=== PATIENT | male | born 1950 | race Caucasian/White ===

== ENCOUNTER → 2016-07-02 | Outpatient (CLI) | payer MEDICARE, OTHER ==
[2016-07-02 13:52] LABS: Calcium 9.4 mg/dL (8.4-10.2); Potassium 4.8 mmol/L (3.5-5.1); Total Bilirubin 1.3 mg/dL (0.2-1.3); Total Protein 7.5 g/dL (6.3-8.2)
== END | disposition home or self-care (01) ==
LOC: LABWHC1 13:01
PROVIDERS: ATTEND Nurse Practitioner Family
DX: N18.3 Chronic kidney disease, stage 3 (moderate) (principal)
CPT/HCPCS: 36415; 80053

== ENCOUNTER → 2016-12-03 | Outpatient (CLI) | payer MEDICARE, OTHER ==
--- NOTE | 2016-12-03 11:34 | US ---
EXAMINATION TYPE: US kidneys/renal and bladder DATE OF EXAM: 12/03/2016 COMPARISON: US CLINICAL HISTORY: N18.3 CKD Stage 3. EXAM MEASUREMENTS: Right Kidney: 11.2 x 5.6 x 5.2 cm Left Kidney: 11.2 x 5.5 x 6.0 cm Obese patient using c pap, making exam technically difficult Right Kidney: No hydronephrosis or masses seen Left Kidney: exophytic cyst off of upper pole measuring 2.1 x 2.2 x 2.0 cm Bladder: wnl There is no evidence for hydronephrosis at this point in time. No nephrolithiasis is seen. Simple ap pearing cyst arising from the upper pole of the left kidney. The urinary bladder is anechoic. Bilate ral ureteral jets are seen. IMPRESSION: Left renal cyst.
[2016-12-03 12:02] LABS: CH 29.2; CHCM 31.2; HDW 2.61; HGB 19.8 gm/dL (13.0-17.5); Hypochromasia Slight; MCH 29.3 pg (25.0-35.0); MCHC 31.1 g/dL (31.0-37.0); MCV 94.1 fL (80.0-100.0); Mean Platelet Volume 7.2; RBC 6.77 m/uL (4.30-5.90); RDW 14.2 % (11.5-15.5); WBC 7.8 k/uL (3.8-10.6)
[2016-12-03 12:35] LABS: Appearance,Urine Clear (Clear); Bilirubin,Urine Negative (Negative); Glucose,Urine (UA) Negative (Negative); Ketones,Urine Negative (Negative); Leukocyte Esterase,Urine Negative (Negative); Nitrite,Urine Negative (Negative); PH, Urine 6.5 (5.0-8.0); Protein,Urine Negative (Negative); Specific Gravity,Urine 1.005 (1.001-1.035); UA Billing (MACRO vs. MICRO) CHEM; Urobilinogen,Urine <2.0 mg/dL (<2.0)
[2016-12-03 13:11] LABS: HCT 63.7 % (39.0-53.0)
[2016-12-03 13:12] LABS: Calcium 9.7 mg/dL (8.4-10.2); Magnesium 2.1 mg/dL (1.6-2.3); Phosphorous 3.5 mg/dL (2.5-4.5); Potassium 4.9 mmol/L (3.5-5.1); Total Bilirubin 1.2 mg/dL (0.2-1.3); Total Protein 7.7 g/dL (6.3-8.2); Uric Acid 4.2 mg/dL (3.5-8.5)
[2016-12-03 13:21] LABS: % Iron Saturation 19.1 % (20-50)
[2016-12-03 18:40] LABS: Urine Creatinine 17.7 mg/dL
== END | disposition home or self-care (01) ==
LOC: RADUSWWP 10:44
PROVIDERS: ATTEND Internal Medicine Nephrology
DX: N28.1 Cyst of kidney, acquired (principal); N18.3 Chronic kidney disease, stage 3 (moderate); E79.0 Hyperuricemia without signs of inflammatory arthritis and tophaceous disease; N25.81 Secondary hyperparathyroidism of renal origin; D64.9 Anemia, unspecified; N39.0 Urinary tract infection, site not specified; R80.9 Proteinuria, unspecified
CPT/HCPCS: 36415; 76770; 80053; 81003; 82043; 82306; 82570; 82728; 83540; 83550; 83735; 83970; 84100; 84550; 85027

== ENCOUNTER → 2016-12-18 | Outpatient (CLI) | payer MEDICARE, OTHER ==
[2016-12-18 14:01] LABS: Basophils % (A) 1 %; CH 29.1; CHCM 30.7; Eosinophils # (A) 0.2 k/uL (0-0.7); Eosinophils % (A) 3 %; HDW 2.59; HGB 18.7 gm/dL (13.0-17.5); Hypochromasia Moderate; Luc # (Auto) 0.13; Luc % (Auto) 2; Lymphocytes # (A) 1.7 k/uL (1.0-4.8); Lymphocytes % (A) 25 %; MCHC 30.4 g/dL (31.0-37.0); MCV 95.4 fL (80.0-100.0); Monocytes # (A) 0.4 k/uL (0-1.0); Monocytes % (A) 6 %; Neutrophils # (A) 4.3 k/uL (1.3-7.7); Neutrophils % (A) 64 %; RBC 6.44 m/uL (4.30-5.90); RDW 13.9 % (11.5-15.5); WBC 6.7 k/uL (3.8-10.6); WBC (Perox) 6.89
[2016-12-18 14:05] LABS: HCT 61.5 % (39.0-53.0)
== END | disposition home or self-care (01) ==
LOC: LABWHC1 13:24
PROVIDERS: ATTEND Internal Medicine Nephrology
DX: N18.3 Chronic kidney disease, stage 3 (moderate) (principal); D63.1 Anemia in chronic kidney disease
CPT/HCPCS: 36415; 85025

== ENCOUNTER → 2018-01-06 | Outpatient (CLI) | payer MEDICARE, OTHER ==
[2018-01-06 12:47] LABS: Basophils % (A) 0 %; Eosinophils # (A) 0.2 k/uL (0-0.7); Eosinophils % (A) 3 %; HGB 18.4 gm/dL (13.0-17.5); Hypochromasia Slight; Lymphocytes # (A) 2.4 k/uL (1.0-4.8); Lymphocytes % (A) 34 %; MCH 29.5 pg (25.0-35.0); MCHC 30.9 g/dL (31.0-37.0); MCV 95.7 fL (80.0-100.0); Mean Platelet Volume 6.8; Monocytes # (A) 0.4 k/uL (0-1.0); Monocytes % (A) 5 %; Neutrophils # (A) 3.8 k/uL (1.3-7.7); Neutrophils % (A) 56 %; Platelet Count 180 k/uL (150-450); RBC 6.25 m/uL (4.30-5.90); RDW 13.1 % (11.5-15.5); WBC 6.9 k/uL (3.8-10.6)
[2018-01-06 12:48] LABS: Appearance,Urine Clear (Clear); Bilirubin,Urine Negative (Negative); Blood,Urine Negative (Negative); Color,Urine Yellow; Glucose,Urine (UA) Negative (Negative); Ketones,Urine Negative (Negative); Leukocyte Esterase,Urine Negative (Negative); Nitrite,Urine Negative (Negative); PH, Urine 5.5 (5.0-8.0); Protein,Urine Negative (Negative)
[2018-01-06 12:49] LABS: HCT 59.8 % (39.0-53.0)
[2018-01-06 13:12] LABS: Calcium 9.1 mg/dL (8.4-10.2); Magnesium 2.1 mg/dL (1.6-2.3); Phosphorus 4.2 mg/dL (2.5-4.5); Potassium 5.2 mmol/L (3.5-5.1); Uric Acid 4.1 mg/dL (3.5-8.5)
[2018-01-06 18:34] LABS: Parathyroid Hormone Intact 265.3 pg/mL (14.0-72.0)
[2018-01-06 18:47] LABS: Iron Saturation 18.56 (15.00-50.00)
[2018-01-06 18:56] LABS: Vitamin D 25 Hydroxy 34.1 ng/mL (30.0-100.0)
== END | disposition home or self-care (01) ==
LOC: LABWHC1 12:08
PROVIDERS: ATTEND Internal Medicine Nephrology
DX: N18.3 Chronic kidney disease, stage 3 (moderate) (principal); D63.1 Anemia in chronic kidney disease; E55.9 Vitamin D deficiency, unspecified; M10.9 Gout, unspecified; N39.0 Urinary tract infection, site not specified
CPT/HCPCS: 36415; 80048; 81003; 82306; 82728; 83540; 83550; 83735; 83970; 84100; 84550; 85025

== ENCOUNTER → 2018-04-25 | Outpatient (CLI) | payer MEDICARE ==
--- NOTE | 2018-04-25 14:27 | XR ---
"EXAMINATION TYPE: XR toes LT DATE OF EXAM: 04/25/2018 COMPARISON: NONE HISTORY: Nonhealing wound TECHNIQUE: 2 views are submitted FINDINGS: There is a destructive process involving the proximal phalanx and distal phalanx fifth digi t. Erosive changes involving the head of the fourth and third metatarsals also noted. Diffuse soft ti ssue edema noted. IMPRESSION: Destructive change involving the fifth digit compatible with osteomyelitis. Involvement o f the fourth digit not excluded correlate with bone scan as clinically warranted. A Yellow level critical message alert has been initiated for Raghav Mitchell MD via the [employer] 36 0 | Critical Results System on 04/25/2018 2:25 PM. This message alert has been sent to Raghav Mitchell MD via the preferences provided by the clinician for the receipt of Radiology Critical Findings. [facility] ID [id number]."
== END | disposition home or self-care (01) ==
LOC: RADXRMAIN 13:03
PROVIDERS: ATTEND Surgery Vascular Surgery
DX: M86.8X8 Other osteomyelitis, other site (principal)

== ENCOUNTER 2021-09-11 10:35 | Inpatient (IN) | payer MEDICARE ==
--- NOTE | 2021-09-11 14:02 | ED ---
General Adult HPI - General Chief complaint: Neuro Symptoms/Deficit Stated complaint: Slurred speech Time Seen by Provider: 09/11/21 13:38 Source: patient, family, RN notes reviewed Mode of arrival: wheelchair Limitations: no limitations - History of Present Illness Initial comments: Patient is a pleasant 71-year-old male presenting to the emergency department with concerns for slurred speech. Symptoms have been intermittent over the past 3 days. Yesterday was worse today. Patient does have some nausea. Patient denies any headache. No confusion. No arm or leg weakness. No history of similar symptoms previously. No new visual changes. - Related Data Home Medications Medication Instructions Recorded Confirmed glipiZIDE [Glucotrol] 5 mg PO BID 05/23/15 08/17/21 Ascorbic Acid [Vitamin C] 1,000 mg PO DAILY 08/17/21 08/17/21 Cholecalciferol [Vitamin D3 (25 25 mcg PO DAILY 08/17/21 08/17/21 Mcg = 1000 Iu)] Furosemide [Lasix] 40 mg PO BID 08/17/21 08/17/21 Insulin Lispro [humaLOG Kwikpen] See Protocol SQ AC-TID PRN 08/17/21 08/17/21 Previous Rx's Medication Instructions Recorded Acetaminophen Tab [Tylenol] 650 mg PO Q6HR PRN tab 08/23/21 Famotidine [Pepcid] 20 mg PO DAILY #30 tab 08/23/21 Insulin Glargine [Lantus Vial] 18 unit SQ HS@2300 #15 units 08/23/21 Losartan [Cozaar] 50 mg PO DAILY #30 tab 08/23/21 Nystatin 100,000 Unit/gm Powd 1 applic TOPICAL BID #1 each 08/23/21 [Mycostatin Powder] Allergies Allergy/AdvReac Type Severity Reaction Status Date / Time allopurinol Allergy Rash/Hives Verified 08/17/21 17:21 Review of Systems ROS Statement: Those systems with pertinent positive or pertinent negative responses have been documented in the HPI. ROS Other: All systems not noted in ROS Statement are negative. Constitutional: Denies: fever Eyes: Denies: eye pain ENT: Denies: ear pain Respiratory: Denies: cough, dyspnea Cardiovascular: Denies: chest pain Endocrine: Denies: fatigue Gastrointestinal: Denies: abdominal pain Genitourinary: Denies: dysuria Musculoskeletal: Denies: back pain Skin: Denies: rash Neurological: Reports: as per HPI. Denies: headache, weakness, numbness, paresthesias, confusion Past Medical History Past Medical History: Heart Failure, Diabetes Mellitus Additional Past Medical History / Comment(s): 10/04/14 Pt presented to [facility] ER with infection L lower leg for approximately one week. He saw his kerfer machine operator who swabbed the area and placed him on Keflex 3 days ago without improvement. Hehasfever and chills. He is being admitted with cellulitis. Other HX: IDDM type II, CKD, PVD, diabetic neuropathy, diabetic retinopathy, pulmonary HTN, pulmonary fibrosis, KIERA with BiPap use,severearthiritis-psoriatic and rheumatoid, osteomyelitis L lower extremity 2005 or 2006, gout, gastritis, sinus problems, cholestatic jaundice 2008 (pt had cholecystectomy 2009), abscess perirectalandscrotal 2003, L shoulder bursitis treated with steroid injections. History of Any Multi-Drug Resistant Organisms: MRSA Date of last positivie culture/infection: 08/18/21 MDRO Source:: Right Foot Past Surgical History: Cholecystectomy Additional Past Surgical History / Comment(s): cataract, Lt 2nd toe amputation Past Anesthesia/Blood Transfusion Reactions: No Reported Reaction Additional Past Anesthesia/Blood Transfusion Reaction / Comment(s): Pt has never recieved blood. Past Psychological History: No Psychological Hx Reported Smoking Status: Never smoker Past Alcohol Use History: Occasional Past Drug Use History: None Reported - Past Family History Father Family Medical History: Cancer, Renal Disease Additional Family Medical History / Comment(s): Father had one kidney removed. Mother Family Medical History: Diabetes Mellitus, Vascular Disorder General Exam Limitations: no limitations General appearance: alert, in no apparent distress Head exam: Present: normocephalic Eye exam: Present: normal appearance, PERRL, EOMI ENT exam: Present: normal oropharynx Neck exam: Present: normal inspection Respiratory exam: Present: normal lung sounds bilaterally Cardiovascular Exam: Present: regular rate, normal rhythm GI/Abdominal exam: Present: soft. Absent: tenderness Extremities exam: Present: normal inspection Neurological exam: Present: alert, oriented X3, CN II-XII intact, other (Patient did have one episode of a few slurred words that lasted around 5 or 6 seconds.). Absent: motor sensory deficit Psychiatric exam: Present: normal affect, normal mood Skin exam: Present: normal color Course Vital Signs 09/11/21 09/11/21 09/11/21 10:35 15:32 15:38 Temperature 98.7 F Pulse Rate 66 77 Respiratory 16 18 Rate Blood Pressure 165/66 194/91 177/75 O2 Sat by Pulse 97 96 Oximetry - Reevaluation(s) Reevaluation #1: 09/11/21 13:57 Patient is nervous regarding lying down for computed tomography scan. Patient states he was CPAP at home. Patient is agreeable to attempt computed tomography scan on his right side using BiPAP. EKG Findings - EKG Comments: EKG Findings:: Sinus bradycardia 58. First-degree AV block WA of 328. QRS 104. QT 417. QTC 414. Left axis. Poor R-wave progression. No acute ST change. Medical Decision Making - Medical Decision Making Patient reevaluated. Patient and family updated. Case discussed with Dr. Liz, who will admit his patient. - Lab Data Result diagrams: 09/11/21 14:17 09/11/21 14:17 Lab Results 09/11/21 09/11/21 09/11/21 Range/Units 14:17 14:17 14:17 WBC 7.9 (3.8-10.6) k/uL RBC 5.12 (4.30-5.90) m/uL Hgb 16.0 (13.0-17.5) gm/dL Hct 48.1 (39.0-53.0) % MCV 93.9 (80.0-100.0) fL MCH 31.2 (25.0-35.0) pg MCHC 33.2 (31.0-37.0) g/dL RDW 14.5 (11.5-15.5) % Plt Count 179 (150-450) k/uL MPV 7.6 Neutrophils % 77 % Lymphocytes % 16 % Monocytes % 4 % Eosinophils % 1 % Basophils % 0 % Neutrophils # 6.1 (1.3-7.7) k/uL Lymphocytes # 1.3 (1.0-4.8) k/uL Monocytes # 0.3 (0-1.0) k/uL Eosinophils # 0.1 (0-0.7) k/uL Basophils # 0.0 (0-0.2) k/uL PT 11.8 (9.0-12.0) sec INR 1.1 (<1.2) APTT 31.5 H (22.0-30.0) sec Sodium 137 (137-145) mmol/L Potassium 5.7 H (3.5-5.1) mmol/L Chloride 99 (98-107) mmol/L Carbon Dioxide 26 (22-30) mmol/L Anion Gap 12 mmol/L BUN 68 H (9-20) mg/dL Creatinine 3.77 H (0.66-1.25) mg/dL Est GFR (CKD-EPI)AfAm 18 (>60 ml/min/1.73 sqM) Est GFR (CKD-EPI)NonAf 15 (>60 ml/min/1.73 sqM) Glucose 178 H (74-99) mg/dL Calcium 9.2 (8.4-10.2) mg/dL Total Bilirubin 1.3 (0.2-1.3) mg/dL AST 50 (17-59) U/L ALT 30 (4-49) U/L Alkaline Phosphatase 109 (38-126) U/L Troponin I (0.000-0.034) ng/mL Total Protein 8.3 H (6.3-8.2) g/dL Albumin 4.1 (3.5-5.0) g/dL 09/11/21 Range/Units 14:17 WBC (3.8-10.6) k/uL RBC (4.30-5.90) m/uL Hgb (13.0-17.5) gm/dL Hct (39.0-53.0) % MCV (80.0-100.0) fL MCH (25.0-35.0) pg MCHC (31.0-37.0) g/dL RDW (11.5-15.5) % Plt Count (150-450) k/uL MPV Neutrophils % % Lymphocytes % % Monocytes % % Eosinophils % % Basophils % % Neutrophils # (1.3-7.7) k/uL Lymphocytes # (1.0-4.8) k/uL Monocytes # (0-1.0) k/uL Eosinophils # (0-0.7) k/uL Basophils # (0-0.2) k/uL PT (9.0-12.0) sec INR (<1.2) APTT (22.0-30.0) sec Sodium (137-145) mmol/L Potassium (3.5-5.1) mmol/L Chloride (98-107) mmol/L Carbon Dioxide (22-30) mmol/L Anion Gap mmol/L BUN (9-20) mg/dL Creatinine (0.66-1.25) mg/dL Est GFR (CKD-EPI)AfAm (>60 ml/min/1.73 sqM) Est GFR (CKD-EPI)NonAf (>60 ml/min/1.73 sqM) Glucose (74-99) mg/dL Calcium (8.4-10.2) mg/dL Total Bilirubin (0.2-1.3) mg/dL AST (17-59) U/L ALT (4-49) U/L Alkaline Phosphatase (38-126) U/L Troponin I 0.018 (0.000-0.034) ng/mL Total Protein (6.3-8.2) g/dL Albumin (3.5-5.0) g/dL - Radiology Data Radiology results: report reviewed (Computed tomography scan of the brain shows atrophy and chronic small vessel changes without acute process.), image reviewed (Chest x-ray shows no acute process.) Disposition Clinical Impression: Transient cerebral ischemia, Acute on chronic renal failure Disposition: ADMITTED IP TO THIS HOSP Is patient prescribed a controlled substance at d/c from ED?: No Referrals: Lazaro Liz MD [Primary Care Provider] - 1-2 days Time of Disposition: 16:48
[2021-09-11 14:41] LABS: Basophils % (A) 0 %; Eosinophils # (A) 0.1 k/uL (0-0.7); Eosinophils % (A) 1 %; HCT 48.1 % (39.0-53.0); Lymphocytes # (A) 1.3 k/uL (1.0-4.8); Lymphocytes % (A) 16 %; MCH 31.2 pg (25.0-35.0); MCHC 33.2 g/dL (31.0-37.0); MCV 93.9 fL (80.0-100.0); Mean Platelet Volume 7.6; Monocytes # (A) 0.3 k/uL (0-1.0); Monocytes % (A) 4 %; Neutrophils # (A) 6.1 k/uL (1.3-7.7); Neutrophils % (A) 77 %; Platelet Count 179 k/uL (150-450); RBC 5.12 m/uL (4.30-5.90); RDW 14.5 % (11.5-15.5); WBC 7.9 k/uL (3.8-10.6)
[2021-09-11] MEDS ORDERED: ONDANSETRON 4 MG/2 ML VIAL IVP STA (14:43)
[2021-09-11 14:58] LABS: INR 1.1 (<1.2); Partial Thromboplastin Time 31.5 sec (22.0-30.0); Prothrombin Time 11.8 sec (9.0-12.0)
[2021-09-11 15:15] LABS: Albumin 4.1 g/dL (3.5-5.0); Calcium 9.2 mg/dL (8.4-10.2); Potassium 5.7 mmol/L (3.5-5.1); Total Bilirubin 1.3 mg/dL (0.2-1.3); Total Protein 8.3 g/dL (6.3-8.2)
--- NOTE | 2021-09-11 16:10 | CT ---
EXAMINATION TYPE: CT brain wo con DATE OF EXAM: 09/11/2021 COMPARISON: None HISTORY: Slurred speech, vomiting. CT DLP: 1094.[address] of the brain was performed. The ventricles, basal cisterns and sulci overlying the cerebral convexities demonstrate mild enlargem ent. There is no evidence for intracranial hemorrhage or sulcal effacement. There is decreased attenuation about the periventricular white matter and deep white matter of both c erebral hemispheres, compatible with chronic small vessel ischemia. Differential diagnosis does inclu de demyelination. No mass effects are seen.No midline shift. Osseous calvarium is intact. If symptoms persist consider MRI. IMPRESSION: 1. Age related atrophic and chronic small vessel ischemic change without acute intracranial process s een at this time.
--- NOTE | 2021-09-11 16:11 | XR ---
EXAMINATION TYPE: XR chest 2V DATE OF EXAM: 09/11/2021 COMPARISON: 07/01/2012 HISTORY: Shortness of breath TECHNIQUE: Frontal and lateral views of the chest are obtained. FINDINGS: Scattered senescent parenchymal changes noted. Hyperinflation compatible with COPD. No evidence for infiltrate. No evidence for atelectasis. Heart size is stable. Mediastinal structures are stable and grossly unremarkable. No evidence for hilar prominence. Degenerative changes dorsal spine. IMPRESSION: 1. No evidence for acute pulmonary disease.
[2021-09-11] MEDS ORDERED: ASPIRIN 325 MG TAB PO STA (16:48)
[2021-09-11] MEDS: SODIUM CHLORIDE 0.9% 1,000 ML IV SCH (17:58)
[2021-09-12] MEDS: SODIUM CHLORIDE 0.9% 1,000 ML IV SCH ×3 (05:23→23:33)
[2021-09-12 05:51] LABS: Glucose,Whole Blood 125 mg/dL (75-99)
[2021-09-12] MEDS ORDERED: LOSARTAN 50 MG TAB PO SCH (09:00)
[2021-09-12] MEDS ORDERED: ASPIRIN 325 MG TAB PO SCH (09:00)
[2021-09-12 09:04] LABS: African American GFR (CKD) 15 (>60 ml/min/1.73 sqM); Anion Gap 14 mmol/L; Blood Urea Nitrogen 77 mg/dL (9-20); Calcium 8.7 mg/dL (8.4-10.2); Carbon Dioxide 22 mmol/L (22-30); Chloride 101 mmol/L (98-107); Glucose 113 mg/dL (74-99); Non-African American GFR(CKD) 13 (>60 ml/min/1.73 sqM); Potassium 5.1 mmol/L (3.5-5.1); Sodium 137 mmol/L (137-145)
--- NOTE | 2021-09-12 09:21 | P.HPIM ---
History of Present Illness H&P Date: 09/12/21 Chief Complaint: Slurred speech This is a history and physical on a 71-year-old white male who has an underlying history of heart failure with diabetes. Underlying history of neuropathy retinopathy pulmonary hypertension with pulmonary fibrosis. Significant history of vasculitis in the past. The patient stated yesterday slurred speech to the point where his family was having difficulty understanding him. No swallowing difficulties. No shortness of breath that was overt. The patient has CPAP device. He is seen this morning with improvement. Speech is seemingly clear. Review of Systems Constitutional: Denies chills, Denies fever Ears, nose, mouth and throat: Denies headache, Denies sore throat Cardiovascular: Denies chest pain, Denies shortness of breath Respiratory: Reports home oxygen, Denies cough Gastrointestinal: Denies abdominal pain, Denies diarrhea, Denies nausea, Denies vomiting Musculoskeletal: Denies myalgias Integumentary: Denies pruritus, Denies rash Past Medical History Past Medical History: Heart Failure, Diabetes Mellitus Additional Past Medical History / Comment(s): 10/04/14 Pt presented to [facility] ER with infection L lower leg for approximately one week. He saw his city administrator who swabbed the area and placed him on Keflex 3 days ago without improvement. Hehasfever and chills. He is being admitted with cellulitis. Other HX: IDDM type II, CKD, PVD, diabetic neuropathy, diabetic retinopathy, pulmonary HTN, pulmonary fibrosis, KIERA with BiPap use,severearthiritis-psoriatic and rheumatoid, osteomyelitis L lower extremity 2005 or 2006, gout, gastritis, sinus problems, cholestatic jaundice 2008 (pt had cholecystectomy 2009), abscess perirectalandscrotal 2003, L shoulder bursitis treated with steroid injections. History of Any Multi-Drug Resistant Organisms: MRSA Date of last positivie culture/infection: 08/18/21 MDRO Source:: Right Foot Past Surgical History: Cholecystectomy Additional Past Surgical History / Comment(s): cataract, Lt 2nd toe amputation Past Anesthesia/Blood Transfusion Reactions: No Reported Reaction Additional Past Anesthesia/Blood Transfusion Reaction / Comment(s): Pt has never recieved blood. Past Psychological History: No Psychological Hx Reported Smoking Status: Never smoker Past Alcohol Use History: Occasional Past Drug Use History: None Reported - Past Family History Father Family Medical History: Cancer, Renal Disease Additional Family Medical History / Comment(s): Father had one kidney removed. Mother Family Medical History: Diabetes Mellitus, Vascular Disorder Medications and Allergies Home Medications Medication Instructions Recorded Confirmed Type glipiZIDE [Glucotrol] 5 mg PO BID 05/23/15 09/11/21 History Ascorbic Acid [Vitamin C] 1,000 mg PO DAILY 08/17/21 09/11/21 History Cholecalciferol [Vitamin D3 (25 25 mcg PO DAILY 08/17/21 09/11/21 History Mcg = 1000 Iu)] Furosemide [Lasix] 40 mg PO BID 08/17/21 09/11/21 History Insulin Lispro [humaLOG Kwikpen] See Protocol SQ AC-TID PRN 08/17/21 09/11/21 History Acetaminophen Tab [Tylenol] 650 mg PO Q6HR PRN tab 08/23/21 09/11/21 Rx Famotidine [Pepcid] 20 mg PO DAILY #30 tab 08/23/21 09/11/21 Rx Losartan [Cozaar] 50 mg PO DAILY #30 tab 08/23/21 09/11/21 Rx Nystatin 100,000 Unit/gm Powd 1 applic TOPICAL BID #1 each 08/23/21 09/11/21 Rx [Mycostatin Powder] Insulin Glargine [Lantus Vial] 15 unit SQ HS@2300 09/11/21 09/11/21 History Allergies Allergy/AdvReac Type Severity Reaction Status Date / Time allopurinol Allergy Rash/Hives Verified 09/11/21 17:01 Physical Exam Vitals: Vital Signs Temp Pulse Resp BP Pulse Ox 09/12/21 03:54 97.0 F L 71 20 126/69 95 09/12/21 02:00 68 18 09/12/21 00:00 74 18 116/57 99 09/11/21 21:39 80 20 137/60 92 L 09/11/21 17:59 72 18 136/51 98 09/11/21 15:38 177/75 09/11/21 15:32 77 18 194/91 96 09/11/21 10:35 98.7 F 66 16 165/66 97 - Constitutional General appearance: no acute distress - EENT Eyes: EOMI - Respiratory Respiratory: bilateral: diminished - Cardiovascular Rhythm: regular Heart sounds: normal: S1, S2 Abnormal Heart Sounds: no S3 Gallop - Gastrointestinal General gastrointestinal: soft, no tenderness - Psychiatric Psychiatric: A&O x's 3 Results CBC & Chem 7: 09/11/21 14:17 09/12/21 07:13 Labs: Abnormal Lab Results - Last 24 Hours (Table) 09/11/21 09/11/21 09/12/21 Range/Units 14:17 14:17 05:50 APTT 31.5 H (22.0-30.0) sec Potassium 5.7 H (3.5-5.1) mmol/L BUN 68 H (9-20) mg/dL Creatinine 3.77 H (0.66-1.25) mg/dL Glucose 178 H (74-99) mg/dL POC Glucose (mg/dL) 125 H (75-99) mg/dL Total Protein 8.3 H (6.3-8.2) g/dL 09/12/21 Range/Units 07:13 APTT (22.0-30.0) sec Potassium (3.5-5.1) mmol/L BUN 77 H (9-20) mg/dL Creatinine 4.24 H (0.66-1.25) mg/dL Glucose 113 H (74-99) mg/dL POC Glucose (mg/dL) (75-99) mg/dL Total Protein (6.3-8.2) g/dL Assessment and Plan (1) Acute on chronic renal failure Current Visit: Yes Status: Acute Code(s): N17.9 - ACUTE KIDNEY FAILURE, UNSPECIFIED; N18.9 - CHRONIC KIDNEY DISEASE, UNSPECIFIED SNOMED Code(s): 131800312 (2) Transient cerebral ischemia Current Visit: Yes Status: Acute Code(s): G45.9 - TRANSIENT CEREBRAL ISCHEMIC ATTACK, UNSPECIFIED SNOMED Code(s): 685535900 (3) Chronic CHF Current Visit: No Status: Acute Code(s): I50.9 - HEART FAILURE, UNSPECIFIED SNOMED Code(s): 08371138 (4) Diabetes Current Visit: No Status: Acute Code(s): E11.9 - TYPE 2 DIABETES MELLITUS WITHOUT COMPLICATIONS SNOMED Code(s): 69244240 (5) High risk for readmission Current Visit: No Status: Acute Code(s): Z91.89 - OTH PERSONAL RISK FACTORS, NOT ELSEWHERE CLASSIFIED SNOMED Code(s): 392940404 Plan: Computed tomography scan shows small vessel disease. Order duplex carotid ultrasound with echocardiogram. PTOT. Creatinine is elevated secondary to baseline. IV hydration. Check CMP in a.m. Appreciate neurology input. Prognosis is guarded secondary to his multiple comorbidities.
[2021-09-12 09:48] LABS: Glucose,Whole Blood 121 mg/dL (75-99)
--- NOTE | 2021-09-12 10:20 | P.CNNES ---
History of Present Illness Consult date: 09/12/21 Requesting physician: Christian Valles Reason for Consult: tia History of Present Illness: This a 71-year-old gentleman medical history of diabetes mellitus, heart failure, diabetic neuropathy, obstructive sleep apnea, pulmonary fibrosis, pulmonary hypertension, chronic kidney insufficiency, peripheral vascular disease who presented emergency department on 09/11/2021 for difficulty getting his words out. He is accompanied by his . It was it start yesterday and patient had difficulty getting his words out. He knew what he wanted to say but some difficulty getting words out. Otherwise denies any other neurological issues with this. He feels he is doing better and agrees. Denies any slurring of speech. Denies history of stroke or TIA in past. He has chronic lower extremity weakness for about 20 years and stated he follows-up with Dr. Liz and Dr. Manley regarding those. Her follows-up with Dr. Manley for his PVD. He denies of low back pain. stated he has infection in right foot. Some of the workup in our facility consisted of: Initial vital signs his blood pressure of 165/66, heart rate of 66, respiratory of 16, temperature of 98.7 Fahrenheit oral and pulse ox of 97% room air. CBC with differential unremarkable. Chemistry panel is the potassium is 5.7, creatinine is 3.77 and the BUN is 68, serum glucose is 178. Otherwise rest of the Chemistry panel was unremarkable. Seems to the patient has worsening of his kidney function. CT of the head is reported as age-related atrophy and chronic small vessel ischemic change without acute intracranial process seen at this time. I per sonally reviewed the CT head and I agree with the report. Review of Systems Review of system: The 12 point system was reviewed and apparent positive and negative per HPI. Past Medical History Past Medical History: Heart Failure, Diabetes Mellitus Additional Past Medical History / Comment(s): 10/04/14 Pt presented to [facility] ER with infection L lower leg for approximately one week. He saw his electromechanical assembly technician who swabbed the area and placed him on Keflex 3 days ago without improvement. H ehasfever and chills. He is being admitted with cellulitis. Other HX: IDDM type II, CKD, PVD, diabetic neuropathy, diabetic retinopathy, pulmonary HTN, pulmonary fibrosis, KIERA with BiPap use,severearthiritis-psoriatic and rheumatoid, osteomyelitis L lower extremity 2005 or 2006, gout, gastritis, sinus problems, cholestatic jaundice 2008 (pt had cholecystectomy 2009), abscess perirectalandscrotal 2003, L shoulder bursitis treated with steroid injections. History of Any Multi-Drug Resistant Organisms: MRSA Date of last positivie culture/infection: 08/18/21 MDRO Source:: Right Foot Past Surgical History: Cholecystectomy Additional Past Surgical History / Comment(s): cataract, Lt 2nd toe amputation Past Anesthesia/Blood Transfusion Reactions: No Reported Reaction Additional Past Anesthesia/Blood Transfusion Reaction / Comment(s): Pt has never recieved blood. Past Psychological History: No Psychological Hx Reported Smoking Status: Never smoker Past Alcohol Use History: Occasional Past Drug Use History: None Reported - Past Family History Father Family Medical History: Cancer, Renal Disease Additional Family Medical History / Comment(s): Father had one kidney removed. Mother Family Medical History: Diabetes Mellitus, Vascular Disorder Medications and Allergies Home Medications Medication Instructions Recorded Confirmed Type glipiZIDE [Glucotrol] 5 mg PO BID 05/23/15 09/11/21 History Ascorbic Acid [Vitamin C] 1,000 mg PO DAILY 08/17/21 09/11/21 History Cholecalciferol [Vitamin D3 (25 25 mcg PO DAILY 08/17/21 09/11/21 History Mcg = 1000 Iu)] Furosemide [Lasix] 40 mg PO BID 08/17/21 09/11/21 History Insulin Lispro [humaLOG Kwikpen] See Protocol SQ AC-TID PRN 08/17/21 09/11/21 History Acetaminophen Tab [Tylenol] 650 mg PO Q6HR PRN tab 08/23/21 09/11/21 Rx Famotidine [Pepcid] 20 mg PO DAILY #30 tab 08/23/21 09/11/21 Rx Losartan [Cozaar] 50 mg PO DAILY #30 tab 08/23/21 09/11/21 Rx Nystatin 100,000 Unit/gm Powd 1 applic TOPICAL BID #1 each 08/23/21 09/11/21 Rx [Mycostatin Powder] Insulin Glargine [Lantus Vial] 15 unit SQ HS@2300 09/11/21 09/11/21 History Allergies Allergy/AdvReac Type Severity Reaction Status Date / Time allopurinol Allergy Rash/Hives Verified 09/11/21 17:01 Physical Examination - Vital Signs Vital Signs: Vital Signs Temp Pulse Resp BP Pulse Ox 09/12/21 03:54 97.0 F L 71 20 126/69 95 09/12/21 02:00 68 18 09/12/21 00:00 74 18 116/57 99 09/11/21 21:39 80 20 137/60 92 L 09/11/21 17:59 72 18 136/51 98 09/11/21 15:38 177/75 09/11/21 15:32 77 18 194/91 96 09/11/21 10:35 98.7 F 66 16 165/66 97 GENERAL: The patient is lying in bed and is not in acute distress. CHEST: The heart rate is regular rate rhythm. No murmurs to auscultation. LUNG: Clear to auscultation bilaterally no wheezing noted throughout. Not labored breathing. On CPAP machine ABDOMEN/GI: Bowel sounds present in all 4 quadrants. No tenderness to palpation throughout. NEUROLOGICAL: Higher mental function: The patient is awake, alert, oriented to self, place and time. Patient is following commands. No aphasia and no neglect. Cranial nerves: The pupils are round, equal and reactive to light and accommodation. Visual perales are full to confrontation throughout. Extraocular movement is intact no nystagmus is noted. Facial sensation is normal to touch throughout. The facial strength is normal throughout. Hearing is normal bilaterally to hand rub. Tongue is midline and moved [id number] without any difficulty. He sounded mild dysarthria (but per baseline since does not have denture). Shoulder shrug is normal bilaterally. Motor: Gait is deferred because of chronic weakness of leg. The strength is able to lift all extremities above gravity (upper strength > lower. Old). Normal tone. Cerebellum: Normal finger to nose bilaterally. Sensation: Sensation is normal to touch throughout. Reflexes (right/left): 1+ throughout. Plantars are downgoing bilaterally. Results - Laboratory Findings CBC and BMP: 09/11/21 14:17 09/12/21 07:13 Abnormal Lab Findings: Abnormal Labs 09/11/21 09/11/21 09/12/21 14:17 14:17 05:50 APTT 31.5 H Potassium 5.7 H BUN 68 H Creatinine 3.77 H Glucose 178 H POC Glucose (mg/dL) 125 H Total Protein 8.3 H Assessment and Plan Assessment: Acute transient expressive aphasia: Probable transient ischemic attack especially with the patient's multiple risk factors. Acute on chronic kidney insufficiency Uncontrolled hypertension Diabetes mellitus Chronic bilateral lower extremity weakness for 20 years Diabetic neuropathy SLEEP apnea Pumonary fibrosis Pulmonary hypertension Plan: In the ED the patient the was given aspirin 325 once then was started on aspirin 325 daily. I decreased the aspirin from 325-81 mg daily an in addition added Plavix 75mg daily. Recommend the patient to be on dual antiplatelets for 21 days and after 21 days stop Plavix but continue aspirin indefinitely. Start the patient on Lipitor 20 mg daily at bedtime for secondary stroke prophylaxis Carotid duplex, 2-D echo, lipid panel is ordered and is pending I ordered TSH, as well as hemoglobin A1c. Continue neuro checks Placed on cardiac monitoring PT, OT and PRESS TOOL MAKER are consulted Ordered CK, vitamin B12 and folate level. Regarding leg weakness bilaterally he had for 20 years and defer work-up as outpatient. We'll defer the rest of the medical management to the primary team For DVT prophylaxis start the patient on subcu heparin 5000 units every 12 hours. Recommend patient to follow-up as outpatient for 1-2 weeks. The patient is discussed with the patient and his who is at bedside. Thank you for consultation. Chente Martinez M.D. Neuro-hospitalist Time with Patient: Greater than 30
[2021-09-12] MEDS: CHOLECALCIFEROL 25 MCG (1000 IU) TABLET PO SCH ×2 (10:21→10:22)
[2021-09-12] MEDS: ASCORBIC ACID 500 MG TAB PO SCH (10:21)
[2021-09-12] MEDS: CLOPIDOGREL 75 MG TAB PO SCH (10:21)
[2021-09-12] MEDS: FUROSEMIDE 40 MG TAB PO SCH ×2 (10:22→16:25)
[2021-09-12] MEDS: ASPIRIN 81 MG PO SCH (10:22)
[2021-09-12] MEDS: FAMOTIDINE 20 MG TAB PO SCH (10:22)
[2021-09-12 10:49] LABS: Chol/HDL Ratio 6.15 Ratio; LDL Cholesterol,Calculated 131.1 mg/dL (0.0-131.0)
--- NOTE | 2021-09-12 11:48 | US ---
EXAMINATION TYPE: US carotid duplex BILAT DATE OF EXAM: 09/12/2021 COMPARISON: NONE CLINICAL HISTORY: TIA. aphasia EXAM MEASUREMENTS: RIGHT: Peak Systolic Velocity (PSV) cm/sec ----- Right CCA: 57.3 ----- Right ICA: 125.8 ----- Right ECA: 189.3 ICA/CCA ratio: 2.2 RIGHT: End Diastole cm/sec ----- Right CCA: 11.6 ----- Right ICA: 24.1 ----- Right ECA: 0 LEFT: Peak Systolic Velocity (PSV) cm/sec ----- Left CCA: 100.3 ----- Left ICA: 112.1 ----- Left ECA: 153 ICA/CCA ratio: 1.1 LEFT: End Diastole cm/sec ----- Left CCA: 11.6 ----- Left ICA: 17.5 ----- Left ECA: 0 VERTEBRALS (direction of flow): Right Vertebral: Antegrade Left Vertebral: Antegrade Rhythm: Normal Bilateral plaque visualized. No significant stenosis seen Grayscale, color Doppler, spectral Doppler imaging performed of the carotid arteries. Waveform analys is does not show significant stenosis of the internal carotid artery on the left. IMPRESSION: Findings borderline for hemodynamic significant stenosis of the proximal internal carotid artery on the right likely corresponding to what is likely approximately 50% diameter reduction by D oppler criteria, an indirect measurement of carotid stenosis. MRA or CTA could be performed for meena r evaluation. Criteria for Assigning % of Stenosis / Diameter reduction (Estimation based on the indirect measurements of the internal carotid artery velocities (ICA PSV). 1. Normal (no stenosis)=ICA PSV < 125 cm/s: ratio < 2.0: ICA EDV<40 cm/s. 2. Less than 50% stenosis=ICA PSV < 125 cm/s: ratio < 2.0: ICA EDV<40 cm/s. 3. 50 to 69% stenosis=ICA PSV of 125 to 230 cm/s: ration 2.0 ? 4.0: ICA EDV 40-100 cm/s. 4. Greater than 70% stenosis to near occlusion= ICA PSV > 230 cm/s: ratio > 4.0: ICA EDV > 100 cm/s. 5. Near occlusion= ICA PSV velocities may be low or undetectable: variable ratio and ICA EDV. 6. Total occlusion=unable to detect flow.
[2021-09-12] MEDS: HEPARIN SODIUM,PORCINE/PF 5,000 UNIT/0.5 ML SYRINGE SQ SCH ×2 (13:25→20:26)
[2021-09-12 20:14] LABS: Glucose,Whole Blood 247 mg/dL (75-99)
[2021-09-12] MEDS: CEFEPIME 1 GM in SODIUM CHLORIDE 0.9% 50 ML IVPB SCH (20:26)
[2021-09-12] MEDS ORDERED: ATORVASTATIN 20 MG TAB PO SCH (21:00)
[2021-09-12] MEDS: LABETALOL 5 MG/ML VIAL MDV IVP SCH ×6 (22:16→23:43)
[2021-09-12] MEDS ORDERED: SODIUM CHLORIDE 0.45% 1,000 ML IV SCH (22:30)
[2021-09-12] MEDS ORDERED: LABETALOL 5 MG/ML VIAL MDV IVP PRN (22:51)
[2021-09-12] MEDS: INSULIN DETEMIR (LEVEMIR) 100 UNIT/ML SYR SQ SCH (23:33)
[2021-09-12] MEDS: amLODIPine 5 MG TAB PO SCH (23:33)
[2021-09-12 23:34] LABS: Glucose,Whole Blood 200 mg/dL (75-99)
--- NOTE | 2021-09-13 00:34 | P.CONS ---
History of Present Illness - Reason for Consult Consult date: 09/12/21 Right fifth toe osteomyelitis Requesting physician: Lazaro Liz - Chief Complaint slurred speech x one day - History of Present Illness Patient is a 71-year male was recently admitted at this facility and this patient did have a wound to the right fifth toe patient did have abnormal x-rays followed by bone scan which was suspicious for osteomyelitis local cultu re positive for MRSA and providencia, patient did have borderline kidney function is to get a PICC line and was advised daptomycin and cefepime to finish his 6-week course of therapy, with the patient is currently receiving at home since 08/24/2021, patient did have a follow-up visit in the office on 09/04/2021 and did have marked improvement to the right fifth toe and the patient was doing better patient now presenting to [facility] ER yesterday afternoon with concern for slurred speech and this patient symptom has been intermittent over the last 3 days before presenting to hospital however was worse the day of presentation to the hospital patient was complaining of some nausea but no focal weakness denies having any headache no chest pain or shortness of breath or cough no nausea no vomiting no abdominal pain no diarrhea or pain to the right fifth toe, patient has been evaluated by neurology services and stroke work-up is in progress infectious disease was consulted for management of his antibiotics, patient noticed to have significant worsening of his kidney function on this admission patient has been afebrile and his white count has been normal Review of Systems Positive point has been mentioned in the HPI rest of the systems are negative Past Medical History Past Medical History: Heart Failure, Diabetes Mellitus Additional Past Medical History / Comment(s): 10/04/14 Pt presented to [facility] ER with infection L lower leg for approximately one week. He saw his cordwainer who swabbed the area and placed him on Keflex 3 days ago without improvement. Hehasfever and chills. He is being admitted with cellulitis. Other HX: IDDM type II, CKD, PVD, diabetic neuropathy, diabetic retinopathy, pulmonary HTN, pulmonary fibrosis, KIERA with BiPap use,severearthiritis-psoriatic and rheumatoid, osteomyelitis L lower extremity 2005 or 2006, gout, gastritis, sinus problems, cholestatic jaundice 2008 (pt had cholecystectomy 2009), abscess perirectalandscrotal 2003, L shoulder bursitis treated with steroid injections. History of Any Multi-Drug Resistant Organisms: MRSA Year Discovered:: 08/18/21 MDRO Source:: Right Foot Past Surgical History: Cholecystectomy Additional Past Surgical History / Comment(s): cataract, Lt 2nd toe amputation Past Anesthesia/Blood Transfusion Reactions: No Reported Reaction Additional Past Anesthesia/Blood Transfusion Reaction / Comm: Pt has never recieved blood. Past Psychological History: No Psychological Hx Reported Smoking Status: Never smoker Past Alcohol Use History: Occasional Past Drug Use History: None Reported - Past Family History Father Family Medical History: Cancer, Renal Disease Additional Family Medical History / Comment(s): Father had one kidney removed. Mother Family Medical History: Diabetes Mellitus, Vascular Disorder Medications and Allergies Home Medications Medication Instructions Recorded Confirmed Type glipiZIDE [Glucotrol] 5 mg PO BID 05/23/15 09/11/21 History Ascorbic Acid [Vitamin C] 1,000 mg PO DAILY 08/17/21 09/11/21 History Cholecalciferol [Vitamin D3 (25 25 mcg PO DAILY 08/17/21 09/11/21 History Mcg = 1000 Iu)] Furosemide [Lasix] 40 mg PO BID 08/17/21 09/11/21 History Insulin Lispro [humaLOG Kwikpen] See Protocol SQ AC-TID PRN 08/17/21 09/11/21 History Acetaminophen Tab [Tylenol] 650 mg PO Q6HR PRN tab 08/23/21 09/11/21 Rx Famotidine [Pepcid] 20 mg PO DAILY #30 tab 08/23/21 09/11/21 Rx Losartan [Cozaar] 50 mg PO DAILY #30 tab 08/23/21 09/11/21 Rx Nystatin 100,000 Unit/gm Powd 1 applic TOPICAL BID #1 each 08/23/21 09/11/21 Rx [Mycostatin Powder] Insulin Glargine [Lantus Vial] 15 unit SQ HS@2300 09/11/21 09/11/21 History Allergies Allergy/AdvReac Type Severity Reaction Status Date / Time allopurinol Allergy Rash/Hives Verified 09/11/21 17:01 Physical Exam Vitals: Vital Signs Temp Pulse Resp BP Pulse Ox 09/12/21 03:54 97.0 F L 71 20 126/69 95 09/12/21 02:00 68 18 09/12/21 00:00 74 18 116/57 99 09/11/21 21:39 80 20 137/60 92 L 09/11/21 17:59 72 18 136/51 98 09/11/21 15:38 177/75 09/11/21 15:32 77 18 194/91 96 GENERAL DESCRIPTION: An elderly male lying in bed, no distress. No tachypnea or accessory muscle of respiration use. HEENT: Shows Pallor , no scleral icterus. Oral mucous membrane is dry. No pharyngeal erythema or thrush NECK: Trachea central, no thyromegaly. LUNGS: Unlabored breathing. Clear to auscultation anteriorly. No wheeze or crackle. HEART: S1, S2, regular rate and rhythm. No loud murmur ABDOMEN: Soft, no tenderness , guarding or rigidity, no organomegaly EXTREMITIES: Right fifth toe lateral border wound has decreased in size overall swelling redness has decreased no drainage SKIN: No rash, no masses palpable. NEUROLOGICAL: The patient is awake, alert, oriented x3, mood and affect normal. Results CBC & Chem 7: 09/11/21 14:17 09/12/21 07:13 Labs: Abnormal Lab Results - Last 24 Hours (Table) 09/11/21 09/11/21 09/12/21 Range/Units 14:17 14:17 05:50 APTT 31.5 H (22.0-30.0) sec Potassium 5.7 H (3.5-5.1) mmol/L BUN 68 H (9-20) mg/dL Creatinine 3.77 H (0.66-1.25) mg/dL Glucose 178 H (74-99) mg/dL POC Glucose (mg/dL) 125 H (75-99) mg/dL Total Protein 8.3 H (6.3-8.2) g/dL LDL Cholesterol, Calc (0.0-131.0) mg/dL HDL Cholesterol (40.00-60.00) mg/dL 09/12/21 09/12/21 09/12/21 Range/Units 07:13 07:13 09:45 APTT (22.0-30.0) sec Potassium (3.5-5.1) mmol/L BUN 77 H (9-20) mg/dL Creatinine 4.24 H (0.66-1.25) mg/dL Glucose 113 H (74-99) mg/dL POC Glucose (mg/dL) 121 H (75-99) mg/dL Total Protein (6.3-8.2) g/dL LDL Cholesterol, Calc 131.1 H (0.0-131.0) mg/dL HDL Cholesterol 29.90 L (40.00-60.00) mg/dL Assessment and Plan (1) Osteomyelitis Current Visit: No Status: Acute Code(s): M86.9 - OSTEOMYELITIS, UNSPECIFIED SNOMED Code(s): 88202261 Plan: 1patient with right fifth toe diabetic foot infection with underlying osteomyelitis on the basis of plain x-rays and bone scan local culture positive for MRSA and Providencia in this patient treated with cefepime and daptomycin now presented to hospital with slurred speech and is being investigated for possible CVA clinically doubt symptoms related to his antibiotics, patient did have significant worsening of his kidney function and may be contributing to some of his symptoms. 2patient will be continued on daptomycin with a dose adjusted to the kidney function along with cefepime. 3local wound care with Aquacel silver dressing change every 48 hour. at the bedside multiple questions were answered in layman term We will follow on clinical condition and cultures to further adjust medication if needed Thank you for this consultation will follow this patient along with you
[2021-09-13] MEDS: LABETALOL 5 MG/ML VIAL MDV IVP SCH ×2 (04:33→04:34)
[2021-09-13 06:14] LABS: Glucose,Whole Blood 126 mg/dL (75-99)
--- NOTE | 2021-09-13 07:43 | CA ---
Transthoracic Echo Report Name: Madi Sears Age: 71 Gender: M : 1950 Exam Date: 09/12/2021 11:11 Exam Location: [facility] Ht (in): 72 Wt (lb): 262 Ordering Physician: Lazaro Liz MD Attending/Referring Phys: Admin Dir Jennyfer Oviedo RDCS Procedure CPT: Indications: tia Cardiac Hx: Technical Quality: Technically difficult study Contrast 1: Lumason Total Dose (mL): 3 Contrast 2: Total Dose (mL): MEASUREMENTS (Male / Female) Normal Values 2D ECHO LV Diastolic Diameter PLAX 3.6 cm 4.2 - 5.9 / 3.9 - 5.3 cm LV Systolic Diameter PLAX 3.0 cm IVS Diastolic Thickness 1.1 cm 0.6 - 1.0 / 0.6 - 0.9 cm LVPW Diastolic Thickness 1.1 cm 0.6 - 1.0 / 0.6 - 0.9 cm LV Relative Wall Thickness 0.6 RV Internal Dim ED PLAX 3.4 cm LVOT Diameter 2.3 cm LA Systolic Diameter LX 3.0 cm 3.0 - 4.0 / 2.7 - 3.8 cm M-MODE Aortic Root Diameter MM 3.4 cm MV E Point Septal Separation 0.7 cm AV Cusp Separation MM 1.7 cm DOPPLER AV Peak Velocity 157.7 cm/s AV Peak Gradient 10.0 mmHg MV Area PHT 3.3 cm Mitral E Point Velocity 74.0 cm/s Mitral A Point Velocity 103.2 cm/s Mitral E to A Ratio 0.7 MV Deceleration Time 229.4 ms TR Peak Velocity 301.1 cm/s TR Peak Gradient 36.3 mmHg Right Ventricular Systolic Press 41.3 mmHg FINDINGS Left Ventricle Left ventricular ejection fraction is estimated at 55-60 %. Normal Left ventricular size, wall thickness, systolic function with no obvious regional wall motion abnormalities Right Ventricle Mild right ventricular dilatation. Mild pulmonary hypertension. Right Atrium Normal right atrial size. Left Atrium Normal left atrial size. Mitral Valve Structurally normal mitral valve. Aortic Valve Thickened aortic valve without stenosis. Tricuspid Valve Mild tricuspid regurgitation. Pulmonic Valve Structurally normal pulmonic valve. Pericardium No pericardial effusion. Aorta Normal size aortic root and proximal ascending aorta. CONCLUSIONS Normal LV size and systolic function. Aortic valve is moderate calcification and sclerosis but no significant gradient is noted. No pericardial effusion Previewed by: Dr. Radha Cotter MD (Electronically Signed) Final Date: 13 September 2021 07:41
[2021-09-13 07:49] LABS: Albumin 3.6 g/dL (3.5-5.0); Calcium 8.6 mg/dL (8.4-10.2); Magnesium 2.2 mg/dL (1.6-2.3); Potassium 4.9 mmol/L (3.5-5.1); Total Bilirubin 0.9 mg/dL (0.2-1.3); Total Protein 7.3 g/dL (6.3-8.2)
--- NOTE | 2021-09-13 08:50 | P.PN ---
Subjective Principal diagnosis: TIA The patient is a 71-year-old white male essentially meant for TIA with acute kidney injury and element of hypertensive urgency yesterday. Medication was started on his blood pressure seems to be nominal. We will continue to follow for acute kidney injury. Carotid Doppler showed possible 50% stenosis. Roni rderline hemodynamic issue. Cardiac echocardiogram is nominal. The patient is stating he feels much better with no slurred speech Objective - Vital Signs Vital signs: Vital Signs Temp 97.9 F 09/13/21 04:30 Pulse 60 09/13/21 04:30 Resp 18 09/13/21 04:30 BP 141/71 09/13/21 04:30 Pulse Ox 97 09/13/21 04:30 Intake & Output 09/12/21 09/13/21 09/13/21 18:59 06:59 18:59 Intake Total 220 Output Total 225 Balance -225 220 Weight 116.8 kg Intake: Oral 220 Output: Urine 225 Other: Voiding Method Urinal - Constitutional General appearance: Present: no acute distress - Neck Neck: Absent: lymphadenopathy - Respiratory Respiratory: bilateral: CTA - Cardiovascular Rhythm: regular Heart sounds: normal: S1, S2 Abnormal Heart Sounds: Absent: S3 Gallop - Gastrointestinal General gastrointestinal: Present: soft. Absent: tenderness - Labs CBC & Chem 7: 09/11/21 14:17 09/13/21 06:32 Labs: Abnormal Lab Results - Last 24 Hours (Table) 09/12/21 09/12/21 09/12/21 Range/Units 07:13 07:13 07:13 BUN 77 H (9-20) mg/dL Creatinine 4.24 H (0.66-1.25) mg/dL Glucose 113 H (74-99) mg/dL POC Glucose (mg/dL) (75-99) mg/dL Hemoglobin A1c 6.8 H (0.0-6.0) % LDL Cholesterol, Calc 131.1 H (0.0-131.0) mg/dL HDL Cholesterol 29.90 L (40.00-60.00) mg/dL 09/12/21 09/12/21 09/12/21 Range/Units 09:45 20:13 23:32 BUN (9-20) mg/dL Creatinine (0.66-1.25) mg/dL Glucose (74-99) mg/dL POC Glucose (mg/dL) 121 H 247 H 200 H (75-99) mg/dL Hemoglobin A1c (0.0-6.0) % LDL Cholesterol, Calc (0.0-131.0) mg/dL HDL Cholesterol (40.00-60.00) mg/dL 09/13/21 09/13/21 Range/Units 06:13 06:32 BUN 81 H (9-20) mg/dL Creatinine 5.25 H (0.66-1.25) mg/dL Glucose 123 H (74-99) mg/dL POC Glucose (mg/dL) 126 H (75-99) mg/dL Hemoglobin A1c (0.0-6.0) % LDL Cholesterol, Calc (0.0-131.0) mg/dL HDL Cholesterol (40.00-60.00) mg/dL Assessment and Plan (1) Acute on chronic renal failure Current Visit: Yes Status: Acute Code(s): N17.9 - ACUTE KIDNEY FAILURE, UNSPECIFIED; N18.9 - CHRONIC KIDNEY DISEASE, UNSPECIFIED SNOMED Code(s): 861527028 (2) Transient cerebral ischemia Current Visit: Yes Status: Acute Code(s): G45.9 - TRANSIENT CEREBRAL ISCHEMIC ATTACK, UNSPECIFIED SNOMED Code(s): 221683507 (3) Chronic CHF Current Visit: No Status: Acute Code(s): I50.9 - HEART FAILURE, UNSPECIFIED SNOMED Code(s): 40111109 (4) Diabetes Current Visit: No Status: Acute Code(s): E11.9 - TYPE 2 DIABETES MELLITUS WITHOUT COMPLICATIONS SNOMED Code(s): 91962081 (5) High risk for readmission Current Visit: No Status: Acute Code(s): Z91.89 - [facility] PERSONAL RISK FACTORS, NOT ELSEWHERE CLASSIFIED SNOMED Code(s): 017215869 Plan: Computed tomography scan shows small vessel disease.\ PTOT. Creatinine is elevated secondary to baseline. IV hydration. Check CMP in a.m. Appreciate neurology input. Prognosis is guarded secondary to his multiple comorbidities. Watch blood pressure closely. Appreciate multiple consultants input. Echocardiogram and carotid Doppler and CT noted.
[2021-09-13] MEDS: HEPARIN SODIUM,PORCINE/PF 5,000 UNIT/0.5 ML SYRINGE SQ SCH ×2 (08:55→20:32)
[2021-09-13] MEDS: CEFEPIME 1 GM in SODIUM CHLORIDE 0.9% 50 ML IVPB SCH ×2 (08:56→20:32)
[2021-09-13] MEDS: CYANOCOBALAMIN 500 MCG TAB PO SCH (08:56)
[2021-09-13] MEDS: ASCORBIC ACID 500 MG TAB PO SCH (08:56)
[2021-09-13] MEDS: ASPIRIN 81 MG PO SCH (08:57)
[2021-09-13] MEDS: amLODIPine 5 MG TAB PO SCH (08:57)
[2021-09-13] MEDS: CLOPIDOGREL 75 MG TAB PO SCH (08:57)
[2021-09-13] MEDS: FAMOTIDINE 20 MG TAB PO SCH (08:57)
--- NOTE | 2021-09-13 10:21 | P.NPCON ---
History of Present Illness - Reason for Consult acute renal failure, chronic renal failure - History of Present Illness Reason for consultation: Acute kidney injury on chronic kidney disease History of present illness: Patient is a 71-year-old male seen in consultation for acute kidney injury on chronic kidney disease. Patient presented to the hospital with slurred speech concerning for stroke. Brain CT showed no acute changes. Patient has history of chronic kidney disease IIIB/4 with baseline creatinine in the range of 1.7-2. Etiology is diabetic kidney disease. Patient was last seen in the office in 2019. He was admitted to the hospital earlier this month with fifth toe osteomyelitis with cultures positive for MRSA and prevention. He has been receiving IV antibiotics. He has been receiving cefepime and daptomycin. Patient's creatinine on admission was 3.77 and is up to 5.25 today. He has been receiving oral Lasix as well as IV fluids with normal saline running at 100 mL an hour. He denies any hematuria or dysuria but states that he is making less urine than usual. Overnight his urine output was about 200 mL. Patient has long-standing history of diabetes. He also takes losartan at home. Patient admits to history of CHF and echocardiogram done this admission showed preserved ejection fraction. He denies chest pain or shortness of breath. No vomiting or diarrhea. Oral intake is good. Denies family history of renal disease. Patient states he's starting to feel bloated from the IV fluids. Hemodynamically stable. Vital signs are stable. General: Awake and alert. No acute distress. HEENT: Head exam is unremarkable. LUNGS: Breath sounds decreased. HEART: Rate and Rhythm are regular. ABDOMEN: Soft, obese. EXTREMITITES: 1+ edema. Chronic changes noted. No drainage. Past Medical History Past Medical History: Heart Failure, Diabetes Mellitus Additional Past Medical History / Comment(s): 10/04/14 Pt presented to [facility] ER with infection L lower leg for approximately one week. He saw his bank operations officer who swabbed the area and placed him on Keflex 3 days ago without improvement. Hehasfever and chills. He is being admitted with cellulitis. Other HX: IDDM type II, CKD, PVD, diabetic neuropathy, diabetic retinopathy, pulmonary HTN, pulmonary fibrosis, KIERA with BiPap use,severearthiritis-psoriatic and rheumatoid, osteomyelitis L lower extremity 2005 or 2006, gout, gastritis, sinus problems, cholestatic jaundice 2008 (pt had cholecystectomy 2009), abscess perirectalandscrotal 2003, L shoulder bursitis treated with steroid injections. History of Any Multi-Drug Resistant Organisms: MRSA Date of last positivie culture/infection: 08/18/21 MDRO Source:: Right Foot Past Surgical History: Cholecystectomy Additional Past Surgical History / Comment(s): cataract, Lt 2nd toe amputation Past Anesthesia/Blood Transfusion Reactions: No Reported Reaction Additional Past Anesthesia/Blood Transfusion Reaction / Comment(s): Pt has never recieved blood. Past Psychological History: No Psychological Hx Reported Smoking Status: Never smoker Past Alcohol Use History: Occasional Past Drug Use History: None Reported - Past Family History Father Family Medical History: Cancer, Renal Disease Additional Family Medical History / Comment(s): Father had one kidney removed. Mother Family Medical History: Diabetes Mellitus, Vascular Disorder Medications and Allergies Home Medications Medication Instructions Recorded Confirmed Type glipiZIDE [Glucotrol] 5 mg PO BID 05/23/15 09/11/21 History Ascorbic Acid [Vitamin C] 1,000 mg PO DAILY 08/17/21 09/11/21 History Cholecalciferol [Vitamin D3 (25 25 mcg PO DAILY 08/17/21 09/11/21 History Mcg = 1000 Iu)] Furosemide [Lasix] 40 mg PO BID 08/17/21 09/11/21 History Insulin Lispro [humaLOG Kwikpen] See Protocol SQ AC-TID PRN 08/17/21 09/11/21 History Acetaminophen Tab [Tylenol] 650 mg PO Q6HR PRN tab 08/23/21 09/11/21 Rx Famotidine [Pepcid] 20 mg PO DAILY #30 tab 08/23/21 09/11/21 Rx Losartan [Cozaar] 50 mg PO DAILY #30 tab 08/23/21 09/11/21 Rx Nystatin 100,000 Unit/gm Powd 1 applic TOPICAL BID #1 each 08/23/21 09/11/21 Rx [Mycostatin Powder] Insulin Glargine [Lantus Vial] 15 unit SQ HS@2300 09/11/21 09/11/21 History Allergies Allergy/AdvReac Type Severity Reaction Status Date / Time allopurinol Allergy Rash/Hives Verified 09/11/21 17:01 Physical Exam Vitals: Vital Signs Temp Pulse Pulse Resp BP BP Pulse Ox 09/13/21 08:00 65 16 158/73 97 09/13/21 04:30 97.9 F 60 18 141/71 97 09/12/21 23:30 98.4 F 64 18 140/69 98 09/12/21 22:45 62 136/75 09/12/21 21:43 203/68 09/12/21 19:58 97.5 F L 61 20 182/73 96 09/12/21 16:44 65 18 146/80 97 Intake and Output 09/12/21 09/13/21 09/13/21 22:59 06:59 14:59 Intake Total 220 Output Total 225 Balance -225 220 Intake: Oral 220 Output: Urine 225 Other: Voiding Method Urinal Urinal Weight 116.8 kg Results - Lab Results Most recent lab results Calcium 8.6 mg/dL (8.4-10.2) 09/13/21 06:32 Magnesium 2.2 mg/dL (1.6-2.3) 09/13/21 06:32 09/11/21 14:17 09/13/21 06:32 Assessment and Plan Plan: Assessment: 1. Acute kidney injury secondary to ATN secondary to infection and cardiorenal syndrome. Creatinine was 3.77 on admission and is 5.25 today. Rule out retention and obstructive uropathy. 2. Chronic kidney disease stage IIIB/4 with baseline creatinine in the range of 1.72 secondary to diabetic kidney disease. 3. 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 Infectious disease following. 4. Diabetes mellitus. 5. Hypertension with chronic kidney disease. Stable. 6. Volume overload. 7. Acute on chronic diastolic CHF. Plan: Hep-Lock IV fluids. Add IV Lasix 60 mg twice daily. Agree with holding losartan for now. Check urinalysis. Check renal ultrasound. Check urine eosinophils. Avoid nephrotoxins. Continue to monitor renal function and urine output. Bladder scan to rule out urinary retention. Strict I's and O's.eos Continue to assess daily for need for renal replacement therapy. Discussed with patient. Thank you for the consultation. I will continue to follow the patient with you during his hospital stay.
--- NOTE | 2021-09-13 11:29 | US ---
EXAMINATION TYPE: US kidneys/renal and bladder DATE OF EXAM: 09/13/2021 COMPARISON: NONE CLINICAL HISTORY: miriam. EXAM MEASUREMENTS: Right Kidney: 11.5 x 5.9 x 6.1 cm Left Kidney: 11.1 x 6.2 x 6.1 cm Technically difficult study due to morbid obesity and patient position. Right Kidney: lobular contour Left Kidney: exophytic cyst measuring 2.8 x 3.4 x 2.6cm Bladder: not visualized, not distended There is no evidence for hydronephrosis at this point in time. No nephrolithiasis is seen. No isael s are identified. Cortical medullary differentiation is maintained. IMPRESSION: No evident hydronephrosis.
[2021-09-13 11:35] LABS: Glucose,Whole Blood 137 mg/dL (75-99)
[2021-09-13 11:57] LABS: Amorphous Sediment,Urine Rare /hpf; Appearance,Urine Clear (Clear); Bilirubin,Urine Negative (Negative); Blood,Urine Moderate (Negative); Color,Urine Light Yellow; Glucose,Urine (UA) Negative (Negative); Ketones,Urine Negative (Negative); Leukocyte Esterase,Urine Negative (Negative); Mucus,Urine Rare /hpf; Nitrite,Urine Negative (Negative); PH, Urine 5.5 (5.0-8.0); Protein,Urine 1+ (Negative); RBC,Urine 3 /hpf (0-5); Specific Gravity,Urine 1.008 (1.001-1.035); Urobilinogen,Urine <2.0 mg/dL (<2.0); WBC,Urine 1 /hpf (0-5)
--- NOTE | 2021-09-13 12:02 | P.PN ---
Subjective Progress Note Date: 09/13/21 The patient is seen at bedside and feels he is at baseline from neurological perspective. Objective - Vital Signs Vital signs: Vital Signs Temp 97.9 F 09/13/21 04:30 Pulse 65 09/13/21 08:00 Resp 16 09/13/21 08:00 BP 158/73 09/13/21 08:00 Pulse Ox 97 09/13/21 08:00 Intake & Output 09/12/21 09/13/21 09/13/21 18:59 06:59 18:59 Intake Total 220 Output Total 225 Balance -225 220 Weight 116.8 kg 116.8 kg Intake: Oral 220 Output: Urine 225 Other: Voiding Method Urinal Urinal - Exam GENERAL: The patient is lying in bed and is not in acute distress. NEUROLOGICAL: Higher mental function: The patient is awake, alert, oriented to self, place and time. Patient is following commands. No aphasia and no neglect. Cranial nerves: The pupils are round, equal and reactive to light and accommodation. Visual perales are full to confrontation throughout. Extraocular movement is intact no nystagmus is noted. Facial sensation is normal to touch throughout. The facial strength is normal throughout. Hearing is normal bilaterally to hand rub. Tongue is midline and moved [id number] without any difficulty. He sounded mild dysarthria (but per baseline since does not have denture). Shoulder shrug is normal bilaterally. Motor: Gait is deferred because of chronic weakness of leg. The strength is able to lift all extremities above gravity (upper strength > lower. Old). Uppers seems 5/5 while lowers are 4+ to 5-. Normal tone. Cerebellum: Normal finger to nose bilaterally. Sensation: Sensation is normal to touch throughout. Reflexes (right/left): 1+ throughout. Plantars are downgoing bilaterally. WORK-UP: LDL: TG 115, Cholestrol 184, LDL 131 and HDL 29 Vitamin B12: 337 Serum folate 7.10 TSH: 1.78 HbA1c: 6.[address] of the head is reported as age-related atrophy and chronic small vessel ischemic change without acute intracranial process seen at this time. I personally reviewed the CT head and I agree with the report. Carotid Duplex: Finding borderline for hemodynamic significant stenosis of proximal ICA on right corresponding to what is likely approximately 50% diameter reduction by Doppler cirteria. 2D echo is reported as normal LV size and systolic function. Aortic valve is moderate calcification and sclerosis but no significant gradient is noted. - Labs CBC & Chem 7: 09/11/21 14:17 09/13/21 06:32 Labs: Abnormal Lab Results - Last 24 Hours (Table) 09/12/21 09/12/21 09/12/21 Range/Units 07:13 20:13 23:32 BUN (9-20) mg/dL Creatinine (0.66-1.25) mg/dL Glucose (74-99) mg/dL POC Glucose (mg/dL) 247 H 200 H (75-99) mg/dL Hemoglobin A1c 6.8 H (0.0-6.0) % 09/13/21 09/13/21 09/13/21 Range/Units 06:13 06:32 11:25 BUN 81 H (9-20) mg/dL Creatinine 5.25 H (0.66-1.25) mg/dL Glucose 123 H (74-99) mg/dL POC Glucose (mg/dL) 126 H 137 H (75-99) mg/dL Hemoglobin A1c (0.0-6.0) % Assessment and Plan Assessment: Acute transient expressive aphasia: Probable transient ischemic attack especially with the patient's multiple risk factors. Acute on chronic kidney insufficiency Uncontrolled hypertension Diabetes mellitus Chronic bilateral lower extremity weakness for 20 years Diabetic neuropathy SLEEP apnea Pumonary fibrosis Pulmonary hypertension Plan: Continue ASA 81 mg daily an in addition added Plavix 75mg daily. Recommend the patient to be on dual antiplatelets for 21 days and after 21 days stop Plavix but continue aspirin indefinitely. Continue Lipitor 20 mg daily at bedtime for secondary stroke prophylaxis Recommend CTA or MRA of neck w/ and w/o once creatnine improves for better evaluation of carotid stenosis. This can be done as outpatient and recommend patient to follow-up with vascular surgery as outpatient. Continue neuro checks Placed on cardiac monitoring PT, OT and LONGWALL MACHINE OPERATOR HELPER are consulted Regarding leg weakness bilaterally he had for 20 years and defer work-up as outpatient. We'll defer the rest of the medical management to the primary team For DVT prophylaxis start the patient on subcu heparin 5000 units every 12 hours. Recommend patient to follow-up as outpatient for 1-2 weeks. The patient is discussed with the patient. Chente Martinez M.D. Neuro-hospitalist Time with Patient: Less than 30
[2021-09-13] MEDS: SODIUM CHLORIDE 0.9% 1,000 ML IV SCH (12:24)
[2021-09-13] MEDS: FUROSEMIDE 10 MG/ML 10 ML VIAL IV SCH ×2 (12:31→20:32)
[2021-09-13 16:21] LABS: Glucose,Whole Blood 212 mg/dL (75-99)
[2021-09-13 20:09] LABS: Glucose,Whole Blood 290 mg/dL (75-99)
[2021-09-13] MEDS: INSULIN DETEMIR (LEVEMIR) 100 UNIT/ML SYR SQ SCH (23:23)
[2021-09-13 23:24] LABS: Glucose,Whole Blood 201 mg/dL (75-99)
[2021-09-14 05:54] LABS: Albumin 3.8 g/dL (3.5-5.0); Calcium 8.8 mg/dL (8.4-10.2); Potassium 5.1 mmol/L (3.5-5.1); Total Bilirubin 0.9 mg/dL (0.2-1.3); Total Protein 7.4 g/dL (6.3-8.2)
[2021-09-14 05:57] LABS: Glucose,Whole Blood 154 mg/dL (75-99)
[2021-09-14] MEDS ORDERED: MAGNESIUM HYDROXIDE 2,400 MG/10 ML CUP PO PRN (08:26)
--- NOTE | 2021-09-14 08:43 | P.PN ---
Subjective Principal diagnosis: TIA The patient is a 71-year-old white male essentially meant for TIA with acute kidney injury and element of hypertensive urgency yesterday. Medication was started on his blood pressure seems to be nominal. We will continue to follow for acute kidney injury. Carotid Doppler showed possible 50% stenosis. Roni rderline hemodynamic issue. Cardiac echocardiogram is nominal. The patient is stating he feels much better with no slurred speech. Unfortunately, renal function has been worsening. I explained this to the patient at length Objective - Vital Signs Vital signs: Vital Signs Temp 97.8 F 09/14/21 04:40 Pulse 75 09/14/21 04:40 Resp 20 09/14/21 04:40 BP 123/67 09/14/21 04:40 Pulse Ox 96 09/14/21 04:40 Intake & Output 09/13/21 09/14/21 09/14/21 18:59 06:59 18:59 Intake Total 1690 220 Output Total 950 1300 Balance 740 -1300 220 Weight 116.8 kg 115.6 kg Intake: Oral 1690 220 Output: Urine 950 1300 Other: Voiding Method Urinal Indwelling Catheter - Constitutional General appearance: Present: obese - EENT Eyes: Absent: abnormal pupil - Neck Neck: Absent: lymphadenopathy - Respiratory Respiratory: bilateral: diminished - Cardiovascular Rhythm: regular Heart sounds: normal: S1, S2 Abnormal Heart Sounds: Absent: S3 Gallop - Gastrointestinal General gastrointestinal: Present: soft. Absent: tenderness - Labs CBC & Chem 7: 09/11/21 14:17 09/14/21 04:51 Labs: Abnormal Lab Results - Last 24 Hours (Table) 09/13/21 09/13/21 09/13/21 Range/Units 10:00 11:25 16:20 BUN (9-20) mg/dL Creatinine (0.66-1.25) mg/dL Glucose (74-99) mg/dL POC Glucose (mg/dL) 137 H 212 H (75-99) mg/dL Urine Protein 1+ H (Negative) Urine Blood Moderate H (Negative) Amorphous Sediment Rare H (None) /hpf Urine Mucus Rare H (None) /hpf 09/13/21 09/13/21 09/14/21 Range/Units 20:07 23:22 04:51 BUN 87 H (9-20) mg/dL Creatinine 5.82 H (0.66-1.25) mg/dL Glucose 157 H (74-99) mg/dL POC Glucose (mg/dL) 290 H 201 H (75-99) mg/dL Urine Protein (Negative) Urine Blood (Negative) Amorphous Sediment (None) /hpf Urine Mucus (None) /hpf 09/14/21 Range/Units 05:55 BUN (9-20) mg/dL Creatinine (0.66-1.25) mg/dL Glucose (74-99) mg/dL POC Glucose (mg/dL) 154 H (75-99) mg/dL Urine Protein (Negative) Urine Blood (Negative) Amorphous Sediment (None) /hpf Urine Mucus (None) /hpf Assessment and Plan (1) Acute on chronic renal failure Current Visit: Yes Status: Acute Code(s): N17.9 - ACUTE KIDNEY FAILURE, UNSPECIFIED; N18.9 - CHRONIC KIDNEY DISEASE, UNSPECIFIED SNOMED Code(s): 946044425 (2) Transient cerebral ischemia Current Visit: Yes Status: Acute Code(s): G45.9 - TRANSIENT CEREBRAL ISCHEMIC ATTACK, UNSPECIFIED SNOMED Code(s): 565040018 (3) Chronic CHF Current Visit: No Status: Acute Code(s): I50.9 - HEART FAILURE, UNSPECIFIED SNOMED Code(s): 35274566 (4) Diabetes Current Visit: No Status: Acute Code(s): E11.9 - TYPE 2 DIABETES MELLITUS WITHOUT COMPLICATIONS SNOMED Code(s): 25473798 (5) High risk for readmission Current Visit: No Status: Acute Code(s): Z91.89 - OTH PERSONAL RISK FACTORS, NOT ELSEWHERE CLASSIFIED SNOMED Code(s): 083236175 Plan: Computed tomography scan shows small vessel disease.\ PTOT. Creatinine is elevated secondary to baseline. IV hydration. Check CMP in a.m. Appreciate neurology input. Prognosis is guarded secondary to his multiple comorbidities. Blood pressure is stabilizing Appreciate multiple consultants input. Echocardiogram and carotid Doppler and CT noted. Appreciate multiple consultants input.
--- NOTE | 2021-09-14 09:44 | P.PN ---
Subjective Patient is seen in follow-up for acute kidney injury on chronic kidney disease. Creatinine 5.82 today. On IV Lasix. Urine output 2.2 L in the last 24 hours. Denies chest pain or shortness of breath. Oral intake is good. Complains of discomfort from Brown catheter. Vital signs are stable. General: No acute distress. HEENT: Head exam is unremarkable. LUNGS: Breath sounds decreased. HEART: Rate and Rhythm are regular. ABDOMEN: Soft, no distention. EXTREMITITES: 1+ edema. Chronic changes noted. Objective - Vital Signs Vital signs: Vital Signs Temp 97.8 F 09/14/21 04:40 Pulse 75 09/14/21 04:40 Resp 20 09/14/21 04:40 BP 123/67 09/14/21 04:40 Pulse Ox 96 09/14/21 04:40 Intake & Output 09/13/21 09/14/21 09/14/21 18:59 06:59 18:59 Intake Total 1690 460 Output Total 950 1300 Balance 740 -1300 460 Weight 116.8 kg 115.6 kg Intake: Oral 1690 460 Output: Urine 950 1300 Other: Voiding Method Urinal Indwelling Catheter - Labs CBC & Chem 7: 09/11/21 14:17 09/14/21 04:51 Labs: Abnormal Lab Results - Last 24 Hours (Table) 09/13/21 09/13/21 09/13/21 Range/Units 10:00 11:25 16:20 BUN (9-20) mg/dL Creatinine (0.66-1.25) mg/dL Glucose (74-99) mg/dL POC Glucose (mg/dL) 137 H 212 H (75-99) mg/dL Urine Protein 1+ H (Negative) Urine Blood Moderate H (Negative) Amorphous Sediment Rare H (None) /hpf Urine Mucus Rare H (None) /hpf 09/13/21 09/13/21 09/14/21 Range/Units 20:07 23:22 04:51 BUN 87 H (9-20) mg/dL Creatinine 5.82 H (0.66-1.25) mg/dL Glucose 157 H (74-99) mg/dL POC Glucose (mg/dL) 290 H 201 H (75-99) mg/dL Urine Protein (Negative) Urine Blood (Negative) Amorphous Sediment (None) /hpf Urine Mucus (None) /hpf 09/14/21 Range/Units 05:55 BUN (9-20) mg/dL Creatinine (0.66-1.25) mg/dL Glucose (74-99) mg/dL POC Glucose (mg/dL) 154 H (75-99) mg/dL Urine Protein (Negative) Urine Blood (Negative) Amorphous Sediment (None) /hpf Urine Mucus (None) /hpf Assessment and Plan Plan: Assessment: 1. Acute kidney injury secondary to ATN secondary to infection and cardiorenal syndrome. Creatinine was 3.77 on admission and is 5.82 today. No hydronephrosis noted on kidney ultrasound. UA with 1+ protein. 2. Chronic kidney disease stage IIIB/4 with baseline creatinine in the range of 1.7-2 secondary to diabetic kidney disease. 3. 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 Infectious disease following. 4. Diabetes mellitus. 5. Hypertension with chronic kidney disease. Stable. 6. Volume overload. 7. Acute on chronic diastolic CHF. Plan: Hep-Lock IV fluids. Maintain IV Lasix - transition to oral diuretics tomorrow. Continue to hold losartan for now. Follow-up urine eosinophils. Avoid nephrotoxins. Continue to monitor renal function and urine output. Discontinue Brown catheter and monitor serial bladder scans to make sure no retention. Strict I's and O's. Discussed potential need to initiate renal replacement therapy due to worsened renal function. Patient refusing to start dialysis at this time. Continue to assess on daily basis.
[2021-09-14] MEDS: CLOPIDOGREL 75 MG TAB PO SCH (09:52)
[2021-09-14] MEDS: ASPIRIN 81 MG PO SCH (09:52)
[2021-09-14] MEDS: FAMOTIDINE 20 MG TAB PO SCH (09:52)
[2021-09-14] MEDS: amLODIPine 5 MG TAB PO SCH (09:52)
[2021-09-14] MEDS: CYANOCOBALAMIN 500 MCG TAB PO SCH (09:52)
[2021-09-14] MEDS: ASCORBIC ACID 500 MG TAB PO SCH (09:52)
[2021-09-14] MEDS: DOCUSATE 100 MG CAP PO SCH (09:52)
[2021-09-14] MEDS: FUROSEMIDE 10 MG/ML 10 ML VIAL IV SCH ×2 (09:53→20:05)
[2021-09-14] MEDS: CHOLECALCIFEROL 25 MCG (1000 IU) TABLET PO SCH (09:53)
[2021-09-14] MEDS: CEFEPIME 1 GM in SODIUM CHLORIDE 0.9% 50 ML IVPB SCH ×2 (09:53→20:05)
[2021-09-14] MEDS: HEPARIN SODIUM,PORCINE/PF 5,000 UNIT/0.5 ML SYRINGE SQ SCH ×2 (09:53→20:06)
[2021-09-14 11:37] LABS: Glucose,Whole Blood 147 mg/dL (75-99)
--- NOTE | 2021-09-14 12:40 | P.PN ---
Subjective Progress Note Date: 09/14/21 The patient is seen at bedside and he states he is doing well. Denies any other new neurological issues. Objective - Vital Signs Vital signs: Vital Signs Temp 97.5 F L 09/14/21 08:20 Pulse 75 09/14/21 08:20 Resp 19 09/14/21 08:20 BP 149/82 09/14/21 08:20 Pulse Ox 95 09/14/21 08:20 Intake & Output 09/13/21 09/14/21 09/14/21 18:59 06:59 18:59 Intake Total 1690 460 Output Total 950 1300 Balance 740 -1300 460 Weight 116.8 kg 115.6 kg Intake: Oral 1690 460 Output: Urine 950 1300 Other: Voiding Method Urinal Indwelling Catheter Indwelling Catheter - Exam GENERAL: The patient is lying in bed and is not in acute distress. NEUROLOGICAL: Higher mental function: The patient is awake, alert, oriented to self, place and time. Patient is following commands. No aphasia and no neglect. Cranial nerves: The pupils are round, equal and reactive to light and accommodation. Visual perales are full to confrontation throughout. Extraocular movement is intact no nystagmus is noted. Facial sensation is normal to touch throughout. The facial strength is normal throughout. Hearing is normal bilaterally to hand rub. Tongue is midline and moved [id number] without any difficulty. He sounded mild dysarthria (but per baseline since does not have denture). Shoulder shrug is normal bilaterally. Motor: Gait is deferred because of chronic weakness of leg. The strength is able to lift all extremities above gravity (upper strength > lower. Old). Uppers seems 5/5 while lowers are 4+ to 5-. Normal tone. Cerebellum: Normal finger to nose bilaterally. Sensation: Sensation is normal to touch throughout. Reflexes (right/left): 1+ throughout. Plantars are downgoing bilaterally. WORK-UP: LDL: TG 115, Cholestrol 184, LDL 131 and HDL 29 Vitamin B12: 337 Serum folate 7.10 TSH: 1.78 HbA1c: 6.[address] of the head is reported as age-related atrophy and chronic small vessel ischemic change without acute intracranial process seen at this time. I personally reviewed the CT head and I agree with the report. Carotid Duplex: Finding borderline for hemodynamic significant stenosis of proximal ICA on right corresponding to what is likely approximately 50% diameter reduction by Doppler cirteria. 2D echo is reported as normal LV size and systolic function. Aortic valve is m oderate calcification and sclerosis but no significant gradient is noted. - Labs CBC & Chem 7: 09/11/21 14:17 09/14/21 04:51 Labs: Abnormal Lab Results - Last 24 Hours (Table) 09/13/21 09/13/21 09/13/21 Range/Units 16:20 20:07 23:22 BUN (9-20) mg/dL Creatinine (0.66-1.25) mg/dL Glucose (74-99) mg/dL POC Glucose (mg/dL) 212 H 290 H 201 H (75-99) mg/dL 09/14/21 09/14/21 09/14/21 Range/Units 04:51 05:55 11:36 BUN 87 H (9-20) mg/dL Creatinine 5.82 H (0.66-1.25) mg/dL Glucose 157 H (74-99) mg/dL POC Glucose (mg/dL) 154 H 147 H (75-99) mg/dL Assessment and Plan Assessment: Acute transient expressive aphasia: Probable transient ischemic attack especially with the patient's multiple risk factors. Acute on chronic kidney insufficiency Uncontrolled hypertension Diabetes mellitus Chronic bilateral lower extremity weakness for 20 years Diabetic neuropathy SLEEP apnea Pumonary fibrosis Pulmonary hypertension Plan: Continue ASA 81 mg daily an in addition added Plavix 75mg daily. Recommend the patient to be on dual antiplatelets for 21 days and after 21 days stop Plavix but continue aspirin indefinitely. Continue Lipitor 20 mg daily at bedtime for secondary stroke prophylaxis Recommend CTA or MRA of neck w/ and w/o once creatnine improves for better evaluation of carotid stenosis. This can be done as outpatient and recommend patient to follow-up with vascular surgery as outpatient. Continue neuro checks On cardiac monitoring PT, OT and LEAD GENERATION MARKETING MANAGER are consulted Regarding leg weakness bilaterally he had for 20 years and defer work-up as outpatient. We'll defer the rest of the medical management to the primary team For DVT prophylaxis start the patient on subcu heparin 5000 units every 12 hours. Recommend patient to follow-up as outpatient for 1-2 weeks. The patient is discussed with the patient. There is no further neurological work-up and patient is clear for discharge. Chente Martinez M.D. Neuro-hospitalist Time with Patient: Less than 30
[2021-09-14 16:30] LABS: Glucose,Whole Blood 150 mg/dL (75-99)
[2021-09-14 19:43] LABS: Glucose,Whole Blood 217 mg/dL (75-99)
[2021-09-14] MEDS: INSULIN ASPART (NovoLOG) 100 UNIT/ML VIAL SQ SCH (20:06)
[2021-09-14] MEDS: INSULIN DETEMIR (LEVEMIR) 100 UNIT/ML SYR SQ SCH (20:06)
--- NOTE | 2021-09-14 21:36 | P.PN ---
Subjective Progress Note Date: 09/13/21 Principal diagnosis: Right fifth toe diabetic foot infection Patient is a 71-year-old male with a recent diagnosis of right fifth toe diabetic foot infection with underlying Osteomyelitis culture positive for MRSA and Providencia , for the patient was getting cefepime and daptomycin outpatient setting subsequently presented to hospital with slurred speech and concern for possible CVA patient also have evidence of significant worsening of the kidney function. On today's evaluation that is 09/13/2021, the patient denies having any fever or chills, the patient slurred speech has resolved denies any focal weakness no chest pain shortness of breath or cough no abdominal pain or diarrhea Objective - Vital Signs Vital signs: Vital Signs Temp 97.9 F 09/13/21 04:30 Pulse 78 09/13/21 12:00 Resp 16 09/13/21 13:47 BP 155/68 09/13/21 12:00 Pulse Ox 98 09/13/21 12:00 Intake & Output 09/12/21 09/13/21 09/13/21 18:59 06:59 18:59 Intake Total 580 Output Total 225 Balance -225 580 Weight 116.8 kg 116.8 kg Intake: Oral 580 Output: Urine 225 Other: Voiding Method Urinal Urinal - Exam GENERAL DESCRIPTION: An elderly male up in the bed in no distress RESPIRATORY SYSTEM: Unlabored breathing , decreased breath sounds at bases HEART: S1 S2 regular rate and rhythm , ABDOMEN: Soft , no tenderness EXTREMITIES: Diffuse swelling of the leg right fifth toe is currently dressed - Labs CBC & Chem 7: 09/11/21 14:17 09/14/21 04:51 Labs: Abnormal Lab Results - Last 24 Hours (Table) 09/12/21 09/12/21 09/13/21 Range/Units 20:13 23:32 06:13 BUN (9-20) mg/dL Creatinine (0.66-1.25) mg/dL Glucose (74-99) mg/dL POC Glucose (mg/dL) 247 H 200 H 126 H (75-99) mg/dL Urine Protein (Negative) Urine Blood (Negative) Amorphous Sediment (None) /hpf Urine Mucus (None) /hpf 09/13/21 09/13/21 09/13/21 Range/Units 06:32 10:00 11:25 BUN 81 H (9-20) mg/dL Creatinine 5.25 H (0.66-1.25) mg/dL Glucose 123 H (74-99) mg/dL POC Glucose (mg/dL) 137 H (75-99) mg/dL Urine Protein 1+ H (Negative) Urine Blood Moderate H (Negative) Amorphous Sediment Rare H (None) /hpf Urine Mucus Rare H (None) /hpf Assessment and Plan (1) Osteomyelitis Current Visit: No Status: Acute Code(s): M86.9 - OSTEOMYELITIS, UNSPECIFIED SNOMED Code(s): 75355094 Plan: 1patient with right fifth toe diabetic foot infection with underlying osteomyelitis on the basis of plain x-rays and bone scan local culture positive for MRSA and Providencia in this patient treated with cefepime and daptomycin now presented to hospital with slurred speech and is being investigated for possible CVA clinically doubt symptoms related to his antibiotics, patient did have significant worsening of his kidney function and may be contributing to some of his symptoms. 2patient is currently being treated daptomycin and cefepime. 3local wound care with Aquacel silver dressing change every 48 hour. Time with Patient: Less than 30
--- NOTE | 2021-09-14 21:37 | P.PN ---
Subjective Progress Note Date: 09/14/21 Principal diagnosis: Right fifth toe diabetic foot infection Patient is a 71-year-old male with a recent diagnosis of right fifth toe diabetic foot infection with underlying Osteomyelitis culture positive for MRSA and Providencia , for the patient was getting cefepime and daptomycin outpatient setting subsequently presented to hospital with slurred speech and concern for possible CVA patient also have evidence of significant worsening of the kidney function. On today's evaluation that is 09/14/2021, the patient remains to be afebrile, the patient denies chest pain shortness of breath or cough no abdominal pain or diarrhea, no neurological symptoms Objective - Vital Signs Vital signs: Vital Signs Temp 97.5 F L 09/14/21 11:40 Pulse 84 09/14/21 11:40 Resp 22 09/14/21 11:40 BP 120/66 09/14/21 11:40 Pulse Ox 93 L 09/14/21 11:40 Intake & Output 09/13/21 09/14/21 09/14/21 18:59 06:59 18:59 Intake Total 1690 510 Output Total 950 1300 Balance 740 -1300 510 Weight 116.8 kg 115.6 kg Intake: Intake, IV Titration 50 Amount Cefepime 1 gm In Sodium 50 Chloride 0.9% 50 ml @ 12. 5 mls/hr IVPB Q12HR [facility] Rx#:[id number] Oral 1690 460 Output: Urine 950 1300 Other: Voiding Method Urinal Indwelling Catheter Urinal - Exam GENERAL DESCRIPTION: An elderly male up in the bed in no distress RESPIRATORY SYSTEM: Unlabored breathing , decreased breath sounds at bases HEART: S1 S2 regular rate and rhythm , ABDOMEN: Soft , no tenderness EXTREMITIES: Diffuse swelling of the leg right fifth toe is currently dressed - Labs CBC & Chem 7: 09/11/21 14:17 09/14/21 04:51 Labs: Abnormal Lab Results - Last 24 Hours (Table) 09/13/21 09/13/21 09/13/21 Range/Units 16:20 20:07 23:22 BUN (9-20) mg/dL Creatinine (0.66-1.25) mg/dL Glucose (74-99) mg/dL POC Glucose (mg/dL) 212 H 290 H 201 H (75-99) mg/dL 09/14/21 09/14/21 09/14/21 Range/Units 04:51 05:55 11:36 BUN 87 H (9-20) mg/dL Creatinine 5.82 H (0.66-1.25) mg/dL Glucose 157 H (74-99) mg/dL POC Glucose (mg/dL) 154 H 147 H (75-99) mg/dL Assessment and Plan (1) Osteomyelitis Current Visit: No Status: Acute Code(s): M86.9 - OSTEOMYELITIS, UNSPECIFIED SNOMED Code(s): 02182524 Plan: 1patient with right fifth toe diabetic foot infection with underlying osteomyelitis on the basis of plain x-rays and bone scan local culture positive for MRSA and Providencia in this patient treated with cefepime and daptomycin now presented to hospital with slurred speech and is being investigated for possible CVA clinically doubt symptoms related to his antibiotics, patient did have significant worsening of his kidney function and may be contributing to some of his symptoms. 2patient is currently being treated daptomycin and cefepime with a dose adjusted to kidney function will be continued and monitored during the course closely. 3local wound care with Aquacel silver dressing change every 48 hour.
[2021-09-15 06:01] LABS: Glucose,Whole Blood 105 mg/dL (75-99)
[2021-09-15] MEDS: INSULIN ASPART (NovoLOG) 100 UNIT/ML VIAL SQ SCH ×4 (06:08→21:15)
[2021-09-15 07:40] LABS: Calcium 8.5 mg/dL (8.4-10.2); Magnesium 2.3 mg/dL (1.6-2.3); Potassium 4.7 mmol/L (3.5-5.1)
--- NOTE | 2021-09-15 08:38 | P.PN ---
Subjective Principal diagnosis: TIA The patient is a 71-year-old white male essentially meant for TIA with acute kidney injury and element of hypertensive urgency yesterday. Medication was started on his blood pressure seems to be nominal. We will continue to follow for acute kidney injury. Carotid Doppler showed possible 50% stenosis. Roni rderline hemodynamic issue. Cardiac echocardiogram is nominal. The patient is stating he feels much better with no slurred speech. Unfortunately, renal function has been worsening. I explained this to the patient at length. The patient does not want dialysis at this time. Objective - Vital Signs Vital signs: Vital Signs Temp 97.1 F L 09/15/21 04:00 Pulse 74 09/15/21 04:00 Resp 18 09/15/21 04:00 BP 139/60 09/15/21 04:00 Pulse Ox 94 L 09/15/21 04:00 Intake & Output 09/14/21 09/15/21 09/15/21 18:59 06:59 18:59 Intake Total 1710 Output Total 870 1100 Balance 840 -1100 Weight 114.4 kg Intake: Intake, IV Titration 50 Amount Cefepime 1 gm In Sodium 50 Chloride 0.9% 50 ml @ 12. 5 mls/hr IVPB Q12HR [facility] Rx#:[id number] Oral 1660 Output: Urine 850 1100 Post Void Residual 20 Other: Voiding Method Urinal Urinal - Constitutional General appearance: Present: no acute distress - EENT Eyes: Absent: abnormal pupil - Neck Neck: Absent: lymphadenopathy - Respiratory Respiratory: bilateral: CTA - Cardiovascular Rhythm: regular Heart sounds: normal: S1, S2 Abnormal Heart Sounds: Absent: S3 Gallop - Gastrointestinal General gastrointestinal: Present: soft. Absent: tenderness - Psychiatric Psychiatric: Present: A&O x's 3 - Labs CBC & Chem 7: 09/11/21 14:17 09/15/21 06:47 Labs: Abnormal Lab Results - Last 24 Hours (Table) 09/14/21 09/14/21 09/14/21 Range/Units 11:36 16:17 19:41 BUN (9-20) mg/dL Creatinine (0.66-1.25) mg/dL POC Glucose (mg/dL) 147 H 150 H 217 H (75-99) mg/dL 09/15/21 09/15/21 Range/Units 06:00 06:47 BUN 89 H (9-20) mg/dL Creatinine 6.21 H (0.66-1.25) mg/dL POC Glucose (mg/dL) 105 H (75-99) mg/dL Assessment and Plan (1) Acute on chronic renal failure Current Visit: Yes Status: Acute Code(s): N17.9 - ACUTE KIDNEY FAILURE, UNSPECIFIED; N18.9 - CHRONIC KIDNEY DISEASE, UNSPECIFIED SNOMED Code(s): 936826650 (2) Transient cerebral ischemia Current Visit: Yes Status: Acute Code(s): G45.9 - TRANSIENT CEREBRAL ISCHEMIC ATTACK, UNSPECIFIED SNOMED Code(s): 151780298 (3) Chronic CHF Current Visit: No Status: Acute Code(s): I50.9 - HEART FAILURE, UNSPECIFIED SNOMED Code(s): 56203823 (4) Diabetes Current Visit: No Status: Acute Code(s): E11.9 - TYPE 2 DIABETES MELLITUS WITHOUT COMPLICATIONS SNOMED Code(s): 13862801 (5) High risk for readmission Current Visit: No Status: Acute Code(s): Z91.89 - OT PERSONAL RISK FACTORS, NOT ELSEWHERE CLASSIFIED SNOMED Code(s): 853523180 Plan: Computed tomography scan shows small vessel disease.\ PTOT. Creatinine is elevated secondary to baseline. IV hydration. Check CMP in a.m. Appreciate neurology input. Prognosis is guarded secondary to his multiple comorbidities. Blood pressure is stabilizing Appreciate multiple consultants input. Echocardiogram and carotid Doppler and CT noted. Appreciate multiple consultants input. If the patient's renal function doesn't improve, anticipate discharge in 24 hours. However continue to follow
[2021-09-15] MEDS: FUROSEMIDE 10 MG/ML 10 ML VIAL IV SCH (09:50)
[2021-09-15] MEDS: DOCUSATE 100 MG CAP PO SCH (09:53)
[2021-09-15] MEDS: FAMOTIDINE 20 MG TAB PO SCH (09:53)
[2021-09-15] MEDS: HEPARIN SODIUM,PORCINE/PF 5,000 UNIT/0.5 ML SYRINGE SQ SCH ×2 (09:53→21:15)
[2021-09-15] MEDS: CEFEPIME 1 GM in SODIUM CHLORIDE 0.9% 50 ML IVPB SCH ×2 (09:53→21:15)
[2021-09-15] MEDS: amLODIPine 5 MG TAB PO SCH (09:53)
[2021-09-15] MEDS: ASPIRIN 81 MG PO SCH (09:53)
[2021-09-15] MEDS: CLOPIDOGREL 75 MG TAB PO SCH (09:53)
[2021-09-15] MEDS: ASCORBIC ACID 500 MG TAB PO SCH (09:53)
[2021-09-15] MEDS: CHOLECALCIFEROL 25 MCG (1000 IU) TABLET PO SCH (09:54)
[2021-09-15] MEDS: CYANOCOBALAMIN 500 MCG TAB PO SCH (09:54)
--- NOTE | 2021-09-15 10:13 | P.PN ---
Subjective Patient is seen in follow-up for acute kidney injury on chronic kidney disease. Creatinine 6.21 today. On IV Lasix. Urine output near 2 L in the last 24 hours. Denies chest pain or shortness of breath. Oral intake is good. Overall feels well. I edema improved. Wants to go home. Vital signs are stable. General: No acute distress. HEENT: Head exam is unremarkable. LUNGS: Breath sounds decreased. HEART: Rate and Rhythm are regular. ABDOMEN: Soft, no distention. EXTREMITITES: 1+ edema. Chronic changes noted. Objective - Vital Signs Vital signs: Vital Signs Temp 97.1 F L 09/15/21 04:00 Pulse 74 09/15/21 04:00 Resp 18 09/15/21 04:00 BP 139/60 09/15/21 04:00 Pulse Ox 94 L 09/15/21 04:00 Intake & Output 09/14/21 09/15/21 09/15/21 18:59 06:59 18:59 Intake Total 1710 Output Total 870 1100 Balance 840 -1100 Weight 114.4 kg Intake: Intake, IV Titration 50 Amount Cefepime 1 gm In Sodium 50 Chloride 0.9% 50 ml @ 12. 5 mls/hr IVPB Q12HR [facility] Rx#:[id number] Oral 1660 Output: Urine 850 1100 Post Void Residual 20 Other: Voiding Method Urinal Urinal - Labs CBC & Chem 7: 09/11/21 14:17 09/15/21 06:47 Labs: Abnormal Lab Results - Last 24 Hours (Table) 09/14/21 09/14/21 09/14/21 Range/Units 11:36 16:17 19:41 BUN (9-20) mg/dL Creatinine (0.66-1.25) mg/dL POC Glucose (mg/dL) 147 H 150 H 217 H (75-99) mg/dL 09/15/21 09/15/21 Range/Units 06:00 06:47 BUN 89 H (9-20) mg/dL Creatinine 6.21 H (0.66-1.25) mg/dL POC Glucose (mg/dL) 105 H (75-99) mg/dL Assessment and Plan Plan: Assessment: 1. Acute kidney injury secondary to ATN secondary to infection and cardiorenal syndrome. Creatinine was 3.77 on admission and is 6.21 today. No hydronephrosis noted on kidney ultrasound. UA with 1+ protein. Urine eosinophils negative. 2. Chronic kidney disease stage IIIB/4 with baseline creatinine in the range of 1.7-2 secondary to diabetic kidney disease. 3. 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 Infectious disease following. 4. Diabetes mellitus. 5. Hypertension with chronic kidney disease. Stable. 6. Volume overload. Improved with diuresis. 7. Acute on chronic diastolic CHF. Plan: Stop IV Lasix. Add oral torsemide 40 mg once daily. Continue to hold losartan for now. Avoid nephrotoxins. Continue to monitor renal function and urine output. Again discussed renal replacement therapy due to severely depressed GFR. Patient refusing to start dialysis at this time. Patient states he feels well. Strongly advised to follow up outpatient within 1 week of discharge. Repeat BMP and magnesium level 2-3 days postdischarge. Signs and symptoms of uremia were discussed with the patient. He's to come back to the hospital if develops any.
[2021-09-15] MEDS: TORSEMIDE 20 MG TAB PO SCH (11:04)
[2021-09-15 11:32] LABS: Glucose,Whole Blood 190 mg/dL (75-99)
--- NOTE | 2021-09-15 15:28 | P.PN ---
Subjective Progress Note Date: 09/15/21 The patient is seen at bedside and states he is about the same. Denies of any new weakness or numbness. Objective - Vital Signs Vital signs: Vital Signs Temp 98.1 F 09/15/21 12:00 Pulse 67 09/15/21 12:00 Resp 18 09/15/21 12:00 BP 131/70 09/15/21 12:00 Pulse Ox 97 09/15/21 12:00 Intake & Output 09/14/21 09/15/21 09/15/21 18:59 06:59 18:59 Intake Total 1710 Output Total 870 1100 Balance 840 -1100 Weight 114.4 kg 114.4 kg Intake: Intake, IV Titration 50 Amount Cefepime 1 gm In Sodium 50 Chloride 0.9% 50 ml @ 12. 5 mls/hr IVPB Q12HR [facility] Rx#:[id number] Oral 1660 Output: Urine 850 1100 Post Void Residual 20 Other: Voiding Method Urinal Urinal Urinal - Exam GENERAL: The patient is lying in bed and is not in acute distress. NEUROLOGICAL: Higher mental function: The patient is awake, alert, oriented to self, place and time. Patient is following commands. No aphasia and no neglect. Cranial nerves: The pupils are round, equal and reactive to light and acc ommodation. Visual perales are full to confrontation throughout. Extraocular movement is intact no nystagmus is noted. Facial sensation is normal to touch throughout. The facial strength is normal throughout. Hearing is normal bilaterally to hand rub. Tongue is midline and moved [id number] without any difficulty. He sounded mild dysarthria (but per baseline since does not have denture). Shoulder shrug is normal bilaterally. Motor: Gait is deferred because of chronic weakness of leg. The strength is able to lift all extremities above gravity (upper strength > lower. Old). Uppe rs seems 5/5 while lowers are 4+ to 5-. Normal tone. Cerebellum: Normal finger to nose bilaterally. Sensation: Sensation is normal to touch throughout. Reflexes (right/left): 1+ throughout. Plantars are downgoing bilaterally. WORK-UP: LDL: TG 115, Cholestrol 184, LDL 131 and HDL 29 Vitamin B12: 337 Serum folate 7.10 TSH: 1.78 HbA1c: 6.[address] of the head is reported as age-related atrophy and chronic small vessel ischemic change without acute intracranial process seen at this time. I personally reviewed the CT head and I agree with the report. Carotid Duplex: Finding borderline for hemodynamic significant stenosis of proximal ICA on right corresponding to what is likely approximately 50% diameter reduction by Doppler cirteria. 2D echo is reported as normal LV size and systolic function. Aortic valve is moderate calcification and sclerosis but no significant gradient is noted. - Labs CBC & Chem 7: 09/11/21 14:17 09/15/21 06:47 Labs: Abnormal Lab Results - Last 24 Hours (Table) 09/14/21 09/14/21 09/15/21 Range/Units 16:17 19:41 06:00 BUN (9-20) mg/dL Creatinine (0.66-1.25) mg/dL POC Glucose (mg/dL) 150 H 217 H 105 H (75-99) mg/dL 09/15/21 09/15/21 Range/Units 06:47 11:30 BUN 89 H (9-20) mg/dL Creatinine 6.21 H (0.66-1.25) mg/dL POC Glucose (mg/dL) 190 H (75-99) mg/dL Assessment and Plan Assessment: Acute transient expressive aphasia: Probable transient ischemic attack especially with the patient's multiple risk factors. Acute on chronic kidney insufficiency Uncontrolled hypertension Diabetes mellitus Chronic bilateral lower extremity weakness for 20 years Diabetic neuropathy SLEEP apnea Pumonary fibrosis Pulmonary hypertension Plan: Continue ASA 81 mg daily an in addition added Plavix 75mg daily. Recommend the patient to be on dual antiplatelets for 21 days and after 21 days stop Plavix but continue aspirin indefinitely. Continue Lipitor 20 mg daily at bedtime for secondary stroke prophylaxis Recommend CTA or MRA of neck w/ and w/o once creatnine improves for better evaluation of carotid stenosis. This can be done as outpatient and recommend patient to follow-up with vascular surgery as outpatient. Continue neuro checks On cardiac monitoring PT, OT and [employer] are consulted Regarding leg weakness bilaterally he had for 20 years and defer work-up as outpatient. We'll defer the rest of the medical management to the primary team For DVT prophylaxis start the patient on subcu heparin 5000 units every 12 hours. Recommend patient to follow-up as outpatient for 1-2 weeks. The patient is discussed with the patient. There is no further neurological work-up and patient is clear for discharge. Neurology will sign off. Please reconsult if needed. Chente Martinez M.D. Neuro-hospitalist Time with Patient: Less than 30
[2021-09-15 16:43] LABS: Glucose,Whole Blood 151 mg/dL (75-99)
--- NOTE | 2021-09-15 17:18 | P.PN ---
Subjective Progress Note Date: 09/15/21 Principal diagnosis: Right fifth toe diabetic foot infection Patient is a 71-year-old male with a recent diagnosis of right fifth toe diabetic foot infection with underlying Osteomyelitis culture positive for MRSA and Providencia , for the patient was getting cefepime and daptomycin outpatient setting subsequently presented to hospital with slurred speech and concern for possible CVA patient also have evidence of significant worsening of the kidney function. On today's evaluation that is 09/15/2021, the patient denies any fever or any chills, the patient denies chest pain shortness of breath or cough , the patient denies abdominal pain or diarrhea, no new neurological symptoms Objective - Vital Signs Vital signs: Vital Signs Temp 98.1 F 09/15/21 12:00 Pulse 67 09/15/21 12:00 Resp 18 09/15/21 12:00 BP 131/70 09/15/21 12:00 Pulse Ox 97 09/15/21 12:00 Intake & Output 09/14/21 09/15/21 09/15/21 18:59 06:59 18:59 Intake Total 1710 Output Total 870 1100 Balance 840 -1100 Weight 114.4 kg 114.4 kg Intake: Intake, IV Titration 50 Amount Cefepime 1 gm In Sodium 50 Chloride 0.9% 50 ml @ 12. 5 mls/hr IVPB Q12HR [facility] Rx#:[id number] Oral 1660 Output: Urine 850 1100 Post Void Residual 20 Other: Voiding Method Urinal Urinal Urinal - Exam GENERAL DESCRIPTION: An elderly male up in the bed in no distress RESPIRATORY SYSTEM: Unlabored breathing , decreased breath sounds at bases HEART: S1 S2 regular rate and rhythm , ABDOMEN: Soft , no tenderness EXTREMITIES: Diffuse swelling of the leg right fifth toe is currently dressed - Labs CBC & Chem 7: 09/11/21 14:17 09/15/21 06:47 Labs: Abnormal Lab Results - Last 24 Hours (Table) 09/14/21 09/14/21 09/15/21 Range/Units 16:17 19:41 06:00 BUN (9-20) mg/dL Creatinine (0.66-1.25) mg/dL POC Glucose (mg/dL) 150 H 217 H 105 H (75-99) mg/dL 09/15/21 09/15/21 Range/Units 06:47 11:30 BUN 89 H (9-20) mg/dL Creatinine 6.21 H (0.66-1.25) mg/dL POC Glucose (mg/dL) 190 H (75-99) mg/dL Assessment and Plan (1) Osteomyelitis Current Visit: No Status: Acute Code(s): M86.9 - OSTEOMYELITIS, UNSPECIFIED SNOMED Code(s): 91881209 Plan: 1patient with right fifth toe diabetic foot infection with underlying oste omyelitis on the basis of plain x-rays and bone scan local culture positive for MRSA and Providencia in this patient treated with cefepime and daptomycin now presented to hospital with slurred speech and is being investigated for possible CVA clinically doubt symptoms related to his antibiotics, patient did have significant worsening of his kidney function and may be contributing to some of his symptoms. 2patient to continue with daptomycin and cefepime with a dose adjusted to kidney function and monitor his clinical course closely. 3local wound care with Aquacel silver dressing change every 48 hour. Time with Patient: Less than 30
[2021-09-15 20:22] LABS: Glucose,Whole Blood 197 mg/dL (75-99)
[2021-09-15] MEDS: INSULIN DETEMIR (LEVEMIR) 100 UNIT/ML SYR SQ SCH (21:15)
[2021-09-16 05:59] LABS: Glucose,Whole Blood 135 mg/dL (75-99)
[2021-09-16] MEDS: INSULIN ASPART (NovoLOG) 100 UNIT/ML VIAL SQ SCH ×4 (06:45→20:26)
[2021-09-16] MEDS: LABETALOL 5 MG/ML VIAL MDV IVP SCH (08:18)
[2021-09-16] MEDS: ASPIRIN 81 MG PO SCH (08:30)
[2021-09-16] MEDS: CLOPIDOGREL 75 MG TAB PO SCH (08:30)
[2021-09-16] MEDS: CHOLECALCIFEROL 25 MCG (1000 IU) TABLET PO SCH (08:30)
[2021-09-16] MEDS: FAMOTIDINE 20 MG TAB PO SCH (08:30)
[2021-09-16] MEDS: ASCORBIC ACID 500 MG TAB PO SCH (08:30)
[2021-09-16] MEDS: HEPARIN SODIUM,PORCINE/PF 5,000 UNIT/0.5 ML SYRINGE SQ SCH ×2 (08:30→20:30)
[2021-09-16] MEDS: CYANOCOBALAMIN 500 MCG TAB PO SCH (08:30)
[2021-09-16] MEDS: amLODIPine 5 MG TAB PO SCH (08:31)
[2021-09-16] MEDS: DOCUSATE 100 MG CAP PO SCH (08:31)
[2021-09-16] MEDS: TORSEMIDE 20 MG TAB PO SCH (08:31)
[2021-09-16] MEDS: CEFEPIME 1 GM in SODIUM CHLORIDE 0.9% 50 ML IVPB SCH ×2 (09:04→20:26)
--- NOTE | 2021-09-16 09:14 | P.PN ---
Subjective Patient is seen in follow-up for acute kidney injury on chronic kidney disease. Creatinine 6.21 yesterday. On oral diuretics. Nonoliguric. Denies chest pain or shortness of breath. Oral intake is good. Overall feels well. Edema improved. No active complaints. Vital signs are stable. General: No acute distress. HEENT: Head exam is unremarkable. LUNGS: Breath sounds decreased. HEART: Rate and Rhythm are regular. ABDOMEN: Soft, no distention. EXTREMITITES: 1+ edema. Chronic changes noted. Objective - Vital Signs Vital signs: Vital Signs Temp 97.4 F L 09/16/21 04:00 Pulse 86 09/16/21 04:00 Resp 18 09/16/21 04:00 BP 159/80 09/16/21 04:00 Pulse Ox 94 L 09/16/21 04:00 Intake & Output 09/15/21 09/16/21 09/16/21 18:59 06:59 18:59 Intake Total 50 600 Output Total 400 1200 Balance -350 -600 Weight 114.4 kg 113.897 kg Intake: Intake, IV Titration 50 Amount Cefepime 1 gm In Sodium 50 Chloride 0.9% 50 ml @ 12. 5 mls/hr IVPB Q12HR [facility] Rx#:[id number] Oral 600 Output: Urine 400 1200 Other: Voiding Method Urinal Urinal - Labs CBC & Chem 7: 09/11/21 14:17 09/15/21 06:47 Labs: Abnormal Lab Results - Last 24 Hours (Table) 09/15/21 09/15/21 09/15/21 Range/Units 11:30 16:41 20:18 POC Glucose (mg/dL) 190 H 151 H 197 H (75-99) mg/dL 09/16/21 Range/Units 05:50 POC Glucose (mg/dL) 135 H (75-99) mg/dL Assessment and Plan Plan: Assessment: 1. Acute kidney injury secondary to ATN secondary to infection and cardiorenal syndrome. Creatinine was 3.77 on admission and is 6.21 yesterday. No hydronephrosis noted on kidney ultrasound. UA with 1+ protein. Urine eosinophils negative. 2. Chronic kidney disease stage IIIB/4 with baseline creatinine in the range of 1.7-2 secondary to diabetic kidney disease. 3. 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 Infectious disease following. 4. Diabetes mellitus. 5. Hypertension with chronic kidney disease. Stable. 6. Volume overload. Improved with diuresis. 7. Acute on chronic diastolic CHF. Plan: Maintain oral torsemide. Continue to hold losartan for now. Increase dose of amlodipine. Avoid nephrotoxins. Continue to monitor renal function and urine output. Renal replacement therapy discussed multiple times. Patient continues to refuse to start dialysis at this time. Patient states he feels well. Strongly advised to follow up outpatient within 1 week of discharge. Repeat BMP and magnesium level 2-3 days postdischarge. Signs and symptoms of uremia were discussed with the patient. He's to come back to the hospital if develops any.
[2021-09-16 09:50] LABS: HCT 44.8 % (39.0-53.0); HGB 14.2 gm/dL (13.0-17.5); MCH 30.1 pg (25.0-35.0); MCHC 31.8 g/dL (31.0-37.0); MCV 94.5 fL (80.0-100.0); Mean Platelet Volume 7.7; Platelet Count 243 k/uL (150-450); RBC 4.74 m/uL (4.30-5.90); RDW 14.7 % (11.5-15.5); WBC 7.2 k/uL (3.8-10.6)
[2021-09-16 09:55] LABS: Potassium 4.9 mmol/L (3.5-5.1)
[2021-09-16 09:56] LABS: Calcium 8.7 mg/dL (8.4-10.2); Total Bilirubin 0.9 mg/dL (0.2-1.3); Total Protein 7.7 g/dL (6.3-8.2)
[2021-09-16 11:24] LABS: Glucose,Whole Blood 99 mg/dL (75-99)
[2021-09-16 16:18] LABS: Glucose,Whole Blood 256 mg/dL (75-99)
--- NOTE | 2021-09-16 16:25 | P.PN ---
Subjective This is a pleasant 71 his old male with past medical history of heart failure, diabetes mellitus CKD, PVD, diabetic neuropathy, diabetic retinopathy, pulmonary hypertension, pulmonary fibrosis, KIERA on BiPAP, severe arthritis, rheumatoid arthritis, gout, gastritis presents with multiple medical problems with right toe infection in view of his diabetes mellitus which is been placed on broad-spectrum antibiotic with daptomycin and cefepime for evidence of osteomyelitis seen on x-ray and bone scan with ID team on the case. His creatinine increased from baseline of 1.7-2.2 and currently increased 6.2 at 6.9 today. He is nonoliguric and blackjack supervisor of the case. As per blackjack supervisor recommendation patient was refusing dialysis for now. Also neurologist evaluated the patient for transient aphasia suspicious for TIA and recommended aspirin and Plavix for 21 days to be followed by aspirin only. Neurologist already clear him for discharge. The patient was fully awake and oriented to looks comfortable however he wants to be discharged, I explained for the patient is still this treatment including for his kidney injury and osteomyelitis and he needs IV antibiotics. Patient was thinking of leaving AGAINST MEDICAL ADVICE, patient risks are explained for him extensively including but not limited to risk of leg or other limb amputation, and he verbalized understanding however having decided for sure if he wants to leave when I saw him. Based upon my evaluation patient has capacity to make medical decision Review of systems CONSTITUTIONAL: No fever, no malaise, no fatigue. HEENT: No recent visual problems or hearing problems. Denied any sore throat. CARDIOVASCULAR: No orthopnea, PND, no palpitations, no syncope. PULMONARY: No shortness of breath, no cough, no hemoptysis. GASTROINTESTINAL: No diarrhea, no nausea, no vomiting, no abdominal pain. Normoactive bowel sounds. NEUROLOGICAL: No headaches, no weakness, no numbness. Active Medications Generic Name Dose Route Start Last Admin Trade Name Freq PRN Reason Stop Dose Admin Amlodipine Besylate 10 mg 09/17/21 09:00 Amlodipine 10 Mg Tab PO DAILY BILLY Ascorbic Acid 1,000 mg 09/12/21 09:00 09/16/21 08:30 Ascorbic Acid 500 Mg Tab PO 1,000 mg DAILY BILLY Administration Aspirin 81 mg 09/12/21 09:00 09/16/21 08:30 Aspirin 81 Mg PO 81 mg DAILY BILLY Administration Cholecalciferol 25 mcg 09/12/21 09:00 09/16/21 08:30 Cholecalciferol 25 Mcg (1000 Iu) Tablet PO 25 mcg DAILY BILLY Administration Clopidogrel Bisulfate 75 mg 09/12/21 09:00 09/16/21 08:30 Clopidogrel 75 Mg Tab PO 75 mg DAILY BILLY Administration Cyanocobalamin 1,000 mcg 09/13/21 09:00 09/16/21 08:30 Cyanocobalamin 500 Mcg Tab PO 1,000 mcg DAILY BILLY Administration Docusate Sodium 100 mg 09/14/21 09:00 09/16/21 08:31 Docusate 100 Mg Cap PO 100 mg DAILY BILLY Administration Famotidine 20 mg 09/12/21 09:00 09/16/21 08:30 Famotidine 20 Mg Tab PO 20 mg DAILY BILLY Administration Heparin Sodium (Porcine) 5,000 unit 09/12/21 09:00 09/16/21 08:30 Heparin Sodium,Porcine/Pf 5,000 Unit/0.5 Ml Syringe SQ 5,000 unit Q12HR BILLY Administration Daptomycin 600 mg/ Sodium 50 mls @ 100 mls/hr 09/12/21 18:00 09/14/21 17:40 Chloride IVPB 100 mls/hr Q48H BILLY Administration Protocol Cefepime HCl 1 gm/ Sodium 50 mls @ 12.5 mls/hr 09/12/21 21:00 09/16/21 09:04 Chloride IVPB 12.5 mls/hr Q12HR BILLY Administration Protocol Insulin Aspart 0 unit 09/14/21 21:00 09/16/21 11:29 Insulin Aspart (Novolog) 100 Unit/Ml Vial SQ Not Given ACHS [facility] Protocol Insulin Detemir 15 unit 09/12/21 23:00 09/15/21 21:15 Insulin Detemir (Levemir) 100 Unit/Ml Syr SQ 15 unit HS@2300 BILLY Administration Labetalol HCl 20 mg 09/12/21 22:51 09/13/21 23:29 Labetalol 5 Mg/Ml Vial Mdv IVP 20 mg Q10M PRN Administration Blood Pressure - High Magnesium Hydroxide 2,400 mg 09/14/21 08:26 09/14/21 09:52 Magnesium Hydroxide 2,400 Mg/10 Ml Cup PO 2,400 mg DAILY PRN Administration Constipation Torsemide 40 mg 09/15/21 10:15 09/16/21 08:31 Torsemide 20 Mg Tab PO 40 mg DAILY BILLY Administration Objective - Vital Signs Vital signs: Vital Signs Temp 97.6 F 09/16/21 12:00 Pulse 73 09/16/21 12:00 Resp 18 09/16/21 12:00 BP 136/62 09/16/21 12:00 Pulse Ox 96 09/16/21 12:00 Intake & Output 09/15/21 09/16/21 09/16/21 18:59 06:59 18:59 Intake Total 50 600 Output Total 400 1200 125 Balance -350 -600 -125 Weight 114.4 kg 113.897 kg Intake: Intake, IV Titration 50 Amount Cefepime 1 gm In Sodium 50 Chloride 0.9% 50 ml @ 12. 5 mls/hr IVPB Q12HR BILLY Rx#:[id number] Oral 600 Output: Urine 400 1200 125 Other: Voiding Method Urinal Urinal Urinal - Exam -GENERAL: The patient is alert and oriented x3, not in any acute distress. Obese HEENT: Pupils are round and equally reacting to light. EOMI. No scleral icterus. No conjunctival pallor. Normocephalic, atraumatic. No pharyngeal erythema. No thyromegaly. CARDIOVASCULAR: S1 and S2 present. No murmurs, rubs, or gallops. PULMONARY: Chest is clear to auscultation, no wheezing or crackles. ABDOMEN: Soft, nontender, nondistended, normoactive bowel sounds. No palpable o rganomegaly. MUSCULOSKELETAL: No joint swelling or deformity. -EXTREMITIES: No cyanosis, clubbing, or pedal edema. Right fifth toe in a dressing NEUROLOGICAL: Gross neurological examination did not reveal any focal deficits. SKIN: No rashes. no petechiae. - Labs CBC & Chem 7: 09/16/21 08:51 09/16/21 08:51 Labs: Abnormal Lab Results - Last 24 Hours (Table) 09/15/21 09/15/21 09/16/21 Range/Units 16:41 20:18 05:50 BUN (9-20) mg/dL Creatinine (0.66-1.25) mg/dL POC Glucose (mg/dL) 151 H 197 H 135 H (75-99) mg/dL 09/16/21 Range/Units 08:51 BUN 97 H (9-20) mg/dL Creatinine 6.94 H (0.66-1.25) mg/dL POC Glucose (mg/dL) (75-99) mg/dL Assessment and Plan Assessment: Acute Right fifth diabetic foot infection with underlying osteomyelitis. Acute kidney injury on the top of COPD, nonoliguric transient aphasia suspicious for TIA currently improved CKD stage III, most likely diabetic nephropathy History of CHF Diabetes mellitus Peripheral vascular disease History of pulmonary hypertension History of pulmonary fibrosis History of obstructive sleep apnea on CPAP/BiPAP History of osteoarthritis History of rheumatoid arthritis History of gout History of gastritis obesity with BMI of 34.1 Plan: This is a pleasant 71 years old male who presents with no infection and osteomyelitis, acute on chronic kidney disease and possible TIA Patient currently on daptomycin and cefepime We'll check hemoglobin A1c and insulin sliding scale Currently continued on Lantus 15 units at bedtime. Neurologist recommended Plavix 21 days together with aspirin, after 21 days patient should continue with aspirin only. Neurologist clear him for discharge. Nephrology consult and patient currently on torsemide 40 mg daily for his acute kidney injury on chronic kidney disease. Labs and medication were reviewed.. Continue same treatment. Continue with symptomatic treatment. Resume home medication. Monitor lytes and vitals. DVT and GI prophylaxis. Further recommendationsas per clinical course of the patient DVT prophylaxis: Subcutaneous heparin GI Prophylaxis: Pepcid PT/OT: Pending Prognosis is guarded
[2021-09-16 20:10] LABS: Glucose,Whole Blood 121 mg/dL (75-99)
[2021-09-16] MEDS: INSULIN DETEMIR (LEVEMIR) 100 UNIT/ML SYR SQ SCH (20:26)
[2021-09-17 05:58] LABS: Glucose,Whole Blood 149 mg/dL (75-99)
[2021-09-17] MEDS: INSULIN ASPART (NovoLOG) 100 UNIT/ML VIAL SQ SCH ×4 (06:12→20:03)
[2021-09-17] MEDS: ASCORBIC ACID 500 MG TAB PO SCH (08:08)
[2021-09-17] MEDS: CHOLECALCIFEROL 25 MCG (1000 IU) TABLET PO SCH (08:08)
[2021-09-17] MEDS: CYANOCOBALAMIN 500 MCG TAB PO SCH (08:09)
[2021-09-17] MEDS: CEFEPIME 1 GM in SODIUM CHLORIDE 0.9% 50 ML IVPB SCH ×2 (08:09→20:03)
[2021-09-17] MEDS: FAMOTIDINE 20 MG TAB PO SCH (08:09)
[2021-09-17] MEDS: TORSEMIDE 20 MG TAB PO SCH (08:09)
[2021-09-17] MEDS: DOCUSATE 100 MG CAP PO SCH (08:09)
[2021-09-17] MEDS: amLODIPine 10 MG TAB PO SCH (08:09)
[2021-09-17] MEDS: CLOPIDOGREL 75 MG TAB PO SCH (08:09)
[2021-09-17] MEDS: ASPIRIN 81 MG PO SCH (08:09)
[2021-09-17] MEDS: HEPARIN SODIUM,PORCINE/PF 5,000 UNIT/0.5 ML SYRINGE SQ SCH ×2 (08:10→20:03)
[2021-09-17 09:11] LABS: Calcium 8.8 mg/dL (8.4-10.2); Magnesium 2.3 mg/dL (1.6-2.3); Potassium 4.9 mmol/L (3.5-5.1)
--- NOTE | 2021-09-17 11:57 | P.PN ---
Subjective Patient is seen in follow-up for acute kidney injury on chronic kidney disease. Renal function continues to worsen. On oral diuretics. Nonoliguric. Denies chest pain or shortness of breath. Oral intake is good. Overall feels well. Edema improved. No active complaints. Vital signs are stable. General: No acute distress. HEENT: Head exam is unremarkable. LUNGS: Breath sounds decreased. HEART: Rate and Rhythm are regular. ABDOMEN: Soft, no distention. EXTREMITITES: 1+ edema. Chronic changes noted. Objective - Vital Signs Vital signs: Vital Signs Temp 97.5 F L 09/17/21 08:00 Pulse 74 09/17/21 08:00 Resp 20 09/17/21 08:00 BP 122/59 09/17/21 08:00 Pulse Ox 93 L 09/17/21 08:00 Intake & Output 09/16/21 09/17/21 09/17/21 18:59 06:59 18:59 Intake Total 120 480 0 Output Total 325 1200 Balance -205 -720 0 Intake: Oral 120 480 0 Output: Urine 325 1200 Other: Voiding Method Urinal Urinal Urinal Diaper - Labs CBC & Chem 7: 09/16/21 08:51 09/17/21 08:27 Labs: Abnormal Lab Results - Last 24 Hours (Table) 09/16/21 09/16/21 09/17/21 Range/Units 16:16 20:06 05:57 Chloride (98-107) mmol/L BUN (9-20) mg/dL Creatinine (0.66-1.25) mg/dL Glucose (74-99) mg/dL POC Glucose (mg/dL) 256 H 121 H 149 H (75-99) mg/dL 09/17/21 Range/Units 08:27 Chloride 96 L (98-107) mmol/L BUN 105 H* (9-20) mg/dL Creatinine 7.11 H* (0.66-1.25) mg/dL Glucose 139 H (74-99) mg/dL POC Glucose (mg/dL) (75-99) mg/dL Assessment and Plan Plan: Assessment: 1. Acute kidney injury secondary to ATN secondary to infection and cardiorenal syndrome. Creatinine was 3.77 on admission and is 7.1 today. No hydronephrosis noted on kidney ultrasound. UA with 1+ protein. Urine eosinophils negative. 2. Chronic kidney disease stage IIIB/4 with baseline creatinine in the range of 1.7-2 secondary to diabetic kidney disease. 3. 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 Infectious disease following. 4. Diabetes mellitus. 5. Hypertension with chronic kidney disease. Stable. 6. Volume overload. Improved with diuresis. 7. Acute on chronic diastolic CHF. Plan: Hold diuretics for now. Continue to hold losartan. Avoid nephrotoxins. Continue to monitor renal function and urine output. Renal replacement therapy discussed multiple times. Patient continues to refuse to start dialysis at this time. Patient states he feels well. Nurse present as well. Life-threatening risks of severe renal failure including hyperkalemia have been discussed with the patient. Strongly advised to follow up outpatient within 1 week of discharge. Repeat BMP and magnesium level 2-3 days postdischarge. Signs and symptoms of uremia were discussed with the patient. He's to come back to the hospital if develops any.
--- NOTE | 2021-09-17 12:01 | P.PN ---
Subjective This is a pleasant 71 his old male with past medical history of heart failure, diabetes mellitus CKD, PVD, diabetic neuropathy, diabetic retinopathy, pulmonary hypertension, pulmonary fibrosis, KIERA on BiPAP, severe arthritis, rheumatoid arthritis, gout, gastritis presents with multiple medical problems with right toe infection in view of his diabetes mellitus which is been placed on broad-spectrum antibiotic with daptomycin and cefepime for evidence of osteomyelitis seen on x-ray and bone scan with ID team on the case. His creatinine increased from baseline of 1.7-2.2 and currently increased 6.2 at 6.9 today. He is nonoliguric and glaze grinder of the case. As per glaze grinder recommendation patient was refusing dialysis for now. Also neurologist evaluated the patient for transient aphasia suspicious for TIA and recommended aspirin and Plavix for 21 days to be followed by aspirin only. Neurologist already clear him for discharge. The patient was fully awake and oriented to looks comfortable however he wants to be discharged, I explained for the patient is still this treatment including for his kidney injury and osteomyelitis and he needs IV antibiotics. Patient was thinking of leaving AGAINST MEDICAL ADVICE, patient risks are explained for him extensively including but not limited to risk of leg or other limb amputation, and he verbalized understanding however having decided for sure if he wants to leave when I saw him. Based upon my evaluation patient has capacity to make medical decision 09/17/2021 Patient is awake and alert. He looks a little bit lethargic but denies any specific complaints. He is still been treated for his right toe infection and is still on daptomycin and cefepime. Other than that his creatinine went up to date 7.1 compared to 6.9 yesterday. Torsemide was discontinued per glaze grinder. Losartan kept on hold. Fuse Maker recommended renal replacement therapy but looks like the patient has been refusing. Blood pressure is better controlled 122/59 after Norvasc has been added today. No more episodes of aphasia. Neurologist recommended Plavix 21 days as well as aspirin, thereafter to continue with aspirin. Plavix. Also MRI/A of the neck is recommended by neurologist as an outpatient. Objective - Vital Signs Vital signs: Vital Signs Temp 97.5 F L 09/17/21 08:00 Pulse 74 09/17/21 08:00 Resp 20 09/17/21 08:00 BP 122/59 09/17/21 08:00 Pulse Ox 93 L 09/17/21 08:00 Intake & Output 09/16/21 09/17/21 09/17/21 18:59 06:59 18:59 Intake Total 120 480 0 Output Total 325 1200 Balance -205 -720 0 Intake: Oral 120 480 0 Output: Urine 325 1200 Other: Voiding Method Urinal Urinal Urinal Diaper - Exam -GENERAL: The patient is alert and oriented x3, not in any acute distress. Obese HEENT: Pupils are round and equally reacting to light. EOMI. No scleral icterus. No conjunctival pallor. Normocephalic, atraumatic. No pharyngeal erythema. No thyromegaly. CARDIOVASCULAR: S1 and S2 present. No murmurs, rubs, or gallops. PULMONARY: Chest is clear to auscultation, no wheezing or crackles. ABDOMEN: Soft, nontender, nondistended, normoactive bowel sounds. No palpable organomegaly. MUSCULOSKELETAL: No joint swelling or deformity. -EXTREMITIES: No cyanosis, clubbing, or pedal edema. Right fifth toe in a dressing NEUROLOGICAL: Gross neurological examination did not reveal any focal deficits. SKIN: No rashes. no petechiae. - Labs CBC & Chem 7: 09/16/21 08:51 09/17/21 08:27 Labs: Abnormal Lab Results - Last 24 Hours (Table) 09/16/21 09/16/21 09/17/21 Range/Units 16:16 20:06 05:57 Chloride (98-107) mmol/L BUN (9-20) mg/dL Creatinine (0.66-1.25) mg/dL Glucose (74-99) mg/dL POC Glucose (mg/dL) 256 H 121 H 149 H (75-99) mg/dL 09/17/21 Range/Units 08:27 Chloride 96 L (98-107) mmol/L BUN 105 H* (9-20) mg/dL Creatinine 7.11 H* (0.66-1.25) mg/dL Glucose 139 H (74-99) mg/dL POC Glucose (mg/dL) (75-99) mg/dL Assessment and Plan Assessment: Acute Right fifth diabetic foot infection with underlying osteomyelitis. Acute kidney injury on the top of COPD, nonoliguric transient aphasia suspicious for TIA currently improved CKD stage III, most likely diabetic nephropathy Noncompliant with recommendation for renal replacement therapy History of CHF Diabetes mellitus Peripheral vascular disease History of pulmonary hypertension History of pulmonary fibrosis History of obstructive sleep apnea on CPAP/BiPAP History of osteoarthritis History of rheumatoid arthritis History of gout History of gastritis obesity with BMI of 34.1 Plan: This is a pleasant 71 years old male who presents with no infection and osteomyelitis, acute on chronic kidney disease and possible TIA Patient currently on daptomycin and cefepime Currently continued on Lantus 15 units at bedtime. Neurologist recommended Plavix 21 days together with aspirin, after 21 days patient should continue with aspirin only. Neurologist clear him for discharge. Risk of bleeding are explained for the patient and he verbalized understanding and acceptance Nephrology consult and patient . Discontinue 40 mg daily patient has been refusing renal replacement therapy recommended by glaze grinder Labs and treatment. Continue with symptomatic treatment. Resume home medication. Monitor lytes and vitals. DVT and GI prophylaxis. Further recommendationsas per clinical course of the patient DVT prophylaxis: Subcutaneous heparin GI Prophylaxis: Pepcid PT/OT: Pending Prognosis is guarded Dr. Liz will resume the care of the patient tomorrow
[2021-09-17 12:04] LABS: Glucose,Whole Blood 164 mg/dL (75-99)
[2021-09-17 16:29] LABS: Glucose,Whole Blood 146 mg/dL (75-99)
[2021-09-17 19:55] LABS: Glucose,Whole Blood 233 mg/dL (75-99)
[2021-09-17] MEDS: INSULIN DETEMIR (LEVEMIR) 100 UNIT/ML SYR SQ SCH (20:03)
--- NOTE | 2021-09-17 23:11 | P.PN ---
Subjective Progress Note Date: 09/16/21 Principal diagnosis: Right fifth toe diabetic foot infection Patient is a 71-year-old male with a recent diagnosis of right fifth toe diabetic foot infection with underlying Osteomyelitis culture positive for MRSA and Providencia , for the patient was getting cefepime and daptomycin outpatient setting subsequently presented to hospital with slurred speech and concern for possible CVA patient also have evidence of significant worsening of the kidney function. On today's evaluation that is 09/16/2021, the patient remains to be afebrile, the patient denies chest pain shortness of breath or cough , the patient denies abdominal pain or diarrhea, feeling slightly better Objective - Vital Signs Vital signs: Vital Signs Temp 97.6 F 09/16/21 12:00 Pulse 73 09/16/21 14:00 Resp 18 09/16/21 14:00 BP 136/62 09/16/21 12:00 Pulse Ox 96 09/16/21 12:00 Intake & Output 09/15/21 09/16/21 09/16/21 18:59 06:59 18:59 Intake Total 50 600 Output Total 400 1200 125 Balance -350 -600 -125 Weight 114.4 kg 113.897 kg Intake: Intake, IV Titration 50 Amount Cefepime 1 gm In Sodium 50 Chloride 0.9% 50 ml @ 12. 5 mls/hr IVPB Q12HR [facility] Rx#:[id number] Oral 600 Output: Urine 400 1200 125 Other: Voiding Method Urinal Urinal Urinal - Exam GENERAL DESCRIPTION: An elderly male up in the bed in no distress RESPIRATORY SYSTEM: Unlabored breathing , decreased breath sounds at bases HEART: S1 S2 regular rate and rhythm , ABDOMEN: Soft , no tenderness EXTREMITIES: Diffuse swelling of the leg right fifth toe is currently dressed - Labs CBC & Chem 7: 09/16/21 08:51 09/17/21 08:27 Labs: Abnormal Lab Results - Last 24 Hours (Table) 09/15/21 09/15/21 09/16/21 Range/Units 16:41 20:18 05:50 BUN (9-20) mg/dL Creatinine (0.66-1.25) mg/dL POC Glucose (mg/dL) 151 H 197 H 135 H (75-99) mg/dL 09/16/21 09/16/21 Range/Units 08:51 16:16 BUN 97 H (9-20) mg/dL Creatinine 6.94 H (0.66-1.25) mg/dL POC Glucose (mg/dL) 256 H (75-99) mg/dL Assessment and Plan (1) Osteomyelitis Current Visit: No Status: Acute Code(s): M86.9 - OSTEOMYELITIS, UNSPECIFIED SNOMED Code(s): 85171705 Plan: 1patient with right fifth toe diabetic foot infection with underlying osteomyelitis on the basis of plain x-rays and bone scan local culture positive for MRSA and Providencia in this patient treated with cefepime and daptomycin now presented to hospital with slurred speech and is being investigated for possible CVA clinically doubt symptoms related to his antibiotics, patient did have significant worsening of his kidney function and may be contributing to some of his symptoms. 2patient is currently being treated with daptomycin and cefepime with a dose adjusted to kidney function and local wound care with Aquacel silver dressing change every 48 hour. Time with Patient: Less than 30
--- NOTE | 2021-09-17 23:13 | P.PN ---
Subjective Progress Note Date: 09/17/21 Principal diagnosis: Right fifth toe diabetic foot infection Patient is a 71-year-old male with a recent diagnosis of right fifth toe diabetic foot infection with underlying Osteomyelitis culture positive for MRSA and Providencia , for the patient was getting cefepime and daptomycin outpatient setting subsequently presented to hospital with slurred speech and concern for possible CVA patient also have evidence of significant worsening of the kidney function. On today's evaluation that is 09/17/2021, the patient denies any fever or chills, the patient denies chest pain shortness of breath or cough , the patient denies abdominal pain or diarrhea, complaining of slightly feeling weak but no other symptoms Objective - Vital Signs Vital signs: Vital Signs Temp 97.6 F 09/17/21 12:00 Pulse 70 09/17/21 14:00 Resp 20 09/17/21 14:00 BP 136/65 09/17/21 12:00 Pulse Ox 94 L 09/17/21 12:00 Intake & Output 09/16/21 09/17/21 09/17/21 18:59 06:59 18:59 Intake Total 120 480 360 Output Total 325 1200 Balance -205 -720 360 Intake: Oral 120 480 360 Output: Urine 325 1200 Other: Voiding Method Urinal Urinal Urinal Diaper # Voids 3 - Exam GENERAL DESCRIPTION: An elderly male up in the bed in no distress RESPIRATORY SYSTEM: Unlabored breathing , decreased breath sounds at bases HEART: S1 S2 regular rate and rhythm , ABDOMEN: Soft , no tenderness EXTREMITIES: Diffuse swelling of the leg right fifth toe is currently dressed - Labs CBC & Chem 7: 09/16/21 08:51 09/17/21 08:27 Labs: Abnormal Lab Results - Last 24 Hours (Table) 09/16/21 09/16/21 09/17/21 Range/Units 16:16 20:06 05:57 Chloride (98-107) mmol/L BUN (9-20) mg/dL Creatinine (0.66-1.25) mg/dL Glucose (74-99) mg/dL POC Glucose (mg/dL) 256 H 121 H 149 H (75-99) mg/dL 09/17/21 09/17/21 Range/Units 08:27 12:03 Chloride 96 L (98-107) mmol/L BUN 105 H* (9-20) mg/dL Creatinine 7.11 H* (0.66-1.25) mg/dL Glucose 139 H (74-99) mg/dL POC Glucose (mg/dL) 164 H (75-99) mg/dL Assessment and Plan (1) Osteomyelitis Current Visit: No Status: Acute Code(s): M86.9 - OSTEOMYELITIS, UNSPECIFIED SNOMED Code(s): 24443999 Plan: 1patient with right fifth toe diabetic foot infection with underlying osteomyelitis on the basis of plain x-rays and bone scan local culture positive for MRSA and Providencia in this patient treated with cefepime and daptomycin now presented to hospital with slurred speech and is being investigated for possible CVA clinically doubt symptoms related to his antibiotics, patient did have significant worsening of his kidney function and may be contributing to some of his symptoms. 2patient is currently being treated with daptomycin and cefepime with a dose adjusted to kidney function and local wound care with Aquacel silver dressing change every 48 hour. Family has multiple questions were answered in [place] terms management of underlying renal failure per nephrology team Time with Patient: Less than 30
[2021-09-18 06:30] LABS: Glucose,Whole Blood 122 mg/dL (75-99)
[2021-09-18] MEDS: INSULIN ASPART (NovoLOG) 100 UNIT/ML VIAL SQ SCH ×4 (06:32→20:02)
--- NOTE | 2021-09-18 08:32 | P.PN ---
Subjective Principal diagnosis: TIA The patient is a 71-year-old white male essentially meant for TIA with acute kidney injury and element of hypertensive urgency yesterday. Medication was started on his blood pressure seems to be nominal. We will continue to follow for acute kidney injury. Carotid Doppler showed possible 50% stenosis. Roni rderline hemodynamic issue. Cardiac echocardiogram is nominal. The patient is stating he feels much better with no slurred speech. Unfortunately, renal function has been worsening. I explained this to the patient at length. After long discussion, the patient is reconsidering short-term dialysis Objective - Vital Signs Vital signs: Vital Signs Temp 97.5 F L 09/18/21 03:36 Pulse 68 09/18/21 03:36 Resp 16 09/18/21 03:36 BP 127/60 09/18/21 03:36 Pulse Ox 92 L 09/18/21 03:36 Intake & Output 09/17/21 09/18/21 09/18/21 18:59 06:59 18:59 Intake Total 900 240 Output Total 575 Balance 900 -335 Intake: Oral 900 240 Output: Urine 575 Other: Voiding Method Urinal Urinal Diaper Diaper # Voids 3 1 # Bowel Movements 1 - Constitutional General appearance: Present: obese - EENT Eyes: Absent: abnormal pupil - Neck Neck: Absent: lymphadenopathy - Respiratory Respiratory: bilateral: diminished - Cardiovascular Rhythm: regular Heart sounds: normal: S1, S2 Abnormal Heart Sounds: Absent: S3 Gallop - Gastrointestinal General gastrointestinal: Present: soft. Absent: tenderness - Integumentary Integumentary: Absent: cellulitis - Labs CBC & Chem 7: 09/16/21 08:51 09/17/21 08:27 Labs: Abnormal Lab Results - Last 24 Hours (Table) 09/17/21 09/17/21 09/17/21 Range/Units 08:27 12:03 16:28 Chloride 96 L (98-107) mmol/L BUN 105 H* (9-20) mg/dL Creatinine 7.11 H* (0.66-1.25) mg/dL Glucose 139 H (74-99) mg/dL POC Glucose (mg/dL) 164 H 146 H (75-99) mg/dL 09/17/21 09/18/21 Range/Units 19:34 06:12 Chloride (98-107) mmol/L BUN (9-20) mg/dL Creatinine (0.66-1.25) mg/dL Glucose (74-99) mg/dL POC Glucose (mg/dL) 233 H 122 H (75-99) mg/dL Assessment and Plan (1) Acute on chronic renal failure Current Visit: Yes Status: Acute Code(s): N17.9 - ACUTE KIDNEY FAILURE, UNSPECIFIED; N18.9 - CHRONIC KIDNEY DISEASE, UNSPECIFIED SNOMED Code(s): 272299978 (2) Transient cerebral ischemia Current Visit: Yes Status: Acute Code(s): G45.9 - TRANSIENT CEREBRAL ISCHEMIC ATTACK, UNSPECIFIED SNOMED Code(s): 901387739 (3) Chronic CHF Current Visit: No Status: Acute Code(s): I50.9 - HEART FAILURE, UNSPECIFIED SNOMED Code(s): 85870693 (4) Diabetes Current Visit: No Status: Acute Code(s): E11.9 - TYPE 2 DIABETES MELLITUS WITHOUT COMPLICATIONS SNOMED Code(s): 22084619 (5) High risk for readmission Current Visit: No Status: Acute Code(s): Z91.89 - OT PERSONAL RISK FACTORS, NOT ELSEWHERE CLASSIFIED SNOMED Code(s): 695305041 Plan: Blood pressure is stabilizing Appreciate multiple consultants input. Echocardiogram and carotid Doppler and CT noted. Appreciate multiple consultants input. The patient is reconsidering short-term dialysis. Check CMP in
[2021-09-18] MEDS: CYANOCOBALAMIN 500 MCG TAB PO SCH (08:34)
[2021-09-18] MEDS: CHOLECALCIFEROL 25 MCG (1000 IU) TABLET PO SCH (08:34)
[2021-09-18] MEDS: FAMOTIDINE 20 MG TAB PO SCH (08:34)
[2021-09-18] MEDS: CLOPIDOGREL 75 MG TAB PO SCH (08:34)
[2021-09-18] MEDS: DOCUSATE 100 MG CAP PO SCH (08:34)
[2021-09-18] MEDS: ASPIRIN 81 MG PO SCH (08:34)
[2021-09-18] MEDS: ASCORBIC ACID 500 MG TAB PO SCH (08:34)
[2021-09-18] MEDS: HEPARIN SODIUM,PORCINE/PF 5,000 UNIT/0.5 ML SYRINGE SQ SCH ×2 (08:35→20:02)
[2021-09-18] MEDS: amLODIPine 10 MG TAB PO SCH (08:35)
[2021-09-18] MEDS: CEFEPIME 1 GM in SODIUM CHLORIDE 0.9% 50 ML IVPB SCH (08:35)
[2021-09-18 09:05] LABS: Calcium 8.9 mg/dL (8.4-10.2); Magnesium 2.4 mg/dL (1.6-2.3); Potassium 5.4 mmol/L (3.5-5.1)
--- NOTE | 2021-09-18 10:04 | P.PN ---
Subjective Patient is seen in follow-up for acute kidney injury on chronic kidney disease. Renal function continues to worsen. Diuretics held. Nonoliguric. Denies chest pain or shortness of breath. Oral intake is good. Edema improved. No active complaints. Vital signs are stable. General: No acute distress. HEENT: Head exam is unremarkable. LUNGS: Breath sounds decreased. HEART: Rate and Rhythm are regular. ABDOMEN: Soft, no distention. EXTREMITITES: 1+ edema. Chronic changes noted. Objective - Vital Signs Vital signs: Vital Signs Temp 97.5 F L 09/18/21 03:36 Pulse 68 09/18/21 03:36 Resp 16 09/18/21 03:36 BP 127/60 09/18/21 03:36 Pulse Ox 92 L 09/18/21 03:36 Intake & Output 09/17/21 09/18/21 09/18/21 18:59 06:59 18:59 Intake Total 900 240 120 Output Total 575 Balance 900 -335 120 Intake: Oral 900 240 120 Output: Urine 575 Other: Voiding Method Urinal Urinal Diaper Diaper # Voids 3 1 # Bowel Movements 1 - Labs CBC & Chem 7: 09/16/21 08:51 09/18/21 07:45 Labs: Abnormal Lab Results - Last 24 Hours (Table) 09/17/21 09/17/21 09/17/21 Range/Units 12:03 16:28 19:34 Potassium (3.5-5.1) mmol/L Chloride (98-107) mmol/L BUN (9-20) mg/dL Creatinine (0.66-1.25) mg/dL Glucose (74-99) mg/dL POC Glucose (mg/dL) 164 H 146 H 233 H (75-99) mg/dL Magnesium (1.6-2.3) mg/dL 09/18/21 09/18/21 Range/Units 06:12 07:45 Potassium 5.4 H (3.5-5.1) mmol/L Chloride 96 L (98-107) mmol/L BUN 106 H* (9-20) mg/dL Creatinine 7.45 H* (0.66-1.25) mg/dL Glucose 105 H (74-99) mg/dL POC Glucose (mg/dL) 122 H (75-99) mg/dL Magnesium 2.4 H (1.6-2.3) mg/dL Assessment and Plan Plan: Assessment: 1. Acute kidney injury secondary to ATN secondary to infection and cardiorenal syndrome. Creatinine was 3.77 on admission and is 7.4 today. No hydronephrosis noted on kidney ultrasound. UA with 1+ protein. Urine eosinophils negative. 2. Chronic kidney disease stage IIIB/4 with baseline creatinine in the range of 1.7-2 secondary to diabetic kidney disease. 3. 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 Infectious disease following. 4. Diabetes mellitus. 5. Hypertension with chronic kidney disease. Stable. 6. Volume overload. Improved with diuresis. 7. Acute on chronic diastolic CHF. Plan: Continue to hold diuretics for now. Continue to hold losartan. Avoid nephrotoxins. Patient now agreeable to start renal replacement therapy. Consult vascular surgery for permacath placement. Plan for first treatment of hemodialysis today and second treatment tomorrow. marketing manager to set up outpatient dialysis. Check phosphorus level.
[2021-09-18 11:38] LABS: Glucose,Whole Blood 156 mg/dL (75-99)
[2021-09-18] MEDS ORDERED: LIDOCAINE 1% INJ 10MG/ML (30 ML VIAL-PF) SQ ONE (16:20)
[2021-09-18] MEDS ORDERED: IOPAMIDOL-370 50ML BTL INJ ONE (16:27)
--- NOTE | 2021-09-18 16:39 | P.GSHP ---
History of Present Illness 71-year-old gentleman who is known to me from the past I was consulted for placement of a dialysis catheter patient has history of acute disease he history of chronic renal failure patient also has history of diabetes hypertension co ngestive heart failure patient is very short of breath CPAP plan is placement of the dialysis catheter Neck is supple Chest patient has a crackles bilateral patient has CPAP Abdomen soft nontender Vascular 1+ Plan is placement of a dialysis catheter risk and complication discussed Past Medical History Past Medical History: Heart Failure, Diabetes Mellitus Additional Past Medical History / Comment(s): 10/04/14 Pt presented to [facility] ER with infection L lower leg for approximately one week. He saw his background check coordinator who swabbed the area and placed him on Keflex 3 days ago without improvement. Hehasfever and chills. He is being admitted with cellulitis. Other HX: IDDM type II, CKD, PVD, diabetic neuropathy, diabetic retinopathy, pulmonary HTN, pulmonary fibrosis, KIERA with BiPap use,severearthiritis-psoriatic and rheuma toid, osteomyelitis L lower extremity 2005 or 2006, gout, gastritis, sinus problems, cholestatic jaundice 2008 (pt had cholecystectomy 2009), abscess perirectalandscrotal 2003, L shoulder bursitis treated with steroid injections. History of Any Multi-Drug Resistant Organisms: MRSA Date of last positivie culture/infection: 08/18/21 MDRO Source:: Right Foot Past Surgical History: Cholecystectomy Additional Past Surgical History / Comment(s): cataract, Lt 2nd toe amputation Past Anesthesia/Blood Transfusion Reactions: No Reported Reaction Additional Past Anesthesia/Blood Transfusion Reaction / Comment(s): Pt has never recieved blood. Past Psychological History: No Psychological Hx Reported Smoking Status: Never smoker Past Alcohol Use History: Occasional Past Drug Use History: None Reported - Past Family History Father Family Medical History: Cancer, Renal Disease Additional Family Medical History / Comment(s): Father had one kidney removed. Mother Family Medical History: Diabetes Mellitus, Vascular Disorder Medications and Allergies Home Medications Medication Instructions Recorded Confirmed Type glipiZIDE [Glucotrol] 5 mg PO BID 05/23/15 09/11/21 History Ascorbic Acid [Vitamin C] 1,000 mg PO DAILY 08/17/21 09/11/21 History Cholecalciferol [Vitamin D3 (25 25 mcg PO DAILY 08/17/21 09/11/21 History Mcg = 1000 Iu)] Furosemide [Lasix] 40 mg PO BID 08/17/21 09/11/21 History Insulin Lispro [humaLOG Kwikpen] See Protocol SQ AC-TID PRN 08/17/21 09/11/21 History Acetaminophen Tab [Tylenol] 650 mg PO Q6HR PRN tab 08/23/21 09/11/21 Rx Famotidine [Pepcid] 20 mg PO DAILY #30 tab 08/23/21 09/11/21 Rx Losartan [Cozaar] 50 mg PO DAILY #30 tab 08/23/21 09/11/21 Rx Nystatin 100,000 Unit/gm Powd 1 applic TOPICAL BID #1 each 08/23/21 09/11/21 Rx [Mycostatin Powder] Insulin Glargine [Lantus Vial] 15 unit SQ HS@2300 09/11/21 09/11/21 History Allergies Allergy/AdvReac Type Severity Reaction Status Date / Time allopurinol Allergy Rash/Hives Verified 09/11/21 17:01 Surgical - Exam Vital Signs Temp Pulse Resp BP Pulse Ox 98.7 F 66 16 165/66 97 09/11/21 10:35 09/11/21 10:35 09/11/21 10:35 09/11/21 10:35 09/11/21 10:35 Results - Labs 09/16/21 08:51 09/18/21 07:45 Abnormal Lab Results - Last 24 Hours (Table) 09/17/21 09/18/21 09/18/21 Range/Units 19:34 06:12 07:45 Potassium 5.4 H (3.5-5.1) mmol/L Chloride 96 L (98-107) mmol/L BUN 106 H* (9-20) mg/dL Creatinine 7.45 H* (0.66-1.25) mg/dL Glucose 105 H (74-99) mg/dL POC Glucose (mg/dL) 233 H 122 H (75-99) mg/dL Phosphorus (2.5-4.5) mg/dL Magnesium 2.4 H (1.6-2.3) mg/dL 09/18/21 09/18/21 Range/Units 07:45 11:36 Potassium (3.5-5.1) mmol/L Chloride (98-107) mmol/L BUN (9-20) mg/dL Creatinine (0.66-1.25) mg/dL Glucose (74-99) mg/dL POC Glucose (mg/dL) 156 H (75-99) mg/dL Phosphorus 6.1 H (2.5-4.5) mg/dL Magnesium (1.6-2.3) mg/dL Diabetes panel 09/18/21 Range/Units 07:45 Sodium 139 (137-145) mmol/L Potassium 5.4 H (3.5-5.1) mmol/L Chloride 96 L (98-107) mmol/L Carbon Dioxide 27 (22-30) mmol/L BUN 106 H* (9-20) mg/dL Creatinine 7.45 H* (0.66-1.25) mg/dL Glucose 105 H (74-99) mg/dL Calcium 8.9 (8.4-10.2) mg/dL Calcium panel 09/18/21 09/18/21 Range/Units 07:45 07:45 Calcium 8.9 (8.4-10.2) mg/dL Phosphorus 6.1 H (2.5-4.5) mg/dL Pituitary panel 09/18/21 Range/Units 07:45 Sodium 139 (137-145) mmol/L Potassium 5.4 H (3.5-5.1) mmol/L Chloride 96 L (98-107) mmol/L Carbon Dioxide 27 (22-30) mmol/L BUN 106 H* (9-20) mg/dL Creatinine 7.45 H* (0.66-1.25) mg/dL Glucose 105 H (74-99) mg/dL Calcium 8.9 (8.4-10.2) mg/dL Adrenal panel 09/18/21 Range/Units 07:45 Sodium 139 (137-145) mmol/L Potassium 5.4 H (3.5-5.1) mmol/L Chloride 96 L (98-107) mmol/L Carbon Dioxide 27 (22-30) mmol/L BUN 106 H* (9-20) mg/dL Creatinine 7.45 H* (0.66-1.25) mg/dL Glucose 105 H (74-99) mg/dL Calcium 8.9 (8.4-10.2) mg/dL
--- NOTE | 2021-09-18 16:41 | P.PCN ---
Description of Procedure: Preoperative use acute chronic renal failure and has short of breath has CPAP and continue flat Postop same Procedure ultrasound-guided 20 same dialysis catheter placed left femoral approach left arm was prepped and draped applied sterile manner 1% lidocaine for an infraclavicular the groin area ultrasound was used a micropuncture introduced left common femoral vein micropuncture guidewire was passed and 4-Cypriot dilator advanced on the top of guidewire and dilator was advanced on the top of guidewire replaced a 30 same dialysis catheter flushed with heparin saline and Hep-Lock secured with 3-0 nylon patient tolerated the procedure well
[2021-09-18 17:05] LABS: Glucose,Whole Blood 144 mg/dL (75-99)
[2021-09-18] MEDS: MIDODRINE 5 MG TAB PO PRN (17:30)
[2021-09-18 19:52] LABS: Glucose,Whole Blood 144 mg/dL (75-99)
[2021-09-18] MEDS: INSULIN DETEMIR (LEVEMIR) 100 UNIT/ML SYR SQ SCH (20:02)
[2021-09-18 23:50] LABS: Hepatitis B Surface AB- Quant 3.5 mIU/mL; Hepatitis B Surface Antibody Nonreactive (Nonreactive)
[2021-09-19 05:17] LABS: Hepatitis B Surface Antigen Nonreactive (Nonreactive)
[2021-09-19 05:57] LABS: Glucose,Whole Blood 105 mg/dL (75-99)
[2021-09-19] MEDS: INSULIN ASPART (NovoLOG) 100 UNIT/ML VIAL SQ SCH ×4 (06:05→21:04)
--- NOTE | 2021-09-19 08:18 | IR ---
EXAMINATION TYPE: IR cvc insert non tunneled DATE OF EXAM: 09/18/2021 COMPARISON: NONE HISTORY: Dialysis catheter placement Fluoroscopy support supplied to the referring clinician. See dictated report from vascular surgery, 0.8 minutes fluoroscopy, 343 intraoperative C-arm images document the procedure
[2021-09-19] MEDS: CEFEPIME 1 GM in SODIUM CHLORIDE 0.9% 50 ML IVPB SCH (08:24)
--- NOTE | 2021-09-19 08:27 | P.PN ---
Subjective Principal diagnosis: TIA The patient is a 71-year-old white male essentially meant for TIA with acute kidney injury and element of hypertensive urgency yesterday. Medication was started on his blood pressure seems to be nominal. We will continue to follow for acute kidney injury. Carotid Doppler showed possible 50% stenosis. Roni rderline hemodynamic issue. Cardiac echocardiogram is nominal. The patient is stating he feels much better with no slurred speech. Unfortunately, renal function has been worsening. I explained this to the patient at length. Catheter is now been placed and he will have dialysis today. Objective - Vital Signs Vital signs: Vital Signs Temp 97.7 F 09/19/21 03:25 Pulse 76 09/19/21 03:25 Resp 18 09/19/21 03:25 BP 138/66 09/19/21 03:25 Pulse Ox 93 L 09/19/21 03:25 Intake & Output 09/18/21 09/19/21 09/19/21 18:59 06:59 18:59 Intake Total 340 240 Output Total 200 1350 Balance 140 -1110 Intake: Intake, IV Titration 100 Amount Cefepime 1 gm In Sodium 50 Chloride 0.9% 50 ml @ 12. 5 mls/hr IVPB Q24H [facility] Rx #:[id number] DAPTOmycin 600 mg In 50 Sodium Chloride 0.9% 50 ml @ 100 mls/hr IVPB Q48H [facility] Rx#:[id number] Oral 240 240 Output: Urine 200 350 Hemodialysis 1000 Other: Voiding Method Urinal Urinal Diaper # Voids 1 - Constitutional General appearance: Present: cooperative, obese - EENT Eyes: Absent: abnormal pupil - Neck Neck: Absent: lymphadenopathy - Respiratory Respiratory: bilateral: CTA - Cardiovascular Rhythm: regular Heart sounds: abnormal: S1, S2 Abnormal Heart Sounds: Absent: S3 Gallop - Gastrointestinal General gastrointestinal: Present: soft - Integumentary Integumentary: Present: cellulitis - Psychiatric Psychiatric: Present: A&O x's 3 - Labs CBC & Chem 7: 09/16/21 08:51 09/18/21 07:45 Labs: Abnormal Lab Results - Last 24 Hours (Table) 09/18/21 09/18/21 09/18/21 Range/Units 07:45 07:45 11:36 Potassium 5.4 H (3.5-5.1) mmol/L Chloride 96 L (98-107) mmol/L BUN 106 H* (9-20) mg/dL Creatinine 7.45 H* (0.66-1.25) mg/dL Glucose 105 H (74-99) mg/dL POC Glucose (mg/dL) 156 H (75-99) mg/dL Phosphorus 6.1 H (2.5-4.5) mg/dL Magnesium 2.4 H (1.6-2.3) mg/dL 09/18/21 09/18/21 09/19/21 Range/Units 17:04 19:50 05:56 Potassium (3.5-5.1) mmol/L Chloride (98-107) mmol/L BUN (9-20) mg/dL Creatinine (0.66-1.25) mg/dL Glucose (74-99) mg/dL POC Glucose (mg/dL) 144 H 144 H 105 H (75-99) mg/dL Phosphorus (2.5-4.5) mg/dL Magnesium (1.6-2.3) mg/dL Assessment and Plan (1) Acute on chronic renal failure Current Visit: Yes Status: Acute Code(s): N17.9 - ACUTE KIDNEY FAILURE, UNSPECIFIED; N18.9 - CHRONIC KIDNEY DISEASE, UNSPECIFIED SNOMED Code(s): 559204465 (2) Transient cerebral ischemia Current Visit: Yes Status: Acute Code(s): G45.9 - TRANSIENT CEREBRAL ISCHEMIC ATTACK, UNSPECIFIED SNOMED Code(s): 900096177 (3) Chronic CHF Current Visit: No Status: Acute Code(s): I50.9 - HEART FAILURE, UNSPECIFIED SNOMED Code(s): 97258374 (4) Diabetes Current Visit: No Status: Acute Code(s): E11.9 - TYPE 2 DIABETES MELLITUS WITHOUT COMPLICATIONS SNOMED Code(s): 10249440 (5) High risk for readmission Current Visit: No Status: Acute Code(s): Z91.89 - OTH PERSONAL RISK FACTORS, NOT ELSEWHERE CLASSIFIED SNOMED Code(s): 699356568 Plan: Blood pressure is stabilizing Appreciate multiple consultants input. Echocardiogram and carotid Doppler and CT noted. Appreciate multiple consultants input. Dialysis for today and in a.m. Check CMP in AM
[2021-09-19 10:07] LABS: HCT 49.3 % (39.0-53.0); HGB 15.1 gm/dL (13.0-17.5); MCH 29.3 pg (25.0-35.0); MCHC 30.5 g/dL (31.0-37.0); MCV 95.9 fL (80.0-100.0); Mean Platelet Volume 7.7; Platelet Count 190 k/uL (150-450); RBC 5.15 m/uL (4.30-5.90); RDW 14.3 % (11.5-15.5); WBC 7.9 k/uL (3.8-10.6)
[2021-09-19 10:24] LABS: Calcium 9.1 mg/dL (8.4-10.2); Potassium 5.7 mmol/L (3.5-5.1); Total Bilirubin 0.9 mg/dL (0.2-1.3); Total Protein 7.7 g/dL (6.3-8.2)
--- NOTE | 2021-09-19 10:37 | P.PN ---
Subjective Patient is seen in follow-up for acute kidney injury on chronic kidney disease. Started on hemodialysis 09/18/2021. Diuretics held. Nonoliguric. Denies chest pain or shortness of breath. Oral intake is fair. Edema improved. No active complaints. Vital signs are stable. General: No acute distress. HEENT: Head exam is unremarkable. LUNGS: Breath sounds decreased. HEART: Rate and Rhythm are regular. ABDOMEN: Soft, no distention. EXTREMITITES: 1+ edema. Chronic changes noted. Objective - Vital Signs Vital signs: Vital Signs Temp 97.5 F L 09/19/21 08:00 Pulse 67 09/19/21 08:00 Resp 20 09/19/21 08:00 BP 139/72 09/19/21 08:00 Pulse Ox 95 09/19/21 08:00 Intake & Output 09/18/21 09/19/21 09/19/21 18:59 06:59 18:59 Intake Total 340 240 Output Total 200 1350 Balance 140 -1110 Intake: Intake, IV Titration 100 Amount Cefepime 1 gm In Sodium 50 Chloride 0.9% 50 ml @ 12. 5 mls/hr IVPB Q24H [facility] Rx #:[id number] DAPTOmycin 600 mg In 50 Sodium Chloride 0.9% 50 ml @ 100 mls/hr IVPB Q48H [facility] Rx#:[id number] Oral 240 240 Output: Urine 200 350 Hemodialysis 1000 Other: Voiding Method Urinal Urinal Diaper # Voids 1 - Labs CBC & Chem 7: 09/19/21 09:31 09/19/21 09:31 Labs: Abnormal Lab Results - Last 24 Hours (Table) 09/18/21 09/18/21 09/18/21 Range/Units 07:45 11:36 17:04 MCHC (31.0-37.0) g/dL Potassium (3.5-5.1) mmol/L BUN (9-20) mg/dL Creatinine (0.66-1.25) mg/dL Glucose (74-99) mg/dL POC Glucose (mg/dL) 156 H 144 H (75-99) mg/dL Phosphorus 6.1 H (2.5-4.5) mg/dL 09/18/21 09/19/21 09/19/21 Range/Units 19:50 05:56 09:31 MCHC (31.0-37.0) g/dL Potassium 5.7 H (3.5-5.1) mmol/L BUN 75 H (9-20) mg/dL Creatinine 6.76 H (0.66-1.25) mg/dL Glucose 135 H (74-99) mg/dL POC Glucose (mg/dL) 144 H 105 H (75-99) mg/dL Phosphorus (2.5-4.5) mg/dL 09/19/21 Range/Units 09:31 MCHC 30.5 L (31.0-37.0) g/dL Potassium (3.5-5.1) mmol/L BUN (9-20) mg/dL Creatinine (0.66-1.25) mg/dL Glucose (74-99) mg/dL POC Glucose (mg/dL) (75-99) mg/dL Phosphorus (2.5-4.5) mg/dL Assessment and Plan Plan: Assessment: 1. Acute kidney injury secondary to ATN secondary to infection and cardiorenal syndrome. Creatinine was 3.77 on admission and peaked at 7.4 this admission. Started on hemodialysis 09/18/2021. No hydronephrosis noted on kidney ultrasound. UA with 1+ protein. Urine eosinophils negative. 2. Chronic kidney disease stage IIIB/4 with baseline creatinine in the range of 1.7-2 secondary to diabetic kidney disease. 3. 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 Infectious disease following. 4. Diabetes mellitus. 5. Hypertension with chronic kidney disease. Stable. 6. Volume overload. Improved with diuresis. 7. Acute on chronic diastolic CHF. 8. Hyperphosphatemia secondary to acute kidney injury. Plan: Second treatment of hemodialysis today and third treatment tomorrow. Resume torsemide. Avoid nephrotoxins. Patient currently has a femoral catheter which was placed 09/18/2021. He was unable to lay flat for Pcath placement. Add PhosLo with meals. Outpatient dialysis to be set up. Monitor for renal recovery outpatient.
[2021-09-19 11:44] LABS: Glucose,Whole Blood 117 mg/dL (75-99)
[2021-09-19] MEDS ORDERED: SODIUM ZIRCONIUM CYCLOSILICATE 10 GM PACKET PO ONE (12:30)
[2021-09-19] MEDS: ASCORBIC ACID 500 MG TAB PO SCH (12:57)
[2021-09-19] MEDS: FAMOTIDINE 20 MG TAB PO SCH (12:57)
[2021-09-19] MEDS: DOCUSATE 100 MG CAP PO SCH (12:57)
[2021-09-19] MEDS: HEPARIN SODIUM,PORCINE/PF 5,000 UNIT/0.5 ML SYRINGE SQ SCH ×2 (12:58→21:03)
[2021-09-19] MEDS: ASPIRIN 81 MG PO SCH (12:58)
[2021-09-19] MEDS: CYANOCOBALAMIN 500 MCG TAB PO SCH (12:58)
[2021-09-19] MEDS: CHOLECALCIFEROL 25 MCG (1000 IU) TABLET PO SCH (12:58)
[2021-09-19] MEDS: amLODIPine 10 MG TAB PO SCH (12:58)
[2021-09-19] MEDS: CLOPIDOGREL 75 MG TAB PO SCH (12:58)
[2021-09-19] MEDS: TORSEMIDE 20 MG TAB PO SCH (13:00)
[2021-09-19] MEDS: CALCIUM ACETATE 667 MG TAB PO SCH ×2 (13:02→17:04)
[2021-09-19] MEDS ORDERED: PROPOFOL 10 MG/ML 20 ML VIAL IV ONE (14:28)
[2021-09-19] MEDS ORDERED: LIDOCAINE 1% INJ 10MG/ML (30 ML VIAL-PF) SQ ONE (14:54)
[2021-09-19] MEDS ORDERED: HEPARIN SODIUM 1,000 UN/ML (10ML VL) ONE (15:01)
--- NOTE | 2021-09-19 15:47 | IR ---
EXAMINATION EXAMINATION TYPE: IR cvc insert central tunneled DATE OF EXAM: 09/19/2021 COMPARISON: NONE HISTORY: Renal failure Fluoroscopy support supplied to the referring clinician. See dictated report from vascular surgery, 44 intraoperative C-arm images, 0.4 minutes fluoroscopy time
--- NOTE | 2021-09-19 15:49 | XR ---
EXAMINATION TYPE: XR chest 1V DATE OF EXAM: 09/19/2021 COMPARISON: NONE HISTORY: Post dialysis catheter placement TECHNIQUE: Single frontal view of the chest is obtained. FINDINGS: There is been placement of a right jugular central venous catheter with the distal tip richard r the cavoatrial junction level. Right-sided PICC line is also present. There is no evident pneumotho rax or pleural effusion. Lung volumes are low. Cardiac mediastinal silhouette is stable. IMPRESSION: No evident complication status post central venous catheter placement.
--- NOTE | 2021-09-19 15:52 | OP ---
OPERATIVE REPORT PREOPERATIVE DIAGNOSIS: Acute of chronic failure, malfunction of femoral dialysis catheter. PROCEDURE PERFORMED: Ultrasound-guided placement of 23 cm dialysis catheter via jugular approach. SEDATION TIME: 20 minutes. DESCRIPTION OF PROCEDURE: This patient was brought to the operating room. Under local and IV sedation, right side of the neck and chest was prepped and drapes were applied in the usual sterile manner. Lidocaine 1% plain was infiltrated into the neck and chest area. Ultrasound-guided micropuncture was introduced into the right jugular vein. Micropuncture guidewire was passed and 4-Armenian dilator was advanced on the top of the guidewire. A tunnel was created. Through the tunnel we brought a 23 cm dialysis catheter. Then we passed a regular guidewire, which was parked in the inferior vena cava. Dilators were advanced and sheath was advanced on top of the guidewire. Through the sheath we introduced the dialysis catheter. Tip of the catheter was in the superior vena cavoatrial junction. Flushed with heparin and hep-locked, secured with 3-0 nylon. Patient tolerated the procedure well. Then attention was directed to the left groin. The patient had a temporary dialysis catheter, which was removed. Patient tolerated the procedure well. MMODL / IJN: [id number] /
[2021-09-19 16:11] LABS: Glucose,Whole Blood 140 mg/dL (75-99)
[2021-09-19 20:14] LABS: Glucose,Whole Blood 329 mg/dL (75-99)
[2021-09-19] MEDS: INSULIN DETEMIR (LEVEMIR) 100 UNIT/ML SYR SQ SCH (21:04)
[2021-09-20 06:03] LABS: Glucose,Whole Blood 88 mg/dL (75-99)
[2021-09-20] MEDS: INSULIN ASPART (NovoLOG) 100 UNIT/ML VIAL SQ SCH ×4 (06:18→21:14)
[2021-09-20] MEDS: CALCIUM ACETATE 667 MG TAB PO SCH ×4 (06:32→17:08)
--- NOTE | 2021-09-20 08:41 | P.PN ---
Subjective Principal diagnosis: TIA The patient is a 71-year-old white male essentially meant for TIA with acute kidney injury and element of hypertensive urgency yesterday. Medication was started on his blood pressure seems to be nominal. We will continue to follow for acute kidney injury. Carotid Doppler showed possible 50% stenosis. Roni rderline hemodynamic issue. Cardiac echocardiogram is nominal. The patient is stating he feels much better with no slurred speech. Unfortunately, renal function has been worsening. I explained this to the patient at length. Catheter is now been placed and he will have dialysis today. Objective - Vital Signs Vital signs: Vital Signs Temp 97.4 F L 09/20/21 04:00 Pulse 64 09/20/21 04:00 Resp 18 09/20/21 04:00 BP 140/65 09/20/21 04:00 Pulse Ox 93 L 09/20/21 04:00 Intake & Output 09/19/21 09/20/21 09/20/21 18:59 06:59 18:59 Intake Total 350 240 Output Total 700 100 Balance -350 140 Weight 110.6 kg Intake: Intake, IV Titration 50 Amount Cefepime 1 gm In Sodium 50 Chloride 0.9% 50 ml @ 12. 5 mls/hr IVPB Q24H [facility] Rx #:[id number] Oral 240 Hemodialysis 300 Output: Urine 100 Hemodialysis 700 Other: Voiding Method Urinal # Voids 1 - Constitutional General appearance: Present: no acute distress, obese - EENT Eyes: Absent: abnormal pupil - Neck Neck: Absent: lymphadenopathy - Respiratory Respiratory: bilateral: diminished - Cardiovascular Rhythm: irregularly irregular Heart sounds: normal: S1, S2 - Gastrointestinal General gastrointestinal: Present: soft. Absent: tenderness - Neurologic Neurologic: Present: CNII-XII intact - Labs CBC & Chem 7: 09/19/21 09:31 09/19/21 17:09 Labs: Abnormal Lab Results - Last 24 Hours (Table) 09/19/21 09/19/21 09/19/21 Range/Units 09:31 09:31 11:42 MCHC 30.5 L (31.0-37.0) g/dL Potassium 5.7 H (3.5-5.1) mmol/L BUN 75 H (9-20) mg/dL Creatinine 6.76 H (0.66-1.25) mg/dL Glucose 135 H (74-99) mg/dL POC Glucose (mg/dL) 117 H (75-99) mg/dL 09/19/21 09/19/21 09/19/21 Range/Units 16:10 17:09 20:11 MCHC (31.0-37.0) g/dL Potassium 5.8 H (3.5-5.1) mmol/L BUN (9-20) mg/dL Creatinine (0.66-1.25) mg/dL Glucose (74-99) mg/dL POC Glucose (mg/dL) 140 H 329 H (75-99) mg/dL Assessment and Plan (1) Acute on chronic renal failure Current Visit: Yes Status: Acute Code(s): N17.9 - ACUTE KIDNEY FAILURE, UNSPECIFIED; N18.9 - CHRONIC KIDNEY DISEASE, UNSPECIFIED SNOMED Code(s): 913036280 (2) Transient cerebral ischemia Current Visit: Yes Status: Acute Code(s): G45.9 - TRANSIENT CEREBRAL ISCHEMIC ATTACK, UNSPECIFIED SNOMED Code(s): 497355547 (3) Chronic CHF Current Visit: No Status: Acute Code(s): I50.9 - HEART FAILURE, UNSPECIFIED SNOMED Code(s): 35069763 (4) Diabetes Current Visit: No Status: Acute Code(s): E11.9 - TYPE 2 DIABETES MELLITUS WITHOUT COMPLICATIONS SNOMED Code(s): 89860602 (5) High risk for readmission Current Visit: No Status: Acute Code(s): Z91.89 - OTH PERSONAL RISK FACTORS, NOT ELSEWHERE CLASSIFIED SNOMED Code(s): 730231256 Plan: Blood pressure is stabilizing Dialysis for today and in a.m. Check CMP in AM Dialysis later today
[2021-09-20] MEDS: HEPARIN SODIUM,PORCINE/PF 5,000 UNIT/0.5 ML SYRINGE SQ SCH ×2 (08:57→21:14)
[2021-09-20] MEDS: CHOLECALCIFEROL 25 MCG (1000 IU) TABLET PO SCH (08:58)
[2021-09-20] MEDS: ASCORBIC ACID 500 MG TAB PO SCH (08:58)
[2021-09-20] MEDS: FAMOTIDINE 20 MG TAB PO SCH (08:58)
[2021-09-20] MEDS: ASPIRIN 81 MG PO SCH (08:58)
[2021-09-20] MEDS: CLOPIDOGREL 75 MG TAB PO SCH (08:58)
[2021-09-20] MEDS: CEFEPIME 1 GM in SODIUM CHLORIDE 0.9% 50 ML IVPB SCH (08:58)
[2021-09-20] MEDS: CYANOCOBALAMIN 500 MCG TAB PO SCH (08:58)
[2021-09-20] MEDS: DOCUSATE 100 MG CAP PO SCH (08:58)
[2021-09-20 09:30] LABS: Albumin 3.9 g/dL (3.5-5.0); Calcium 8.9 mg/dL (8.4-10.2); Magnesium 2.3 mg/dL (1.6-2.3); Potassium 5.5 mmol/L (3.5-5.1); Total Bilirubin 0.9 mg/dL (0.2-1.3); Total Protein 7.7 g/dL (6.3-8.2)
[2021-09-20] MEDS: MIDODRINE 5 MG TAB PO PRN (10:36)
[2021-09-20 11:01] VITALS: BMI 33.0
--- NOTE | 2021-09-20 11:19 | P.PN ---
Subjective Patient is seen in follow-up for acute kidney injury on chronic kidney disease. Started on hemodialysis 09/18/2021. Yesterday's treatment was cut short due to malfunctioning femoral catheter. Had a permacath placed 09/16/2021. Resting in bed. On BiPAP. He has been voiding. Hemodynamically stable. Vital signs are stable. General: Awake. No acute distress. HEENT: Head exam is unremarkable. On BiPAP. LUNGS: Breath sounds decreased. HEART: Rate and Rhythm are regular. ABDOMEN: Soft, obese. EXTREMITITES: No edema. Objective - Vital Signs Vital signs: Vital Signs Temp 97.4 F L 09/20/21 04:00 Pulse 65 09/20/21 08:00 Resp 16 09/20/21 08:00 BP 144/58 09/20/21 08:00 Pulse Ox 97 09/20/21 08:00 Intake & Output 09/19/21 09/20/21 09/20/21 18:59 06:59 18:59 Intake Total 350 240 118 Output Total 700 100 Balance -350 140 118 Weight 110.6 kg 110.6 kg Intake: Intake, IV Titration 50 Amount Cefepime 1 gm In Sodium 50 Chloride 0.9% 50 ml @ 12. 5 mls/hr IVPB Q24H [facility] Rx #:[id number] Oral 240 118 Hemodialysis 300 Output: Urine 100 Hemodialysis 700 Other: Voiding Method Urinal # Voids 1 - Labs CBC & Chem 7: 09/19/21 09:31 09/20/21 08:03 Labs: Abnormal Lab Results - Last 24 Hours (Table) 09/19/21 09/19/21 09/19/21 Range/Units 11:42 16:10 17:09 Potassium 5.8 H (3.5-5.1) mmol/L BUN (9-20) mg/dL Creatinine (0.66-1.25) mg/dL POC Glucose (mg/dL) 117 H 140 H (75-99) mg/dL 09/19/21 09/20/21 Range/Units 20:11 08:03 Potassium 5.5 H (3.5-5.1) mmol/L BUN 74 H (9-20) mg/dL Creatinine 7.08 H* (0.66-1.25) mg/dL POC Glucose (mg/dL) 329 H (75-99) mg/dL Assessment and Plan Plan: Assessment: 1. Acute kidney injury secondary to ATN secondary to infection and cardiorenal syndrome. Creatinine was 3.77 on admission and peaked at 7.4 this admission. Started on hemodialysis 09/18/2021. No hydronephrosis noted on kidney ultrasound. UA with 1+ protein. Urine eosinophils negative. 2. Chronic kidney disease stage IIIB/4 with baseline creatinine in the range of 1.7-2 secondary to diabetic kidney disease. 3. 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 Infectious disease following. 4. Diabetes mellitus. 5. Hypertension with chronic kidney disease. Stable. 6. Volume overload. Improved with diuresis. 7. Acute on chronic diastolic CHF. 8. Hyperphosphatemia secondary to acute kidney injury. On PhosLo. 9. Hyperkalemia secondary to acute kidney injury. Expect improvement postdialysis. Plan: Currently seen while undergoing hemodialysis. Plan for third treatment tomorrow. Maintain torsemide. Avoid nephrotoxins. Outpatient dialysis being set up - will be maintained on TTS schedule. Monitor for renal recovery outpatient.
[2021-09-20 11:36] LABS: Glucose,Whole Blood 135 mg/dL (75-99)
[2021-09-20 16:36] LABS: Glucose,Whole Blood 223 mg/dL (75-99)
[2021-09-20] MEDS: amLODIPine 10 MG TAB PO SCH (17:08)
[2021-09-20] MEDS: TORSEMIDE 20 MG TAB PO SCH (18:08)
--- NOTE | 2021-09-20 19:36 | P.PN ---
Subjective Progress Note Date: 09/18/21 Principal diagnosis: Right fifth toe diabetic foot infection Patient is a 71-year-old male with a recent diagnosis of right fifth toe diabetic foot infection with underlying Osteomyelitis culture positive for MRSA and Providencia , for the patient was getting cefepime and daptomycin outpatient setting subsequently presented to hospital with slurred speech and concern for possible CVA patient also have evidence of significant worsening of the kidney function. Patient did got femoral dialysis catheter On today's evaluation that is 09/18/2021, the patient remains to be afebrile, the patient denies chest pain shortness of breath or cough , the patient denies abdominal pain or diarrhea, patient is complaining of slightly feeling weak Objective - Vital Signs Vital signs: Vital Signs Temp 97.8 F 09/18/21 20:00 Pulse 69 09/18/21 20:00 Resp 20 09/18/21 20:00 BP 151/70 09/18/21 20:00 Pulse Ox 91 L 09/18/21 20:00 Intake & Output 09/18/21 09/18/21 09/19/21 06:59 18:59 06:59 Intake Total 240 340 240 Output Total 164 697 8315 Balance -335 140 -885 Intake: Intake, IV Titration 100 Amount Cefepime 1 gm In Sodium 50 Chloride 0.9% 50 ml @ 12. 5 mls/hr IVPB Q24H [facility] Rx #:[id number] DAPTOmycin 600 mg In 50 Sodium Chloride 0.9% 50 ml @ 100 mls/hr IVPB Q48H [facility] Rx#:[id number] Oral 240 240 240 Output: Urine 575 200 125 Hemodialysis 1000 Other: Voiding Method Urinal Urinal Urinal Diaper Diaper # Voids 1 1 # Bowel Movements 1 - Exam GENERAL DESCRIPTION: An elderly male up in the bed in no distress RESPIRATORY SYSTEM: Unlabored breathing , decreased breath sounds at bases HEART: S1 S2 regular rate and rhythm , ABDOMEN: Soft , no tenderness EXTREMITIES: Diffuse swelling of the leg right fifth toe is currently dressed - Labs CBC & Chem 7: 09/19/21 09:31 09/20/21 08:03 Labs: Abnormal Lab Results - Last 24 Hours (Table) 09/18/21 09/18/21 09/18/21 Range/Units 06:12 07:45 07:45 Potassium 5.4 H (3.5-5.1) mmol/L Chloride 96 L (98-107) mmol/L BUN 106 H* (9-20) mg/dL Creatinine 7.45 H* (0.66-1.25) mg/dL Glucose 105 H (74-99) mg/dL POC Glucose (mg/dL) 122 H (75-99) mg/dL Phosphorus 6.1 H (2.5-4.5) mg/dL Magnesium 2.4 H (1.6-2.3) mg/dL 09/18/21 09/18/21 09/18/21 Range/Units 11:36 17:04 19:50 Potassium (3.5-5.1) mmol/L Chloride (98-107) mmol/L BUN (9-20) mg/dL Creatinine (0.66-1.25) mg/dL Glucose (74-99) mg/dL POC Glucose (mg/dL) 156 H 144 H 144 H (75-99) mg/dL Phosphorus (2.5-4.5) mg/dL Magnesium (1.6-2.3) mg/dL Assessment and Plan (1) Osteomyelitis Current Visit: No Status: Acute Code(s): M86.9 - OSTEOMYELITIS, UNSPECIFIED SNOMED Code(s): 80974951 Plan: 1patient with right fifth toe diabetic foot infection with underlying oste omyelitis on the basis of plain x-rays and bone scan local culture positive for MRSA and Providencia in this patient treated with cefepime and daptomycin now presented to hospital with slurred speech and is being investigated for possible CVA clinically doubt symptoms related to his antibiotics, patient did have significant worsening of his kidney function and may be contributing to some of his symptoms. Patient was initially refusing dialysis however seemed to have agreed to it and has got femoral dialysis catheter and started on dialysis 2patient is currently being treated with daptomycin and cefepime with a dose adjusted to kidney function and local wound care with Aquacel silver dressing change every 48 hour. Time with Patient: Less than 30
--- NOTE | 2021-09-20 19:38 | P.PN ---
Subjective Progress Note Date: 09/19/21 Principal diagnosis: Right fifth toe diabetic foot infection Patient is a 71-year-old male with a recent diagnosis of right fifth toe diabetic foot infection with underlying Osteomyelitis culture positive for MRSA and Providencia , for the patient was getting cefepime and daptomycin outpatient setting subsequently presented to hospital with slurred speech and concern for possible CVA patient also have evidence of significant worsening of the kidney function. Patient did got femoral dialysis catheter On today's evaluation that is 09/19/2021, the patient is afebrile, the patient denies chest pain, is complaining of some shortness of breath however no significant cough , the patient denies abdominal pain or diarrhea, patient is complaining of slightly feeling weak Objective - Vital Signs Vital signs: Vital Signs Temp 97.8 F 09/19/21 11:38 Pulse 72 09/19/21 11:38 Resp 20 09/19/21 11:38 BP 128/70 09/19/21 11:38 Pulse Ox 90 L 09/19/21 11:38 Intake & Output 09/18/21 09/19/21 09/19/21 18:59 06:59 18:59 Intake Total 340 240 Output Total 200 1350 Balance 140 -1110 Intake: Intake, IV Titration 100 Amount Cefepime 1 gm In Sodium 50 Chloride 0.9% 50 ml @ 12. 5 mls/hr IVPB Q24H [facility] Rx #:[id number] DAPTOmycin 600 mg In 50 Sodium Chloride 0.9% 50 ml @ 100 mls/hr IVPB Q48H [facility] Rx#:[id number] Oral 240 240 Output: Urine 200 350 Hemodialysis 1000 Other: Voiding Method Urinal Urinal Diaper # Voids 1 - Exam GENERAL DESCRIPTION: An elderly male up in the bed in no distress RESPIRATORY SYSTEM: Unlabored breathing , decreased breath sounds at bases HEART: S1 S2 regular rate and rhythm , ABDOMEN: Soft , no tenderness EXTREMITIES: Diffuse swelling of the leg right fifth toe is currently dressed - Labs CBC & Chem 7: 09/19/21 09:31 09/20/21 08:03 Labs: Abnormal Lab Results - Last 24 Hours (Table) 09/18/21 09/18/21 09/19/21 Range/Units 17:04 19:50 05:56 MCHC (31.0-37.0) g/dL Potassium (3.5-5.1) mmol/L BUN (9-20) mg/dL Creatinine (0.66-1.25) mg/dL Glucose (74-99) mg/dL POC Glucose (mg/dL) 144 H 144 H 105 H (75-99) mg/dL 09/19/21 09/19/21 09/19/21 Range/Units 09:31 09:31 11:42 MCHC 30.5 L (31.0-37.0) g/dL Potassium 5.7 H (3.5-5.1) mmol/L BUN 75 H (9-20) mg/dL Creatinine 6.76 H (0.66-1.25) mg/dL Glucose 135 H (74-99) mg/dL POC Glucose (mg/dL) 117 H (75-99) mg/dL Assessment and Plan (1) Osteomyelitis Current Visit: No Status: Acute Code(s): M86.9 - OSTEOMYELITIS, UNSPECIFIED SNOMED Code(s): 77737537 Plan: 1patient with right fifth toe diabetic foot infection with underlying osteomyelitis on the basis of plain x-rays and bone scan local culture positive for MRSA and Providencia in this patient treated with cefepime and daptomycin now presented to hospital with slurred speech and is being investigated for possible CVA clinically doubt symptoms related to his antibiotics, patient did have significant worsening of his kidney function and may be contributing to some of his symptoms. Patient was initially refusing dialysis however seemed to have agreed to it and has got femoral dialysis catheter however the dialysis catheter and large working for the tach and the patient will need subclavian dialysis catheter 2patient to continue with daptomycin and cefepime with a dose adjusted to kidney function and local wound care with Aquacel silver dressing change every 48 hour. Time with Patient: Less than 30
--- NOTE | 2021-09-20 19:40 | P.PN ---
Subjective Progress Note Date: 09/20/21 Principal diagnosis: Right fifth toe diabetic foot infection Patient is a 71-year-old male with a recent diagnosis of right fifth toe diabetic foot infection with underlying Osteomyelitis culture positive for MRSA and Providencia , for the patient was getting cefepime and daptomycin outpatient setting subsequently presented to hospital with slurred speech and concern for possible CVA patient also have evidence of significant worsening of the kidney function. Patient did got femoral dialysis catheter which seemed to help on both subsequently the patient did got right IJ dialysis catheter placement On today's evaluation that is 09/20/2021, the patient denies any fever or chills, the patient denies chest pain, the patient is is complaining of some shortness of breath however no worsening , the patient denies abdominal pain or diarrhea, patient is still complaining of feeling weak Objective - Vital Signs Vital signs: Vital Signs Temp 97.4 F L 09/20/21 04:00 Pulse 67 09/20/21 12:00 Resp 16 09/20/21 12:00 BP 119/71 09/20/21 13:02 Pulse Ox 97 09/20/21 08:00 Intake & Output 09/19/21 09/20/21 09/20/21 18:59 06:59 18:59 Intake Total 350 240 118 Output Total 242 696 1630 Balance -350 140 -1382 Weight 110.6 kg 110.6 kg Intake: Intake, IV Titration 50 Amount Cefepime 1 gm In Sodium 50 Chloride 0.9% 50 ml @ 12. 5 mls/hr IVPB Q24H [facility] Rx #:[id number] Oral 240 118 Hemodialysis 300 Output: Urine 100 Hemodialysis 700 1500 Other: Voiding Method Urinal Urinal # Voids 1 - Exam GENERAL DESCRIPTION: An elderly male up in the bed in no distress RESPIRATORY SYSTEM: Unlabored breathing , decreased breath sounds at bases HEART: S1 S2 regular rate and rhythm , ABDOMEN: Soft , no tenderness EXTREMITIES: Diffuse swelling of the leg right fifth toe is currently dressed - Labs CBC & Chem 7: 09/19/21 09:31 09/20/21 08:03 Labs: Abnormal Lab Results - Last 24 Hours (Table) 09/19/21 09/19/21 09/19/21 Range/Units 16:10 17:09 20:11 Potassium 5.8 H (3.5-5.1) mmol/L BUN (9-20) mg/dL Creatinine (0.66-1.25) mg/dL POC Glucose (mg/dL) 140 H 329 H (75-99) mg/dL 09/20/21 09/20/21 Range/Units 08:03 11:22 Potassium 5.5 H (3.5-5.1) mmol/L BUN 74 H (9-20) mg/dL Creatinine 7.08 H* (0.66-1.25) mg/dL POC Glucose (mg/dL) 135 H (75-99) mg/dL Assessment and Plan (1) Osteomyelitis Current Visit: No Status: Acute Code(s): M86.9 - OSTEOMYELITIS, UNSPECIFIED SNOMED Code(s): 94495030 Plan: 1patient with right fifth toe diabetic foot infection with underlying osteomyelitis on the basis of plain x-rays and bone scan local culture positive for MRSA and Providencia in this patient treated with cefepime and daptomycin now presented to hospital with slurred speech and is being investigated for possible CVA clinically doubt symptoms related to his antibiotics, patient did have significant worsening of his kidney function and may be contributing to some of his symptoms. Patient was initially refusing dialysis however seemed to have agreed to it and has got femoral dialysis catheter which did not work subsequently did have a right IJ permacath placement and has been started on dialysis 2patient is currently being treated with daptomycin and cefepime and local wound care with Aquacel silver dressing change every 48 hour. Time with Patient: Less than 30
[2021-09-20 20:05] LABS: Glucose,Whole Blood 133 mg/dL (75-99)
[2021-09-20] MEDS: INSULIN DETEMIR (LEVEMIR) 100 UNIT/ML SYR SQ SCH (21:14)
[2021-09-21 06:25] LABS: Glucose,Whole Blood 100 mg/dL (75-99)
--- NOTE | 2021-09-21 08:11 | P.PN ---
Subjective Principal diagnosis: TIA The patient is a 71-year-old white male essentially meant for TIA with acute kidney injury and element of hypertensive urgency yesterday. Medication was started on his blood pressure seems to be nominal. We will continue to follow for acute kidney injury. Carotid Doppler showed possible 50% stenosis. Roni rderline hemodynamic issue. Cardiac echocardiogram is nominal. The patient is stating he feels much better with no slurred speech. Unfortunately, renal function has been stabilizing. I explained this to the patient at length. Catheter is now been placed and he will have dialysis today. Osteomyelitis is noted and infectious disease treating. Appreciate nephrology. Objective - Vital Signs Vital signs: Vital Signs Temp 97.9 F 09/21/21 04:00 Pulse 69 09/21/21 04:00 Resp 18 09/21/21 04:00 BP 139/64 09/21/21 04:00 Pulse Ox 97 09/21/21 04:00 Intake & Output 09/20/21 09/21/21 09/21/21 18:59 06:59 18:59 Intake Total 476 Output Total 1500 0 Balance -1024 0 Weight 110.6 kg 110.2 kg Intake: Oral 476 Output: Urine 0 Hemodialysis 1500 Other: Voiding Method Urinal Urinal # Voids 1 # Bowel Movements 1 - Constitutional General appearance: Present: no acute distress - EENT Eyes: Absent: abnormal pupil - Neck Neck: Absent: lymphadenopathy - Respiratory Respiratory: bilateral: CTA - Cardiovascular Rhythm: regular Heart sounds: normal: S1, S2 Abnormal Heart Sounds: Absent: S3 Gallop - Gastrointestinal General gastrointestinal: Absent: tenderness - Labs CBC & Chem 7: 09/19/21 09:31 09/20/21 08:03 Labs: Abnormal Lab Results - Last 24 Hours (Table) 09/20/21 09/20/21 09/20/21 Range/Units 08:03 11:22 16:25 Potassium 5.5 H (3.5-5.1) mmol/L BUN 74 H (9-20) mg/dL Creatinine 7.08 H* (0.66-1.25) mg/dL POC Glucose (mg/dL) 135 H 223 H (75-99) mg/dL 09/20/21 09/21/21 Range/Units 20:03 06:24 Potassium (3.5-5.1) mmol/L BUN (9-20) mg/dL Creatinine (0.66-1.25) mg/dL POC Glucose (mg/dL) 133 H 100 H (75-99) mg/dL Assessment and Plan (1) Acute on chronic renal failure Current Visit: Yes Status: Acute Code(s): N17.9 - ACUTE KIDNEY FAILURE, UNSPECIFIED; N18.9 - CHRONIC KIDNEY DISEASE, UNSPECIFIED SNOMED Code(s): 633042179 (2) Transient cerebral ischemia Current Visit: Yes Status: Acute Code(s): G45.9 - TRANSIENT CEREBRAL ISCHEMIC ATTACK, UNSPECIFIED SNOMED Code(s): 195010161 (3) Chronic CHF Current Visit: No Status: Acute Code(s): I50.9 - HEART FAILURE, UNSPECIFIED SNOMED Code(s): 08945255 (4) Diabetes Current Visit: No Status: Acute Code(s): E11.9 - TYPE 2 DIABETES MELLITUS WITHOUT COMPLICATIONS SNOMED Code(s): 50219223 (5) High risk for readmission Current Visit: No Status: Acute Code(s): Z91.89 - OTH PERSONAL RISK FACTORS, NOT ELSEWHERE CLASSIFIED SNOMED Code(s): 111922283 Plan: Blood sugar and blood pressure stabilizes Check CMP in AM Dialysis later today
[2021-09-21] MEDS: INSULIN ASPART (NovoLOG) 100 UNIT/ML VIAL SQ SCH ×4 (08:55→22:07)
--- NOTE | 2021-09-21 09:24 | P.PN ---
Subjective Patient is seen in follow-up for acute kidney injury on chronic kidney disease. Started on hemodialysis 09/18/2021. Resting in bed. On BiPAP. He has been voiding but states urine output has decreased. Hemodynamically stable. Denies chest pain or shortness of breath. Vital signs are stable. General: Awake. No acute distress. HEENT: Head exam is unremarkable. On BiPAP. LUNGS: Breath sounds decreased. HEART: Rate and Rhythm are regular. ABDOMEN: Soft, obese. EXTREMITITES: No edema. Objective - Vital Signs Vital signs: Vital Signs Temp 97.9 F 09/21/21 04:00 Pulse 69 09/21/21 04:00 Resp 18 09/21/21 04:00 BP 139/64 09/21/21 04:00 Pulse Ox 97 09/21/21 04:00 Intake & Output 09/20/21 09/21/21 09/21/21 18:59 06:59 18:59 Intake Total 476 Output Total 1500 0 Balance -1024 0 Weight 110.6 kg 110.2 kg Intake: Oral 476 Output: Urine 0 Hemodialysis 1500 Other: Voiding Method Urinal Urinal # Voids 1 # Bowel Movements 1 - Labs CBC & Chem 7: 09/19/21 09:31 09/20/21 08:03 Labs: Abnormal Lab Results - Last 24 Hours (Table) 09/20/21 09/20/21 09/20/21 Range/Units 08:03 11:22 16:25 Potassium 5.5 H (3.5-5.1) mmol/L BUN 74 H (9-20) mg/dL Creatinine 7.08 H* (0.66-1.25) mg/dL POC Glucose (mg/dL) 135 H 223 H (75-99) mg/dL 09/20/21 09/21/21 Range/Units 20:03 06:24 Potassium (3.5-5.1) mmol/L BUN (9-20) mg/dL Creatinine (0.66-1.25) mg/dL POC Glucose (mg/dL) 133 H 100 H (75-99) mg/dL Assessment and Plan Plan: Assessment: 1. Acute kidney injury secondary to ATN secondary to infection and cardiorenal syndrome. Creatinine was 3.77 on admission and peaked at 7.4 this admission. Started on hemodialysis 09/18/2021. No hydronephrosis noted on kidney ultrasound. UA with 1+ protein. Urine eosinophils negative. 2. Chronic kidney disease stage IIIB/4 with baseline creatinine in the range of 1.7-2 secondary to diabetic kidney disease. 3. 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 Infectious disease following. 4. Diabetes mellitus. 5. Hypertension with chronic kidney disease. Stable. 6. Volume overload. Improved with diuresis. 7. Acute on chronic diastolic CHF. 8. Hyperphosphatemia secondary to acute kidney injury. On PhosLo. 9. Hyperkalemia secondary to acute kidney injury. Expect improvement postdialysis. Plan: Hemodialysis today. He will be maintained on TTS schedule. Maintain torsemide. Avoid nephrotoxins. Outpatient dialysis set up. Monitor for renal recovery outpatient.
[2021-09-21 09:25] LABS: Magnesium 2.3 mg/dL (1.6-2.3); Total Bilirubin 0.9 mg/dL (0.2-1.3); Total Protein 7.9 g/dL (6.3-8.2)
[2021-09-21 10:25] LABS: Potassium 5.4 mmol/L (3.5-5.1)
[2021-09-21 12:21] LABS: Glucose,Whole Blood 121 mg/dL (75-99)
[2021-09-21] MEDS: TORSEMIDE 20 MG TAB PO SCH (13:07)
[2021-09-21] MEDS: FAMOTIDINE 20 MG TAB PO SCH (13:08)
[2021-09-21] MEDS: ASCORBIC ACID 500 MG TAB PO SCH (13:08)
[2021-09-21] MEDS: amLODIPine 10 MG TAB PO SCH (13:08)
[2021-09-21] MEDS: CLOPIDOGREL 75 MG TAB PO SCH (13:08)
[2021-09-21] MEDS: CYANOCOBALAMIN 500 MCG TAB PO SCH (13:08)
[2021-09-21] MEDS: ASPIRIN 81 MG PO SCH (13:08)
[2021-09-21] MEDS: CEFEPIME 1 GM in SODIUM CHLORIDE 0.9% 50 ML IVPB SCH (13:08)
[2021-09-21] MEDS: DOCUSATE 100 MG CAP PO SCH (13:08)
[2021-09-21] MEDS: CALCIUM ACETATE 667 MG TAB PO SCH ×2 (13:08→16:51)
[2021-09-21] MEDS: CHOLECALCIFEROL 25 MCG (1000 IU) TABLET PO SCH (13:09)
[2021-09-21] MEDS: HEPARIN SODIUM,PORCINE/PF 5,000 UNIT/0.5 ML SYRINGE SQ SCH ×2 (13:09→22:07)
[2021-09-21 16:32] LABS: Glucose,Whole Blood 235 mg/dL (75-99)
[2021-09-21 19:54] LABS: Glucose,Whole Blood 159 mg/dL (75-99)
--- NOTE | 2021-09-21 21:26 | P.PN ---
Subjective Progress Note Date: 09/21/21 Principal diagnosis: Right fifth toe diabetic foot infection Patient is a 71-year-old male with a recent diagnosis of right fifth toe diabetic foot infection with underlying Osteomyelitis culture positive for MRSA and Providencia , for the patient was getting cefepime and daptomycin outpatient setting subsequently presented to hospital with slurred speech and concern for possible CVA patient also have evidence of significant worsening of the kidney function. Patient did got femoral dialysis catheter which seemed to help on both subsequently the patient did got right IJ dialysis catheter placement On today's evaluation that is 09/21/2021, the patient denies any fever or chills, the patient denies chest pain, the patient was undergoing dialysis this morning and has been tolerating it, he is breathing slightly comfortably denies any chest pain or cough no abdominal pain no diarrhea Objective - Vital Signs Vital signs: Vital Signs Temp 98.0 F 09/21/21 12:07 Pulse 86 09/21/21 12:07 Resp 18 09/21/21 12:07 BP 118/58 09/21/21 12:07 Pulse Ox 98 09/21/21 12:07 Intake & Output 09/20/21 09/21/21 09/21/21 18:59 06:59 18:59 Intake Total 476 118 Output Total 1500 0 50 Balance -1024 0 68 Weight 110.6 kg 110.2 kg Intake: Oral 476 118 Output: Urine 0 50 Hemodialysis 1500 Other: Voiding Method Urinal Urinal Urinal # Voids 1 # Bowel Movements 1 - Exam GENERAL DESCRIPTION: An elderly male up in the bed in no distress RESPIRATORY SYSTEM: Unlabored breathing , decreased breath sounds at bases HEART: S1 S2 regular rate and rhythm , ABDOMEN: Soft , no tenderness EXTREMITIES: Diffuse swelling of the leg right fifth toe is currently dressed - Labs CBC & Chem 7: 09/19/21 09:31 09/21/21 07:46 Labs: Abnormal Lab Results - Last 24 Hours (Table) 09/20/21 09/20/21 09/21/21 Range/Units 16:25 20:03 06:24 Potassium (3.5-5.1) mmol/L BUN (9-20) mg/dL Creatinine (0.66-1.25) mg/dL POC Glucose (mg/dL) 223 H 133 H 100 H (75-99) mg/dL 09/21/21 09/21/21 Range/Units 07:46 11:48 Potassium 5.4 H (3.5-5.1) mmol/L BUN 57 H (9-20) mg/dL Creatinine 6.37 H (0.66-1.25) mg/dL POC Glucose (mg/dL) 121 H (75-99) mg/dL Assessment and Plan (1) Osteomyelitis Current Visit: No Status: Acute Code(s): M86.9 - OSTEOMYELITIS, UNSPECIFIED SNOMED Code(s): 05747054 Plan: 1patient with right fifth toe diabetic foot infection with underlying osteomyelitis on the basis of plain x-rays and bone scan local culture positive for MRSA and Providencia in this patient treated with cefepime and daptomycin now presented to hospital with slurred speech and is being investigated for possible CVA clinically doubt symptoms related to his antibiotics, patient did have significant worsening of his kidney function and may be contributing to some of his symptoms. Patient was initially refusing dialysis however seemed to have agreed to it and has got femoral dialysis catheter which did not work subsequently did have a right IJ permacath placement and has been started on dialysis 2patient will continue with daptomycin and cefepime to finish a 6 week course of therapy and local wound care with Aquacel silver dressing change every 48 hour. Time with Patient: Less than 30
[2021-09-21] MEDS: INSULIN DETEMIR (LEVEMIR) 100 UNIT/ML SYR SQ SCH (22:07)
[2021-09-22 06:00] LABS: Glucose,Whole Blood 95 mg/dL (75-99)
[2021-09-22] MEDS: CALCIUM ACETATE 667 MG TAB PO SCH ×3 (06:27→17:37)
[2021-09-22] MEDS: INSULIN ASPART (NovoLOG) 100 UNIT/ML VIAL SQ SCH ×4 (06:28→20:59)
--- NOTE | 2021-09-22 08:18 | P.PN ---
Subjective Principal diagnosis: The patient is now been on intermittent dialysis for the last several days his creatinine is finally improving. The patient is a 71-year-old white male essentially meant for TIA with acute kidney injury and element of hypertensive urgency yesterday. Medication was started on his blood pressure seems to be nominal. We will continue to follow for acute kidney injury. Carotid Doppler showed possible 50% stenosis. Borderline hemodynamic issue. Cardiac echocardiogram is nominal. The patient is stating he feels much better with no slurred speech. Unfortunately, renal function has been stabilizing. I explained this to the patient at length. Catheter is now been placed and he will have dialysis today. Osteomyelitis is noted and infectious disease treating. Appreciate nephrology... Objective - Vital Signs Vital signs: Vital Signs Temp 98.2 F 09/22/21 04:00 Pulse 74 09/22/21 04:00 Resp 17 09/22/21 04:00 BP 134/61 09/22/21 04:00 Pulse Ox 95 09/22/21 04:00 Intake & Output 09/21/21 09/22/21 09/22/21 18:59 06:59 18:59 Intake Total 778 Output Total 150 25 Balance 628 -25 Weight 109.7 kg Intake: Oral 778 Output: Urine 150 25 Other: Voiding Method Urinal Urinal # Bowel Movements 0 - Constitutional General appearance: Present: obese - EENT Eyes: Absent: abnormal pupil - Respiratory Respiratory: bilateral: diminished - Cardiovascular Rhythm: regular Heart sounds: normal: S1, S2 Abnormal Heart Sounds: Absent: S3 Gallop - Gastrointestinal General gastrointestinal: Present: soft. Absent: tenderness - Psychiatric Psychiatric: Present: A&O x's 3 - Labs CBC & Chem 7: 09/19/21 09:31 09/21/21 07:46 Labs: Abnormal Lab Results - Last 24 Hours (Table) 09/21/21 09/21/21 09/21/21 Range/Units 07:46 11:48 16:21 Potassium 5.4 H (3.5-5.1) mmol/L BUN 57 H (9-20) mg/dL Creatinine 6.37 H (0.66-1.25) mg/dL POC Glucose (mg/dL) 121 H 235 H (75-99) mg/dL 09/21/21 Range/Units 19:52 Potassium (3.5-5.1) mmol/L BUN (9-20) mg/dL Creatinine (0.66-1.25) mg/dL POC Glucose (mg/dL) 159 H (75-99) mg/dL Assessment and Plan (1) Acute on chronic renal failure Current Visit: Yes Status: Acute Code(s): N17.9 - ACUTE KIDNEY FAILURE, UN SPECIFIED; N18.9 - CHRONIC KIDNEY DISEASE, UNSPECIFIED SNOMED Code(s): 23 7532360 (2) Transient cerebral ischemia Current Visit: Yes Status: Acute Code(s): G45.9 - TRANSIENT CEREBRAL ISCHEMIC ATTACK, UNSPECIFIED SNOMED Code(s): 689742475 (3) Chronic CHF Current Visit: No Status: Acute Code(s): I50.9 - HEART FAILURE, UNSPECIFIED SNOMED Code(s): 91271494 (4) Diabetes Current Visit: No Status: Acute Code(s): E11.9 - TYPE 2 DIABETES MELLITUS WITHOUT COMPLICATIONS SNOMED Code(s): 13765930 (5) High risk for readmission Current Visit: No Status: Acute Code(s): Z91.89 - OTH PERSONAL RISK FACTORS, NOT ELSEWHERE CLASSIFIED SNOMED Code(s): 206422165 Plan: Blood sugar and blood pressure stabilizes Check CMP in AM Improvement of creatinine is noted. Anticipate dialysis in a.m. with discharge.
[2021-09-22] MEDS: TORSEMIDE 20 MG TAB PO SCH (08:36)
[2021-09-22] MEDS: CYANOCOBALAMIN 500 MCG TAB PO SCH (08:36)
[2021-09-22] MEDS: CHOLECALCIFEROL 25 MCG (1000 IU) TABLET PO SCH (08:36)
[2021-09-22] MEDS: FAMOTIDINE 20 MG TAB PO SCH (08:36)
[2021-09-22] MEDS: amLODIPine 10 MG TAB PO SCH (08:36)
[2021-09-22] MEDS: CLOPIDOGREL 75 MG TAB PO SCH (08:36)
[2021-09-22] MEDS: ASPIRIN 81 MG PO SCH (08:36)
[2021-09-22] MEDS: CEFEPIME 1 GM in SODIUM CHLORIDE 0.9% 50 ML IVPB SCH (08:36)
[2021-09-22] MEDS: DOCUSATE 100 MG CAP PO SCH (08:36)
[2021-09-22] MEDS: ASCORBIC ACID 500 MG TAB PO SCH (08:36)
[2021-09-22] MEDS: HEPARIN SODIUM,PORCINE/PF 5,000 UNIT/0.5 ML SYRINGE SQ SCH ×2 (08:43→21:00)
[2021-09-22 10:14] LABS: Albumin 3.9 g/dL (3.5-5.0); Calcium 8.9 mg/dL (8.4-10.2); Potassium 4.8 mmol/L (3.5-5.1); Total Bilirubin 0.9 mg/dL (0.2-1.3); Total Protein 7.7 g/dL (6.3-8.2)
[2021-09-22 10:33] LABS: C Reactive Protein 2.7 mg/dL (<1.0)
--- NOTE | 2021-09-22 10:34 | P.PN ---
Subjective Patient is seen in follow-up for acute kidney injury on chronic kidney disease. Started on hemodialysis 09/18/2021. Resting in bed. Currently on room air. He has been voiding but states urine output has decreased. Hemodynamically stable. Denies chest pain or shortness of breath. Vital signs are stable. General: Awake. No acute distress. HEENT: Head exam is unremarkable. LUNGS: Breath sounds decreased. HEART: Rate and Rhythm are regular. ABDOMEN: Soft, obese. EXTREMITITES: No edema. Objective - Vital Signs Vital signs: Vital Signs Temp 98.0 F 09/22/21 08:37 Pulse 63 09/22/21 08:37 Resp 18 09/22/21 08:37 BP 114/60 09/22/21 08:37 Pulse Ox 96 09/22/21 08:37 Intake & Output 09/21/21 09/22/21 09/22/21 18:59 06:59 18:59 Intake Total 778 Output Total 150 25 Balance 628 -25 Weight 109.7 kg Intake: Oral 778 Output: Urine 150 25 Other: Voiding Method Urinal Urinal Urinal # Bowel Movements 0 - Labs CBC & Chem 7: 09/19/21 09:31 09/22/21 07:21 Labs: Abnormal Lab Results - Last 24 Hours (Table) 09/21/21 09/21/21 09/21/21 Range/Units 11:48 16:21 19:52 ESR (0-15) mm/hr BUN (9-20) mg/dL Creatinine (0.66-1.25) mg/dL Glucose (74-99) mg/dL POC Glucose (mg/dL) 121 H 235 H 159 H (75-99) mg/dL 09/22/21 09/22/21 Range/Units 07:21 07:21 ESR 45 H (0-15) mm/hr BUN 40 H (9-20) mg/dL Creatinine 5.83 H (0.66-1.25) mg/dL Glucose 104 H (74-99) mg/dL POC Glucose (mg/dL) (75-99) mg/dL Assessment and Plan Plan: Assessment: 1. Acute kidney injury secondary to ATN secondary to infection and cardiorenal syndrome. Creatinine was 3.77 on admission and peaked at 7.4 this admission. Started on hemodialysis 09/18/2021. No hydronephrosis noted on kidney ultrasound. UA with 1+ protein. Urine eosinophils negative. 2. Chronic kidney disease stage IIIB/4 with baseline creatinine in the range of 1.7-2 secondary to diabetic kidney disease. 3. 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 Infectious disease following. 4. Diabetes mellitus. 5. Hypertension with chronic kidney disease. Stable. 6. Volume overload. Improved with diuresis. 7. Acute on chronic diastolic CHF. 8. Hyperphosphatemia secondary to acute kidney injury. On PhosLo. 9. Hyperkalemia secondary to acute kidney injury. Improved postdialysis. Plan: Hemodialysis tomorrow. He will be maintained on TTS schedule. Maintain torsemide. Avoid nephrotoxins. Outpatient dialysis set up. Monitor for renal recovery outpatient.
[2021-09-22 11:49] LABS: Glucose,Whole Blood 161 mg/dL (75-99)
[2021-09-22] MEDS ORDERED: ASPIRIN 81 MG PO STA (12:06)
--- NOTE | 2021-09-22 15:37 | P.PN ---
Subjective Progress Note Date: 09/22/21 Principal diagnosis: Right fifth toe diabetic foot infection Patient is a 71-year-old male with a recent diagnosis of right fifth toe diabetic foot infection with underlying Osteomyelitis culture positive for MRSA and Providencia , for the patient was getting cefepime and daptomycin outpatient setting subsequently presented to hospital with slurred speech and concern for possible CVA patient also have evidence of significant worsening of the kidney function. Patient did got femoral dialysis catheter which seemed to help on both subsequently the patient did got right IJ dialysis catheter placement On today's evaluation that is 09/22/2021, the patient remains to be afebrile, the patient denies chest pain, the patient breathing comfortably on room air, the patient denies any cough or sputum production, the patient denies abdominal pain no pain to the right fifth toe wound area and no diarrhea Objective - Vital Signs Vital signs: Vital Signs Temp 97.8 F 09/22/21 12:10 Pulse 82 09/22/21 12:10 Resp 18 09/22/21 14:00 BP 120/67 09/22/21 12:10 Pulse Ox 97 09/22/21 12:10 Intake & Output 09/21/21 09/22/21 09/22/21 18:59 06:59 18:59 Intake Total 778 Output Total 150 25 Balance 628 -25 Weight 109.7 kg Intake: Oral 778 Output: Urine 150 25 Other: Voiding Method Urinal Urinal Urinal # Bowel Movements 0 - Exam GENERAL DESCRIPTION: An elderly male up in the bed in no distress RESPIRATORY SYSTEM: Unlabored breathing , decreased breath sounds at bases HEART: S1 S2 regular rate and rhythm , ABDOMEN: Soft , no tenderness EXTREMITIES: Diffuse swelling of the leg right fifth toe swelling and redness has decreased there is no drainage - Labs CBC & Chem 7: 09/19/21 09:31 09/22/21 07:21 Labs: Abnormal Lab Results - Last 24 Hours (Table) 09/21/21 09/21/21 09/22/21 Range/Units 16:21 19:52 07:21 ESR (0-15) mm/hr BUN 40 H (9-20) mg/dL Creatinine 5.83 H (0.66-1.25) mg/dL Glucose 104 H (74-99) mg/dL POC Glucose (mg/dL) 235 H 159 H (75-99) mg/dL C-Reactive Protein 2.7 H (<1.0) mg/dL 09/22/21 09/22/21 Range/Units 07:21 11:47 ESR 45 H (0-15) mm/hr BUN (9-20) mg/dL Creatinine (0.66-1.25) mg/dL Glucose (74-99) mg/dL POC Glucose (mg/dL) 161 H (75-99) mg/dL C-Reactive Protein (<1.0) mg/dL Assessment and Plan (1) Osteomyelitis Current Visit: No Status: Acute Code(s): M86.9 - OSTEOMYELITIS, UNSPECIFIED SNOMED Code(s): 26873879 Plan: 1patient with right fifth toe diabetic foot infection with underlying osteomyelitis on the basis of plain x-rays and bone scan local culture positive for MRSA and Providencia in this patient treated with cefepime and daptomycin now presented to hospital with slurred speech and is being investigated for possible CVA clinically doubt symptoms related to his antibiotics, patient did have significant worsening of his kidney function and may be contributing to some of his symptoms. Patient was initially refusing dialysis however seemed to have agreed to it and has got femoral dialysis catheter which did not work subsequently did have a right IJ permacath placement and has been started on dialysis 2patient is slowly clinically improving and the patient will continue with daptomycin and cefepime to finish a 6 week course of therapy and local wound care with Aquacel silver dressing change every 48 hour. Time with Patient: Less than 30
[2021-09-22 16:34] LABS: Glucose,Whole Blood 222 mg/dL (75-99)
[2021-09-22] MEDS ORDERED: ONDANSETRON 4 MG/2 ML VIAL IVP PRN (17:01)
[2021-09-22 20:55] LABS: Glucose,Whole Blood 218 mg/dL (75-99)
[2021-09-22] MEDS: INSULIN DETEMIR (LEVEMIR) 100 UNIT/ML SYR SQ SCH (21:00)
[2021-09-23 06:24] LABS: Glucose,Whole Blood 108 mg/dL (75-99)
[2021-09-23] MEDS: INSULIN ASPART (NovoLOG) 100 UNIT/ML VIAL SQ SCH (06:35)
[2021-09-23] MEDS: CALCIUM ACETATE 667 MG TAB PO SCH (06:35)
[2021-09-23] MEDS: ASCORBIC ACID 500 MG TAB PO SCH (08:50)
[2021-09-23] MEDS: DOCUSATE 100 MG CAP PO SCH (08:50)
[2021-09-23] MEDS: amLODIPine 10 MG TAB PO SCH (08:50)
[2021-09-23] MEDS: TORSEMIDE 20 MG TAB PO SCH (08:50)
[2021-09-23] MEDS: CLOPIDOGREL 75 MG TAB PO SCH (08:50)
[2021-09-23] MEDS: CHOLECALCIFEROL 25 MCG (1000 IU) TABLET PO SCH (08:50)
[2021-09-23] MEDS: ASPIRIN 81 MG PO SCH (08:50)
[2021-09-23] MEDS: FAMOTIDINE 20 MG TAB PO SCH (08:50)
[2021-09-23 08:59] VITALS: RESP 18
[2021-09-23] MEDS: CYANOCOBALAMIN 500 MCG TAB PO SCH (09:12)
[2021-09-23] MEDS: CEFEPIME 1 GM in SODIUM CHLORIDE 0.9% 50 ML IVPB SCH (09:12)
[2021-09-23] MEDS: HEPARIN SODIUM,PORCINE/PF 5,000 UNIT/0.5 ML SYRINGE SQ SCH (09:13)
--- NOTE | 2021-09-23 09:50 | P.PN ---
Subjective Progress Note Date: 09/23/21 Principal diagnosis: This 71-year-old male is seen in consultation because of new onset of end-stage renal failure. He has chronic kidney disease secondary diabetic nephropathy al so had cardiorenal syndrome and was started on dialysis. His schedule for dialysis today and to be discharged. He was admitted with changes in mental status and slurred speech He also has a right fifth toe foot infection with osteomyelitis positive for MR and presidential He is on cefepime and daptomycin Currently he is awake and alert and complains of dizziness on standing up. No nausea vomiting no headache no fever chills no diarrhea or abdominal pain. Objective - Vital Signs Vital signs: Vital Signs Temp 97.7 F 09/23/21 08:43 Pulse 68 09/23/21 08:43 Resp 18 09/23/21 08:43 BP 148/62 09/23/21 08:43 Pulse Ox 97 09/23/21 08:43 Intake & Output 09/22/21 09/23/21 09/23/21 18:59 06:59 18:59 Output Total 0 100 Balance 0 -100 Weight 109 kg Output: Urine 0 100 Other: Voiding Method Urinal Urinal # Voids 1 On examination awake alert oriented comfortable Blood pressure and vital signs are stable. HEENT exam no JVP neck is supple no facial asymmetry Lungs are clear to auscultation good air entry bilaterally is on a BiPAP via Heart sounds unremarkable for any murmur rub gallop Abdomen soft nontender Extreme exam was bilateral tight stockings. He has a right foot toe osteomyelitis. Neurologically awake alert oriented - Labs CBC & Chem 7: 09/19/21 09:31 09/22/21 07:21 Labs: Abnormal Lab Results - Last 24 Hours (Table) 09/22/21 09/22/21 09/22/21 Range/Units 07:21 07:21 11:47 ESR 45 H (0-15) mm/hr BUN 40 H (9-20) mg/dL Creatinine 5.83 H (0.66-1.25) mg/dL Glucose 104 H (74-99) mg/dL POC Glucose (mg/dL) 161 H (75-99) mg/dL C-Reactive Protein 2.7 H (<1.0) mg/dL 09/22/21 09/22/21 09/23/21 Range/Units 16:32 20:36 06:08 ESR (0-15) mm/hr BUN (9-20) mg/dL Creatinine (0.66-1.25) mg/dL Glucose (74-99) mg/dL POC Glucose (mg/dL) 222 H 218 H 108 H (75-99) mg/dL C-Reactive Protein (<1.0) mg/dL Assessment and Plan Assessment: Impression 1. Diabetic nephropathy CK D stage III with acute kidney injury secondary to cardiorenal syndrome started on dialysis, first dialysis 09/18/2021. Currently on Saturday schedule with a permacath on the right side 2. Right foot osteomyelitis with MRSA on antibiotics 3. Hypertension currently at target 4. CHF resolved. 5. Hemoglobin is 15.1 Recommendation 1. Patient will be dialyzed today as per the visit of this schedule and to be discharged to be followed up as an outpatient in the [facility].
[2021-09-23] MEDS: MIDODRINE 5 MG TAB PO PRN (10:26)
[2021-09-23 11:30] LABS: Glucose,Whole Blood 171 mg/dL (75-99)
[2021-09-23 12:43] VITALS: PULSE 66
[2021-09-23 14:00] VITALS: BP 152/83; TEMP 97.6
--- NOTE | 2021-09-23 20:00 | DS ---
DISCHARGE SUMMARY FINAL DIAGNOSIS: 1. Acute on chronic renal failure, on newly started hemodialysis. 2. Transient ischemic attack. 3. Chronic congestive heart failure. 4. Right foot osteomyelitis. DISCHARGE DISPOSITION: The patient will be discharged in stable condition with guarded prognosis. HISTORY OF PRESENT ILLNESS: This 71-year-old gentleman with a past medical history of multiple medical problems, being followed by Dr. Liz in the outpatient setting, was admitted with multiple complex medical issues, as mentioned earlier. Patient was started on hemodialysis. Outpatient hemodialysis is being arranged. The patient also had significant osteomyelitis. IV antibiotics are recommended by Dr. Smith. The patient will be discharged in stable condition with guarded prognosis. On exam, vitals are stable. CARDIOVASCULAR: S1, S2 muffled. ABDOMEN: Soft. NERVOUS SYSTEM: No focal deficit. The patient is recommended to start on antiplatelet agents and outpatient followup with Dr. Liz and outpatient antibiotics with Dr. Smith with infusion at [facility]. Please refer to the medication records and sheet which I did for list of medications. MMODL / IJN: [id number] /
== END 2021-09-23 15:18 | disposition home or self-care (01) | DRG 682 ==
LOC: EC 10:35 → 3SCARD 16:48 → OBSVTOIN 09-12 10:16 → 3SCARD 09-12 16:42
PROVIDERS: ADMIT Family Medicine; ATTEND Family Medicine
PROC: 5A1D70Z Performance of Urinary Filtration, Intermittent, Less than 6 Hours Per Day (ICD-10-PCS; 2021-09-18)
PROC: 06HN33Z Insertion of Infusion Device into Left Femoral Vein, Percutaneous Approach (ICD-10-PCS; principal; 2021-09-18 16:45)
PROC: 02HV33Z Insertion of Infusion Device into Superior Vena Cava, Percutaneous Approach (ICD-10-PCS; 2021-09-19 17:45)
DX: N17.0 Acute kidney failure with tubular necrosis (principal); I50.33 Acute on chronic diastolic (congestive) heart failure; G45.9 Transient cerebral ischemic attack, unspecified; I13.2 Hypertensive heart and chronic kidney disease with heart failure and with stage 5 chronic kidney disease, or end stage renal disease; M86.9 Osteomyelitis, unspecified; R47.01 Aphasia; T82.49XA Other complication of vascular dialysis catheter, initial encounter; N18.6 End stage renal disease; B95.62 Methicillin resistant Staphylococcus aureus infection as the cause of diseases classified elsewhere; E11.319 Type 2 diabetes mellitus with unspecified diabetic retinopathy without macular edema; E11.22 Type 2 diabetes mellitus with diabetic chronic kidney disease; E11.40 Type 2 diabetes mellitus with diabetic neuropathy, unspecified; E11.51 Type 2 diabetes mellitus with diabetic peripheral angiopathy without gangrene; E11.69 Type 2 diabetes mellitus with other specified complication; Z20.822 Contact with and (suspected) exposure to COVID-19; E66.9 Obesity, unspecified; Z68.34 Body mass index [BMI] 34.0-34.9, adult; E83.39 Other disorders of phosphorus metabolism; E87.5 Hyperkalemia; G47.30 Sleep apnea, unspecified; I16.0 Hypertensive urgency; I27.20 Pulmonary hypertension, unspecified; J44.9 Chronic obstructive pulmonary disease, unspecified; J84.10 Pulmonary fibrosis, unspecified; M06.9 Rheumatoid arthritis, unspecified; L08.9 Local infection of the skin and subcutaneous tissue, unspecified; E11.628 Type 2 diabetes mellitus with other skin complications; Z79.4 Long term (current) use of insulin; Z79.899 Other long term (current) drug therapy; Z83.3 Family history of diabetes mellitus; Z90.49 Acquired absence of other specified parts of digestive tract; Z91.15 Patient's noncompliance with renal dialysis; M10.9 Gout, unspecified; Y84.8 Other medical procedures as the cause of abnormal reaction of the patient, or of later complication, without mention of misadventure at the time of the procedure; Y92.239 Unspecified place in hospital as the place of occurrence of the external cause
CPT/HCPCS: 36415; 36556; 36558; 70450; 71045; 71046; 76770; 76937; 77001; 80048; 80053; 80061; 81001; 82550; 82607; 82746; 83036; 83735; 84100; 84132; 84443; 84484; 85025; 85027; 85610; 85652; 85730; 86140; 86704; 86706; 87205; 87340; 87635; 90935; 93005; 93306; 93880; 94660; 94760; 96361; 96374; 99285

== ENCOUNTER 2023-05-09 19:15 | Inpatient (IN) | payer MEDICARE, OTHER ==
[2023-05-09] MEDS ORDERED: MORPHINE SULFATE 4 MG/ML SYRINGE IVP STA (19:52)
[2023-05-09] MEDS ORDERED: SODIUM CHLORIDE 0.9% 500 ML 500 ML IV ONE (19:52)
[2023-05-09 20:20] LABS: Basophils # (A) 0.1 k/uL (0-0.2); Basophils % (A) 0 %; Eosinophils # (A) 0.1 k/uL (0-0.7); Eosinophils % (A) 1 %; HCT 38.6 % (39.0-53.0); HGB 11.8 gm/dL (13.0-17.5); Hypochromasia Marked; Lymphocytes # (A) 1.6 k/uL (1.0-4.8); Lymphocytes % (A) 9 %; MCH 28.7 pg (25.0-35.0); MCHC 30.6 g/dL (31.0-37.0); MCV 93.7 fL (80.0-100.0); Mean Platelet Volume 7.8; Monocytes # (A) 0.6 k/uL (0-1.0); Monocytes % (A) 3 %; Neutrophils # (A) 14.9 k/uL (1.3-7.7); Neutrophils % (A) 86 %; Platelet Count 388 k/uL (150-450); RBC 4.12 m/uL (4.30-5.90); RDW 14.8 % (11.5-15.5); WBC 17.4 k/uL (3.8-10.6)
[2023-05-09 20:52] LABS: ALT 14 U/L (4-49); AST 19 U/L (17-59); African American GFR (CKD) 45 (>60 ml/min/1.73 sqM); Albumin 2.6 g/dL (3.5-5.0); Alkaline Phosphatase 231 U/L (38-126); Anion Gap 12 mmol/L; Blood Urea Nitrogen 88 mg/dL (9-20); Calcium 8.5 mg/dL (8.4-10.2); Carbon Dioxide 28 mmol/L (22-30); Chloride 95 mmol/L (98-107); Glucose 348 mg/dL (74-99); Non-African American GFR(CKD) 39 (>60 ml/min/1.73 sqM); Sodium 135 mmol/L (137-145); Total Bilirubin 0.8 mg/dL (0.2-1.3); Total Protein 6.9 g/dL (6.3-8.2)
--- NOTE | 2023-05-09 21:14 | XR ---
EXAMINATION TYPE: XR foot limited bilateral DATE OF EXAM: 05/09/2023 8:49 PM CLINICAL INDICATION:Male, 73 years old with history of gangrene; [facility] COMPARISON: 08/17/2021. TECHNIQUE: XR foot limited bilateral examined in the AP, oblique, and lateral projections. FINDINGS/IMPRESSION: Right: Soft tissue swelling throughout the forefoot predominantly. There is no evidence of fracture. No osseous erosion to suggest osteomyelitis. Left: Surgical changes to the second and fifth digit. There is deformities scattered throughout the m etatarsophalangeal joints worse at the first digit and fourth digits. No definitive osseous erosion. There is soft tissue swelling and lucencies throughout the plantar surface and dorsal aspect of the f oot. No evidence of fracture. Findings suggestive of cellulitis possibly gas-forming cellulitis given lucencies present. Further evaluation with MRI may be of benefit to rule out osteomyelitis.
[2023-05-09] MEDS ORDERED: ACETAMINOPHEN TAB 325 MG TAB PO PRN (22:01)
[2023-05-09] MEDS ORDERED: NALOXONE 0.4 MG/ML 1 ML VIAL IV PRN (22:01)
[2023-05-09] MEDS ORDERED: HYDROcodone/APAP 5-325MG 1 EACH TAB PO PRN (22:01)
[2023-05-09] MEDS ORDERED: PIPERACILLIN-TAZOBACTAM 3.375 GM in SODIUM CHLORIDE 0.9% 100 ML IVPB STA (22:08)
[2023-05-09] MEDS ORDERED: VANCOMYCIN IV PER PHARMACY 1 EACH MISC MISCELLANE PRN (22:08)
--- NOTE | 2023-05-09 22:09 | ED ---
Extremity Problem HPI - General Chief complaint: Extremity Problem,Nontraumatic Stated complaint: Infection Time Seen by Provider: 05/09/23 19:45 Source: patient, EMS Mode of arrival: EMS Limitations: physical limitation - History of Present Illness Initial comments: 73-year-old male brought in by his family with chief complaint of worsening gangrene to the bilateral legs. 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 He has been doing dressing changes at home but cannot keep up with the wound care. The patient was previously told that he would require amputat ion however he refused, he was placed in hospice. Patient and family are now agreeable with amputation. Patient has previously followed with Dr. Mitchell. No fever, chills, nausea, vomiting. - Related Data Home Medications Medication Instructions Recorded Confirmed glipiZIDE [Glucotrol] 5 mg PO BID 05/23/15 09/11/21 Ascorbic Acid [Vitamin C] 1,000 mg PO DAILY 08/17/21 09/11/21 Cholecalciferol [Vitamin D3 (25 25 mcg PO DAILY 08/17/21 09/11/21 Mcg = 1000 Iu)] Furosemide [Lasix] 40 mg PO BID 08/17/21 09/11/21 Insulin Lispro [humaLOG Kwikpen] See Protocol SQ AC-TID PRN 08/17/21 09/11/21 Insulin Glargine [Lantus Vial] 15 unit SQ HS@2300 09/11/21 09/11/21 Previous Rx's Medication Instructions Recorded Acetaminophen Tab [Tylenol] 650 mg PO Q6HR PRN tab 08/23/21 Famotidine [Pepcid] 20 mg PO DAILY #30 tab 08/23/21 Losartan [Cozaar] 50 mg PO DAILY #30 tab 08/23/21 Nystatin 100,000 Unit/gm Powd 1 applic TOPICAL BID #1 each 08/23/21 [Mycostatin Powder] Aspirin 81 mg PO DAILY #30 09/23/21 Calcium Acetate [PhosLo] 667 mg PO TID-W/MEALS #90 tab 09/23/21 Clopidogrel [Plavix] 75 mg PO DAILY #30 tab 09/23/21 Cyanocobalamin [Vitamin B-12] 1,000 mcg PO DAILY #30 tab 09/23/21 Midodrine [ProAmatine] 10 mg PO AC-TID PRN #90 tab 09/23/21 Allergies Allergy/AdvReac Type Severity Reaction Status Date / Time allopurinol Allergy Rash/Hives Verified 09/11/21 17:01 Review of Systems ROS Statement: Those systems with pertinent positive or pertinent negative responses have been documented in the HPI. ROS Other: All systems not noted in ROS Statement are negative. Past Medical History Past Medical History: Heart Failure, Diabetes Mellitus Additional Past Medical History / Comment(s): 10/04/14 Pt presented to [facility] ER with infection L lower leg for approximately one week. He saw his support merchandiser who swabbed the area and placed him on Keflex 3 days ago without improvement. Hehasfever and chills. He is being admitted with cellulitis. Other HX: IDDM type II, CKD, PVD, diabetic neuropathy, diabetic retinopathy, pulmonary HTN, pulmonary fibrosis, KIERA with BiPap use,severearthiritis-psoriatic and rheumatoid, osteomyelitis L lower extremity 2005 or 2006, gout, gastritis, sinus problems, cholestatic jaundice 2008 (pt had cholecystectomy 2009), abscess perirectalandscrotal 2003, L shoulder bursitis treated with steroid injections. History of Any Multi-Drug Resistant Organisms: MRSA Date of last positivie culture/infection: 08/18/21 MDRO Source:: Right Foot Past Surgical History: Cholecystectomy Additional Past Surgical History / Comment(s): cataract, Lt 2nd toe amputation Past Anesthesia/Blood Transfusion Reactions: No Reported Reaction Additional Past Anesthesia/Blood Transfusion Reaction / Comment(s): Pt has never recieved blood. Past Psychological History: No Psychological Hx Reported Smoking Status: Never smoker Past Alcohol Use History: Occasional Past Drug Use History: None Reported - Past Family History Father Family Medical History: Cancer, Renal Disease Additional Family Medical History / Comment(s): Father had one kidney removed. Mother Family Medical History: Diabetes Mellitus, Vascular Disorder General Exam Limitations: physical limitation General appearance: in no apparent distress, lethargic Head exam: Present: atraumatic Eye exam: Present: normal appearance Neck exam: Present: normal inspection Respiratory exam: Present: normal lung sounds bilaterally. Absent: respiratory distress, wheezes, rales, rhonchi, stridor Cardiovascular Exam: Present: regular rate, normal rhythm, normal heart sounds. Absent: systolic murmur, diastolic murmur, rubs, gallop, clicks Extremities exam: Present: tenderness. Absent: normal inspection, full ROM Neurological exam: Present: alert, altered Skin exam: Present: other (Gangrenous wounds of the bilateral lower extremities) Course Vital Signs 05/09/23 05/09/23 19:34 20:25 Pulse Rate 81 85 Respiratory 20 18 Rate Blood Pressure 118/69 136/72 O2 Sat by Pulse 98 96 Oximetry Medical Decision Making - Medical Decision Making Was pt. sent in by a medical professional or institution (, PA, ADMIN DIR, urgent care, hospital, or longterm...) When possible be specific @ -No Did you speak to anyone other than the patient for history (EMS, parent, family, police, friend...)? What history was obtained from this source @ -History obtained from family Did you review nursing and triage notes (agree or disagree)? Why? @ -I reviewed and agree with nursing and triage notes Were old charts reviewed (outside hosp., previous admission, EMS record, old EKG, old radiological studies, urgent care reports/EKG's, longterm records)? Report findings @ -No old charts were reviewed Differential Diagnosis (chest pain, altered mental status, abdominal pain women, abdominal pain men, vaginal bleeding, weakness, fever, dyspnea, syncope, headache, dizziness, GI bleed, back pain, seizure, CVA, palpatations, mental health, musculoskeletal)? @ -Differential Musculoskeletal Muscular strain, contusion, ligament sprain, fracture, arthritis, septic arthritis, bursitis, cellulitis, muscle spasm, nerve compression, DVT, arterial occlusion, herpes zoster, electrolyte abnormality, tumor.... This is not meant to be in all inclusive list EKG interpreted by me (3pts min.). @ -As above X-rays interpreted by me (1pt min.). @ -Right foot: Soft tissue swelling throughout the forefoot predominantly. There is no evidence of fracture. No osseous erosion to suggest osteomyelitis. Left foot: Surgical changes to the second and fifth digits. There is deformity scattered throughout the metatarsophalangeal joints worse at the first digit and fourth digits. No definitive osseous erosion. There is soft tissue swelling and lucencies throughout the plantar surface and dorsal aspect of the foot. No evidence of fracture. Findings suggestive of cellulitis possibly gas-forming cellulitis given lucencies present. Further evaluation with MRI may be of benefit to rule out osteomyelitis. CT interpreted by me (1pt min.). @ -None done U/S interpreted by me (1pt. min.). @ -None done What testing was considered but not performed or refused? (CT, X-rays, U/S, labs)? Why? @ -None What meds were considered but not given or refused? Why? @ -None Did you discuss the management of the patient with other professionals (professionals i.e. , PA, ADMIN DIR, lab, RT, psych nurse, social services analyst, hydroponics worker, teacher, supply officer, case filler)? Give summary @ -I spoke with Dr. Liz who accepted admission Was smoking cessation discussed for >3mins.? @ -No Was critical care preformed (if so, how long)? @ -No Were there social determinants of health that impacted care today? How? (Homelessness, low income, unemployed, alcoholism, drug addiction, transportation, low edu. Level, literacy, decrease access to med. care, half-way, rehab)? @ -No Was there de-escalation of care discussed even if they declined (Discuss DNR or withdrawal of care, Hospice)? DNR status @ -I discussed CODE STATUS with the family, they requested full code What co-morbidities impacted this encounter? (DM, HTN, Smoking, COPD, CAD, Cancer, CVA, ARF, Chemo, Hep., AIDS, mental health diagnosis, sleep apnea, morbid obesity)? @ -Gangrene, diabetes Was patient admitted / discharged? Hospital course, mention meds given and route, prescriptions, significant lab abnormalities, going to OR and other pertinent info. @ -73-year-old male with history of gangrene brought in by his family with concerns or worsening gangrene. Patient was previously placed in hospice as refused extremity amputation. Patient and family are now agreeable with amputation. WBC 17.4. Hemoglobin 11.8. BUN 88 creatinine 1.72, improved from previous. Glucose 348, patient is a poorly controlled diabetic. I spoke with Dr. Liz who accepted admission, the patient's vascular surgeon Dr. Mitchell is consulted. Spoke with the family who requested that the patient be full code. They are agreeable with the plan. I discussed this case with my attending Dr. Bayudan Undiagnosed new problem with uncertain prognosis? @ -No Drug Therapy requiring intensive monitoring for toxicity (Heparin, Nitro, Insulin, Cardizem)? @ -No Were any procedures done? @ -No Diagnosis/symptom? @ -Gangrene Acute, or Chronic, or Acute on Chronic? @ -Acute on chronic Uncomplicated (without systemic symptoms) or Complicated (systemic symptoms)? @ -Complicated Side effects of treatment? @ -No Exacerbation, Progression, or Severe Exacerbation? @ -No Poses a threat to life or bodily function? How? (Chest pain, USA, NC, pneumonia, PE, COPD, DKA, ARF, appy, cholecystitis, CVA, Diverticulitis, Homicidal, Suicidal, threat to staff... and all critical care pts) @ -yes - Lab Data Result diagrams: 05/09/23 20:08 05/09/23 20:08 Lab Results 05/09/23 05/09/23 05/09/23 Range/Units 20:08 20:08 20:08 WBC 17.4 H (3.8-10.6) k/uL RBC 4.12 L (4.30-5.90) m/uL Hgb 11.8 L (13.0-17.5) gm/dL Hct 38.6 L (39.0-53.0) % MCV 93.7 (80.0-100.0) fL MCH 28.7 (25.0-35.0) pg MCHC 30.6 L (31.0-37.0) g/dL RDW 14.8 (11.5-15.5) % Plt Count 388 (150-450) k/uL MPV 7.8 Neutrophils % 86 % Lymphocytes % 9 % Monocytes % 3 % Eosinophils % 1 % Basophils % 0 % Neutrophils # 14.9 H (1.3-7.7) k/uL Lymphocytes # 1.6 (1.0-4.8) k/uL Monocytes # 0.6 (0-1.0) k/uL Eosinophils # 0.1 (0-0.7) k/uL Basophils # 0.1 (0-0.2) k/uL Hypochromasia Marked Sodium 135 L (137-145) mmol/L Potassium 5.0 (3.5-5.1) mmol/L Chloride 95 L (98-107) mmol/L Carbon Dioxide 28 (22-30) mmol/L Anion Gap 12 mmol/L BUN 88 H (9-20) mg/dL Creatinine 1.72 H (0.66-1.25) mg/dL Est GFR (CKD-EPI)AfAm 45 (>60 ml/min/1.73 sqM) Est GFR (CKD-EPI)NonAf 39 (>60 ml/min/1.73 sqM) Glucose 348 H (74-99) mg/dL Plasma Lactic Acid Jimmy 1.5 (0.7-2.0) mmol/L Calcium 8.5 (8.4-10.2) mg/dL Total Bilirubin 0.8 (0.2-1.3) mg/dL AST 19 (17-59) U/L ALT 14 (4-49) U/L Alkaline Phosphatase 231 H (38-126) U/L Total Protein 6.9 (6.3-8.2) g/dL Albumin 2.6 L (3.5-5.0) g/dL Disposition Clinical Impression: Gangrene Disposition: ADMITTED IP TO THIS [facility] Condition: Serious Referrals: Lazaro Liz MD [Primary Care Provider] - 1-2 days
[2023-05-09] MEDS ORDERED: DEXTROSE 50% SYRINGE 50 ML IVP PRN ×2 (22:19)
[2023-05-09] MEDS ORDERED: VANCOMYCIN 1,750 MG in SODIUM CHLORIDE 0.9% 500 ML 500 ML IVPB ONE (23:00)
[2023-05-09] MEDS: SODIUM CHLORIDE 0.9% 1,000 ML IV SCH (23:32)
[2023-05-09] MEDS: MORPHINE SULFATE 4 MG/ML SYRINGE IV PRN (23:41)
[2023-05-10] MEDS: MORPHINE SULFATE 4 MG/ML SYRINGE IV PRN (05:35)
[2023-05-10 07:21] LABS: Glucose,Whole Blood 297 mg/dL (70-110)
[2023-05-10] MEDS ORDERED: MIDODRINE 5 MG TAB PO PRN (07:48)
[2023-05-10] MEDS ORDERED: DEXTROSE 50% SYRINGE 50 ML IVP PRN ×2 (07:49)
--- NOTE | 2023-05-10 07:55 | P.HPIM ---
History of Present Illness H&P Date: 05/10/23 Chief Complaint: Gangrene This is 73-year-old white male with known peripheral arterial disease who about a month ago decided that he did not want to entertain any type of aggressive treatment when it came to his gangrene and cellulitis. So sent home with hospice. This week he decided that he would rather have the amputation is now admitted for appropriate treatment. Surgery gangrene of the lower extremities bilaterally is noted. Underlying history of peripheral arterial disease. Diabetes history of previous toe amputation in the remote past. Media surgery has now been consulted. We will start empiric antibiotic treatment. Review of Systems ROS unobtainable: due to mental status Constitutional: Denies chills, Denies fever Eyes: denies blurred vision, denies pain Past Medical History Past Medical History: Heart Failure, Diabetes Mellitus Additional Past Medical History / Comment(s): 10/04/14 Pt presented to [facility] ER with infection L lower leg for approximately one week. He saw his statistical clerk advertising who swabbed the area and placed him on Keflex 3 days ago without improvement. Hehasfever and chills. He is being admitted with cellulitis. Other HX: IDDM type II, CKD, PVD, diabetic neuropathy, diabetic retinopathy, pulmonary HTN, pulmonary fibrosis, KIERA with BiPap use,severearthiritis-psoriatic and rheumatoid, osteomyelitis L lower extremity 2005 or 2006, gout, gastritis, sinus problems, cholestatic jaundice 2008 (pt had cholecystectomy 2009), abscess perirectalandscrotal 2003, L shoulder bursitis treated with steroid injections. History of Any Multi-Drug Resistant Organisms: MRSA Date of last positivie culture/infection: 08/18/21 MDRO Source:: Right Foot Past Surgical History: Cholecystectomy Additional Past Surgical History / Comment(s): cataract, Lt 2nd toe amputation Past Anesthesia/Blood Transfusion Reactions: No Reported Reaction Additional Past Anesthesia/Blood Transfusion Reaction / Comment(s): Pt has never recieved blood. Past Psychological History: No Psychological Hx Reported Smoking Status: Never smoker Past Alcohol Use History: Occasional Past Drug Use History: None Reported - Past Family History Father Family Medical History: Cancer, Renal Disease Additional Family Medical History / Comment(s): Father had one kidney removed. Mother Family Medical History: Diabetes Mellitus, Vascular Disorder Medications and Allergies Home Medications Medication Instructions Recorded Confirmed Type glipiZIDE [Glucotrol] 5 mg PO BID 05/23/15 09/11/21 History Ascorbic Acid [Vitamin C] 1,000 mg PO DAILY 08/17/21 09/11/21 History Cholecalciferol [Vitamin D3 (25 25 mcg PO DAILY 08/17/21 09/11/21 History Mcg = 1000 Iu)] Furosemide [Lasix] 40 mg PO BID 08/17/21 09/11/21 History Insulin Lispro [humaLOG Kwikpen] See Protocol SQ AC-TID PRN 08/17/21 09/11/21 History Acetaminophen Tab [Tylenol] 650 mg PO Q6HR PRN tab 08/23/21 09/11/21 Rx Famotidine [Pepcid] 20 mg PO DAILY #30 tab 08/23/21 09/11/21 Rx Losartan [Cozaar] 50 mg PO DAILY #30 tab 08/23/21 09/11/21 Rx Nystatin 100,000 Unit/gm Powd 1 applic TOPICAL BID #1 each 08/23/21 09/11/21 Rx [Mycostatin Powder] Insulin Glargine [Lantus Vial] 15 unit SQ HS@2300 09/11/21 09/11/21 History Aspirin 81 mg PO DAILY #30 09/23/21 Rx Calcium Acetate [PhosLo] 667 mg PO TID-W/MEALS #90 tab 09/23/21 Rx Clopidogrel [Plavix] 75 mg PO DAILY #30 tab 09/23/21 Rx Cyanocobalamin [Vitamin B-12] 1,000 mcg PO DAILY #30 tab 09/23/21 Rx Midodrine [ProAmatine] 10 mg PO AC-TID PRN #90 tab 09/23/21 Rx Allergies Allergy/AdvReac Type Severity Reaction Status Date / Time allopurinol Allergy Rash/Hives Verified 09/11/21 17:01 Physical Exam Vitals: Vital Signs Temp Pulse Resp BP Pulse Ox 05/10/23 04:42 77 20 125/72 95 05/09/23 23:52 97.8 F 80 18 121/67 94 L 05/09/23 20:25 85 18 136/72 96 05/09/23 19:34 81 20 118/69 98 Intake and Output 05/09/23 05/10/23 05/10/23 22:59 06:59 14:59 Other: Weight 102.965 kg - Constitutional General appearance: no acute distress - EENT Eyes: EOMI - Neck Neck: no lymphadenopathy - Respiratory Respiratory: bilateral: diminished - Cardiovascular Rhythm: regular Heart sounds: normal: S1, S2 Abnormal Heart Sounds: no S3 Gallop - Gastrointestinal General gastrointestinal: soft, no tenderness - Integumentary Significant gangrene of the lower extremity bilaterally with severe cellulitis Integumentary: cellulitis - Musculoskeletal Musculoskeletal: generalized weakness - Psychiatric Psychiatric: intact judgment & insight Results CBC & Chem 7: 05/09/23 20:08 05/09/23 20:08 Labs: Abnormal Lab Results - Last 24 Hours (Table) 05/09/23 05/09/23 05/10/23 Range/Units 20:08 20:08 07:19 WBC 17.4 H (3.8-10.6) k/uL RBC 4.12 L (4.30-5.90) m/uL Hgb 11.8 L (13.0-17.5) gm/dL Hct 38.6 L (39.0-53.0) % MCHC 30.6 L (31.0-37.0) g/dL Neutrophils # 14.9 H (1.3-7.7) k/uL Sodium 135 L (137-145) mmol/L Chloride 95 L (98-107) mmol/L BUN 88 H (9-20) mg/dL Creatinine 1.72 H (0.66-1.25) mg/dL Glucose 348 H (74-99) mg/dL POC Glucose (mg/dL) 297 H (70-110) mg/dL Alkaline Phosphatase 231 H (38-126) U/L Albumin 2.6 L (3.5-5.0) g/dL Assessment and Plan (1) History of amputation of toe Current Visit: Yes Status: Acute Code(s): Z89.429 - ACQUIRED ABSENCE OF OTHER TOE(S), UNSPECIFIED SIDE SNOMED Code(s): 365564292 (2) Gangrene Current Visit: Yes Status: Acute Code(s): I96 - GANGRENE, NOT ELSEWHERE CLASSIFIED SNOMED Code(s): 258003201 (3) Acute on chronic renal failure Current Visit: No Status: Acute Code(s): N17.9 - ACUTE KIDNEY FAILURE, U NSPECIFIED; N18.9 - CHRONIC KIDNEY DISEASE, UNSPECIFIED SNOMED Code(s): 2 32451191 (4) Chronic CHF Current Visit: No Status: Acute Code(s): I50.9 - HEART FAILURE, UNSPECIFIED SNOMED Code(s): 80786842 (5) Diabetes mellitus type 2 with atherosclerosis of arteries of extremities Current Visit: No Status: Acute Code(s): E11.59 - TYPE 2 DIABETES MELLITUS W ITH OTH CIRCULATORY COMPLICATIONS SNOMED Code(s): 19481315 (6) Diabetic infection of right foot Current Visit: No Status: Acute Code(s): E11.628 - TYPE 2 DIABETES MELLITUS WITH OTHER SKIN COMPLICATIONS; L08.9 - LOCAL INFECTION OF THE SKIN AND SUBCUTANEOUS TISSUE, UNSP SNOMED Code(s): 52586549 Plan: I had a long discussion with his son who has been taking care of him. We will consult vascular surgery and empiric antibiotic treatment. Wound care elements. Place on sliding scale. Reconcile home medications. Pain control as necessary. Check CBC and CMP in a.m. prognosis is guarded secondary to severe illness.
[2023-05-10] MEDS: FAMOTIDINE 20 MG TAB PO SCH (08:06)
[2023-05-10] MEDS: LOSARTAN 50 MG TAB PO SCH (08:06)
[2023-05-10] MEDS: INSULIN ASPART (NovoLOG) 100 UNIT/ML VIAL SQ SCH ×4 (08:07→20:53)
[2023-05-10 08:45] LABS: African American GFR (CKD) 46 (>60 ml/min/1.73 sqM); Non-African American GFR(CKD) 40 (>60 ml/min/1.73 sqM)
[2023-05-10] MEDS: SODIUM CHLORIDE 0.9% 1,000 ML IV SCH ×2 (12:31→20:16)
[2023-05-10] MEDS ORDERED: AMPICILLIN-SULBACTAM 3 GM in SODIUM CHLORIDE 0.9% 100 ML IVPB SCH (13:00)
[2023-05-10 13:12] LABS: Glucose,Whole Blood 189 mg/dL (70-110)
--- NOTE | 2023-05-10 13:15 | P.NPCON ---
History of Present Illness - Reason for Consult chronic renal failure - History of Present Illness Patient is a 73-year-old male with history of chronic kidney disease NKF stage IV. Patient had a previous history of dialysis-dependent acute kidney injury in August 2021. Renal function recovered to some degree and patient was taken off of dialysis. Serum creatinine now at about 1.6-1.7 mg/dL. Patient has chronic bilateral foot wounds and gangrene. Patient was initially under hospice care but decided to proceed with aggressive treatment and was therefore advised admission to the hospital. Vascular surgery has been consult it. No significant urinary symptoms. Blood pressure is not significantly low. Maintained on antibiotics. Review of Systems No history of fever chills diarrhea nausea vomiting or abdominal pain Past Medical History Past Medical History: Heart Failure, Diabetes Mellitus Additional Past Medical History / Comment(s): 10/04/14 Pt presented to [facility] ER with infection L lower leg for approximately one week. He saw his leather craftsman who swabbed the area and placed him on Keflex 3 days ago without improvement. Hehasfever and chills. He is being admitted with cellulitis. Other HX: IDDM type II, CKD, PVD, diabetic neuropathy, diabetic retinopathy, pulmonary HTN, pulmonary fibrosis, KIERA with BiPap use,severearthiritis-psoriatic and rheumatoid, osteomyelitis L lower extremity 2005 or 2006, gout, gastritis, sinus problems, cholestatic jaundice 2008 (pt had cholecystectomy 2009), abscess perirectalandscrotal 2003, L shoulder bursitis treated with steroid injections. History of Any Multi-Drug Resistant Organisms: MRSA Date of last positivie culture/infection: 08/18/21 MDRO Source:: Right Foot Past Surgical History: Cholecystectomy Additional Past Surgical History / Comment(s): cataract, Lt 2nd toe amputation Past Anesthesia/Blood Transfusion Reactions: No Reported Reaction Additional Past Anesthesia/Blood Transfusion Reaction / Comment(s): Pt has never recieved blood. Past Psychological History: No Psychological Hx Reported Smoking Status: Never smoker Past Alcohol Use History: Occasional Past Drug Use History: None Reported - Past Family History Father Family Medical History: Cancer, Renal Disease Additional Family Medical History / Comment(s): Father had one kidney removed. Mother Family Medical History: Diabetes Mellitus, Vascular Disorder Medications and Allergies Home Medications Medication Instructions Recorded Confirmed Type Cephalexin [Keflex] 500 mg PO Q6HR 05/10/23 05/10/23 History HYDROcodone/APAP 5-325MG [[place] 1 tab PO Q4HR PRN 05/10/23 05/10/23 History 5-325] Allergies Allergy/AdvReac Type Severity Reaction Status Date / Time allopurinol Allergy Rash/Hives Verified 05/10/23 08:22 Physical Exam Vitals: Vital Signs Temp Pulse Resp BP Pulse Ox 05/10/23 09:00 84 20 125/72 95 05/10/23 08:10 95 05/10/23 08:00 99 20 125/72 80 L 05/10/23 07:30 20 05/10/23 04:42 77 20 125/72 95 05/09/23 23:52 97.8 F 80 18 121/67 94 L 05/09/23 20:25 85 18 136/72 96 05/09/23 19:34 81 20 118/69 98 Intake and Output 05/09/23 05/10/23 05/10/23 22:59 06:59 14:59 Other: Weight 102.965 kg Patient is awake, comfortable, in no acute distress Examination of the heart S1 and S2 Examination of the lungs bilateral breath sounds are heard Abdomen is soft nontender Examination of lower extremities shows both feet to be wrapped. Drainage noted from both feet. Results - Lab Results Most recent lab results Calcium 8.5 mg/dL (8.4-10.2) 05/09/23 20:08 05/09/23 20:08 05/10/23 08:00 Assessment and Plan Assessment: 1. Chronic kidney disease NKF stage IV with baseline creatinine 1.6-1.7 mg/dL. Etiology is diabetic kidney disease and nephrosclerosis. History of dialysis- dependent acute kidney injury in August 2021 with recovery of renal function and patient has been off of dialysis for more than a year. 2. Bilateral foot wounds and gangrene with gas noted on left foot x-ray 3. Hypertension with CK D stage IV maintained on Cozaar Plan: Continue with Cozaar, decrease dose Repeat labs in a.m. Avoid nephrotoxic agents Continue with antibiotics with close monitoring of vancomycin levels. May continue with saline Thank you for the consultation. We will continue to follow the patient with you during his hospitalization.
[2023-05-10 18:24] LABS: Glucose,Whole Blood 155 mg/dL (70-110)
--- NOTE | 2023-05-10 19:16 | P.GSCN ---
History of Present Illness History of present illness: 73-year-old gentleman known to me from the past. Patient was seen few weeks ago patient came with left foot gangrene involving the whole foot and ankle area. At that time patient refused any surgical intervention and patient went for hospice care. Patient is known to me from the past he had is some toe pressure done in the past now he has do not bilateral lower extremity gangrene changes in and involving the foot ankle and lower extremity. Is foul odor smell noted. And can't lay flat he has been seen been sitting position. Medical history patient has history of for sleep apnea on CPAP and also patient has history of diabetes and patient heart failure. On examination patient was seen in his room patient in sitting position and lay flat he has a bilateral lower extremity gangrene changes involving the foot and lower extremity with marked redness and swelling and cellulitis with foul odor smell Chest few crackles the lung bases Abdomen soft nontender Vascular femorals are 1+ bilateral patient is a marked infected gangrene changes noted of the both lower extremity left extremity involving the dorsal aspect the foot ankle and also on the right foot dorsum aspect of the ankle is marked cellulitis and redness and some drainage Plan is patient is an IV antibiotic patient is a high risk for surgical intervention we will have him medical clearance and cardiac clearance if if all okay then we proceeded first to the left AK followed bilateral a right AK amputation. Prognosis is guarded discussed in detail up with the family Past Medical History Past Medical History: Heart Failure, Diabetes Mellitus Additional Past Medical History / Comment(s): 10/04/14 Pt presented to [facility] ER with infection L lower leg for approximately one week. He saw his utility gelatin maker who swabbed the area and placed him on Keflex 3 days ago without improvement. Hehasfever and chills. He is being admitted with cellulitis. Other HX: IDDM type II, CKD, PVD, diabetic neuropathy, diabetic retinopathy, pulmonary HTN, pulmonary fibrosis, KIERA with BiPap use,severearthiritis-psoriatic and rheumatoid, osteomyelitis L lower extremity 2005 or 2006, gout, gastritis, sinus problems, cholestatic jaundice 2008 (pt had cholecystectomy 2009), abscess perirectalandscrotal 2003, L shoulder bursitis treated with steroid injections. History of Any Multi-Drug Resistant Organisms: MRSA Year Discovered:: 08/18/21 MDRO Source:: Right Foot Past Surgical History: Cholecystectomy Additional Past Surgical History / Comment(s): cataract, Lt 2nd toe amputation Past Anesthesia/Blood Transfusion Reactions: No Reported Reaction Additional Past Anesthesia/Blood Transfusion Reaction / Comm: Pt has never recieved blood. Past Psychological History: No Psychological Hx Reported Smoking Status: Never smoker Past Alcohol Use History: Occasional Past Drug Use History: None Reported - Past Family History Father Family Medical History: Cancer, Renal Disease Additional Family Medical History / Comment(s): Father had one kidney removed. Mother Family Medical History: Diabetes Mellitus, Vascular Disorder Medications and Allergies Home Medications Medication Instructions Recorded Confirmed Type Cephalexin [Keflex] 500 mg PO Q6HR 05/10/23 05/10/23 History HYDROcodone/APAP 5-325MG [[place] 1 tab PO Q4HR PRN 05/10/23 05/10/23 History 5-325] Allergies Allergy/AdvReac Type Severity Reaction Status Date / Time allopurinol Allergy Rash/Hives Verified 05/10/23 08:22 Surgical - Exam Vital Signs Pulse Resp BP Pulse Ox 81 20 118/69 98 05/09/23 19:34 05/09/23 19:34 05/09/23 19:34 05/09/23 19:34 Results - Labs 05/09/23 20:08 05/10/23 08:00 Abnormal Lab Results - Last 24 Hours (Table) 05/09/23 05/09/23 05/10/23 Range/Units 20:08 20:08 07:19 WBC 17.4 H (3.8-10.6) k/uL RBC 4.12 L (4.30-5.90) m/uL Hgb 11.8 L (13.0-17.5) gm/dL Hct 38.6 L (39.0-53.0) % MCHC 30.6 L (31.0-37.0) g/dL Neutrophils # 14.9 H (1.3-7.7) k/uL Sodium 135 L (137-145) mmol/L Chloride 95 L (98-107) mmol/L BUN 88 H (9-20) mg/dL Creatinine 1.72 H (0.66-1.25) mg/dL Glucose 348 H (74-99) mg/dL POC Glucose (mg/dL) 297 H (70-110) mg/dL Alkaline Phosphatase 231 H (38-126) U/L Albumin 2.6 L (3.5-5.0) g/dL 05/10/23 05/10/23 05/10/23 Range/Units 08:00 13:10 18:21 WBC (3.8-10.6) k/uL RBC (4.30-5.90) m/uL Hgb (13.0-17.5) gm/dL Hct (39.0-53.0) % MCHC (31.0-37.0) g/dL Neutrophils # (1.3-7.7) k/uL Sodium (137-145) mmol/L Chloride (98-107) mmol/L BUN (9-20) mg/dL Creatinine 1.69 H (0.66-1.25) mg/dL Glucose (74-99) mg/dL POC Glucose (mg/dL) 189 H 155 H (70-110) mg/dL Alkaline Phosphatase (38-126) U/L Albumin (3.5-5.0) g/dL Diabetes panel 05/09/23 05/10/23 Range/Units 20:08 08:00 Sodium 135 L (137-145) mmol/L Potassium 5.0 (3.5-5.1) mmol/L Chloride 95 L (98-107) mmol/L Carbon Dioxide 28 (22-30) mmol/L BUN 88 H (9-20) mg/dL Creatinine 1.72 H 1.69 H (0.66-1.25) mg/dL Glucose 348 H (74-99) mg/dL Calcium 8.5 (8.4-10.2) mg/dL AST 19 (17-59) U/L ALT 14 (4-49) U/L Alkaline Phosphatase 231 H (38-126) U/L Total Protein 6.9 (6.3-8.2) g/dL Albumin 2.6 L (3.5-5.0) g/dL Calcium panel 05/09/23 Range/Units 20:08 Calcium 8.5 (8.4-10.2) mg/dL Albumin 2.6 L (3.5-5.0) g/dL Pituitary panel 05/09/23 05/10/23 Range/Units 20:08 08:00 Sodium 135 L (137-145) mmol/L Potassium 5.0 (3.5-5.1) mmol/L Chloride 95 L (98-107) mmol/L Carbon Dioxide 28 (22-30) mmol/L BUN 88 H (9-20) mg/dL Creatinine 1.72 H 1.69 H (0.66-1.25) mg/dL Glucose 348 H (74-99) mg/dL Calcium 8.5 (8.4-10.2) mg/dL Adrenal panel 05/09/23 05/10/23 Range/Units 20:08 08:00 Sodium 135 L (137-145) mmol/L Potassium 5.0 (3.5-5.1) mmol/L Chloride 95 L (98-107) mmol/L Carbon Dioxide 28 (22-30) mmol/L BUN 88 H (9-20) mg/dL Creatinine 1.72 H 1.69 H (0.66-1.25) mg/dL Glucose 348 H (74-99) mg/dL Calcium 8.5 (8.4-10.2) mg/dL Total Bilirubin 0.8 (0.2-1.3) mg/dL AST 19 (17-59) U/L ALT 14 (4-49) U/L Alkaline Phosphatase 231 H (38-126) U/L Total Protein 6.9 (6.3-8.2) g/dL Albumin 2.6 L (3.5-5.0) g/dL
[2023-05-10] MEDS: AMPICILLIN-SULBACTAM 3 GM in SODIUM CHLORIDE 0.9% 100 ML IVPB SCH (20:16)
[2023-05-10] MEDS: VANCOMYCIN 1,750 MG in SODIUM CHLORIDE 0.9% 500 ML 500 ML IVPB SCH (20:19)
--- NOTE | 2023-05-10 22:17 | P.CONS ---
History of Present Illness - Reason for Consult Consult date: 05/10/23 - History of Present Illness Patient is a 73-year-old male with a past medical history Significant for diabetes mellitus and heart failure did have a history of diabetic foot infection patient apparently was in hospice however patient was noticed to having necrotic changes to his toes that has been extending up to his leg and the family was unable to keep up with the wound care at home patient has previously required amputation which she refused and opted for hospice however the patient has changes mind and now want to go for surgery and continue with the medical treatment, the patient denies any high-grade fever or any chills has been complaining of pain to bilateral lower extremity with mostly necrotic wound to the foot and the leg area pain described to be more of a sharp and severe intensity along with the foul-smelling drainage on presentation to the hospital patient was afebrile patient did not have significant tachycardia hypotension hypoxemia requiring supplemental oxygen white count of 17.4 creatinine is 1.7 today was in the normal patient was started on vancomycin infectious disease was consulted for further management of antibiotic therapy Past Medical History Past Medical History: Heart Failure, Diabetes Mellitus Additional Past Medical History / Comment(s): 10/04/14 Pt presented to [facility] ER with infection L lower leg for approximately one week. He saw his hopper filler who swabbed the area and placed him on Keflex 3 days ago without improvement. Hehasfever and chills. He is being admitted with cellulitis. Other HX: IDDM type II, CKD, PVD, diabetic neuropathy, diabetic retinopathy, pulmonary HTN, pulmonary fibrosis, KIERA with BiPap use,severearthiritis-psoriatic and rheumatoid, osteomyelitis L lower extremity 2005 or 2006, gout, gastritis, sinus problems, cholestatic jaundice 2008 (pt had cholecystectomy 2009), abscess perirectalandscrotal 2003, L shoulder bursitis treated with steroid injections. History of Any Multi-Drug Resistant Organisms: MRSA Year Discovered:: 08/18/21 MDRO Source:: Right Foot Past Surgical History: Cholecystectomy Additional Past Surgical History / Comment(s): cataract, Lt 2nd toe amputation Past Anesthesia/Blood Transfusion Reactions: No Reported Reaction Additional Past Anesthesia/Blood Transfusion Reaction / Comm: Pt has never recieved blood. Past Psychological History: No Psychological Hx Reported Smoking Status: Never smoker Past Alcohol Use History: Occasional Past Drug Use History: None Reported - Past Family History Father Family Medical History: Cancer, Renal Disease Additional Family Medical History / Comment(s): Father had one kidney removed. Mother Family Medical History: Diabetes Mellitus, Vascular Disorder Medications and Allergies Home Medications Medication Instructions Recorded Confirmed Type Cephalexin [Keflex] 500 mg PO Q6HR 05/10/23 05/10/23 History HYDROcodone/APAP 5-325MG [[place] 1 tab PO Q4HR PRN 05/10/23 05/10/23 History 5-325] Allergies Allergy/AdvReac Type Severity Reaction Status Date / Time allopurinol Allergy Rash/Hives Verified 05/10/23 08:22 Physical Exam Vitals: Vital Signs Temp Pulse Resp BP Pulse Ox 05/10/23 09:00 84 20 125/72 95 05/10/23 08:10 95 05/10/23 08:00 99 20 125/72 80 L 05/10/23 07:30 20 05/10/23 04:42 77 20 125/72 95 05/09/23 23:52 97.8 F 80 18 121/67 94 L 05/09/23 20:25 85 18 136/72 96 05/09/23 19:34 81 20 118/69 98 Intake and Output 05/09/23 05/10/23 05/10/23 22:59 06:59 14:59 Other: Weight 102.965 kg Results CBC & Chem 7: 05/09/23 20:08 05/11/23 06:22 Labs: Abnormal Lab Results - Last 24 Hours (Table) 05/09/23 05/09/23 05/10/23 Range/Units 20:08 20:08 07:19 WBC 17.4 H (3.8-10.6) k/uL RBC 4.12 L (4.30-5.90) m/uL Hgb 11.8 L (13.0-17.5) gm/dL Hct 38.6 L (39.0-53.0) % MCHC 30.6 L (31.0-37.0) g/dL Neutrophils # 14.9 H (1.3-7.7) k/uL Sodium 135 L (137-145) mmol/L Chloride 95 L (98-107) mmol/L BUN 88 H (9-20) mg/dL Creatinine 1.72 H (0.66-1.25) mg/dL Glucose 348 H (74-99) mg/dL POC Glucose (mg/dL) 297 H (70-110) mg/dL Alkaline Phosphatase 231 H (38-126) U/L Albumin 2.6 L (3.5-5.0) g/dL 05/10/23 Range/Units 08:00 WBC (3.8-10.6) k/uL RBC (4.30-5.90) m/uL Hgb (13.0-17.5) gm/dL Hct (39.0-53.0) % MCHC (31.0-37.0) g/dL Neutrophils # (1.3-7.7) k/uL Sodium (137-145) mmol/L Chloride (98-107) mmol/L BUN (9-20) mg/dL Creatinine 1.69 H (0.66-1.25) mg/dL Glucose (74-99) mg/dL POC Glucose (mg/dL) (70-110) mg/dL Alkaline Phosphatase (38-126) U/L Albumin (3.5-5.0) g/dL Assessment and Plan Plan: 1patient present to hospital with extensive wounds to bilateral lower extremity with areas of necrotic changes surrounding redness and foul-smelling drainage did have a extensive diabetic foot infection with underlying osteomyelitis and gangrene and will need to cover for the polymicrobial kieran usually associated with diabetic foot infection 2-await surgery evaluation and possible amputation 3-blood local culture CRP and sed rate 4-patient did have renal insufficiency and risk of nephrotoxicity 5-continue with the vancomycin while watching his kidney function closely add Unasyn to cover for gram-negative and anaerobes Prognosis guarded We will follow on clinical condition and cultures to further adjust medication if needed Thank you for this consultation we will follow the patient along with you Dictation was produced using [employer] dictation software. please excuse any grammatical, word or spelling errors. Time with Patient: Greater than 30
[2023-05-11] MEDS ORDERED: VANCOMYCIN 1,750 MG in SODIUM CHLORIDE 0.9% 500 ML 500 ML IVPB SCH (01:00)
[2023-05-11] MEDS: MORPHINE SULFATE 4 MG/ML SYRINGE IV PRN ×2 (03:18→17:44)
[2023-05-11] MEDS: AMPICILLIN-SULBACTAM 3 GM in SODIUM CHLORIDE 0.9% 100 ML IVPB SCH (03:52)
[2023-05-11 07:00] LABS: Glucose,Whole Blood 266 mg/dL (70-110)
[2023-05-11 07:18] LABS: African American GFR (CKD) 40 (>60 ml/min/1.73 sqM); Anion Gap 12 mmol/L; Blood Urea Nitrogen 83 mg/dL (9-20); Calcium 8.1 mg/dL (8.4-10.2); Carbon Dioxide 22 mmol/L (22-30); Chloride 101 mmol/L (98-107); Glucose 253 mg/dL (74-99); Non-African American GFR(CKD) 35 (>60 ml/min/1.73 sqM); Potassium 5.4 mmol/L (3.5-5.1); Sodium 135 mmol/L (137-145)
--- NOTE | 2023-05-11 08:02 | P.CNPUL ---
History of Present Illness Consult date: 05/11/23 Requesting physician: Raghav Mitchell Reason for consult: hypoxemia, other Chief complaint: Lower extremity gangrene. History of present illness: Pulmonary consult dated 05/11/2023. 73-year-old male seen in the emergency room, on May 09. The patient was apparently brought in by his family, because of worsening gangrene involving the lower extremities. The patient apparently initially declined amputation, and was placed on hospice. Apparently the patient has had a change of heart, and now agrees to have surgery. We were consulted for medical clearance. The patient has been seen by infectious diseases, the primary service, and vascular surgery. According to the vascular surgeons note, the patient is to have sequential [id number] amputations, left than right. According to the patient's history, he is a diagnosis of heart failure and diabetes. He also has history of gout, possible asbestos exposure, pulmonary fibrosis, diabetes, chronic kidney disease, hypertension, among other things. Currently, the patient's getting saline at 50 mL an hour. He does wear oxygen at 3 L. He also has a CPAP device, for sleep apnea syndrome. He is currently on vancomycin and Unasyn as per infectious diseases. Currently labs include a white count 17.4, hemoglobin 11.8, hematocrit 38.6, and a platelet count of 388,000. Sodium 135, potassium 5.4, chlorides 101, CO2 22, BUN 83, and creatinine 1.91. Albumin is 2.6. Bilateral foot x-rays were done, with the findings as noted. Review of Systems REVIEW OF SYSTEMS: CONSTITUTIONAL: [Negative.] NEUROLOGIC: [ Negative.] HEENT: [ Negative.] CARDIAC: [Negative.] PULMONARY: [Negative.] GI: [Negative.] : [Negative.] RHEUMATOLOGIC: [ Negative.] IMMUNOLOGIC: [ Negative.] ENDOCRINE: [Negative. ] DERMATOLOGIC: Chronic lower extremity gangrene. Past Medical History Past Medical History: Heart Failure, Diabetes Mellitus Additional Past Medical History / Comment(s): 10/04/14 Pt presented to [facility] ER with infection L lower leg for approximately one week. He saw his engine repairer production who swabbed the area and placed him on Keflex 3 days ago without improvement. Hehasfever and chills. He is being admitted with cellulitis. Other HX: IDDM type II, CKD, PVD, diabetic neuropathy, diabetic retinopathy, pulmonary HTN, pulmonary fibrosis, KIERA with BiPap use,severearthiritis-psoriatic and rheumatoid, osteomyelitis L lower extremity 2005 or 2006, gout, gastritis, sinus problems, cholestatic jaundice 2008 (pt had cholecystectomy 2009), abscess perirectalandscrotal 2003, L shoulder bursitis treated with steroid injections. History of Any Multi-Drug Resistant Organisms: MRSA Date of last positivie culture/infection: 08/18/21 MDRO Source:: Right Foot Past Surgical History: Cholecystectomy Additional Past Surgical History / Comment(s): cataract, Lt 2nd toe amputation Past Anesthesia/Blood Transfusion Reactions: No Reported Reaction Additional Past Anesthesia/Blood Transfusion Reaction / Comment(s): Pt has never recieved blood. Past Psychological History: No Psychological Hx Reported Smoking Status: Never smoker Past Alcohol Use History: Occasional Past Drug Use History: None Reported - Past Family History Father Family Medical History: Cancer, Renal Disease Additional Family Medical History / Comment(s): Father had one kidney removed. Mother Family Medical History: Diabetes Mellitus, Vascular Disorder Medications and Allergies Home Medications Medication Instructions Recorded Confirmed Type Cephalexin [Keflex] 500 mg PO Q6HR 05/10/23 05/10/23 History HYDROcodone/APAP 5-325MG [[place] 1 tab PO Q4HR PRN 05/10/23 05/10/23 History 5-325] Allergies Allergy/AdvReac Type Severity Reaction Status Date / Time allopurinol Allergy Rash/Hives Verified 05/10/23 08:22 Physical Exam Osteopathic Statement: *. No significant issues noted on an osteopathic structural exam other than those noted in the History and Physical/Consult. Vitals: Vital Signs Temp Pulse Pulse Resp BP BP Pulse Ox 05/11/23 05:03 92 L 05/11/23 02:00 97.5 F L 81 20 90/62 80 L 05/10/23 19:35 97.4 F L 78 20 102/53 96 05/10/23 18:27 97.3 F L 78 20 102/53 96 05/10/23 09:00 84 20 125/72 95 05/10/23 08:10 95 05/10/23 08:00 99 20 125/72 80 L Intake and Output 05/10/23 05/11/23 05/11/23 22:59 06:59 14:59 Intake Total 120 1540 Balance 120 1540 Intake: Intake, IV Titration 1300 Amount Ampicillin-Sulbactam 3 gm 200 In Sodium Chloride 0.9% 100 ml @ 200 mls/hr IVPB Q8H [facility] Rx#:[id number] Sodium Chloride 0.9% 1, 600 000 ml @ 75 mls/hr IV . [id number] BILL[facility] Rx#:[id number] Vancomycin 1,750 mg In 500 Sodium Chloride 0.9% 500 ml 500 ml @ 167 mls/hr IVPB Q24H [facility]ILLY Rx#: [id number] Oral 120 240 Other: # Voids 2 Weight 102.965 kg No acute distress, oriented 3. Currently on 3 L. Saturations are in the mid 90s. HEENT examination is grossly unremarkable. Mucous membranes are moist. No oral lesions. Neck supple. Full range of motion. No adenopathy thyromegaly or neck vein distention. Cardiovascular examination reveals regular rhythm rate. S1-S2 normal. No S3 or S4. No discernible murmur noted. Heart rate 81 bpm. Lungs reveal mostly clear breath sounds. Scattered rhonchi. No wheezes. No crackles. Abdomen soft bowel sounds are heard. No masses or tenderness. Extremities reveal bilateral lower extremity gangrene. Skin is gangrenous. Neurologic examination is brief but nonfocal. Results - Laboratory Findings CBC and BMP: 05/09/23 20:08 05/11/23 06:22 Abnormal lab findings: Abnormal Labs 05/09/23 05/09/23 05/10/23 20:08 20:08 07:19 WBC 17.4 H RBC 4.12 L Hgb 11.8 L Hct 38.6 L MCHC 30.6 L Neutrophils # 14.9 H Sodium 135 L Potassium Chloride 95 L BUN 88 H Creatinine 1.72 H Glucose 348 H POC Glucose (mg/dL) 297 H Calcium Alkaline Phosphatase 231 H Albumin 2.6 L 05/10/23 05/10/23 05/10/23 08:00 13:10 18:21 WBC RBC Hgb Hct MCHC Neutrophils # Sodium Potassium Chloride BUN Creatinine 1.69 H Glucose POC Glucose (mg/dL) 189 H 155 H Calcium Alkaline Phosphatase Albumin 05/11/23 05/11/23 06:22 06:59 WBC RBC Hgb Hct MCHC Neutrophils # Sodium 135 L Potassium 5.4 H Chloride BUN 83 H Creatinine 1.91 H Glucose 253 H POC Glucose (mg/dL) 266 H Calcium 8.1 L Alkaline Phosphatase Albumin Assessment and Plan Assessment: Worsening bilateral lower extremity gangrene, with anticipated bilateral [id number]-[id number] amputations, according to vascular surgery. Multiple medical problems including diabetes mellitus, chronic kidney disease, peripheral vascular occlusive disease, diabetic neuropathy, diabetic retinopat hy, pulmonary hypertension, pulmonary fibrosis, obstructive sleep apnea syndrome, gout, and multiple other medical problems. Plan: Plan dated 05/11/2023. The patient has not been seen by our group. There is a note in the chart, that he was seen by his engine repairer production, and had a swab of the leg, and was started on Keflex. He must have seen the other pulmonary group. The patient will have a chest x-ray done. Additional recommendations and suggestions are forthcoming. He's currently on vancomycin and Unasyn. He is getting oxygen by 3 L. His son states that he never smoked or smoked only for short period of time many years ago. His son does mention previous asbestos exposure, and there is apparently some history of pulmonary fibrosis. Additional recommendations and suggestions are forthcoming. We will continue to follow make recommendations along the way. Prognosis is poor. The patient is a DO NOT RESUSCITATE patient. Time with Patient: Greater than 30
[2023-05-11] MEDS: LOSARTAN 50 MG TAB PO SCH (08:21)
[2023-05-11] MEDS: INSULIN ASPART (NovoLOG) 100 UNIT/ML VIAL SQ SCH ×4 (08:21→20:40)
[2023-05-11] MEDS: FAMOTIDINE 20 MG TAB PO SCH (08:21)
--- NOTE | 2023-05-11 08:29 | XR ---
EXAMINATION TYPE: XR chest 1V portable DATE OF EXAM: 05/11/2023 8:22 AM CLINICAL INDICATION:Male, 73 years old with history of Hypoxemia; [facility] COMPARISON: Chest radiographs from 09/19/2021. TECHNIQUE: XR chest 1V portable Frontal view of the chest. FINDINGS: Lungs/Pleura: The lung volumes are present. Bibasilar atelectasis. No evidence for pneumothorax, pleu ral effusion or focal consolidation. Pulmonary vascularity: Unremarkable. Heart/mediastinum: Cardiomediastinal silhouette is unremarkable. Musculoskeletal: No acute osseous pathology. Other findings: None IMPRESSION: Basilar atelectasis with low lung volumes.
--- NOTE | 2023-05-11 09:19 | P.PN ---
Progress Note - Text Progress Note Date: 05/11/23 Patient examined at bedside by Dr Kauffman and Dr Manley. Seeking clearance for leg ampuatation. Patient is high risk for surgical intervention including during procedure. Patient and his family (including two sons at beside) accept this risk and wish to proceed. In an effort to prepare the patient for surgery we will discontinue losartan and add atorvastatin. See full dictation thereafter
[2023-05-11] MEDS: ATORVASTATIN 40 MG TAB PO SCH (10:07)
--- NOTE | 2023-05-11 10:22 | PN ---
PROGRESS NOTE This is a 73-year-old gentleman, with history of sleep apnea, COPD, diabetes, patient came with bilateral lower extremity gangrene changes involving the left foot and the right foot, dorsal aspect, plantar aspect with marked swelling. The patient was evaluated today. We discussed with the track man and also there was a pulmonary consult. The patient is [id number] by the family. The patient is high risk for surgical intervention. We are waiting for the . If all agrees, then the patient will need a left above-knee amputation tomorrow. Discussed with Anesthesia. Prognosis is guarded. MMODL / IJN: [id number] /
--- NOTE | 2023-05-11 11:26 | P.PN ---
Subjective Patient is seen for follow-up for chronic kidney disease. He has been evaluated by vascular surgery and there are plans for amputation. No significant complaints today. Potassium 5.4 and serum creatinine 1.9 mg/dL. Patient is voiding. Objective - Vital Signs Vital signs: Vital Signs Temp 97.1 F L 05/11/23 07:02 Pulse 87 05/11/23 08:00 Resp 18 05/11/23 08:00 BP 98/57 05/11/23 07:02 Pulse Ox 85 L 05/11/23 07:02 FiO2 Intake & Output 05/10/23 05/11/23 05/11/23 18:59 06:59 18:59 Intake Total 1660 Balance 1660 Weight 102.965 kg Intake: Intake, IV Titration 1300 Amount Ampicillin-Sulbactam 3 gm 200 In Sodium Chloride 0.9% 100 ml @ 200 mls/hr IVPB Q8H [facility] Rx#:[id number] Sodium Chloride 0.9% 1, 600 000 ml @ 75 mls/hr IV . [id number] [facility] Rx#:[id number] Vancomycin 1,750 mg In 500 Sodium Chloride 0.9% 500 ml 500 ml @ 167 mls/hr IVPB Q24H [facility]ILLY Rx#: [id number] Oral 360 Other: # Voids 2 - Exam Patient is awake, comfortable, in no acute distress Examination of the heart S1 and S2 Examination of the lungs bilateral breath sounds are heard Abdomen is soft nontender Examination of lower extremities shows both feet to be wrapped. Drainage noted from both feet. - Labs CBC & Chem 7: 05/09/23 20:08 05/11/23 06:22 Labs: Abnormal Lab Results - Last 24 Hours (Table) 05/10/23 05/10/23 05/11/23 Range/Units 13:10 18:21 06:22 Sodium (137-145) mmol/L Potassium (3.5-5.1) mmol/L BUN (9-20) mg/dL Creatinine (0.66-1.25) mg/dL Glucose (74-99) mg/dL POC Glucose (mg/dL) 189 H 155 H (70-110) mg/dL Hemoglobin A1c 9.0 H (<=6.0) % Calcium (8.4-10.2) mg/dL 12/23/23 12/23/23 Range/Units 06:22 06:59 Sodium 135 L (137-145) mmol/L Potassium 5.4 H (3.5-5.1) mmol/L BUN 83 H (9-20) mg/dL Creatinine 1.91 H (0.66-1.25) mg/dL Glucose 253 H (74-99) mg/dL POC Glucose (mg/dL) 266 H (70-110) mg/dL Hemoglobin A1c (<=6.0) % Calcium 8.1 L (8.4-10.2) mg/dL Microbiology - Last 24 Hours (Table) 05/09/23 23:30 Blood Culture Gram Stain - Preliminary Blood Assessment and Plan Assessment: 1. Chronic kidney disease NKF stage IV with baseline creatinine 1.6-1.7 mg/dL. Etiology is diabetic kidney disease and nephrosclerosis. History of dialysis- dependent acute kidney injury in August 2021 with recovery of renal function and patient has been off of dialysis for more than a year. 2. Bilateral foot wounds and gangrene with gas noted on left foot x-ray 3. Hypertension with CK D stage IV maintained on Cozaar 4. Hyperkalemia associated with chronic kidney disease in the setting of use of angiotensin receptor blockers. Rule out urine retention. Plan: DC Cozaar IV Lasix 1 Check bladder scan and rule out urine retention. [facility] X1
[2023-05-11] MEDS ORDERED: FUROSEMIDE 10 MG/ML 4 ML VIAL IV STA (11:29)
[2023-05-11] MEDS ORDERED: SODIUM ZIRCONIUM CYCLOSILICATE 10 GM PACKET PO ONE (11:29)
[2023-05-11 11:52] LABS: Glucose,Whole Blood 289 mg/dL (70-110)
--- NOTE | 2023-05-11 12:14 | PN ---
PROGRESS NOTE This is a 73-year-old gentleman who came with bilateral lower extremity wound with gangrene changes, worse on the left than on the right side. The wound involved the plantar and dorsal aspect of the left foot, left lower extremity and wound on the right foot dorsal aspect and lower extremity with some foul odor noted. The patient has a history of sleep apnea, diabetes. The patient was seen by Cardiology. The patient is DNR, but in the OR patient will be full code. Discussed the options. Family wants surgical intervention, scheduled to have a left above-knee amputation. Risks and complication of bleeding, infection, heart attack, thrombosis have been discussed. MMODL / IJN: [id number] /
[2023-05-11] MEDS: metroNIDAZOLE-NS PMX 500 MG in SALINE 1 100ML.BAG IVPB SCH ×2 (13:05→19:35)
[2023-05-11] MEDS ORDERED: IPRATROPIUM-ALBUTEROL 3 ML NEB INHALATION PRN (15:43)
[2023-05-11] MEDS ORDERED: metroNIDAZOLE-NS PMX 500 MG in SALINE 1 100ML.BAG IVPB SCH (16:00)
--- NOTE | 2023-05-11 16:56 | P.CRDCN ---
History of Present Illness Consult date: 05/11/23 Consult reason: pre-op evaluation History of present illness: Patient is a 73-year-old male who presented to the hospital with worsening lower extremity discomfort. The patient was diagnosed with gangrene several weeks back and he chose to be discharged from the hospital with hospice. He has not returned to the hospital wishing for amputation of his lower extremities for comfort measures. The patient's family is in full understanding that this is a high risk procedure given his history of vascular disease, chronic kidney disease, and current infection. DIAGNOSTICS: Echocardiogram from 2021 shows preserved LV function and no significant valvular abnormalities Chest x-ray shows basilar atelectasis with low lung volumes REVIEW OF SYSTEMS: No fever or chills. No cough or expectoration. No diaphoresis. Patient denies headache, dizziness, blurred vision, double vision. Patient denies any stomach discomfort. No nausea, vomiting. No hematochezia. No hematemesis. Denies any black stools or blood in his stools. Denies dysuria or hematuria. No muscle weakness or numbness. PHYSICAL EXAMINATION: This is a 73-year-old male in mild distress and acute pain at the time of my examination HEENT: Head is atraumatic, normocephalic. Pupils are equal, round. Sclerae anicteric. Conjunctivae are clear. Mucous membranes of the mouth are moist. Neck is supple. There is no jugular venous distention. No carotid bruit is heard. CHEST EXAMINATION: Lungs are rhonchorous to auscultation. No chest wall tenderness is noted on palpation or with deep breathing. HEART EXAMINATION: Heart regular rate and rhythm. S1, S2 heard. No murmurs, gallops or rub. ABDOMEN: Soft, nontender. Bowel sounds are heard. No organomegaly noted. Ascites noted EXTREMITIES: Unable to assess extremities due to bilateral dressings NEUROLOGIC EXAMINATION: Patient is awake, alert and oriented x3. FINAL ASSESSMENT AND PLAN: Preoperative evaluation Gangrene of the lower extremities Peripheral vascular disease Hypertension Chronic kidney disease Diabetes mellitus, uncontrolled PLAN: Patient is high risk for surgery, but may proceed Case discussed in detail with the patient's family as well as surgeon Dr. Mitchell Start oral statin therapy Hold losartan to avoid intraoperative hypotension Further recommendations. Respiratory clinical course I am dictating on behalf of Dr Issac Kauffman's history/physical and assessment/plan. Past Medical History Past Medical History: Heart Failure, Diabetes Mellitus Additional Past Medical History / Comment(s): 10/04/14 Pt presented to [facility] ER with infection L lower leg for approximately one week. He saw his transport rn who swabbed the area and placed him on Keflex 3 days ago without improvement. Hehasfever and chills. He is being admitted with cellulitis. Other HX: IDDM type II, CKD, PVD, diabetic neuropathy, diabetic retinopathy, pulmonary HTN, pulmonary fibrosis, KIREA with BiPap use,severearthiritis-psoriatic and rheumatoid, osteomyelitis L lower extremity 2005 or 2006, gout, gastritis, sinus problems, cholestatic jaundice 2008 (pt had cholecystectomy 2009), abscess perirectalandscrotal 2003, L shoulder bursitis treated with steroid injections. History of Any Multi-Drug Resistant Organisms: MRSA Date of last positivie culture/infection: 08/18/21 MDRO Source:: Right Foot Past Surgical History: Cholecystectomy Additional Past Surgical History / Comment(s): cataract, Lt 2nd toe amputation Past Anesthesia/Blood Transfusion Reactions: No Reported Reaction Additional Past Anesthesia/Blood Transfusion Reaction / Comment(s): Pt has never recieved blood. Past Psychological History: No Psychological Hx Reported Smoking Status: Never smoker Past Alcohol Use History: Occasional Past Drug Use History: None Reported - Past Family History Father Family Medical History: Cancer, Renal Disease Additional Family Medical History / Comment(s): Father had one kidney removed. Mother Family Medical History: Diabetes Mellitus, Vascular Disorder Medications and Allergies Home Medications Medication Instructions Recorded Confirmed Type Cephalexin [Keflex] 500 mg PO Q6HR 05/10/23 05/10/23 History HYDROcodone/APAP 5-325MG [[place] 1 tab PO Q4HR PRN 05/10/23 05/10/23 History 5-325] Allergies Allergy/AdvReac Type Severity Reaction Status Date / Time allopurinol Allergy Rash/Hives Verified 05/10/23 08:22 Physical Exam Vitals: Vital Signs Temp Pulse Resp BP Pulse Ox 05/11/23 14:26 96.3 F L 66 16 115/68 97 05/11/23 08:00 87 18 05/11/23 07:02 97.1 F L 87 18 98/57 85 L 05/11/23 05:03 92 L 05/11/23 02:00 97.5 F L 81 20 90/62 80 L 05/10/23 19:35 97.4 F L 78 20 102/53 96 05/10/23 18:27 97.3 F L 78 20 102/53 96 Intake and Output 05/11/23 05/11/23 05/11/23 06:59 14:59 22:59 Intake Total 1540 160 Balance 1540 160 Intake: Intake, IV Titration 1300 Amount Ampicillin-Sulbactam 3 gm 200 In Sodium Chloride 0.9% 100 ml @ 200 mls/hr IVPB Q8H [facility] Rx#:[id number] Sodium Chloride 0.9% 1, 600 000 ml @ 50 mls/hr IV . Q20H [facility] Rx#:[id number] Vancomycin 1,750 mg In 500 Sodium Chloride 0.9% 500 ml 500 ml @ 167 mls/hr IVPB Q24H [facility] Rx#: [id number] Oral 240 160 Other: # Voids 2 2 Results 05/09/23 20:08 05/11/23 06:22 Comprehensive Metabolic Panel 05/11/23 Range/Units 06:22 Sodium 135 L (137-145) mmol/L Potassium 5.4 H (3.5-5.1) mmol/L Chloride 101 (98-107) mmol/L Carbon Dioxide 22 (22-30) mmol/L BUN 83 H (9-20) mg/dL Creatinine 1.91 H (0.66-1.25) mg/dL Glucose 253 H (74-99) mg/dL Calcium 8.1 L (8.4-10.2) mg/dL Current Medications Generic Name Dose Route Start Last Admin Trade Name Freq PRN Reason Stop Dose Admin Acetaminophen 650 mg 05/09/23 22:01 Acetaminophen Tab 325 Mg Tab PO Q6HR PRN Mild Pain or Fever > 100.5 Hydrocodone Bitart/Acetaminophen 1 each 05/09/23 22:01 Hydrocodone/Apap 5-325mg 1 Each Tab PO Q4HR PRN Moderate Pain (Scale 4 to 6) Albuterol/Ipratropium 3 ml 05/11/23 20:00 Ipratropium-Albuterol 3 Ml Neb INHALATION RT-TID [facility] Albuterol/Ipratropium 3 ml 05/11/23 15:43 Ipratropium-Albuterol 3 Ml Neb INHALATION RT-TID PRN Shortness Of Breath Or Wheezing Atorvastatin Calcium 40 mg 05/11/23 09:15 05/11/23 10:07 Atorvastatin 40 Mg Tab PO Not Given DAILY [facility] Dextrose/Water 25 ml 05/10/23 07:49 Dextrose 50% Syringe 50 Ml IVP PER PROTOCOL PRN Hypoglycemia Protocol Dextrose/Water 50 ml 05/10/23 07:49 Dextrose 50% Syringe 50 Ml IVP PER PROTOCOL PRN Hypoglycemia Protocol Famotidine 20 mg 05/10/23 09:00 05/11/23 08:21 Famotidine 20 Mg Tab PO 20 mg DAILY [facility] Administration Sodium Chloride 1,000 mls @ 50 mls/hr 05/09/23 22:15 05/10/23 20:16 Saline 0.9% IV 75 mls/hr .Q20H [facility] Administration Vancomycin HCl 1,750 mg/ 500 mls @ 167 mls/hr 05/10/23 21:00 05/10/23 20:19 Sodium Chloride IVPB 167 mls/hr Q24H [facility] Administration Cefepime HCl 2 gm/ Sodium 100 mls @ 25 mls/hr 05/11/23 21:00 Chloride IVPB Q12HR [facility] Protocol Metronidazole 500 mg/ IV 100 mls @ 100 mls/hr 05/11/23 12:00 05/11/23 13:05 Solution IVPB 100 mls/hr Q8H [facility] Administration Protocol Insulin Aspart 0 unit 05/10/23 07:30 05/11/23 13:07 Insulin Aspart (Novolog) 100 Unit/Ml Vial SQ 6 unit ACHS [facility] Administration Protocol Midodrine 10 mg 05/10/23 07:48 05/10/23 21:09 Midodrine 5 Mg Tab PO 10 mg AC-TID PRN Administration Hypotension Morphine Sulfate 4 mg 05/09/23 22:01 05/11/23 03:18 Morphine Sulfate 4 Mg/Ml Syringe IV 4 mg Q4HR PRN Administration Severe Pain (Scale 7 to 10) Naloxone HCl 0.2 mg 05/09/23 22:01 Naloxone 0.4 Mg/Ml 1 Ml Vial IV Q2M PRN Opioid Reversal Intake and Output 05/11/23 05/11/23 05/11/23 06:59 14:59 22:59 Intake Total 1540 160 Balance 1540 160 Intake: Intake, IV Titration 1300 Amount Ampicillin-Sulbactam 3 gm 200 In Sodium Chloride 0.9% 100 ml @ 200 mls/hr IVPB Q8H [facility] Rx#:[id number] Sodium Chloride 0.9% 1, 600 000 ml @ 50 mls/hr IV . Q20H [facility] Rx#:[id number] Vancomycin 1,750 mg In 500 Sodium Chloride 0.9% 500 ml 500 ml @ 167 mls/hr IVPB Q24H [facility] Rx#: [id number] Oral 240 160 Other: # Voids 2 2 05/09/23 20:08 05/11/23 06:22
[2023-05-11] MEDS: SODIUM CHLORIDE 0.9% 1,000 ML IV SCH (17:00)
[2023-05-11 17:10] LABS: Glucose,Whole Blood 257 mg/dL (70-110)
[2023-05-11] MEDS: CEFEPIME 2 GM in SODIUM CHLORIDE 0.9% 100 ML IVPB SCH (19:36)
[2023-05-11 20:11] LABS: Glucose,Whole Blood 154 mg/dL (70-110)
[2023-05-11] MEDS: IPRATROPIUM-ALBUTEROL 3 ML NEB INHALATION SCH (20:15)
[2023-05-11] MEDS: VANCOMYCIN 1,750 MG in SODIUM CHLORIDE 0.9% 500 ML 500 ML IVPB SCH (20:35)
--- NOTE | 2023-05-11 21:45 | P.PN ---
Subjective Progress Note Date: 05/11/23 Principal diagnosis: Reason for follow-up is bilateral diabetic foot infection with gangrene and bacteremia Patient is a 73-year-old male with a past medical history Significant for diabetes mellitus and heart failure did have a history of diabetic foot infection patient apparently was in hospice however patient was noticed to having necrotic changes to his toes that has been extending up to his leg and the family was unable to keep up with the wound care at home, patient previously refused amputation but now is ready for amputation for the patient was brought into the hospital. On today's evaluation that is 05/11/2023 the patient remains to be afebrile, the patient is breathing comfortably on 2 L nasal cannula patient is resting comfortably and the pain seems to be controlled as per the family at the bedside no vomiting diarrhea or any other changes reported. No CBC was done today the patient creatinine is 1.91 blood cultures coming back positive with Bacteroides species Objective - Vital Signs Vital signs: Vital Signs Temp 97.1 F L 05/11/23 07:02 Pulse 87 05/11/23 08:00 Resp 18 05/11/23 08:00 BP 98/57 05/11/23 07:02 Pulse Ox 85 L 05/11/23 07:02 FiO2 Intake & Output 05/10/23 05/11/23 05/11/23 18:59 06:59 18:59 Intake Total 1660 Balance 1660 Weight 102.965 kg Intake: Intake, IV Titration 1300 Amount Ampicillin-Sulbactam 3 gm 200 In Sodium Chloride 0.9% 100 ml @ 200 mls/hr IVPB Q8H [facility] Rx#:[id number] Sodium Chloride 0.9% 1, 600 000 ml @ 75 mls/hr IV . [id number] [facility] Rx#:[id number] Vancomycin 1,750 mg In 500 Sodium Chloride 0.9% 500 ml 500 ml @ 167 mls/hr IVPB Q24H [facility] Rx#: [id number] Oral 360 Other: # Voids 2 - Exam Elderly male lying in bed in no distress Respiratory system unable to breathing Bilateral lower extremity wounds are currently dressed - Labs CBC & Chem 7: 05/09/23 20:08 05/11/23 06:22 Labs: Abnormal Lab Results - Last 24 Hours (Table) 05/10/23 05/10/23 05/11/23 Range/Units 13:10 18:21 06:22 Sodium (137-145) mmol/L Potassium (3.5-5.1) mmol/L BUN (9-20) mg/dL Creatinine (0.66-1.25) mg/dL Glucose (74-99) mg/dL POC Glucose (mg/dL) 189 H 155 H (70-110) mg/dL Hemoglobin A1c 9.0 H (<=6.0) % Calcium (8.4-10.2) mg/dL 05/11/23 05/11/23 05/11/23 Range/Units 06:22 06:59 11:50 Sodium 135 L (137-145) mmol/L Potassium 5.4 H (3.5-5.1) mmol/L BUN 83 H (9-20) mg/dL Creatinine 1.91 H (0.66-1.25) mg/dL Glucose 253 H (74-99) mg/dL POC Glucose (mg/dL) 266 H 289 H (70-110) mg/dL Hemoglobin A1c (<=6.0) % Calcium 8.1 L (8.4-10.2) mg/dL Microbiology - Last 24 Hours (Table) 05/09/23 23:30 Blood Culture Gram Stain - Preliminary Blood Assessment and Plan (1) Diabetic infection of left foot Current Visit: Yes Status: Acute Code(s): E11.628 - TYPE 2 DIABETES MELLITUS WITH OTHER SKIN COMPLICATIONS; L08.9 - LOCAL INFECTION OF THE SKIN AND SUBCUTANEOUS TISSUE, UNSP SNOMED Code(s): 44105396 (2) Gangrene associated with type 2 diabetes mellitus Current Visit: Yes Status: Acute Code(s): E11.52 - TYPE 2 DIABETES W DIABETIC PERIPHERAL ANGIOPATHY W GANGRENE SNOMED Code(s): 448470544 (3) Bacteremia Current Visit: Yes Status: Acute Code(s): R78.81 - BACTEREMIA SNOMED Code(s): 2945614 (4) Diabetic infection of right foot Current Visit: No Status: Acute Code(s): E11.628 - TYPE 2 DIABETES MELLITUS WITH OTHER SKIN COMPLICATIONS; L08.9 - LOCAL INFECTION OF THE SKIN AND SUBCUTANEOUS TISSUE, UNSP SNOMED Code(s): 88008460 Plan: 1patient present to hospital with extensive wounds to bilateral lower extremity with areas of necrotic changes surrounding redness and foul-smelling drainage did have a extensive diabetic foot infection with underlying osteomyelitis and gangrene and will need to cover for the polymicrobial kieran usually associated with diabetic foot infection 2patient has been evaluated by vascular surgery and plan for possible amputation tomorrow. 3patient did have Bacteroides bacteremia source likely multiple lower extremity diabetic foot infection with gangrene. 5we will keep the patient on vancomycin discontinue Unasyn start the patient on cefepime and Flagyl and monitor clinical course closely family at the bedside questions were answered Dictation was produced using [employer] software. please excuse any grammatical, word or spelling errors.
--- NOTE | 2023-05-12 01:14 | PN ---
PROGRESS NOTE DATE OF SERVICE: 05/11/2023 I am covering for Dr. Liz. SUBJECTIVE: This is a 73-year-old gentleman who was admitted with bilateral lower extremity necrotic foul-smelling wounds being evaluated with multiple consults. Dr. Bermudez is planning surgery. Creatinine is 1.91. The patient is slightly drowsy. PAST MEDICAL HISTORY: Could not be taken. REVIEW OF SYSTEMS: Could not be taken. CURRENT MEDICATIONS: Reviewed include Tylenol, dose and rest of medications noted. PHYSICAL EXAMINATION: VITAL SIGNS: Pulse is 87, blood pressure 98/57, and respirations 18. HEENT: Conjunctivae normal. NECK: No jugular venous distention. CARDIOVASCULAR: S1, S2 muffled. RESPIRATIONS: Bilateral scattered rhonchi. ABDOMEN: Soft. NERVOUS SYSTEM: No focal deficits. LABORATORY DATA: Sodium 130, WBC 17.4. ASSESSMENT: 1. Acute bilateral leg gangrene with sepsis present on admission. 2. Acute renal failure. 3. Hyponatremia. 4. History of CHF. 5. Diabetes mellitus, type 2. 6. Multiple medical issues. RECOMMENDATIONS: This 73-year-old gentleman presented with multiple complex medical issues, we will monitor the patient closely. We will continue with broad-spectrum IV antibiotics. Currently, the patient is on cefepime and monitor the oxygenation. Repeat labs. Monitor kidney functions. Otherwise, closely follow with vascular surgery for possible surgery. Prognosis guarded. Further recommendations to follow. MMODL / IJN: [id number] /
[2023-05-12] MEDS: metroNIDAZOLE-NS PMX 500 MG in SALINE 1 100ML.BAG IVPB SCH ×3 (03:41→19:57)
[2023-05-12 06:57] LABS: ALT 12 U/L (4-49); AST 20 U/L (17-59); African American GFR (CKD) 40 (>60 ml/min/1.73 sqM); Albumin 2.5 g/dL (3.5-5.0); Albumin/Globulin Ratio 0.6; Alkaline Phosphatase 195 U/L (38-126); Anion Gap 11 mmol/L; Blood Urea Nitrogen 83 mg/dL (9-20); Calcium 8.3 mg/dL (8.4-10.2); Carbon Dioxide 23 mmol/L (22-30); Chloride 103 mmol/L (98-107); Globulin 3.9 g/dL; Glucose 192 mg/dL (74-99); Non-African American GFR(CKD) 35 (>60 ml/min/1.73 sqM); Potassium 5.1 mmol/L (3.5-5.1); Sodium 137 mmol/L (137-145); Total Bilirubin 0.8 mg/dL (0.2-1.3); Total Protein 6.4 g/dL (6.3-8.2)
[2023-05-12] MEDS: ATORVASTATIN 40 MG TAB PO SCH (07:11)
[2023-05-12] MEDS: FAMOTIDINE 20 MG TAB PO SCH (07:11)
[2023-05-12 08:11] LABS: Glucose,Whole Blood 213 mg/dL (70-110)
[2023-05-12] MEDS: IPRATROPIUM-ALBUTEROL 3 ML NEB INHALATION SCH ×3 (08:20→20:43)
[2023-05-12] MEDS: INSULIN ASPART (NovoLOG) 100 UNIT/ML VIAL SQ SCH ×4 (08:46→21:26)
[2023-05-12] MEDS: CEFEPIME 2 GM in SODIUM CHLORIDE 0.9% 100 ML IVPB SCH ×2 (08:53→21:22)
[2023-05-12 10:24] LABS: Basophils # (A) 0.08 X 10*3/uL (0.00-0.10); Basophils % (A) 0.4 %; Eosinophils # (A) 0.04 X 10*3/uL (0.04-0.35); Eosinophils % (A) 0.2 %; HCT 36.3 % (39.6-50.0); HGB 10.5 g/dL (13.0-17.0); Lymphocytes % (A) 8.6 %; MCH 27.2 pg (27.0-32.0); MCHC 28.9 g/dL (32.0-37.0); Mean Platelet Volume 10.1 FL (9.5-12.2); Monocytes # (A) 0.59 X 10*3/uL (0.20-1.00); NRBC Per 100 WBC 0 X 10*3/uL (0.00-0.01); Neutrophils # (A) 17.18 X 10*3/uL (1.80-7.70); Neutrophils % (A) 86.5 %; Platelet Count 331 X 10*3/uL (140-440); RBC 3.86 X 10*6/uL (4.40-5.60); RDW 15.9 % (11.5-14.5); WBC 19.85 X 10*3/uL (4.50-10.00)
[2023-05-12 10:36] LABS: ALT 10 U/L (10-49); AST 17 U/L (14-35); Albumin 2.3 g/dL (3.8-4.9); Albumin/Globulin Ratio 0.59 Ratio (1.60-3.17); Alkaline Phosphatase 177 U/L (41-126); Blood Urea Nitrogen 75.8 mg/dL (9.0-27.0); Calcium 8.5 mg/dL (8.7-10.3); Carbon Dioxide 24.1 mmol/L (21.6-31.8); Chloride 102 mmol/L (96-109); Globulin 3.9 g/dL (1.6-3.3); Glucose 196 mg/dL (70-110); Potassium 5.1 mmol/L (3.5-5.5); Sodium 138 mmol/L (135-145); Total Bilirubin 0.5 mg/dL (0.3-1.2); Total Protein 6.2 g/dL (6.2-8.2)
--- NOTE | 2023-05-12 10:58 | P.PN ---
Subjective Progress Note Date: 05/12/23 73-year-old male seen in the emergency room, on May 09. The patient was apparently brought in by his family, because of worsening gangrene involving the lower extremities. The patient apparently initially declined amputation, and was placed on hospice. Apparently the patient has had a change of heart, and now agrees to have surgery. We were consulted for medical clearance. The patient has been seen by infectious diseases, the primary service, and vascular surgery. According to the vascular surgeons note, the patient is to have sequential govek-sek-kufk amputations, left than right. According to the patient's history, he is a diagnosis of heart failure and diabetes. He also has history of gout, possible asbestos exposure, pulmonary fibrosis, diabetes, chronic kidney disease, hypertension, among other things. Currently, the patient's getting saline at 50 mL an hour. He does wear oxygen at 3 L. He also has a CPAP device, for sleep apnea syndrome. He is currently on vancomycin and Unasyn as per infectious diseases. Currently labs include a white count 17.4, hemoglobin 11.8, hematocrit 38.6, and a platelet count of 388,000. Sodium 135, potassium 5.4, chlorides 101, CO2 22, BUN 83, and creatinine 1.91. Albumin is 2.6. Bilateral foot x-rays were done, with the findings as noted. The patient is seen today 05/12/2023 in follow-up on the regular medical floor. He is currently sitting up at the bedside. Awake and alert in no acute distress. He is maintaining good O2 saturations in the 90s on room air. She's afebrile. Hemodynamically stable. He has home CPAP throughout the night. Blood cultures pending. White count 19.8. Hemoglobin 10.5. Platelets 331. Sodium 138. Potassium 5.1 bicarb 24. BUN 76. Creatinine 2.0. Glucose 196. He remains on DuoNeb inhalations. Antibiotics in the form of vancomycin and cefepime. He is also on Flagyl. The plan is for a left idwjs-[id number]-nsyw amputation today. Objective - Vital Signs Vital signs: Vital Signs Temp 98.5 F 05/12/23 08:00 Pulse 85 05/12/23 08:40 Resp 17 05/12/23 08:40 BP 102/55 05/12/23 08:00 Pulse Ox 94 L 05/12/23 08:23 FiO2 Intake & Output 05/11/23 05/12/23 05/12/23 18:59 06:59 18:59 Intake Total 160 1320 Balance 160 1320 Intake: Intake, IV Titration 1200 Amount Cefepime 2 gm In Sodium 100 Chloride 0.9% 100 ml @ 25 mls/hr IVPB Q12HR [facility] Rx #:[id number] Sodium Chloride 0.9% 1, 400 000 ml @ 50 mls/hr IV . Q20H [facility] Rx#:[id number] Vancomycin 1,750 mg In 500 Sodium Chloride 0.9% 500 ml 500 ml @ 167 mls/hr IVPB Q24H [facility] Rx#: [id number] metroNIDAZOLE-NS PMX 500 200 mg In Saline 1 100ml.bag @ 100 mls/hr IVPB Q8HR [facility] Rx#:[id number] Oral 160 120 Other: Voiding Method Bedside Commode Bedside Commode # Voids 2 2 - Exam GENERAL EXAM: Alert, frail 73-year-old male, on room air, fairly comfortable in no apparent distress. HEAD: Normocephalic. EYES: Normal reaction of pupils, equal size. NOSE: Clear with pink turbinates. THROAT: No erythema or exudates. NECK: No masses, no JVD. CHEST: No chest wall deformity. LUNGS: Equal air entry with no crackles, wheeze, rhonchi or dullness. CVS: S1 and S2 normal with no audible murmur, regular rhythm. ABDOMEN: No hepatosplenomegaly, normal bowel sounds, no guarding or rigidity. SPINE: No scoliosis or deformity SKIN: Ulcerations, cellulitis and gangrenous changes of the lower extremities CENTRAL NERVOUS SYSTEM: No focal deficits, tone is normal in all 4 extremities. EXTREMITIES: There is changes of chronic venous stasis, ulcerations, cellulitis and gangrene bilateral lower extremities. Peripheral pulses are intact. - Labs CBC & Chem 7: 05/12/23 06:28 05/12/23 06:28 Labs: Abnormal Lab Results - Last 24 Hours (Table) 05/11/23 05/11/23 05/11/23 Range/Units 11:50 17:08 20:09 WBC (4.50-10.00) X 10*3/uL RBC (4.40-5.60) X 10*6/uL Hgb (13.0-17.0) g/dL Hct (39.6-50.0) % MCHC (32.0-37.0) g/dL RDW (11.5-14.5) % Immature Gran # (0.00-0.04) X 10*3/uL Neutrophils # (1.80-7.70) X 10*3/uL BUN (9-20) mg/dL Creatinine (0.66-1.25) mg/dL Est GFR (CKD-EPI) (>=60) BUN/Creatinine Ratio (12.00-20.00) Ratio Glucose (74-99) mg/dL POC Glucose (mg/dL) 289 H 257 H 154 H (70-110) mg/dL Calcium (8.4-10.2) mg/dL Alkaline Phosphatase (38-126) U/L Albumin (3.5-5.0) g/dL Globulin (1.6-3.3) g/dL Albumin/Globulin Ratio (1.60-3.17) Ratio 05/12/23 05/12/23 05/12/23 Range/Units 06:28 06:28 06:28 WBC 19.85 H (4.50-10.00) X 10*3/uL RBC 3.86 L (4.40-5.60) X 10*6/uL Hgb 10.5 L (13.0-17.0) g/dL Hct 36.3 L (39.6-50.0) % MCHC 28.9 L (32.0-37.0) g/dL RDW 15.9 H (11.5-14.5) % Immature Gran # 0.26 H (0.00-0.04) X 10*3/uL Neutrophils # 17.18 H (1.80-7.70) X 10*3/uL BUN 83 H 75.8 H (9-20) mg/dL Creatinine 1.90 H 2.0 H (0.66-1.25) mg/dL Est GFR (CKD-EPI) 35 L (>=60) BUN/Creatinine Ratio 37.90 H (12.00-20.00) Ratio Glucose 192 H 196 H (74-99) mg/dL POC Glucose (mg/dL) (70-110) mg/dL Calcium 8.3 L 8.5 L (8.4-10.2) mg/dL Alkaline Phosphatase 195 H 177 H (38-126) U/L Albumin 2.5 L 2.3 L (3.5-5.0) g/dL Globulin 3.9 H (1.6-3.3) g/dL Albumin/Globulin Ratio 0.59 L (1.60-3.17) Ratio 05/12/23 Range/Units 08:05 WBC (4.50-10.00) X 10*3/uL RBC (4.40-5.60) X 10*6/uL Hgb (13.0-17.0) g/dL Hct (39.6-50.0) % MCHC (32.0-37.0) g/dL RDW (11.5-14.5) % Immature Gran # (0.00-0.04) X 10*3/uL Neutrophils # (1.80-7.70) X 10*3/uL BUN (9-20) mg/dL Creatinine (0.66-1.25) mg/dL Est GFR (CKD-EPI) (>=60) BUN/Creatinine Ratio (12.00-20.00) Ratio Glucose (74-99) mg/dL POC Glucose (mg/dL) 213 H (70-110) mg/dL Calcium (8.4-10.2) mg/dL Alkaline Phosphatase (38-126) U/L Albumin (3.5-5.0) g/dL Globulin (1.6-3.3) g/dL Albumin/Globulin Ratio (1.60-3.17) Ratio Microbiology - Last 24 Hours (Table) 05/09/23 23:15 Blood Culture - Preliminary Blood 05/09/23 23:30 Blood Culture Gram Stain - Preliminary Blood Assessment and Plan Assessment: Worsening bilateral lower extremity gangrene, with anticipated bilateral [id number]-oye-qqbe amputations, according to vascular surgery. Plan is for left fppea-chw-pbmt amputation today 05/12/2023 Diabetes mellitus Chronic kidney disease Peripheral vascular occlusive disease Diabetic neuropathy Diabetic retinopathy Pulmonary hypertension Pulmonary fibrosis Obstructive sleep apnea syndrome Gout Poor overall functional performance based on the above-mentioned multiple comorbidities Plan: The patient was seen and evaluated Labs and medications reviewed Plan is for left hqddk-vrw-[id number] amputation today Currently stable and on room air We will continue to follow and make further recommendations based on his clinical status I have personally seen and examined the patient, performed the documentation and the assessment and plan as written. Number of minutes spent on the visit: 10.
[2023-05-12] MEDS ORDERED: PHENYLEPHRINE-0.9% NACL SYG 1,000 MCG/10 ML SYRINGE ONE (11:02)
[2023-05-12] MEDS ORDERED: NEOSTIGMINE 1 MG/ML 10 ML VIAL ONE (11:02)
[2023-05-12] MEDS ORDERED: LIDOCAINE 1% INJ 10MG/ML (20 ML MDV) ONE (11:02)
[2023-05-12] MEDS ORDERED: ePHEDrine 50 MG/ML 1 ML VIAL ONE (11:02)
[2023-05-12] MEDS ORDERED: PROPOFOL 10 MG/ML 20 ML VIAL IV ONE (11:02)
[2023-05-12] MEDS ORDERED: ROCURONIUM 10 MG/ML (5 ML VIAL) IV ONE (11:02)
[2023-05-12] MEDS ORDERED: fentaNYL (PF) 50 MCG/ML 2 ML AMP ONE (11:02)
[2023-05-12] MEDS ORDERED: GLYCOPYRROLATE 0.2 MG/ML 2 ML VIAL ONE (11:02)
[2023-05-12] MEDS ORDERED: LACTATED RINGERS 1,000 ML IV ONE (11:07)
--- NOTE | 2023-05-12 11:41 | P.PN ---
Subjective Patient is seen for follow-up for chronic kidney disease. He has been evaluated by vascular surgery and there are plans for amputation. Scheduled for surgery today. Details not available. No significant complaints today. Serum creatinine at 2.0 and potassium is 5.1 today. Patient is voiding. Objective - Vital Signs Vital signs: Vital Signs Temp 98.5 F 05/12/23 08:00 Pulse 85 05/12/23 08:40 Resp 17 05/12/23 08:40 BP 102/55 05/12/23 08:00 Pulse Ox 94 L 05/12/23 08:23 FiO2 Intake & Output 05/11/23 05/12/23 05/12/23 18:59 06:59 18:59 Intake Total 160 1320 Balance 160 1320 Intake: Intake, IV Titration 1200 Amount Cefepime 2 gm In Sodium 100 Chloride 0.9% 100 ml @ 25 mls/hr IVPB Q12HR [facility] Rx #:[id number] Sodium Chloride 0.9% 1, 400 000 ml @ 50 mls/hr IV . Q20H [facility] Rx#:[id number] Vancomycin 1,750 mg In 500 Sodium Chloride 0.9% 500 ml 500 ml @ 167 mls/hr IVPB Q24H [facility] Rx#: [id number] metroNIDAZOLE-NS PMX 500 200 mg In Saline 1 100ml.bag @ 100 mls/hr IVPB Q8HR [facility] Rx#:[id number] Oral 160 120 Other: Voiding Method Bedside Commode Bedside Commode # Voids 2 2 - Exam Patient is awake, comfortable, in no acute distress Examination of lower extremities shows both feet to be wrapped. Drainage noted from both feet. - Labs CBC & Chem 7: 05/12/23 06:28 05/12/23 06:28 Labs: Abnormal Lab Results - Last 24 Hours (Table) 05/11/23 05/11/23 05/11/23 Range/Units 11:50 17:08 20:09 WBC (4.50-10.00) X 10*3/uL RBC (4.40-5.60) X 10*6/uL Hgb (13.0-17.0) g/dL Hct (39.6-50.0) % MCHC (32.0-37.0) g/dL RDW (11.5-14.5) % Immature Gran # (0.00-0.04) X 10*3/uL Neutrophils # (1.80-7.70) X 10*3/uL BUN (9-20) mg/dL Creatinine (0.66-1.25) mg/dL Est GFR (CKD-EPI) (>=60) BUN/Creatinine Ratio (12.00-20.00) Ratio Glucose (74-99) mg/dL POC Glucose (mg/dL) 289 H 257 H 154 H (70-110) mg/dL Calcium (8.4-10.2) mg/dL Alkaline Phosphatase (38-126) U/L Albumin (3.5-5.0) g/dL Globulin (1.6-3.3) g/dL Albumin/Globulin Ratio (1.60-3.17) Ratio 05/12/23 05/12/23 05/12/23 Range/Units 06:28 06:28 06:28 WBC 19.85 H (4.50-10.00) X 10*3/uL RBC 3.86 L (4.40-5.60) X 10*6/uL Hgb 10.5 L (13.0-17.0) g/dL Hct 36.3 L (39.6-50.0) % MCHC 28.9 L (32.0-37.0) g/dL RDW 15.9 H (11.5-14.5) % Immature Gran # 0.26 H (0.00-0.04) X 10*3/uL Neutrophils # 17.18 H (1.80-7.70) X 10*3/uL BUN 83 H 75.8 H (9-20) mg/dL Creatinine 1.90 H 2.0 H (0.66-1.25) mg/dL Est GFR (CKD-EPI) 35 L (>=60) BUN/Creatinine Ratio 37.90 H (12.00-20.00) Ratio Glucose 192 H 196 H (74-99) mg/dL POC Glucose (mg/dL) (70-110) mg/dL Calcium 8.3 L 8.5 L (8.4-10.2) mg/dL Alkaline Phosphatase 195 H 177 H (38-126) U/L Albumin 2.5 L 2.3 L (3.5-5.0) g/dL Globulin 3.9 H (1.6-3.3) g/dL Albumin/Globulin Ratio 0.59 L (1.60-3.17) Ratio 05/12/23 Range/Units 08:05 WBC (4.50-10.00) X 10*3/uL RBC (4.40-5.60) X 10*6/uL Hgb (13.0-17.0) g/dL Hct (39.6-50.0) % MCHC (32.0-37.0) g/dL RDW (11.5-14.5) % Immature Gran # (0.00-0.04) X 10*3/uL Neutrophils # (1.80-7.70) X 10*3/uL BUN (9-20) mg/dL Creatinine (0.66-1.25) mg/dL Est GFR (CKD-EPI) (>=60) BUN/Creatinine Ratio (12.00-20.00) Ratio Glucose (74-99) mg/dL POC Glucose (mg/dL) 213 H (70-110) mg/dL Calcium (8.4-10.2) mg/dL Alkaline Phosphatase (38-126) U/L Albumin (3.5-5.0) g/dL Globulin (1.6-3.3) g/dL Albumin/Globulin Ratio (1.60-3.17) Ratio Microbiology - Last 24 Hours (Table) 05/09/23 23:15 Blood Culture - Preliminary Blood 05/09/23 23:30 Blood Culture Gram Stain - Preliminary Blood Assessment and Plan Assessment: 1. Chronic kidney disease NKF stage IV with baseline creatinine 1.7-1.8 mg/dL. Etiology is diabetic kidney disease and nephrosclerosis. History of dialysis- dependent acute kidney injury in August 2021 with recovery of renal function and patient has been off of dialysis for more than a year. 2. Bilateral foot wounds and gangrene with gas noted on left foot x-ray 3. Hypertension with CK D stage IV maintained on Cozaar 4. Hyperkalemia associated with chronic kidney disease in the setting of use of angiotensin receptor blockers. No urine retention. Plan: May continue with IV fluids Repeat labs in a.m.
--- NOTE | 2023-05-12 12:28 | PN ---
PROGRESS NOTE DATE OF SERVICE: 05/12/2023 I am covering for Dr. Liz. SUBJECTIVE: This 73-year-old gentleman was admitted with acute bilateral leg gangrene with sepsis, is considered for surgery today. No chest pain, no palpitations, no fever. OBJECTIVE: VITAL SIGNS: Pulse 85, blood pressure 98/58, respirations 17. CHEST: Few scattered rhonchi. ABDOMEN: Soft, nontender. LEGS: Bilateral leg cellulitis. LABORATORY DATA: Reviewed. ASSESSMENT: 1. Acute bilateral leg gangrene with sepsis present on admission for surgery. 2. Acute renal failure. 3. Hyponatremia. 4. History of CHF. 5. Diabetes mellitus, type 2. 6. Multiple medical issues. RECOMMENDATIONS: Recommended to continue current management, continue symptomatic treatment. Repeat labs. Continue the antibiotics, follow the cultures. Further recommendations to follow. MMODL / IJN: [id number] /
--- NOTE | 2023-05-12 13:22 | P.PCN ---
Description of Procedure: Preoperative diagnosis gangrene of the left foot and left lower extremity Postoperative the same Procedure left above-knee amputation under general anesthesia Procedure patient brought to the operating room left leg was prepped and a progress manner under general anesthesia incision was made on the anterior aspect of the thigh above the patella deepened through skin fat and fascia anterior compartment muscles were divided that medial compartment muscle were divided bleeding points were electrocauterized and suture ligated of present that this is carried artery identified and femoral artery and femoral vein which was divided and second suture ligated femoral arterial highly calcified. After that lateral compartment muscles were divided. Incision was extended to the posterior aspect of the thigh deepened through skin fat and fascia PERIOSTEUM elevator were used to elevate the periosteum femur was divided wound was Irri gated 100% Saline. And Posterior Compartment Muscle Were Do Approximately the Vicryl and Fascia Was Approximated with 0 Vicryl with Interrupted Suture Skin Was Closed with 3-0 Nylon with Interrupted Suture Dressing Applied Patient Transferred to Recovery Room Separate Retention
[2023-05-12] MEDS ORDERED: ALBUTEROL NEBULIZED 2.5 MG/3 ML INHALATION ONE (13:27)
[2023-05-12] MEDS ORDERED: METOPROLOL TARTRATE 5 MG/5 ML VIAL IVP ONE (13:47)
[2023-05-12 14:11] LABS: Glucose,Whole Blood 237 mg/dL (70-110)
[2023-05-12] MEDS: SODIUM CHLORIDE 0.9% 1,000 ML IV SCH (14:51)
[2023-05-12] MEDS: ONDANSETRON 4 MG/2 ML VIAL IVP PRN (15:25)
[2023-05-12 17:24] VITALS: BMI 30.7
[2023-05-12 17:40] LABS: Glucose,Whole Blood 260 mg/dL (70-110)
--- NOTE | 2023-05-12 18:02 | P.PN ---
Subjective Progress Note Date: 05/12/23 Principal diagnosis: Reason for follow-up is bilateral diabetic foot infection with gangrene and bacteremia Patient is a 73-year-old male with a past medical history Significant for diabetes mellitus and heart failure did have a history of diabetic foot infection patient apparently was in hospice however patient was noticed to having necrotic changes to his toes that has been extending up to his leg and the family was unable to keep up with the wound care at home, patient previously refused amputation but now is ready for amputation for the patient was brought into the hospital. On today's evaluation that is 05/12/2023 the patient continues to be afebrile patient is breathing comfortably on 3 L nasal cannula oxygen denies any chest pain shortness of breath or cough no nausea vomiting and no diarrhea has been reported. Patient white count is 19.85 creatinine is 2.0 blood culture with a bacteroids fragilis Objective - Vital Signs Vital signs: Vital Signs Temp 98.5 F 05/12/23 08:00 Pulse 85 05/12/23 08:40 Resp 17 05/12/23 08:40 BP 102/55 05/12/23 08:00 Pulse Ox 94 L 05/12/23 08:23 FiO2 Intake & Output 05/11/23 05/12/23 05/12/23 18:59 06:59 18:59 Intake Total 160 1320 Balance 160 1320 Intake: Intake, IV Titration 1200 Amount Cefepime 2 gm In Sodium 100 Chloride 0.9% 100 ml @ 25 mls/hr IVPB Q12HR [facility] Rx #:[id number] Sodium Chloride 0.9% 1, 400 000 ml @ 50 mls/hr IV . Q20H [facility] Rx#:[id number] Vancomycin 1,750 mg In 500 Sodium Chloride 0.9% 500 ml 500 ml @ 167 mls/hr IVPB Q24H [facility] Rx#: [id number] metroNIDAZOLE-NS PMX 500 200 mg In Saline 1 100ml.bag @ 100 mls/hr IVPB Q8HR [facility] Rx#:[id number] Oral 160 120 Other: Voiding Method Bedside Commode Bedside Commode # Voids 2 2 - Exam Elderly male lying in bed in no distress Respiratory system unable to breathing Bilateral lower extremity wounds are currently dressed , no foul smell - Labs CBC & Chem 7: 05/12/23 06:28 05/12/23 06:28 Labs: Abnormal Lab Results - Last 24 Hours (Table) 05/11/23 05/11/23 05/11/23 Range/Units 11:50 17:08 20:09 WBC (4.50-10.00) X 10*3/uL RBC (4.40-5.60) X 10*6/uL Hgb (13.0-17.0) g/dL Hct (39.6-50.0) % MCHC (32.0-37.0) g/dL RDW (11.5-14.5) % Immature Gran # (0.00-0.04) X 10*3/uL Neutrophils # (1.80-7.70) X 10*3/uL BUN (9-20) mg/dL Creatinine (0.66-1.25) mg/dL Est GFR (CKD-EPI) (>=60) BUN/Creatinine Ratio (12.00-20.00) Ratio Glucose (74-99) mg/dL POC Glucose (mg/dL) 289 H 257 H 154 H (70-110) mg/dL Calcium (8.4-10.2) mg/dL Alkaline Phosphatase (38-126) U/L Albumin (3.5-5.0) g/dL Globulin (1.6-3.3) g/dL Albumin/Globulin Ratio (1.60-3.17) Ratio 05/12/23 05/12/23 05/12/23 Range/Units 06:28 06:28 06:28 WBC 19.85 H (4.50-10.00) X 10*3/uL RBC 3.86 L (4.40-5.60) X 10*6/uL Hgb 10.5 L (13.0-17.0) g/dL Hct 36.3 L (39.6-50.0) % MCHC 28.9 L (32.0-37.0) g/dL RDW 15.9 H (11.5-14.5) % Immature Gran # 0.26 H (0.00-0.04) X 10*3/uL Neutrophils # 17.18 H (1.80-7.70) X 10*3/uL BUN 83 H 75.8 H (9-20) mg/dL Creatinine 1.90 H 2.0 H (0.66-1.25) mg/dL Est GFR (CKD-EPI) 35 L (>=60) BUN/Creatinine Ratio 37.90 H (12.00-20.00) Ratio Glucose 192 H 196 H (74-99) mg/dL POC Glucose (mg/dL) (70-110) mg/dL Calcium 8.3 L 8.5 L (8.4-10.2) mg/dL Alkaline Phosphatase 195 H 177 H (38-126) U/L Albumin 2.5 L 2.3 L (3.5-5.0) g/dL Globulin 3.9 H (1.6-3.3) g/dL Albumin/Globulin Ratio 0.59 L (1.60-3.17) Ratio 05/12/23 Range/Units 08:05 WBC (4.50-10.00) X 10*3/uL RBC (4.40-5.60) X 10*6/uL Hgb (13.0-17.0) g/dL Hct (39.6-50.0) % MCHC (32.0-37.0) g/dL RDW (11.5-14.5) % Immature Gran # (0.00-0.04) X 10*3/uL Neutrophils # (1.80-7.70) X 10*3/uL BUN (9-20) mg/dL Creatinine (0.66-1.25) mg/dL Est GFR (CKD-EPI) (>=60) BUN/Creatinine Ratio (12.00-20.00) Ratio Glucose (74-99) mg/dL POC Glucose (mg/dL) 213 H (70-110) mg/dL Calcium (8.4-10.2) mg/dL Alkaline Phosphatase (38-126) U/L Albumin (3.5-5.0) g/dL Globulin (1.6-3.3) g/dL Albumin/Globulin Ratio (1.60-3.17) Ratio Microbiology - Last 24 Hours (Table) 05/09/23 23:15 Blood Culture - Preliminary Blood 05/09/23 23:30 Blood Culture Gram Stain - Preliminary Blood Assessment and Plan (1) Diabetic infection of left foot Current Visit: Yes Status: Acute Code(s): E11.628 - TYPE 2 DIABETES MELLITUS WITH OTHER SKIN COMPLICATIONS; L08.9 - LOCAL INFECTION OF THE SKIN AND SUBCUTANEOUS TISSUE, UNSP SNOMED Code(s): 23843887 (2) Gangrene associated with type 2 diabetes mellitus Current Visit: Yes Status: Acute Code(s): E11.52 - TYPE 2 DIABETES W DIABETIC PERIPHERAL ANGIOPATHY W GANGRENE SNOMED Code(s): 444632043 (3) Bacteremia Current Visit: Yes Status: Acute Code(s): R78.81 - BACTEREMIA SNOMED Code(s): 2999606 (4) Diabetic infection of right foot Current Visit: No Status: Acute Code(s): E11.628 - TYPE 2 DIABETES MELLITUS WITH OTHER SKIN COMPLICATIONS; L08.9 - LOCAL INFECTION OF THE SKIN AND SUBCUTANEOUS TISSUE, UNSP SNOMED Code(s): 17482798 Plan: 1patient present to hospital with extensive wounds to bilateral lower extremity with areas of necrotic changes surrounding redness and foul-smelling drainage did have a extensive diabetic foot infection with underlying osteomyelitis and gangrene and will need to cover for the polymicrobial kieran usually associated with diabetic foot infection 2patient has been evaluated by vascular surgery and plan for possible amputation this afternoon 3patient did have Bacteroides bacteremia source likely multiple lower extremity diabetic foot infection with gangrene. 5patient to continue the vancomycin cefepime and Flagyl and monitor clinical course closely family at the bedside question concern answered Dictation was produced using [employer] dictation software. please excuse any grammatical, word or spelling errors.
[2023-05-12] MEDS: HYDROmorphone 1 MG/ML 1 ML SYRINGE IVP PRN (18:16)
[2023-05-12 19:56] LABS: Glucose,Whole Blood 252 mg/dL (70-110)
[2023-05-12] MEDS: VANCOMYCIN 1,750 MG in SODIUM CHLORIDE 0.9% 500 ML 500 ML IVPB SCH (23:36)
[2023-05-13] MEDS: HYDROmorphone 1 MG/ML 1 ML SYRINGE IVP PRN ×3 (01:17→21:07)
[2023-05-13] MEDS: metroNIDAZOLE-NS PMX 500 MG in SALINE 1 100ML.BAG IVPB SCH ×3 (04:19→19:51)
[2023-05-13 06:34] LABS: Glucose,Whole Blood 147 mg/dL (70-110)
[2023-05-13] MEDS: INSULIN ASPART (NovoLOG) 100 UNIT/ML VIAL SQ SCH ×4 (06:37→20:48)
[2023-05-13] MEDS ORDERED: FUROSEMIDE 10 MG/ML 10 ML VIAL IV STA (06:51)
[2023-05-13] MEDS: IPRATROPIUM-ALBUTEROL 3 ML NEB INHALATION SCH ×3 (08:33→21:26)
[2023-05-13 09:17] LABS: Basophils % (A) 0 %; Eosinophils # (A) 0.1 k/uL (0-0.7); Eosinophils % (A) 1 %; HCT 35.9 % (39.0-53.0); HGB 10.2 gm/dL (13.0-17.5); Hypochromasia Marked; Lymphocytes % (A) 25 %; MCH 27.9 pg (25.0-35.0); MCHC 28.5 g/dL (31.0-37.0); Mean Platelet Volume 7.7; Monocytes # (A) 0.4 k/uL (0-1.0); Monocytes % (A) 3 %; Neutrophils # (A) 10.9 k/uL (1.3-7.7); Neutrophils % (A) 70 %; Platelet Count 316 k/uL (150-450); RBC 3.67 m/uL (4.30-5.90); WBC 15.5 k/uL (3.8-10.6)
[2023-05-13 09:36] LABS: ALT 12 U/L (4-49); AST 26 U/L (17-59); African American GFR (CKD) 42 (>60 ml/min/1.73 sqM); Albumin 2.6 g/dL (3.5-5.0); Alkaline Phosphatase 154 U/L (38-126); Anion Gap 13 mmol/L; Blood Urea Nitrogen 77 mg/dL (9-20); Calcium 8.3 mg/dL (8.4-10.2); Carbon Dioxide 24 mmol/L (22-30); Chloride 106 mmol/L (98-107); Glucose 172 mg/dL (74-99); Non-African American GFR(CKD) 37 (>60 ml/min/1.73 sqM); Potassium 5.1 mmol/L (3.5-5.1); Sodium 143 mmol/L (137-145); Total Bilirubin 0.8 mg/dL (0.2-1.3); Total Protein 6.3 g/dL (6.3-8.2)
[2023-05-13] MEDS: ATORVASTATIN 40 MG TAB PO SCH (09:42)
[2023-05-13] MEDS: FAMOTIDINE 20 MG TAB PO SCH (09:42)
[2023-05-13] MEDS: CEFEPIME 2 GM in SODIUM CHLORIDE 0.9% 100 ML IVPB SCH ×2 (09:43→19:52)
--- NOTE | 2023-05-13 10:53 | P.PN ---
Subjective Progress Note Date: 05/13/23 Principal diagnosis: Cellulitis/gangrene. 73-year-old male seen in the emergency room, on May 09. The patient was apparently brought in by his family, because of worsening gangrene involving the lower extremities. The patient apparently initially declined amputation, and was placed on hospice. Apparently the patient has had a change of heart, and now agrees to have surgery. We were consulted for medical clearance. The patient has been seen by infectious diseases, the primary service, and vascular surgery. According to the vascular surgeons note, the patient is to have sequential jwuux-jgm-dtlh amputations, left than right. According to the patient's history, he is a diagnosis of heart failure and diabetes. He also has history of gout, possible asbestos exposure, pulmonary fibrosis, diabetes, chronic kidney disease, hypertension, among other things. Currently, the patient's getting saline at 50 mL an hour. He does wear oxygen at 3 L. He also has a CPAP device, for sleep apnea syndrome. He is currently on vancomycin and Unasyn as per infectious diseases. Currently labs include a white count 17.4, hemoglobin 11.8, hematocrit 38.6, and a platelet count of 388,000. Sodium 135, potassium 5.4, chlorides 101, CO2 22, BUN 83, and creatinine 1.91. Albumin is 2.6. Bilateral foot x-rays were done, with the findings as noted. The patient is seen today 05/12/2023 in follow-up on the regular medical floor. He is currently sitting up at the bedside. Awake and alert in no acute distress. He is maintaining good O2 saturations in the 90s on room air. She's afebrile. Hemodynamically stable. He has home CPAP throughout the night. Blood cultures pending. White count 19.8. Hemoglobin 10.5. Platelets 331. Sodium 138. Potassium 5.1 bicarb 24. BUN 76. Creatinine 2.0. Glucose 196. He remains on DuoNeb inhalations. Antibiotics in the form of vancomycin and cefepime. He is also on Flagyl. The plan is for a left qubsk-ktx-mcsc amputat ion today. Progress note dated 05/13/2023. The patient is seen today in room 355. The patient is postoperative day #1, status post left gwjib-ypg-ggta amputation. The patient continues on oxygen at 2 L. The patient's getting saline at 50 mL an hour. White count 15.5, hemoglobin 10.2, hematocrit 35.9, and platelet count 316,000. Sodium 143, potassium 5.1, chlorides 106, CO2 24, BUN 77, and creatinine 1.82. Albumin is 2.6. Blood cultures were positive Bacteroides fragilis. The patient continues on cefepime, Flagyl, and vancomycin. Objective - Vital Signs Vital signs: Vital Signs Temp 97.3 F L 05/13/23 08:00 Pulse 98 05/13/23 08:00 Resp 22 05/13/23 08:00 BP 121/57 05/13/23 08:00 Pulse Ox 96 05/13/23 08:00 FiO2 Intake & Output 05/12/23 05/13/23 05/13/23 18:59 06:59 18:59 Intake Total 950 0 Output Total 200 Balance 750 0 Weight 102.965 kg Intake: IV 950 Oral 0 Output: Estimated Blood Loss 200 Other: Voiding Method Bedside Commode Diaper Diaper External Catheter External Catheter # Voids 0 - Exam No acute distress, oriented 3. Currently on 2 L of oxygen. HEENT examination is grossly unremarkable. Mucous membranes are moist. No oral lesions. Neck supple. Full range of motion. No adenopathy thyromegaly or neck vein distention. Cardiovascular examination reveals regular rhythm rate. S1-S2 normal. No S3 or S4. No discernible murmur noted. Heart sounds are distant. Heart rate 90 bpm. Lungs reveal clear breath sounds. Breath sounds are equal bilaterally. No adventitious lung sounds including wheezes rhonchi or crackles. Saturations are 96% on 2 L. Abdomen soft bowel sounds are heard. No masses or tenderness. Extremities are intact. No cyanosis clubbing or edema. Status post left AKA. Skin is without rash or lesion. Neurologic examination is brief but nonfocal. - Labs CBC & Chem 7: 05/13/23 07:36 05/13/23 07:36 Labs: Abnormal Lab Results - Last 24 Hours (Table) 05/12/23 05/12/23 05/12/23 Range/Units 06:28 14:09 17:38 WBC (3.8-10.6) k/uL RBC (4.30-5.90) m/uL Hgb (13.0-17.5) gm/dL Hct (39.0-53.0) % MCHC (31.0-37.0) g/dL Neutrophils # (1.3-7.7) k/uL BUN (9-20) mg/dL Creatinine (0.66-1.25) mg/dL Glucose (74-99) mg/dL POC Glucose (mg/dL) 237 H 260 H (70-110) mg/dL Calcium (8.4-10.2) mg/dL Alkaline Phosphatase (38-126) U/L Creatine Kinase <20 L (55-170) U/L Albumin (3.5-5.0) g/dL 05/12/23 05/13/23 05/13/23 Range/Units 19:54 06:31 07:36 WBC (3.8-10.6) k/uL RBC (4.30-5.90) m/uL Hgb (13.0-17.5) gm/dL Hct (39.0-53.0) % MCHC (31.0-37.0) g/dL Neutrophils # (1.3-7.7) k/uL BUN 77 H (9-20) mg/dL Creatinine 1.82 H (0.66-1.25) mg/dL Glucose 172 H (74-99) mg/dL POC Glucose (mg/dL) 252 H 147 H (70-110) mg/dL Calcium 8.3 L (8.4-10.2) mg/dL Alkaline Phosphatase 154 H (38-126) U/L Creatine Kinase (55-170) U/L Albumin 2.6 L (3.5-5.0) g/dL 05/13/23 Range/Units 07:36 WBC 15.5 H (3.8-10.6) k/uL RBC 3.67 L (4.30-5.90) m/uL Hgb 10.2 L (13.0-17.5) gm/dL Hct 35.9 L (39.0-53.0) % MCHC 28.5 L (31.0-37.0) g/dL Neutrophils # 10.9 H (1.3-7.7) k/uL BUN (9-20) mg/dL Creatinine (0.66-1.25) mg/dL Glucose (74-99) mg/dL POC Glucose (mg/dL) (70-110) mg/dL Calcium (8.4-10.2) mg/dL Alkaline Phosphatase (38-126) U/L Creatine Kinase (55-170) U/L Albumin (3.5-5.0) g/dL Microbiology - Last 24 Hours (Table) 05/09/23 23:30 Blood Culture Gram Stain - Final Blood Blood Culture - Final Bacteroides fragilis 05/09/23 23:15 Blood Culture - Preliminary Blood Assessment and Plan Assessment: Worsening bilateral lower extremity gangrene, with anticipated bilateral godgn-aik-whfv amputations, according to vascular surgery. Postop day #1, status post left amebl-gxa-tztj amputation. Multiple medical problems including diabetes mellitus, chronic kidney disease, peripheral vascular occlusive disease, diabetic neuropathy, diabetic retinopathy, pulmonary hypertension, pulmonary fibrosis, obstructive sleep apnea syndrome, gout, and multiple other medical problems. Plan: Plan dated 05/11/2023. The patient has not been seen by our group. There is a note in the chart, that he was seen by his dice manager, and had a swab of the leg, and was started on Keflex. He must have seen the other pulmonary group. The patient will have a chest x-ray done. Additional recommendations and suggestions are forthcoming. He's currently on vancomycin and Unasyn. He is getting oxygen by 3 L. His son states that he never smoked or smoked only for short period of time many years ago. His son does mention previous asbestos exposure, and there is apparently some history of pulmonary fibrosis. Additional recommendations and suggestions are forthcoming. We will continue to follow make recommendations along the way. Prognosis is poor. The patient is a DO NOT RESUSCITATE patient. Plan dated 05/13/2023. The patient underwent a left tptbq-vql-bqxn amputation yesterday. Today is postoperative day #1. The blood cultures are positive for Bacteroides fragilis. The patient continues on cefepime, Flagyl, and vancomycin. Labs, x-rays, and medications are reviewed. The patient's overall prognosis remains guarded. He is seen today in room 355. His is at the bedside. His prognosis is very guarded. We will continue to follow make recommendations along the way. Not sure when the patient will have the other amputation. Time with Patient: Less than 30
--- NOTE | 2023-05-13 11:18 | P.PN ---
Progress Note - Text 73-year-old gentleman patient had a left foot gangrene we did clinic left above- knee amputation today dressing dry and intact vital signs are stable we changed the dressing of the right lower extremity patient is a wound on the dorsum aspect of the foot and at the ankle area with some cellulitis dressing changed patient is an IV antibiotic under care of infectious disease
--- NOTE | 2023-05-13 11:23 | P.PN ---
Subjective Patient is seen for follow-up for chronic kidney disease. Status post left AKA 05/12/2023 No significant complaints today. Urine output has decreased overnight. Blood pressure is not low Serum creatinine at 1.8 mg/dL which is at baseline. Objective - Vital Signs Vital signs: Vital Signs Temp 97.3 F L 05/13/23 08:00 Pulse 98 05/13/23 08:00 Resp 22 05/13/23 08:00 BP 121/57 05/13/23 08:00 Pulse Ox 96 05/13/23 08:00 FiO2 Intake & Output 05/12/23 05/13/23 05/13/23 18:59 06:59 18:59 Intake Total 950 0 Output Total 200 Balance 750 0 Weight 102.965 kg Intake: IV 950 Oral 0 Output: Estimated Blood Loss 200 Other: Voiding Method Bedside Commode Diaper Diaper External Catheter External Catheter # Voids 0 - Exam Patient is awake, comfortable, in no acute distress Examination of the heart S1 and S2 Examination of the lungs bilateral breath sounds are heard decreased breath sounds at the bases Abdomen is soft nontender Examination of the lower extremities shows left AKA and right leg is wrapped - Labs CBC & Chem 7: 05/13/23 07:36 05/13/23 07:36 Labs: Abnormal Lab Results - Last 24 Hours (Table) 05/12/23 05/12/23 05/12/23 Range/Units 06:28 14:09 17:38 WBC (3.8-10.6) k/uL RBC (4.30-5.90) m/uL Hgb (13.0-17.5) gm/dL Hct (39.0-53.0) % MCHC (31.0-37.0) g/dL Neutrophils # (1.3-7.7) k/uL BUN (9-20) mg/dL Creatinine (0.66-1.25) mg/dL Glucose (74-99) mg/dL POC Glucose (mg/dL) 237 H 260 H (70-110) mg/dL Calcium (8.4-10.2) mg/dL Alkaline Phosphatase (38-126) U/L Creatine Kinase <20 L (55-170) U/L Albumin (3.5-5.0) g/dL 05/12/23 05/13/23 05/13/23 Range/Units 19:54 06:31 07:36 WBC (3.8-10.6) k/uL RBC (4.30-5.90) m/uL Hgb (13.0-17.5) gm/dL Hct (39.0-53.0) % MCHC (31.0-37.0) g/dL Neutrophils # (1.3-7.7) k/uL BUN 77 H (9-20) mg/dL Creatinine 1.82 H (0.66-1.25) mg/dL Glucose 172 H (74-99) mg/dL POC Glucose (mg/dL) 252 H 147 H (70-110) mg/dL Calcium 8.3 L (8.4-10.2) mg/dL Alkaline Phosphatase 154 H (38-126) U/L Creatine Kinase (55-170) U/L Albumin 2.6 L (3.5-5.0) g/dL 05/13/23 Range/Units 07:36 WBC 15.5 H (3.8-10.6) k/uL RBC 3.67 L (4.30-5.90) m/uL Hgb 10.2 L (13.0-17.5) gm/dL Hct 35.9 L (39.0-53.0) % MCHC 28.5 L (31.0-37.0) g/dL Neutrophils # 10.9 H (1.3-7.7) k/uL BUN (9-20) mg/dL Creatinine (0.66-1.25) mg/dL Glucose (74-99) mg/dL POC Glucose (mg/dL) (70-110) mg/dL Calcium (8.4-10.2) mg/dL Alkaline Phosphatase (38-126) U/L Creatine Kinase (55-170) U/L Albumin (3.5-5.0) g/dL Microbiology - Last 24 Hours (Table) 05/09/23 23:30 Blood Culture Gram Stain - Final Blood Blood Culture - Final Bacteroides fragilis 05/09/23 23:15 Blood Culture - Preliminary Blood Assessment and Plan Assessment: 1. Chronic kidney disease NKF stage IV with baseline creatinine 1.7-1.8 mg/dL. Etiology is diabetic kidney disease and nephrosclerosis. History of dialysis- dependent acute kidney injury in August 2021 with recovery of renal function and patient has been off of dialysis for more than a year. 2. Bilateral foot wounds and gangrene with gas noted on left foot x-ray, status post left AKA 3. Hypertension with CK D stage IV maintained on Cozaar 4. Hyperkalemia associated with chronic kidney disease in the setting of use of angiotensin receptor blockers. No urine retention. Improved Plan: May continue with IV fluids Repeat labs in a.m. Insert Brown catheter
[2023-05-13 11:52] LABS: Glucose,Whole Blood 216 mg/dL (70-110)
--- NOTE | 2023-05-13 12:46 | US ---
EXAMINATION TYPE: US kidneys/renal and bladder DATE OF EXAM: 05/13/2023 COMPARISON: NONE CLINICAL INDICATION: Male, 73 years old with history of acute kidney injury EXAM MEASUREMENTS: Right Kidney: not visualized due to limited patient mobility, bowel gas, and large body habitus Left Kidney: 11.2x4.7x4.7 cm 911 Dispatcher notes: Exam limited due to limited patient mobility, bowel gas, and large body habitus Right Kidney: Obscured by overlying bowel gas Left Kidney: stable cyst again seen: 3.1x2.6x2.7cm. Some cortical thinning suggesting chronic medical renal disease. No hydronephrosis. Bladder: Collapsed due to Brown catheter. Not adequately assessed. IMPRESSION: Exam limitations as above. Unable to adequately assess the right kidney or bladder. Chronic medical r enal disease left kidney without hydronephrosis.
[2023-05-13] MEDS: HEPARIN SODIUM,PORCINE 5,000 UNIT/ML 1 ML VIAL SQ SCH ×2 (14:06→19:50)
--- NOTE | 2023-05-13 14:38 | CT ---
EXAMINATION TYPE: CT brain wo con DATE OF EXAM: 05/13/2023 COMPARISON: 09/11/2021 HISTORY: 73-year-old male confusion, altered mental status, possible stroke TECHNIQUE: Examination was done in axial plane without intravenous contrast. Coronal and sagittal r econstructions performed. CT DLP: 1255.5 mGycm Automated exposure control for dose reduction was used. FINDINGS: There is no evidence of acute intracranial hemorrhage, acute ischemic changes, mass, mass-effect, or extra-axial fluid collection. There is no effacement of cerebral sulci or basal subarachnoid cister ns. There is no hydrocephalus. There is no midline shift. Sanhcez-white matter distinction is preserv ed. Mucosal thickening ethmoid air cells. Leftward nasal septal deviation. Mastoid air cells well pneumat ized. IMPRESSION: No acute intracranial abnormality seen.
[2023-05-13] MEDS: SODIUM CHLORIDE 0.9% 1,000 ML IV SCH ×2 (16:16→22:12)
[2023-05-13 16:49] LABS: Glucose,Whole Blood 143 mg/dL (70-110)
[2023-05-13] MEDS: ONDANSETRON 4 MG/2 ML VIAL IVP PRN (19:50)
[2023-05-13] MEDS ORDERED: VANCOMYCIN TROUGH DUE 1 EACH MISC MISCELLANE ONE (20:00)
[2023-05-13 20:29] LABS: Glucose,Whole Blood 150 mg/dL (70-110)
[2023-05-13] MEDS: VANCOMYCIN 1,750 MG in SODIUM CHLORIDE 0.9% 500 ML 500 ML IVPB SCH (21:02)
--- NOTE | 2023-05-13 21:47 | PN ---
PROGRESS NOTE DATE OF SERVICE: 05/13/[address] Liz. SUBJECTIVE: This is a 73-year-old gentleman with acute bilateral cellulitis, suspected Bacteroides fragilis grown from the culture. The patient had extensive debridement surgery by Dr. Bermudez yesterday. Multiple consultants are following the patient closely. The patient is slightly drowsy. PAST MEDICAL HISTORY: Reviewed. REVIEW OF SYSTEMS: Could not be taken. CURRENT MEDICATIONS: Reviewed include: 1. [place]. 2. Tylenol. 3. DuoNeb. Doses and rest of the medications are noted. PHYSICAL EXAMINATION: VITAL SIGNS: Pulse is 98, blood pressure is , respirations 20. HEENT: Conjunctivae normal. NECK: No jugular venous distention. CARDIOVASCULAR: S1 and S2. RESPIRATIONS: A few scattered rhonchi. ABDOMEN: Soft. Nontender. NERVOUS SYSTEM: Diffusely weak legs, status post surgery. LABORATORY DATA: Creatinine 1.82, slightly improved from 2 yesterday. ASSESSMENT: 1. Bacteroides fragilis. 2. Acute bilateral leg gangrene and sepsis present on admission, status post debridement. 3. Acute renal failure. 4. Hyponatremia. 5. Change in mental status, metabolic encephalopathy. 6. History of congestive heart failure. 7. Diabetes mellitus type 2. 8. Multiple medical issues. RECOMMENDATIONS: Recommended to continue current management and continue symptomatic treatment. I recommend CT of the brain to complete the workup and continue IV antibiotics. We will repeat cultures and we will await for the wound culture as well. Prognosis guarded. Further recommendations to follow. See orders for details. Avoid nephrotoxic medications. MMODL / IJN: [id number] / JAYLIN
[2023-05-14] MEDS: ONDANSETRON 4 MG/2 ML VIAL IVP PRN ×2 (04:01→20:21)
[2023-05-14] MEDS: metroNIDAZOLE-NS PMX 500 MG in SALINE 1 100ML.BAG IVPB SCH ×3 (04:01→20:22)
[2023-05-14 06:15] LABS: Glucose,Whole Blood 170 mg/dL (70-110)
[2023-05-14] MEDS: INSULIN ASPART (NovoLOG) 100 UNIT/ML VIAL SQ SCH ×4 (06:29→20:22)
--- NOTE | 2023-05-14 07:30 | P.PN ---
Subjective Progress Note Date: 05/13/23 Principal diagnosis: Reason for follow-up is bilateral diabetic foot infection with gangrene and bacteremia Patient is a 73-year-old male with a past medical history Significant for diabetes mellitus and heart failure did have a history of diabetic foot infection patient apparently was in hospice however patient was noticed to having necrotic changes to his toes that has been extending up to his leg and the family was unable to keep up with the wound care at home, patient previously refused amputation but now is ready for amputation for the patient was brought into the hospital.The patient is status post left [id number]-[id number] amputation completed on 05/12/2023. On today's evaluation that is 05/13/2023 the patient denies having any fever or any chills is breathing comfortably on room air without need for supplemental oxygen no chest pain shortness of breath or cough has been complaining of some pain to the lower extremity no nausea no vomiting or diarrhea. Patient did have white count of 15.5 that is down from yesterday of 19.85 creatinine is 1.82 blood pressure with electrolytes patient has repeat blood cultures currently pending Objective - Vital Signs Vital signs: Vital Signs Temp 97.3 F L 05/13/23 08:00 Pulse 98 05/13/23 08:00 Resp 22 05/13/23 08:00 BP 121/57 05/13/23 08:00 Pulse Ox 99 05/13/23 12:05 FiO2 Intake & Output 05/12/23 05/13/23 05/13/23 18:59 06:59 18:59 Intake Total 950 0 Output Total 200 1600 Balance 750 0 -1600 Weight 102.965 kg Intake: IV 950 Oral 0 Output: Urine 1600 Uretheral (Brown) 700 Estimated Blood Loss 200 Other: Voiding Method Bedside Commode Diaper Diaper External Catheter External Catheter # Voids 0 - Exam GENERAL DESCRIPTION: An elderly male lying in bed in no distress RESPIRATORY SYSTEM: Unlabored breathing , decreased breath sounds at bases HEART: S1 S2 regular rate and rhythm , ABDOMEN: Soft , no tenderness EXTREMITIES: Left AKA stump is currently dressed in OR dressing - Labs CBC & Chem 7: 05/13/23 07:36 05/13/23 07:36 Labs: Abnormal Lab Results - Last 24 Hours (Table) 05/12/23 05/12/23 05/12/23 Range/Units 14:09 17:38 19:54 WBC (3.8-10.6) k/uL RBC (4.30-5.90) m/uL Hgb (13.0-17.5) gm/dL Hct (39.0-53.0) % MCHC (31.0-37.0) g/dL Neutrophils # (1.3-7.7) k/uL BUN (9-20) mg/dL Creatinine (0.66-1.25) mg/dL Glucose (74-99) mg/dL POC Glucose (mg/dL) 237 H 260 H 252 H (70-110) mg/dL Calcium (8.4-10.2) mg/dL Alkaline Phosphatase (38-126) U/L Albumin (3.5-5.0) g/dL 05/13/23 05/13/23 05/13/23 Range/Units 06:31 07:36 07:36 WBC 15.5 H (3.8-10.6) k/uL RBC 3.67 L (4.30-5.90) m/uL Hgb 10.2 L (13.0-17.5) gm/dL Hct 35.9 L (39.0-53.0) % MCHC 28.5 L (31.0-37.0) g/dL Neutrophils # 10.9 H (1.3-7.7) k/uL BUN 77 H (9-20) mg/dL Creatinine 1.82 H (0.66-1.25) mg/dL Glucose 172 H (74-99) mg/dL POC Glucose (mg/dL) 147 H (70-110) mg/dL Calcium 8.3 L (8.4-10.2) mg/dL Alkaline Phosphatase 154 H (38-126) U/L Albumin 2.6 L (3.5-5.0) g/dL 05/13/23 Range/Units 11:50 WBC (3.8-10.6) k/uL RBC (4.30-5.90) m/uL Hgb (13.0-17.5) gm/dL Hct (39.0-53.0) % MCHC (31.0-37.0) g/dL Neutrophils # (1.3-7.7) k/uL BUN (9-20) mg/dL Creatinine (0.66-1.25) mg/dL Glucose (74-99) mg/dL POC Glucose (mg/dL) 216 H (70-110) mg/dL Calcium (8.4-10.2) mg/dL Alkaline Phosphatase (38-126) U/L Albumin (3.5-5.0) g/dL Microbiology - Last 24 Hours (Table) 05/12/23 06:28 Blood Culture - Preliminary Blood 05/09/23 23:15 Blood Culture - Preliminary Blood 05/09/23 23:30 Blood Culture Gram Stain - Final Blood Blood Culture - Final Bacteroides fragilis Assessment and Plan (1) Diabetic infection of left foot Current Visit: Yes Status: Acute Code(s): E11.628 - TYPE 2 DIABETES MELLITUS WITH OTHER SKIN COMPLICATIONS; L08.9 - LOCAL INFECTION OF THE SKIN AND SUBCUTANEOUS TISSUE, UNSP SNOMED Code(s): 91404949 (2) Gangrene associated with type 2 diabetes mellitus Current Visit: Yes Status: Acute Code(s): E11.52 - TYPE 2 DIABETES W DIABETIC PERIPHERAL ANGIOPATHY W GANGRENE SNOMED Code(s): 168343336 (3) Bacteremia Current Visit: Yes Status: Acute Code(s): R78.81 - BACTEREMIA SNOMED Code(s): 8508492 (4) Diabetic infection of right foot Current Visit: No Status: Acute Code(s): E11.628 - TYPE 2 DIABETES MELLITUS WITH OTHER SKIN COMPLICATIONS; L08.9 - LOCAL INFECTION OF THE SKIN AND SUBCUTANEOUS TISSUE, UNSP SNOMED Code(s): 69480455 Plan: 1patient present to hospital with extensive wounds to bilateral lower extremity with areas of necrotic changes surrounding redness and foul-smelling drainage did have a extensive diabetic foot infection with underlying osteomyelitis and gangrene and will need to cover for the polymicrobial kieran usually associated with diabetic foot infection 2patient has been evaluated by vascular surgery and the patient is status post left above-knee amputation completed on 05/12/2023 3patient did have Bacteroides bacteremia source likely multiple lower extremity diabetic foot infection with gangrene. 5patient to continue with the current treatment of vancomycin cefepime Flagyl while watching his kidney function closely and continue supportive care Family at the bedside questions were answered Dictation was produced using [employer] software. please excuse any grammatical, word or spelling errors.
[2023-05-14] MEDS: IPRATROPIUM-ALBUTEROL 3 ML NEB INHALATION SCH ×3 (07:54→21:02)
[2023-05-14 08:18] LABS: Basophils % (A) 0 %; Eosinophils # (A) 0.1 k/uL (0-0.7); Eosinophils % (A) 0 %; HCT 37.6 % (39.0-53.0); Hypochromasia Marked; Lymphocytes # (A) 1.9 k/uL (1.0-4.8); Lymphocytes % (A) 13 %; MCH 28.6 pg (25.0-35.0); MCHC 29.1 g/dL (31.0-37.0); MCV 98.3 fL (80.0-100.0); Monocytes # (A) 0.3 k/uL (0-1.0); Monocytes % (A) 2 %; Neutrophils # (A) 11.8 k/uL (1.3-7.7); Neutrophils % (A) 83 %; Platelet Count 279 k/uL (150-450); RBC 3.83 m/uL (4.30-5.90); WBC 14.2 k/uL (3.8-10.6)
[2023-05-14] MEDS: HEPARIN SODIUM,PORCINE 5,000 UNIT/ML 1 ML VIAL SQ SCH ×2 (09:34→20:21)
[2023-05-14] MEDS: ATORVASTATIN 40 MG TAB PO SCH (09:34)
[2023-05-14] MEDS: FAMOTIDINE 20 MG TAB PO SCH (09:34)
[2023-05-14] MEDS: CEFEPIME 2 GM in SODIUM CHLORIDE 0.9% 100 ML IVPB SCH ×2 (09:34→20:21)
[2023-05-14 10:44] LABS: ALT 13 U/L (4-49); AST 27 U/L (17-59); African American GFR (CKD) 54 (>60 ml/min/1.73 sqM); Albumin 2.6 g/dL (3.5-5.0); Alkaline Phosphatase 155 U/L (38-126); Anion Gap 17 mmol/L; Blood Urea Nitrogen 69 mg/dL (9-20); Calcium 8.5 mg/dL (8.4-10.2); Carbon Dioxide 19 mmol/L (22-30); Chloride 109 mmol/L (98-107); Glucose 163 mg/dL (74-99); Non-African American GFR(CKD) 46 (>60 ml/min/1.73 sqM); Potassium 5.3 mmol/L (3.5-5.1); Sodium 145 mmol/L (137-145); Total Bilirubin 0.8 mg/dL (0.2-1.3); Total Protein 6.5 g/dL (6.3-8.2)
--- NOTE | 2023-05-14 11:38 | P.PN ---
Subjective Patient is seen for follow-up for chronic kidney disease. Status post left AKA 05/12/2023 No significant complaints today. Status post Brown catheter placement with urine output 2.3 L for 24 hours. Blood pressure is not low Serum creatinine decreased to 1.5 mg/dL. Objective - Vital Signs Vital signs: Vital Signs Temp 98.0 F 05/14/23 08:00 Pulse 96 05/14/23 08:00 Resp 20 05/14/23 08:00 BP 88/50 05/14/23 08:00 Pulse Ox 98 05/14/23 08:00 FiO2 Intake & Output 05/13/23 05/14/23 05/14/23 18:59 06:59 18:59 Intake Total 0 Output Total 2049 300 Balance -2049 - Intake: Oral 0 Output: Urine 2049 300 Uretheral (Brown) 700 Other: Voiding Method Diaper Indwelling Catheter Indwelling Catheter External Catheter - Exam Patient is awake, comfortable, in no acute distress Examination of the heart S1 and S2 Examination of the lungs bilateral breath sounds are heard decreased breath sounds at the bases Abdomen is soft nontender Examination of the lower extremities shows left AKA and right leg is wrapped - Labs CBC & Chem 7: 05/14/23 06:55 05/14/23 06:55 Labs: Abnormal Lab Results - Last 24 Hours (Table) 05/13/23 05/13/23 05/13/23 Range/Units 11:50 16:48 20:27 WBC (3.8-10.6) k/uL RBC (4.30-5.90) m/uL Hgb (13.0-17.5) gm/dL Hct (39.0-53.0) % MCHC (31.0-37.0) g/dL Neutrophils # (1.3-7.7) k/uL Potassium (3.5-5.1) mmol/L Chloride (98-107) mmol/L Carbon Dioxide (22-30) mmol/L BUN (9-20) mg/dL Creatinine (0.66-1.25) mg/dL Glucose (74-99) mg/dL POC Glucose (mg/dL) 216 H 143 H 150 H (70-110) mg/dL Alkaline Phosphatase (38-126) U/L Albumin (3.5-5.0) g/dL 05/14/23 05/14/23 05/14/23 Range/Units 06:13 06:55 06:55 WBC 14.2 H (3.8-10.6) k/uL RBC 3.83 L (4.30-5.90) m/uL Hgb 11.0 L (13.0-17.5) gm/dL Hct 37.6 L (39.0-53.0) % MCHC 29.1 L (31.0-37.0) g/dL Neutrophils # 11.8 H (1.3-7.7) k/uL Potassium 5.3 H (3.5-5.1) mmol/L Chloride 109 H (98-107) mmol/L Carbon Dioxide 19 L (22-30) mmol/L BUN 69 H (9-20) mg/dL Creatinine 1.50 H (0.66-1.25) mg/dL Glucose 163 H (74-99) mg/dL POC Glucose (mg/dL) 170 H (70-110) mg/dL Alkaline Phosphatase 155 H (38-126) U/L Albumin 2.6 L (3.5-5.0) g/dL Microbiology - Last 24 Hours (Table) 05/12/23 06:28 Blood Culture - Preliminary Blood 05/09/23 23:15 Blood Culture - Preliminary Blood Assessment and Plan Assessment: 1. Chronic kidney disease NKF stage IV with baseline creatinine 1.7-1.8 mg/dL. Etiology is diabetic kidney disease and nephrosclerosis. History of dialysis- dependent acute kidney injury in August 2021 with recovery of renal function and patient has been off of dialysis for more than a year. 2. Bilateral foot wounds and gangrene with gas noted on left foot x-ray, status post left AKA 3. Hypertension with CK D stage IV maintained on Cozaar 4. Hyperkalemia associated with chronic kidney disease in the setting of use of angiotensin receptor blockers. No urine retention. Improved Plan: May continue with IV fluids. Decrease rate Repeat labs in a.m. Continue with Brown catheter Monitor vancomycin levels closely.
[2023-05-14 12:01] LABS: Glucose,Whole Blood 225 mg/dL (70-110)
[2023-05-14] MEDS: HYDROmorphone 1 MG/ML 1 ML SYRINGE IVP PRN ×2 (14:56→21:43)
--- NOTE | 2023-05-14 15:53 | P.PN ---
Subjective Progress Note Date: 05/14/23 73-year-old male seen in the emergency room, on May 09. The patient was apparently brought in by his family, because of worsening gangrene involving the lower extremities. The patient apparently initially declined amputation, and was placed on hospice. Apparently the patient has had a change of heart, and now agrees to have surgery. We were consulted for medical clearance. The patient has been seen by infectious diseases, the primary service, and vascular surgery. According to the vascular surgeons note, the patient is to have sequential cxabm-qsa-[id number] amputations, left than right. According to the patient's history, he is a diagnosis of heart failure and diabetes. He also has history of gout, possible asbestos exposure, pulmonary fibrosis, diabetes, chronic kidney disease, hypertension, among other things. Currently, the patient's getting saline at 50 mL an hour. He does wear oxygen at 3 L. He also has a CPAP device, for sleep apnea syndrome. He is currently on vancomycin and Unasyn as per infectious diseases. Currently labs include a white count 17.4, hemoglobin 11.8, hematocrit 38.6, and a platelet count of 388,000. Sodium 135, potassium 5.4, chlorides 101, CO2 22, BUN 83, and creatinine 1.91. Albumin is 2.6. Bilateral foot x-rays were done, with the findings as noted. The patient is seen today 05/12/2023 in follow-up on the regular medical floor. He is currently sitting up at the bedside. Awake and alert in no acute distress. He is maintaining good O2 saturations in the 90s on room air. She's afebrile. Hemodynamically stable. He has home CPAP throughout the night. Blood cultures pending. White count 19.8. Hemoglobin 10.5. Platelets 331. Sodium 138. Potassium 5.1 bicarb 24. BUN 76. Creatinine 2.0. Glucose 196. He remains on DuoNeb inhalations. Antibiotics in the form of vancomycin and cefepime. He is also on Flagyl. The plan is for a left znclx-meu-bdah amputation today. Progress note dated 05/13/2023. The patient is seen today in room 355. The patient is postoperative day #1, status post left [id number]-jtb-[id number] amputation. The patient continues on oxygen at 2 L. The patient's getting saline at 50 mL an hour. White count 15.5, hemoglobin 10.2, hematocrit 35.9, and platelet count 316,000. Sodium 143, potassium 5.1, chlorides 106, CO2 24, BUN 77, and creatinine 1.82. Albumin is 2.6. Blood cultures were positive Bacteroides fragilis. The patient continues on cefepime, Flagyl, and vancomycin. On today's evaluation of 05/14/2020, the patient has stable and the patient is currently resting comfortably in bed. No significant respiratory distress. The patient is currently on 2 L of oxygen by nasal cannula. Chest x-ray showing atelectatic change in lung bases bilaterally. The patient has some interval improvement in renal function and creatinine is down to 1.6, white cell count of 14.2 and the patient is afebrile for now. Antibiotic coverage remains a combination of cefepime, Flagyl and vancomycin. The patient is also receiving Dilaudid when necessary for pain control. The patient on DuoNeb updrafts xilxub-sfm-zpxte and incentive spirometer. No other significant events over the past 24 hours. The patient is status post above the patient on the left and the patient is currently postop day #2. Blood cultures for Bacteroides fragilis. Objective - Vital Signs Vital signs: Vital Signs Temp 98.0 F 05/14/23 08:00 Pulse 88 05/14/23 11:57 Resp 20 05/14/23 08:00 BP 88/50 05/14/23 08:00 Pulse Ox 98 05/14/23 08:00 FiO2 Intake & Output 05/13/23 05/14/23 05/14/23 18:59 06:59 18:59 Intake Total 0 Output Total 2049 300 Balance -2049 Intake: Oral 0 Output: Urine 2049 300 Uretheral (Brown) 700 Other: Voiding Method Diaper Indwelling Catheter Indwelling Catheter External Catheter - Exam No acute distress, oriented 3. Currently on 2 L of oxygen. HEENT examination is grossly unremarkable. Mucous membranes are moist. No oral lesions. Neck supple. Full range of motion. No adenopathy thyromegaly or neck vein distention. Cardiovascular examination reveals regular rhythm rate. S1-S2 normal. No S3 or S4. No discernible murmur noted. Heart sounds are distant. Lungs reveal clear breath sounds. Breath sounds are equal bilaterally. No adventitious lung sounds including wheezes rhonchi or crackles. Abdomen soft bowel sounds are heard. No masses or tenderness. Extremities are intact. No cyanosis clubbing or edema. Status post left AKA. Skin is without rash or lesion. Neurologic examination is brief but nonfocal. - Labs CBC & Chem 7: 05/14/23 06:55 05/14/23 06:55 Labs: Abnormal Lab Results - Last 24 Hours (Table) 05/13/23 05/13/23 05/14/23 Range/Units 16:48 20:27 06:13 WBC (3.8-10.6) k/uL RBC (4.30-5.90) m/uL Hgb (13.0-17.5) gm/dL Hct (39.0-53.0) % MCHC (31.0-37.0) g/dL Neutrophils # (1.3-7.7) k/uL Potassium (3.5-5.1) mmol/L Chloride (98-107) mmol/L Carbon Dioxide (22-30) mmol/L BUN (9-20) mg/dL Creatinine (0.66-1.25) mg/dL Glucose (74-99) mg/dL POC Glucose (mg/dL) 143 H 150 H 170 H (70-110) mg/dL Alkaline Phosphatase (38-126) U/L Albumin (3.5-5.0) g/dL 05/14/23 05/14/23 05/14/23 Range/Units 06:55 06:55 12:00 WBC 14.2 H (3.8-10.6) k/uL RBC 3.83 L (4.30-5.90) m/uL Hgb 11.0 L (13.0-17.5) gm/dL Hct 37.6 L (39.0-53.0) % MCHC 29.1 L (31.0-37.0) g/dL Neutrophils # 11.8 H (1.3-7.7) k/uL Potassium 5.3 H (3.5-5.1) mmol/L Chloride 109 H (98-107) mmol/L Carbon Dioxide 19 L (22-30) mmol/L BUN 69 H (9-20) mg/dL Creatinine 1.50 H (0.66-1.25) mg/dL Glucose 163 H (74-99) mg/dL POC Glucose (mg/dL) 225 H (70-110) mg/dL Alkaline Phosphatase 155 H (38-126) U/L Albumin 2.6 L (3.5-5.0) g/dL Microbiology - Last 24 Hours (Table) 05/12/23 06:28 Blood Culture - Preliminary Blood 05/09/23 23:15 Blood Culture - Preliminary Blood Assessment and Plan Plan: Bilateral lower extremity gangrene, patient is post left yvixo-hne-bbnz" patient is postop day #2 Acute on chronic hypoxic respiratory failure, currently on 2 L of oxygen by nasal cannula. Chest x-ray showed atelectatic change in lung bases Obstructive sleep apnea Chronic kidney disease with a component of acute kidney injury, creatinine is improving, the patient is known to have chronic stage IV kidney disease Leukocytosis Peripheral vascular disease Preserved LV function based on previous echocardiogram Hyperkalemia, improved Bacteremia with anaerobes/Bacteroides fragilis source being lower extremity gangrene Plan: Vascular Surgery follow-up regarding the gangrenous foot Continue antibiotics per ID Incentive spirometer Oxygen 2 L per minute nasal cannula Creatinine is improving and a potassium level is stable Pain control We'll continue to follow
[2023-05-14] MEDS: SODIUM CHLORIDE 0.9% 1,000 ML IV SCH (15:58)
--- NOTE | 2023-05-14 16:31 | P.PN ---
Subjective Progress Note Date: 05/14/23 Principal diagnosis: Reason for follow-up is bilateral diabetic foot infection with gangrene and bacteremia Patient is a 73-year-old male with a past medical history Significant for diabetes mellitus and heart failure did have a history of diabetic foot infection patient apparently was in hospice however patient was noticed to having necrotic changes to his toes that has been extending up to his leg and the family was unable to keep up with the wound care at home, patient previously refused amputation but now is ready for amputation for the patient was brought into the hospital.The patient is status post left [id number]-[id number] amputation completed on 05/12/2023. On today's evaluation that is 05/14/2023, patient remains to be afebrile, the patient is breathing comfortably on 3 L nasal cannula oxygen patient denies having any chest pain or cough no nausea vomiting no abdominal pain or any worsening pain to the left AKA stump. Patient did have white count of 14.2 slightly lower than yesterday creatinine is 1.50 Objective - Vital Signs Vital signs: Vital Signs Temp 97.4 F L 05/14/23 15:56 Pulse 120 H 05/14/23 15:56 Resp 20 05/14/23 15:56 BP 106/48 05/14/23 15:56 Pulse Ox 95 05/14/23 15:56 FiO2 Intake & Output 05/13/23 05/14/23 05/14/23 18:59 06:59 18:59 Intake Total 0 Output Total 2049 300 500 Balance -2050 -300 -500 Intake: Oral 0 Output: Urine 2049 300 500 Uretheral (Brown) 700 Other: Voiding Method Diaper Indwelling Catheter Indwelling Catheter External Catheter - Exam GENERAL DESCRIPTION: An elderly male lying in bed in no distress RESPIRATORY SYSTEM: Unlabored breathing , decreased breath sounds at bases HEART: S1 S2 regular rate and rhythm , ABDOMEN: Soft , no tenderness EXTREMITIES: Left AKA stump is currently dressed in OR dressing - Labs CBC & Chem 7: 05/14/23 06:55 05/14/23 06:55 Labs: Abnormal Lab Results - Last 24 Hours (Table) 05/13/23 05/13/23 05/14/23 Range/Units 16:48 20:27 06:13 WBC (3.8-10.6) k/uL RBC (4.30-5.90) m/uL Hgb (13.0-17.5) gm/dL Hct (39.0-53.0) % MCHC (31.0-37.0) g/dL Neutrophils # (1.3-7.7) k/uL Potassium (3.5-5.1) mmol/L Chloride (98-107) mmol/L Carbon Dioxide (22-30) mmol/L BUN (9-20) mg/dL Creatinine (0.66-1.25) mg/dL Glucose (74-99) mg/dL POC Glucose (mg/dL) 143 H 150 H 170 H (70-110) mg/dL Alkaline Phosphatase (38-126) U/L Albumin (3.5-5.0) g/dL 05/14/23 05/14/23 05/14/23 Range/Units 06:55 06:55 12:00 WBC 14.2 H (3.8-10.6) k/uL RBC 3.83 L (4.30-5.90) m/uL Hgb 11.0 L (13.0-17.5) gm/dL Hct 37.6 L (39.0-53.0) % MCHC 29.1 L (31.0-37.0) g/dL Neutrophils # 11.8 H (1.3-7.7) k/uL Potassium 5.3 H (3.5-5.1) mmol/L Chloride 109 H (98-107) mmol/L Carbon Dioxide 19 L (22-30) mmol/L BUN 69 H (9-20) mg/dL Creatinine 1.50 H (0.66-1.25) mg/dL Glucose 163 H (74-99) mg/dL POC Glucose (mg/dL) 225 H (70-110) mg/dL Alkaline Phosphatase 155 H (38-126) U/L Albumin 2.6 L (3.5-5.0) g/dL Microbiology - Last 24 Hours (Table) 05/12/23 06:28 Blood Culture - Preliminary Blood 05/09/23 23:15 Blood Culture - Preliminary Blood Assessment and Plan (1) Diabetic infection of left foot Current Visit: Yes Status: Acute Code(s): E11.628 - TYPE 2 DIABETES MELLITUS WITH OTHER SKIN COMPLICATIONS; L08.9 - LOCAL INFECTION OF THE SKIN AND SUBCUTANEOUS TISSUE, UNSP SNOMED Code(s): 28706843 (2) Gangrene associated with type 2 diabetes mellitus Current Visit: Yes Status: Acute Code(s): E11.52 - TYPE 2 DIABETES W DIABETIC PERIPHERAL ANGIOPATHY W GANGRENE SNOMED Code(s): 553335947 (3) Bacteremia Current Visit: Yes Status: Acute Code(s): R78.81 - BACTEREMIA SNOMED Code(s): 1490265 (4) Diabetic infection of right foot Current Visit: No Status: Acute Code(s): E11.628 - TYPE 2 DIABETES MELLITUS WITH OTHER SKIN COMPLICATIONS; L08.9 - LOCAL INFECTION OF THE SKIN AND SUBCUTANEOUS TISSUE, UNSP SNOMED Code(s): 16903241 Plan: 1patient present to hospital with extensive wounds to bilateral lower extremity with areas of necrotic changes surrounding redness and foul-smelling drainage did have a extensive diabetic foot infection with underlying osteomyelitis and gangrene and will need to cover for the polymicrobial kieran usually associated with diabetic foot infection 2patient has been evaluated by vascular surgery and the patient is status post left above-knee amputation completed on 05/12/2023 3patient did have Bacteroides bacteremia source likely multiple lower extremity diabetic foot infection with gangrene. 5patient to continue with cefepime Flagyl and vancomycin while watching his kidney function closely local wound care to continue per the surgeon Dictation was produced using [employer]ation software. please excuse any grammatical, word or spelling errors. Time with Patient: Less than 30
[2023-05-14 16:53] LABS: Glucose,Whole Blood 188 mg/dL (70-110)
[2023-05-14] MEDS: MIDODRINE 5 MG TAB PO SCH (17:24)
--- NOTE | 2023-05-14 17:39 | P.PN ---
Progress Note - Text Patient had a left above-knee amputation dressing is intact and dry patient has a wound on the right ankle discussed we'll change her dressing with marked redness cellulitis of the lower extremity on the right side patient is on nasal oxygen continue with IV antibiotic we will change her dressing couple of days
[2023-05-14 20:14] LABS: Glucose,Whole Blood 169 mg/dL (70-110)
--- NOTE | 2023-05-14 21:40 | PN ---
PROGRESS NOTE DATE OF SERVICE: 05/14/2023 SUBJECTIVE: This is a 73-year-old gentleman who was admitted with significant gangrene, has Bacteroides fragilis grown from the culture. The patient was confused yesterday. The patient is much more alert. The patient on broad spectrum IV antibiotic and CT scan showed no acute abnormality. PAST MEDICAL HISTORY: Reviewed. REVIEW OF SYSTEMS: Could not be taken as the patient is mildly confused. CURRENT MEDICATIONS: Reviewed include cefepime, dose and rest of medications reviewed. PHYSICAL EXAMINATION: VITAL SIGNS: Pulse is 96, blood pressure 88/52, respirations 20. HEENT: Conjunctivae normal. NECK: No jugular venous distention. CARDIOVASCULAR: S1, S2. RESPIRATIONS: Diminished at the bases, few scattered rhonchi. ABDOMEN: Soft, nontender. LEGS: Bilateral surgery. LABORATORY DATA: Reviewed. ASSESSMENT: 1. Bacteroides fragilis sepsis. 2. Acute bilateral leg gangrene with sepsis present on admission, status post debridement. 3. Relative hypotension. 4. Acute renal failure. 5. Hyponatremia. 6. Change in mental status, acute metabolic encephalopathy. 7. History of CHF. 8. Diabetes mellitus, type 2. 9. Multiple medical issues. RECOMMENDATIONS: 1. Recommended to continue current management, continue symptomatic treatment otherwise. 2. Recommended to repeat labs. I would also recommend to monitor the renal functions closely. Increase IV fluids. We will make midodrine on a regular schedule. Continue to monitor. Further recommendations to follow. Check serum cortisol. MMJENNIFERL / GRETAN: [id number] /
[2023-05-14] MEDS: VANCOMYCIN 1,750 MG in SODIUM CHLORIDE 0.9% 500 ML 500 ML IVPB SCH (21:42)
[2023-05-15] MEDS: SODIUM CHLORIDE 0.9% 1,000 ML IV SCH (01:38)
[2023-05-15] MEDS: metroNIDAZOLE-NS PMX 500 MG in SALINE 1 100ML.BAG IVPB SCH ×3 (03:28→20:09)
[2023-05-15 05:46] LABS: Glucose,Whole Blood 158 mg/dL (70-110)
[2023-05-15] MEDS: INSULIN ASPART (NovoLOG) 100 UNIT/ML VIAL SQ SCH ×4 (06:18→20:36)
--- NOTE | 2023-05-15 07:41 | XR ---
EXAMINATION TYPE: XR chest 1V portable DATE OF EXAM: 05/15/2023 6:58 AM CLINICAL INDICATION:Male, 73 years old with history of short of breath; H COMPARISON: Chest radiographs from 05/11/2023. TECHNIQUE: XR chest 1V portable Frontal view of the chest. FINDINGS: Lungs/Pleura: No evidence of focal consolidation or pneumothorax. Blunting of the costophrenic angles is present. Pulmonary vascularity: Unremarkable. Heart/mediastinum: Cardiomediastinal silhouette is enlarged and stable. Musculoskeletal: No acute osseous pathology. Other findings: None IMPRESSION: 1. Low lung volumes with a generalized hazy appearance which could represent atelectasis versus pulm onary edema correlate with serum BNP. 2. Trace bilateral pleural effusions.
[2023-05-15] MEDS: CEFEPIME 2 GM in SODIUM CHLORIDE 0.9% 100 ML IVPB SCH ×2 (08:17→20:09)
[2023-05-15] MEDS: MIDODRINE 5 MG TAB PO SCH ×3 (08:17→17:31)
[2023-05-15] MEDS: FAMOTIDINE 20 MG TAB PO SCH (08:17)
[2023-05-15] MEDS: ATORVASTATIN 40 MG TAB PO SCH (08:17)
[2023-05-15] MEDS: ONDANSETRON 4 MG/2 ML VIAL IVP PRN ×2 (08:24→20:27)
[2023-05-15] MEDS: HEPARIN SODIUM,PORCINE 5,000 UNIT/ML 1 ML VIAL SQ SCH ×2 (08:34→20:10)
[2023-05-15] MEDS: IPRATROPIUM-ALBUTEROL 3 ML NEB INHALATION SCH ×3 (09:01→21:49)
[2023-05-15] MEDS ORDERED: FUROSEMIDE 10 MG/ML 2 ML VIAL IV STA (10:45)
--- NOTE | 2023-05-15 10:45 | P.PN ---
Subjective Patient is seen for follow-up for chronic kidney disease. Status post left AKA 05/12/2023 No significant complaints today. Status post Brown catheter placement with urine output 2.3 L for 24 hours. Blood pressure is not low Serum creatinine decreased to 1.5 mg/dL. Objective - Vital Signs Vital signs: Vital Signs Temp 97.4 F L 05/15/23 08:11 Pulse 96 05/15/23 09:12 Resp 16 05/15/23 08:11 BP 143/65 05/15/23 08:11 Pulse Ox 95 05/15/23 08:11 FiO2 Intake & Output 05/14/23 05/15/23 05/15/23 18:59 06:59 18:59 Output Total 500 400 Balance -500 -400 Output: Urine 500 400 Other: Voiding Method Indwelling Catheter Indwelling Catheter Indwelling Catheter - Exam Patient is awake, comfortable, in no acute distress Examination of the heart S1 and S2 Examination of the lungs bilateral breath sounds are heard decreased breath sounds at the bases Abdomen is soft nontender Examination of the lower extremities shows left AKA and right leg is wrapped - Labs CBC & Chem 7: 05/14/23 06:55 05/14/23 06:55 Labs: Abnormal Lab Results - Last 24 Hours (Table) 05/14/23 05/14/23 05/14/23 Range/Units 06:55 12:00 16:49 Potassium 5.3 H (3.5-5.1) mmol/L Chloride 109 H (98-107) mmol/L Carbon Dioxide 19 L (22-30) mmol/L BUN 69 H (9-20) mg/dL Creatinine 1.50 H (0.66-1.25) mg/dL Glucose 163 H (74-99) mg/dL POC Glucose (mg/dL) 225 H 188 H (70-110) mg/dL Alkaline Phosphatase 155 H (38-126) U/L Albumin 2.6 L (3.5-5.0) g/dL 05/14/23 05/15/23 Range/Units 20:12 05:44 Potassium (3.5-5.1) mmol/L Chloride (98-107) mmol/L Carbon Dioxide (22-30) mmol/L BUN (9-20) mg/dL Creatinine (0.66-1.25) mg/dL Glucose (74-99) mg/dL POC Glucose (mg/dL) 169 H 158 H (70-110) mg/dL Alkaline Phosphatase (38-126) U/L Albumin (3.5-5.0) g/dL Microbiology - Last 24 Hours (Table) 05/12/23 06:28 Blood Culture - Preliminary Blood Assessment and Plan Assessment: 1. Chronic kidney disease NKF stage IV with baseline creatinine 1.7-1.8 mg/dL. Etiology is diabetic kidney disease and nephrosclerosis. History of dialysis- dependent acute kidney injury in August 2021 with recovery of renal function and patient has been off of dialysis for more than a year. 2. Bilateral foot wounds and gangrene with gas noted on left foot x-ray, status post left AKA 3. Hypertension with CK D stage IV maintained on Cozaar 4. Hyperkalemia associated with chronic kidney disease in the setting of use of angiotensin receptor blockers. No urine retention. Improved Plan: DC IV fluids Repeat labs in a.m. Continue with Brown catheter Monitor vancomycin levels closely.
[2023-05-15 11:30] LABS: Glucose,Whole Blood 180 mg/dL (70-110)
[2023-05-15] MEDS ORDERED: MAGNESIUM HYDROXIDE 2,400 MG/30 ML CUP PO PRN (11:30)
[2023-05-15 11:48] LABS: African American GFR (CKD) 45 (>60 ml/min/1.73 sqM); Non-African American GFR(CKD) 39 (>60 ml/min/1.73 sqM)
[2023-05-15 12:27] LABS: HCT 34.1 % (39.0-53.0); HGB 9.7 gm/dL (13.0-17.5); Hypochromasia Marked; MCH 27.9 pg (25.0-35.0); MCHC 28.3 g/dL (31.0-37.0); MCV 98.4 fL (80.0-100.0); Macrocytosis Slight; Mean Platelet Volume 7.9; Platelet Count 273 k/uL (150-450); RBC 3.47 m/uL (4.30-5.90); RDW 15.6 % (11.5-15.5); WBC 12.3 k/uL (3.8-10.6)
--- NOTE | 2023-05-15 12:29 | P.PN ---
Subjective Principal diagnosis: This is a continue present on a 73-year-old white male who was admitted for gangrene of the legs bilaterally but cellulitis recently had amputation of above the knee on the left and now scheduled to have right ebqgu-mbg-frnl amputation. He seems much better his color is improved. No fever or chills stated. No nausea, vomiting or diarrhea. He still seems somewhat reluctant today to have the next amputation however. No significant nausea, vomiting or diarrhea. Objective - Vital Signs Vital signs: Vital Signs Temp 97.4 F L 05/15/23 08:11 Pulse 90 05/15/23 11:25 Resp 19 05/15/23 11:25 BP 116/72 05/15/23 11:25 Pulse Ox 98 05/15/23 11:25 FiO2 Intake & Output 05/14/23 05/15/23 05/15/23 18:59 06:59 18:59 Output Total 500 400 Balance -500 -400 Output: Urine 500 400 Other: Voiding Method Indwelling Catheter Indwelling Catheter Indwelling Catheter - Constitutional General appearance: Present: cooperative, no acute distress - EENT Eyes: Absent: abnormal pupil - Neck Neck: Absent: lymphadenopathy - Respiratory Respiratory: bilateral: diminished - Cardiovascular Rhythm: regular Heart sounds: normal: S1, S2 Abnormal Heart Sounds: Absent: S3 Gallop - Gastrointestinal General gastrointestinal: Present: soft, tenderness - Musculoskeletal Musculoskeletal Comment(s): Left swbne-rga-oagh amputation - Psychiatric Psychiatric: Present: A&O x's 3 - Labs CBC & Chem 7: 05/14/23 06:55 05/15/23 11:00 Labs: Abnormal Lab Results - Last 24 Hours (Table) 05/14/23 05/14/23 05/15/23 Range/Units 16:49 20:12 05:44 Creatinine (0.66-1.25) mg/dL POC Glucose (mg/dL) 188 H 169 H 158 H (70-110) mg/dL 05/15/23 05/15/23 Range/Units 11:00 11:28 Creatinine 1.73 H (0.66-1.25) mg/dL POC Glucose (mg/dL) 180 H (70-110) mg/dL Microbiology - Last 24 Hours (Table) 05/12/23 06:28 Blood Culture - Preliminary Blood Assessment and Plan (1) History of amputation of toe Current Visit: Yes Status: Acute Code(s): Z89.429 - ACQUIRED ABSENCE OF OTHER TOE(S), UNSPECIFIED SIDE SNOMED Code(s): 672480530 (2) Acute on chronic renal failure Current Visit: No Status: Acute Code(s): N17.9 - ACUTE KIDNEY FAILURE, UNSPECIFIED; N18.9 - CHRONIC KIDNEY DISEASE, UNSPECIFIED SNOMED Code(s): 618845490 (3) Chronic CHF Current Visit: No Status: Acute Code(s): I50.9 - HEART FAILURE, UNSPECIFIED SNOMED Code(s): 08011832 (4) Diabetes mellitus type 2 with atherosclerosis of arteries of extremities Current Visit: No Status: Acute Code(s): E11.59 - TYPE 2 DIABETES MELLITUS WITH OTH CIRCULATORY COMPLICATIONS SNOMED Code(s): 40185760 (5) Diabetic infection of right foot Current Visit: No Status: Acute Code(s): E11.628 - TYPE 2 DIABETES MELLITUS WITH OTHER SKIN COMPLICATIONS; L08.9 - LOCAL INFECTION OF THE SKIN AND SUBCUTANEOUS TISSUE, UNSP SNOMED Code(s): 68449262 (6) Left above-knee amputee Current Visit: Yes Status: Acute Code(s): Z89.612 - ACQUIRED ABSENCE OF LEFT LEG ABOVE KNEE SNOMED Code(s): 963668205 (7) Gangrene associated with type 2 diabetes mellitus Current Visit: Yes Status: Acute Code(s): E11.52 - TYPE 2 DIABETES W DIABETI C PERIPHERAL ANGIOPATHY W GANGRENE SNOMED Code(s): 416527096 (8) Cellulitis Current Visit: No Status: Acute Code(s): L03.90 - CELLULITIS, UNSPECIFIED SNOMED Code(s): 941904994 Plan: The patient is scheduled to have Right lower extremity amputation. He seems much more stable. Continue to follow with consultants. Check CBC and CMP in a.m. Blood sugar and vital signs closely. See orders otherwise Time with Patient: Greater than 30
--- NOTE | 2023-05-15 12:49 | P.PN ---
Subjective Progress Note Date: 05/15/23 73-year-old male seen in the emergency room, on May 09. The patient was apparently brought in by his family, because of worsening gangrene involving the lower extremities. The patient apparently initially declined amputation, and was placed on hospice. Apparently the patient has had a change of heart, and now agrees to have surgery. We were consulted for medical clearance. The patient has been seen by infectious diseases, the primary service, and vascular surgery. According to the vascular surgeons note, the patient is to have sequential zyulw-jxl-bltp amputations, left than right. According to the patient's history, he is a diagnosis of heart failure and diabetes. He also has history of gout, possible asbestos exposure, pulmonary fibrosis, diabetes, chronic kidney disease, hypertension, among other things. Currently, the patient's getting saline at 50 mL an hour. He does wear oxygen at 3 L. He also has a CPAP device, for sleep apnea syndrome. He is currently on vancomycin and Unasyn as per infectious diseases. Currently labs include a white count 17.4, hemoglobin 11.8, hematocrit 38.6, and a platelet count of 388,000. Sodium 135, potassium 5.4, chlorides 101, CO2 22, BUN 83, and creatinine 1.91. Albumin is 2.6. Bilateral foot x-rays were done, with the findings as noted. The patient is seen today 05/12/2023 in follow-up on the regular medical floor. He is currently sitting up at the bedside. Awake and alert in no acute distress. He is maintaining good O2 saturations in the 90s on room air. She's afebrile. Hemodynamically stable. He has home CPAP throughout the night. Blood cultures pending. White count 19.8. Hemoglobin 10.5. Platelets 331. Sodium 138. Potassium 5.1 bicarb 24. BUN 76. Creatinine 2.0. Glucose 196. He remains on DuoNeb inhalations. Antibiotics in the form of vancomycin and cefepime. He is also on Flagyl. The plan is for a left cthsl-zog-tjqt amputation today. Progress note dated 05/13/2023. The patient is seen today in room 355. The patient is postoperative day #1, status post left xvqwq-buy-mxcy amputation. The patient continues on oxygen at 2 L. The patient's getting saline at 50 mL an hour. White count 15.5, hemoglobin 10.2, hematocrit 35.9, and platelet count 316,000. Sodium 143, potassium 5.1, chlorides 106, CO2 24, BUN 77, and creatinine 1.82. Albumin is 2.6. Blood cultures were positive Bacteroides fragilis. The patient continues on cefepime, Flagyl, and vancomycin. On today's evaluation of 05/14/2020, the patient has stable and the patient is currently resting comfortably in bed. No significant respiratory distress. The patient is currently on 2 L of oxygen by nasal cannula. Chest x-ray showing atelectatic change in lung bases bilaterally. The patient has some interval improvement in renal function and creatinine is down to 1.6, white cell count of 14.2 and the patient is afebrile for now. Antibiotic coverage remains a combination of cefepime, Flagyl and vancomycin. The patient is also receiving Dilaudid when necessary for pain control. The patient on DuoNeb updrafts zwkcfb-sde-nggbx and incentive spirometer. No other significant events over the past 24 hours. The patient is status post above the patient on the left and the patient is currently postop day #2. Blood cultures for Bacteroides fragilis. On 05/15/2023, the patient is postoperative day #3. Remains on oxygen at 3 L/m nasal cannula. No signs of any respiratory distress. Using the senna spiromet er. Is complaining of some nausea and constipation. He'll be given milk of magnesia accordingly. He remains on broad-spectrum antibiotics and the patient remains on a combination of cefepime and vancomycin and Flagyl. Blood work from today shows a WBC count of 12.3, hemoglobin 9.7 and a platelet count of 273. Creatinine is at 1.7 which is stable compared to yesterday. Blood culture was positive for Bacteroides and the patient is being treated accordingly. Pulse ox is 98% on 3 L of oxygen by nasal cannula. No hypotension. No fever. No altered mentation. Objective - Vital Signs Vital signs: Vital Signs Temp 97.4 F L 05/15/23 08:11 Pulse 90 05/15/23 11:25 Resp 19 05/15/23 11:25 BP 116/72 05/15/23 11:25 Pulse Ox 98 05/15/23 11:25 FiO2 Intake & Output 12/05/15/23 05/15/23 18:59 06:59 18:59 Output Total 500 400 Balance -500 -400 Output: Urine 500 400 Other: Voiding Method Indwelling Catheter Indwelling Catheter Indwelling Catheter - Exam No acute distress, oriented 3. Currently on 3 L of oxygen. HEENT examination is grossly unremarkable. Mucous membranes are moist. No oral lesions. Neck supple. Full range of motion. No adenopathy thyromegaly or neck vein distention. Cardiovascular examination reveals regular rhythm rate. S1-S2 normal. No S3 or S4. No discernible murmur noted. Heart sounds are distant. Lungs reveal clear breath sounds. Breath sounds are equal bilaterally. No adventitious lung sounds including wheezes rhonchi or crackles. Abdomen soft bowel sounds are heard. No masses or tenderness. Extremities are intact. No cyanosis clubbing or edema. Status post left AKA. Skin is without rash or lesion. Neurologic examination is brief but nonfocal. - Labs CBC & Chem 7: 05/15/23 11:00 05/15/23 11:00 Labs: Abnormal Lab Results - Last 24 Hours (Table) 05/14/23 05/14/23 05/14/23 Range/Units 12:00 16:49 20:12 POC Glucose (mg/dL) 225 H 188 H 169 H (70-110) mg/dL 05/15/23 Range/Units 05:44 POC Glucose (mg/dL) 158 H (70-110) mg/dL Microbiology - Last 24 Hours (Table) 05/12/23 06:28 Blood Culture - Preliminary Blood Assessment and Plan Plan: Bilateral lower extremity gangrene, patient is post left afhdk-yvf-onbn" patient is postop day # 3 Acute on chronic hypoxic respiratory failure, currently on 2 L of oxygen by nasal cannula. Chest x-ray showed atelectatic change in lung bases Obstructive sleep apnea Sepsis secondary to Bacteroides this was a possible culture, currently with intermittent stable Chronic kidney disease with a component of acute kidney injury, creatinine is improving, the patient is known to have chronic stage IV kidney disease Leukocytosis Peripheral vascular disease Preserved LV function based on previous echocardiogram Hyperkalemia, improved Bacteremia with anaerobes/Bacteroides fragilis source being lower extremity gangrene Plan: Keep the patient on 3 L of oxygen by nasal cannula Vascular Surgery follow-up regarding the gangrenous foot Continue antibiotics per ID Incentive spirometer Zofran for nausea Milk of magnesia along with prune juice for constipation Creatinine is improving and a potassium level is stable Pain control We'll continue to follow
[2023-05-15 12:52] LABS: Anion Gap 14 mmol/L; Blood Urea Nitrogen 68 mg/dL (9-20); Calcium 8.4 mg/dL (8.4-10.2); Carbon Dioxide 22 mmol/L (22-30); Chloride 111 mmol/L (98-107); Glucose 157 mg/dL (74-99); Potassium 4.7 mmol/L (3.5-5.1); Sodium 147 mmol/L (137-145)
[2023-05-15] MEDS: HYDROmorphone 1 MG/ML 1 ML SYRINGE IVP PRN (16:08)
[2023-05-15 16:30] LABS: Glucose,Whole Blood 144 mg/dL (70-110)
--- NOTE | 2023-05-15 18:59 | XR ---
EXAMINATION TYPE: XR abdomen 1V DATE OF EXAM: 05/15/2023 6:17 PM CLINICAL INDICATION:Male, 73 years old with history of abd distention, constipation; [facility] COMPARISON: None. TECHNIQUE: Supine radiographic view/s of the abdomen/pelvis obtained. FINDINGS: Views are limited due to the patient's large body habitus, imaging is on 3 films but does not include the complete entirety of the soft tissues. Clips in the right upper quadrant, likely from cholecyste ctomy. Moderate degenerative changes throughout the spine. Mild bilateral hip arthropathy. There is m oderate gaseous prominence of both large and small bowel. Stomach does not appear distended. No visib le pathologic calcifications. There are calcifications in the pelvis suggesting vas deferens calcific ations. IMPRESSION: Nonspecific bowel gas pattern, severe ileus is favored. If concern persists, consider follow-up radio graphs and/or CT.
[2023-05-15 20:34] LABS: Glucose,Whole Blood 198 mg/dL (70-110)
[2023-05-15] MEDS: VANCOMYCIN 1,750 MG in SODIUM CHLORIDE 0.9% 500 ML 500 ML IVPB SCH (21:44)
--- NOTE | 2023-05-16 00:25 | PN ---
PROGRESS NOTE The patient has a history of gangrene of the foot. The patient had a left above-knee amputation done. Dressings are dry and intact. No drainage noted. The patient has a wound on the right foot in the posterior aspect of the ankle. We will continue local wound care. The patient is on IV antibiotics and the patient still have shortness of breath. Continue with the same treatment. MMODL / IJN: [id number] /
[2023-05-16] MEDS: metroNIDAZOLE-NS PMX 500 MG in SALINE 1 100ML.BAG IVPB SCH ×3 (03:56→20:21)
[2023-05-16 06:20] LABS: Glucose,Whole Blood 178 mg/dL (70-110)
[2023-05-16] MEDS: INSULIN ASPART (NovoLOG) 100 UNIT/ML VIAL SQ SCH ×4 (06:30→20:51)
[2023-05-16] MEDS: IPRATROPIUM-ALBUTEROL 3 ML NEB INHALATION SCH ×3 (07:41→18:39)
[2023-05-16 07:48] LABS: HCT 34.1 % (39.0-53.0); Hypochromasia Marked; MCH 28.7 pg (25.0-35.0); MCHC 29.4 g/dL (31.0-37.0); MCV 97.6 fL (80.0-100.0); Macrocytosis Slight; Mean Platelet Volume 7.9; Platelet Count 270 k/uL (150-450); RBC 3.49 m/uL (4.30-5.90); RDW 15.6 % (11.5-15.5); WBC 8.2 k/uL (3.8-10.6)
[2023-05-16] MEDS: MIDODRINE 5 MG TAB PO SCH ×4 (08:43→17:09)
[2023-05-16] MEDS: ATORVASTATIN 40 MG TAB PO SCH (08:43)
[2023-05-16] MEDS: FAMOTIDINE 20 MG TAB PO SCH (08:44)
[2023-05-16] MEDS: CEFEPIME 2 GM in SODIUM CHLORIDE 0.9% 100 ML IVPB SCH ×2 (08:44→21:30)
[2023-05-16] MEDS: HEPARIN SODIUM,PORCINE 5,000 UNIT/ML 1 ML VIAL SQ SCH ×2 (08:45→21:31)
--- NOTE | 2023-05-16 09:52 | P.PN ---
Subjective Principal diagnosis: This is a continue present on a 73-year-old white male who was admitted for gangrene of the legs bilaterally but cellulitis recently had amputation of above the knee on the left and now scheduled to have right vzwrr-hkm-vxtu amputation. He seems much better his color is improved. No fever or chills stated. No nausea, vomiting or diarrhea. He still seems somewhat reluctant today to have the next amputation however. Significant constipation. Workup has shown ileus. This is not unexpected given his multiple comorbidities. General surgery has now been consulted Objective - Vital Signs Vital signs: Vital Signs Temp 98.2 F 05/16/23 08:42 Pulse 91 05/16/23 08:42 Resp 21 05/16/23 08:42 BP 112/47 05/16/23 08:42 Pulse Ox 98 05/16/23 08:42 FiO2 Intake & Output 05/15/23 05/16/23 05/16/23 18:59 06:59 18:59 Intake Total 0 180 Output Total 600 Balance -600 0 180 Weight 102.965 kg Intake: Oral 0 180 Output: Urine 600 Other: Voiding Method Indwelling Catheter Indwelling Catheter Indwelling Catheter # Bowel Movements 1 - Constitutional General appearance: Present: cooperative, mild distress - EENT Eyes: Absent: abnormal pupil - Neck Neck: Absent: lymphadenopathy - Respiratory Respiratory: bilateral: diminished - Cardiovascular Rhythm: regular Heart sounds: normal: S1, S2 Abnormal Heart Sounds: Absent: S3 Gallop - Gastrointestinal General gastrointestinal: Present: soft, tenderness - Integumentary Integumentary: Present: cellulitis - Labs CBC & Chem 7: 05/16/23 06:45 05/15/23 11:00 Labs: Abnormal Lab Results - Last 24 Hours (Table) 05/15/23 05/15/23 05/15/23 Range/Units 11:00 11:00 11:28 WBC 12.3 H (3.8-10.6) k/uL RBC 3.47 L (4.30-5.90) m/uL Hgb 9.7 L (13.0-17.5) gm/dL Hct 34.1 L (39.0-53.0) % MCHC 28.3 L (31.0-37.0) g/dL RDW 15.6 H (11.5-15.5) % Sodium 147 H (137-145) mmol/L Chloride 111 H (98-107) mmol/L BUN 68 H (9-20) mg/dL Creatinine 1.73 H (0.66-1.25) mg/dL Glucose 157 H (74-99) mg/dL POC Glucose (mg/dL) 180 H (70-110) mg/dL Cortisol 26.3 H (3.1-22.4) UG/DL 05/15/23 05/15/23 05/16/23 Range/Units 16:29 20:32 06:18 WBC (3.8-10.6) k/uL RBC (4.30-5.90) m/uL Hgb (13.0-17.5) gm/dL Hct (39.0-53.0) % MCHC (31.0-37.0) g/dL RDW (11.5-15.5) % Sodium (137-145) mmol/L Chloride (98-107) mmol/L BUN (9-20) mg/dL Creatinine (0.66-1.25) mg/dL Glucose (74-99) mg/dL POC Glucose (mg/dL) 144 H 198 H 178 H (70-110) mg/dL Cortisol (3.1-22.4) UG/DL 05/16/23 Range/Units 06:45 WBC (3.8-10.6) k/uL RBC 3.49 L (4.30-5.90) m/uL Hgb 10.0 L (13.0-17.5) gm/dL Hct 34.1 L (39.0-53.0) % MCHC 29.4 L (31.0-37.0) g/dL RDW 15.6 H (11.5-15.5) % Sodium (137-145) mmol/L Chloride (98-107) mmol/L BUN (9-20) mg/dL Creatinine (0.66-1.25) mg/dL Glucose (74-99) mg/dL POC Glucose (mg/dL) (70-110) mg/dL Cortisol (3.1-22.4) UG/DL Microbiology - Last 24 Hours (Table) 05/12/23 06:28 Blood Culture - Preliminary Blood 05/09/23 23:15 Blood Culture - Final Blood Assessment and Plan (1) History of amputation of toe Current Visit: Yes Status: Acute Code(s): Z89.429 - ACQUIRED ABSENCE OF OTHER TOE(S), UNSPECIFIED SIDE SNOMED Code(s): 645859230 (2) Acute on chronic renal failure Current Visit: No Status: Acute Code(s): N17.9 - ACUTE KIDNEY FAILURE, UNSPECIFIED; N18.9 - CHRONIC KIDNEY DISEASE, UNSPECIFIED SNOMED Code(s): 618553679 (3) Chronic CHF Current Visit: No Status: Acute Code(s): I50.9 - HEART FAILURE, UNSPECIFIED SNOMED Code(s): 40354369 (4) Diabetes mellitus type 2 with atherosclerosis of arteries of extremities Current Visit: No Status: Acute Code(s): E11.59 - TYPE 2 DIABETES MELLITUS WITH OTH CIRCULATORY COMPLICATIONS SNOMED Code(s): 06636758 (5) Diabetic infection of right foot Current Visit: No Status: Acute Code(s): E11.628 - TYPE 2 DIABETES MELLITUS WITH OTHER SKIN COMPLICATIONS; L08.9 - LOCAL INFECTION OF THE SKIN AND SUBCUTANEOUS TISSUE, UNSP SNOMED Code(s): 36060977 (6) Left above-knee amputee Current Visit: Yes Status: Acute Code(s): Z89.612 - ACQUIRED ABSENCE OF LEFT LEG ABOVE KNEE SNOMED Code(s): 804757975 (7) Gangrene associated with type 2 diabetes mellitus Current Visit: Yes Status: Acute Code(s): E11.52 - TYPE 2 DIABETES W DIABETIC PERIPHERAL ANGIOPATHY W GANGRENE SNOMED Code(s): 198739622 (8) Cellulitis Current Visit: No Status: Acute Code(s): L03.90 - CELLULITIS, UNSPECIFIED SNOMED Code(s): 020494760 Plan: Ileus now noted. Pending right knee of dictation in the near future. Keep nothing by mouth. Again, general surgery has not been consulted. Check a.m. labs. Discussed at length with the family and this morning. Time with Patient: Greater than 30
[2023-05-16 11:34] LABS: Glucose,Whole Blood 179 mg/dL (70-110)
--- NOTE | 2023-05-16 12:22 | P.PN ---
Subjective Progress Note Date: 05/16/23 73-year-old male seen in the emergency room, on May 09. The patient was apparently brought in by his family, because of worsening gangrene involving the lower extremities. The patient apparently initially declined amputation, and was placed on hospice. Apparently the patient has had a change of heart, and now agrees to have surgery. We were consulted for medical clearance. The patient has been seen by infectious diseases, the primary service, and vascular surgery. According to the vascular surgeons note, the patient is to have sequential [id number] amputations, left than right. According to the patient's history, he is a diagnosis of heart failure and diabetes. He also has history of gout, possible asbestos exposure, pulmonary fibrosis, diabetes, chronic kidney disease, hypertension, among other things. Currently, the patient's getting saline at 50 mL an hour. He does wear oxygen at 3 L. He also has a CPAP device, for sleep apnea syndrome. He is currently on vancomycin and Unasyn as per infectious diseases. Currently labs include a white count 17.4, hemoglobin 11.8, hematocrit 38.6, and a platelet count of 388,000. Sodium 135, potassium 5.4, chlorides 101, CO2 22, BUN 83, and creatinine 1.91. Albumin is 2.6. Bilateral foot x-rays were done, with the findings as noted. The patient is seen today 05/12/2023 in follow-up on the regular medical floor. He is currently sitting up at the bedside. Awake and alert in no acute distress. He is maintaining good O2 saturations in the 90s on room air. She's afebrile. Hemodynamically stable. He has home CPAP throughout the night. Blood cultures pending. White count 19.8. Hemoglobin 10.5. Platelets 331. Sodium 138. Potassium 5.1 bicarb 24. BUN 76. Creatinine 2.0. Glucose 196. He remains on DuoNeb inhalations. Antibiotics in the form of vancomycin and cefepime. He is also on Flagyl. The plan is for a left yhugt-dxi-aedp amputation today. Progress note dated 05/13/2023. The patient is seen today in room 355. The patient is postoperative day #1, status post left phnnl-ftv-xqhs amputation. The patient continues on oxygen at 2 L. The patient's getting saline at 50 mL an hour. White count 15.5, hemoglobin 10.2, hematocrit 35.9, and platelet count 316,000. Sodium 143, potassium 5.1, chlorides 106, CO2 24, BUN 77, and creatinine 1.82. Albumin is 2.6. Blood cultures were positive Bacteroides fragilis. The patient continues on cefepime, Flagyl, and vancomycin. On today's evaluation of 05/14/2020, the patient has stable and the patient is currently resting comfortably in bed. No significant respiratory distress. The patient is currently on 2 L of oxygen by nasal cannula. Chest x-ray showing atelectatic change in lung bases bilaterally. The patient has some interval improvement in renal function and creatinine is down to 1.6, white cell count of 14.2 and the patient is afebrile for now. Antibiotic coverage remains a combination of cefepime, Flagyl and vancomycin. The patient is also receiving Dilaudid when necessary for pain control. The patient on DuoNeb updrafts [id number] and incentive spirometer. No other significant events over the past 24 hours. The patient is status post above the patient on the left and the patient is currently postop day #2. Blood cultures for Bacteroides fragilis. On 05/15/2023, the patient is postoperative day #3. Remains on oxygen at 3 L/m nasal cannula. No signs of any respiratory distress. Using the senna spiromet er. Is complaining of some nausea and constipation. He'll be given milk of magnesia accordingly. He remains on broad-spectrum antibiotics and the patient remains on a combination of cefepime and vancomycin and Flagyl. Blood work from today shows a WBC count of 12.3, hemoglobin 9.7 and a platelet count of 273. Creatinine is at 1.7 which is stable compared to yesterday. Blood culture was positive for Bacteroides and the patient is being treated accordingly. Pulse ox is 98% on 3 L of oxygen by nasal cannula. No hypotension. No fever. No altered mentation. On 05/16/2023, the patient is postop day #4. Overall respiratory status is stable. Nevertheless, the patient is having some abdominal discomfort. Further investigation with a flat film of the abdomen showed that the patient was having an ileus. He did have a small bowel movement after being given laxatives. The general surgery consultation was also requested. He remains on the same antibiotic coverage which includes a combination of cefepime and vancomycin and Flagyl. The white cell count of 8.2 with a hemoglobin of 10 and a platelet count is at 270. He remains on today's of action by nasal cannula. Objective - Vital Signs Vital signs: Vital Signs Temp 98.2 F 05/16/23 08:42 Pulse 91 05/16/23 08:42 Resp 21 05/16/23 08:42 BP 112/47 05/16/23 08:42 Pulse Ox 98 05/16/23 08:42 FiO2 Intake & Output 05/15/23 05/16/23 05/16/23 18:59 06:59 18:59 Intake Total 0 180 Output Total 600 Balance -600 0 180 Weight 102.965 kg Intake: Oral 0 180 Output: Urine 600 Other: Voiding Method Indwelling Catheter Indwelling Catheter Indwelling Catheter # Bowel Movements 1 - Exam No acute distress, oriented 3. Currently on 3 L of oxygen. HEENT examination is grossly unremarkable. Mucous membranes are moist. No oral lesions. Neck supple. Full range of motion. No adenopathy thyromegaly or neck vein distention. Cardiovascular examination reveals regular rhythm rate. S1-S2 normal. No S3 or S4. No discernible murmur noted. Heart sounds are distant. Lungs reveal clear breath sounds. Breath sounds are equal bilaterally. No adventitious lung sounds including wheezes rhonchi or crackles. Abdomen soft bowel sounds are heard. No masses or tenderness. Extremities are intact. No cyanosis clubbing or edema. Status post left AKA. Skin is without rash or lesion. Neurologic examination is brief but nonfocal. - Labs CBC & Chem 7: 05/16/23 06:45 05/15/23 11:00 Labs: Abnormal Lab Results - Last 24 Hours (Table) 05/15/23 05/15/23 05/15/23 Range/Units 11:00 11:00 11:28 WBC 12.3 H (3.8-10.6) k/uL RBC 3.47 L (4.30-5.90) m/uL Hgb 9.7 L (13.0-17.5) gm/dL Hct 34.1 L (39.0-53.0) % MCHC 28.3 L (31.0-37.0) g/dL RDW 15.6 H (11.5-15.5) % Sodium 147 H (137-145) mmol/L Chloride 111 H (98-107) mmol/L BUN 68 H (9-20) mg/dL Creatinine 1.73 H (0.66-1.25) mg/dL Glucose 157 H (74-99) mg/dL POC Glucose (mg/dL) 180 H (70-110) mg/dL Cortisol 26.3 H (3.1-22.4) UG/DL 05/15/23 05/15/23 05/16/23 Range/Units 16:29 20:32 06:18 WBC (3.8-10.6) k/uL RBC (4.30-5.90) m/uL Hgb (13.0-17.5) gm/dL Hct (39.0-53.0) % MCHC (31.0-37.0) g/dL RDW (11.5-15.5) % Sodium (137-145) mmol/L Chloride (98-107) mmol/L BUN (9-20) mg/dL Creatinine (0.66-1.25) mg/dL Glucose (74-99) mg/dL POC Glucose (mg/dL) 144 H 198 H 178 H (70-110) mg/dL Cortisol (3.1-22.4) UG/DL 05/16/23 Range/Units 06:45 WBC (3.8-10.6) k/uL RBC 3.49 L (4.30-5.90) m/uL Hgb 10.0 L (13.0-17.5) gm/dL Hct 34.1 L (39.0-53.0) % MCHC 29.4 L (31.0-37.0) g/dL RDW 15.6 H (11.5-15.5) % Sodium (137-145) mmol/L Chloride (98-107) mmol/L BUN (9-20) mg/dL Creatinine (0.66-1.25) mg/dL Glucose (74-99) mg/dL POC Glucose (mg/dL) (70-110) mg/dL Cortisol (3.1-22.4) UG/DL Microbiology - Last 24 Hours (Table) 05/12/23 06:28 Blood Culture - Preliminary Blood 05/09/23 23:15 Blood Culture - Final Blood Assessment and Plan Plan: Bilateral lower extremity gangrene, patient is post left biyqm-mvl-mdpi" patient is postop day # 4 Acute on chronic hypoxic respiratory failure, currently on 3 L of oxygen by nasal cannula. Chest x-ray showed atelectatic change in lung bases Obstructive sleep apnea Sepsis secondary to Bacteroides this was a possible culture, currently with intermittent stable Ileus with abdominal discomfort an underlying constipation Chronic kidney disease with a component of acute kidney injury, creatinine is improving, the patient is known to have chronic stage IV kidney disease Leukocytosis Peripheral vascular disease Preserved LV function based on previous echocardiogram Hyperkalemia, improved Bacteremia with anaerobes/Bacteroides fragilis source being lower extremity gangrene Plan: Awaiting surgical consultation regarding the ileus Bowel rest Keep the patient on 3 L of oxygen by nasal cannula Vascular Surgery follow-up regarding the gangrenous foot Continue antibiotics per ID Incentive spirometer Creatinine is improving and a potassium level is stable Pain control We'll continue to follow
--- NOTE | 2023-05-16 12:25 | P.PN ---
Subjective Patient is seen for follow-up for chronic kidney disease. Status post left AKA 05/12/2023 No significant complaints today. Status post Brown catheter placement with urine output 2.3 L for 24 hours. Blood pressure is not low Serum creatinine at 1.7 mg/dL yesterday. Objective - Vital Signs Vital signs: Vital Signs Temp 98.9 F 05/16/23 11:51 Pulse 94 05/16/23 11:51 Resp 24 05/16/23 11:51 BP 120/67 05/16/23 11:51 Pulse Ox 99 05/16/23 11:51 FiO2 Intake & Output 05/15/23 05/16/23 05/16/23 18:59 06:59 18:59 Intake Total 0 180 Output Total 600 600 Balance -600 0 -420 Weight 102.965 kg Intake: Oral 0 180 Output: Urine 600 600 Other: Voiding Method Indwelling Catheter Indwelling Catheter Indwelling Catheter # Bowel Movements 1 - Exam Patient is awake, comfortable, in no acute distress Examination of the heart S1 and S2 Examination of the lungs bilateral breath sounds are heard decreased breath sounds at the bases Abdomen is soft nontender Examination of the lower extremities shows left AKA and right leg is wrapped - Labs CBC & Chem 7: 05/16/23 06:45 05/15/23 11:00 Labs: Abnormal Lab Results - Last 24 Hours (Table) 05/15/23 05/15/23 05/15/23 Range/Units 11:00 11:00 16:29 WBC 12.3 H (3.8-10.6) k/uL RBC 3.47 L (4.30-5.90) m/uL Hgb 9.7 L (13.0-17.5) gm/dL Hct 34.1 L (39.0-53.0) % MCHC 28.3 L (31.0-37.0) g/dL RDW 15.6 H (11.5-15.5) % Sodium 147 H (137-145) mmol/L Chloride 111 H (98-107) mmol/L BUN 68 H (9-20) mg/dL Creatinine 1.73 H (0.66-1.25) mg/dL Glucose 157 H (74-99) mg/dL POC Glucose (mg/dL) 144 H (70-110) mg/dL Cortisol 26.3 H (3.1-22.4) UG/DL 05/15/23 05/16/23 05/16/23 Range/Units 20:32 06:18 06:45 WBC (3.8-10.6) k/uL RBC 3.49 L (4.30-5.90) m/uL Hgb 10.0 L (13.0-17.5) gm/dL Hct 34.1 L (39.0-53.0) % MCHC 29.4 L (31.0-37.0) g/dL RDW 15.6 H (11.5-15.5) % Sodium (137-145) mmol/L Chloride (98-107) mmol/L BUN (9-20) mg/dL Creatinine (0.66-1.25) mg/dL Glucose (74-99) mg/dL POC Glucose (mg/dL) 198 H 178 H (70-110) mg/dL Cortisol (3.1-22.4) UG/DL 05/16/23 Range/Units 11:33 WBC (3.8-10.6) k/uL RBC (4.30-5.90) m/uL Hgb (13.0-17.5) gm/dL Hct (39.0-53.0) % MCHC (31.0-37.0) g/dL RDW (11.5-15.5) % Sodium (137-145) mmol/L Chloride (98-107) mmol/L BUN (9-20) mg/dL Creatinine (0.66-1.25) mg/dL Glucose (74-99) mg/dL POC Glucose (mg/dL) 179 H (70-110) mg/dL Cortisol (3.1-22.4) UG/DL Microbiology - Last 24 Hours (Table) 05/12/23 06:28 Blood Culture - Preliminary Blood 05/09/23 23:15 Blood Culture - Final Blood Assessment and Plan Assessment: 1. Chronic kidney disease NKF stage IV with baseline creatinine 1.7-1.8 mg/dL. Etiology is diabetic kidney disease and nephrosclerosis. History of dialysis-dependent acute kidney injury in August 2021 with recovery of renal function and patient has been off of dialysis for more than a year. 2. Bilateral foot wounds and gangrene with gas noted on left foot x-ray, status post left AKA 3. Hypertension with CK D stage IV maintained on Cozaar 4. Hyperkalemia associated with chronic kidney disease in the setting of use of angiotensin receptor blockers. No urine retention. Improved 5. Mild hypernatremia Plan: Repeat labs today Continue with Brown catheter Monitor vancomycin levels closely.
[2023-05-16 13:18] LABS: ALT 15 U/L (4-49); AST 40 U/L (17-59); African American GFR (CKD) 46 (>60 ml/min/1.73 sqM); Albumin 2.5 g/dL (3.5-5.0); Alkaline Phosphatase 164 U/L (38-126); Anion Gap 14 mmol/L; Blood Urea Nitrogen 66 mg/dL (9-20); Calcium 8.7 mg/dL (8.4-10.2); Carbon Dioxide 17 mmol/L (22-30); Chloride 116 mmol/L (98-107); Glucose 180 mg/dL (74-99); Non-African American GFR(CKD) 40 (>60 ml/min/1.73 sqM); Sodium 147 mmol/L (137-145); Total Bilirubin 0.6 mg/dL (0.2-1.3); Total Protein 6.3 g/dL (6.3-8.2)
[2023-05-16] MEDS ORDERED: IOPAMIDOL CONTRAST (ORAL USE) VIAL PO PRN (14:33)
--- NOTE | 2023-05-16 14:38 | P.GSCN ---
History of Present Illness Consult date: 05/16/23 Reason for Consult: Ileus History of present illness: 73-year-old male hospitalized because of progressive lower extremity gangrene. Patient was in hospice and apparently has not been eating well for the last 3-4 weeks. He chronically has issues with constipation and only moves his bowels sometimes every few weeks. Patient had a change of heart and decided to go to the hospital and underwent recent amputation. Apparently he is due to have a amputation of the opposite extremity when medically stable. We were consulted because of vague abdominal pain and bloating. He has had a few small stools. He is nauseated at times. No vomiting. Abdominal x-rays show air-filled colon suspicious for ileus. Patient's last colonoscopy about 10 years ago. Brother with history of colon cancer. Review of Systems The patient denies any acute changes in vision or hearing, no dysphagia or odynophagia, no chest pain or shortness of breath, no dysuria or hematuria, no headache, no runny nose, no rectal bleeding or melena, no unexplained weight loss Past Medical History Past Medical History: Heart Failure, Diabetes Mellitus Additional Past Medical History / Comment(s): 10/04/14 Pt presented to [facility] ER with infection L lower leg for approximately one week. 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 Hehasfever and chills. He is being admitted with cellulitis. Other HX: IDDM type II, CKD, PVD, diabetic neuropathy, diabetic retinopathy, pulmonary HTN, pulmonary fibrosis, KIERA with BiPap use,severearthiritis-psoriatic and rheumatoid, osteomyelitis L lower extremity 2005 or 2006, gout, gastritis, sinus problems, cholestatic jaundice 2008 (pt had cholecystectomy 2009), abscess pe rirectalandscrotal 2003, L shoulder bursitis treated with steroid injections. History of Any Multi-Drug Resistant Organisms: MRSA Year Discovered:: 08/18/21 MDRO Source:: Right Foot Past Surgical History: Cholecystectomy Additional Past Surgical History / Comment(s): cataract, Lt 2nd toe amputation Past Anesthesia/Blood Transfusion Reactions: No Reported Reaction Additional Past Anesthesia/Blood Transfusion Reaction / Comm: Pt has never recieved blood. Past Psychological History: No Psychological Hx Reported Smoking Status: Never smoker Past Alcohol Use History: Occasional Past Drug Use History: None Reported - Past Family History Father Family Medical History: Cancer, Renal Disease Additional Family Medical History / Comment(s): Father had one kidney removed. Mother Family Medical History: Diabetes Mellitus, Vascular Disorder Medications and Allergies Home Medications Medication Instructions Recorded Confirmed Type Cephalexin [Keflex] 500 mg PO Q6HR 05/10/23 05/10/23 History HYDROcodone/APAP 5-325MG [[place] 1 tab PO Q4HR PRN 05/10/23 05/10/23 History 5-325] Allergies Allergy/AdvReac Type Severity Reaction Status Date / Time allopurinol Allergy Rash/Hives Verified 05/10/23 08:22 Surgical - Exam Vital Signs Pulse Resp BP Pulse Ox 81 20 118/69 98 05/09/23 19:34 05/09/23 19:34 05/09/23 19:34 05/09/23 19:34 Physical exam: General: Well-developed, well-nourished HEENT: Normocephalic, sclerae nonicteric Abdomen: Mild distention, mild left-sided tenderness Extremities: Dressings in place, left-sided amputation present Neuro: Alert and oriented Results - Labs 05/16/23 06:45 05/16/23 06:45 Abnormal Lab Results - Last 24 Hours (Table) 05/15/23 05/15/23 05/15/23 Range/Units 11:00 16:29 20:32 RBC (4.30-5.90) m/uL Hgb (13.0-17.5) gm/dL Hct (39.0-53.0) % MCHC (31.0-37.0) g/dL RDW (11.5-15.5) % Sodium (137-145) mmol/L Chloride (98-107) mmol/L Carbon Dioxide (22-30) mmol/L BUN (9-20) mg/dL Creatinine (0.66-1.25) mg/dL Glucose (74-99) mg/dL POC Glucose (mg/dL) 144 H 198 H (70-110) mg/dL Alkaline Phosphatase (38-126) U/L Albumin (3.5-5.0) g/dL Cortisol 26.3 H (3.1-22.4) UG/DL 05/16/23 05/16/23 05/16/23 Range/Units 06:18 06:45 06:45 RBC 3.49 L (4.30-5.90) m/uL Hgb 10.0 L (13.0-17.5) gm/dL Hct 34.1 L (39.0-53.0) % MCHC 29.4 L (31.0-37.0) g/dL RDW 15.6 H (11.5-15.5) % Sodium 147 H (137-145) mmol/L Chloride 116 H (98-107) mmol/L Carbon Dioxide 17 L (22-30) mmol/L BUN 66 H (9-20) mg/dL Creatinine 1.70 H (0.66-1.25) mg/dL Glucose 180 H (74-99) mg/dL POC Glucose (mg/dL) 178 H (70-110) mg/dL Alkaline Phosphatase 164 H (38-126) U/L Albumin 2.5 L (3.5-5.0) g/dL Cortisol (3.1-22.4) UG/DL 05/16/23 Range/Units 11:33 RBC (4.30-5.90) m/uL Hgb (13.0-17.5) gm/dL Hct (39.0-53.0) % MCHC (31.0-37.0) g/dL RDW (11.5-15.5) % Sodium (137-145) mmol/L Chloride (98-107) mmol/L Carbon Dioxide (22-30) mmol/L BUN (9-20) mg/dL Creatinine (0.66-1.25) mg/dL Glucose (74-99) mg/dL POC Glucose (mg/dL) 179 H (70-110) mg/dL Alkaline Phosphatase (38-126) U/L Albumin (3.5-5.0) g/dL Cortisol (3.1-22.4) UG/DL Microbiology - Last 24 Hours (Table) 05/12/23 06:28 Blood Culture - Preliminary Blood 05/09/23 23:15 Blood Culture - Final Blood Diabetes panel 05/16/23 Range/Units 06:45 Sodium 147 H (137-145) mmol/L Potassium 5.0 (3.5-5.1) mmol/L Chloride 116 H (98-107) mmol/L Carbon Dioxide 17 L (22-30) mmol/L BUN 66 H (9-20) mg/dL Creatinine 1.70 H (0.66-1.25) mg/dL Glucose 180 H (74-99) mg/dL Calcium 8.7 (8.4-10.2) mg/dL AST 40 (17-59) U/L ALT 15 (4-49) U/L Alkaline Phosphatase 164 H (38-126) U/L Total Protein 6.3 (6.3-8.2) g/dL Albumin 2.5 L (3.5-5.0) g/dL Calcium panel 05/16/23 Range/Units 06:45 Calcium 8.7 (8.4-10.2) mg/dL Albumin 2.5 L (3.5-5.0) g/dL Pituitary panel 05/16/23 Range/Units 06:45 Sodium 147 H (137-145) mmol/L Potassium 5.0 (3.5-5.1) mmol/L Chloride 116 H (98-107) mmol/L Carbon Dioxide 17 L (22-30) mmol/L BUN 66 H (9-20) mg/dL Creatinine 1.70 H (0.66-1.25) mg/dL Glucose 180 H (74-99) mg/dL Calcium 8.7 (8.4-10.2) mg/dL Adrenal panel 05/16/23 Range/Units 06:45 Sodium 147 H (137-145) mmol/L Potassium 5.0 (3.5-5.1) mmol/L Chloride 116 H (98-107) mmol/L Carbon Dioxide 17 L (22-30) mmol/L BUN 66 H (9-20) mg/dL Creatinine 1.70 H (0.66-1.25) mg/dL Glucose 180 H (74-99) mg/dL Calcium 8.7 (8.4-10.2) mg/dL Total Bilirubin 0.6 (0.2-1.3) mg/dL AST 40 (17-59) U/L ALT 15 (4-49) U/L Alkaline Phosphatase 164 H (38-126) U/L Total Protein 6.3 (6.3-8.2) g/dL Albumin 2.5 L (3.5-5.0) g/dL Assessment and Plan (1) Ileus Narrative/Plan: 73-year-old male with abdominal ileus on recent x-rays with history of chronic constipation. Will order CT abdomen and pelvis. We'll follow with you. Current Visit: Yes Status: Acute Code(s): K56.7 - ILEUS, UNSPECIFIED SNOMED Code(s): 250084883
[2023-05-16] MEDS: ONDANSETRON 4 MG/2 ML VIAL IVP PRN (14:50)
[2023-05-16 16:50] LABS: Glucose,Whole Blood 169 mg/dL (70-110)
--- NOTE | 2023-05-16 20:23 | CT ---
EXAMINATION TYPE: CT abdomen pelvis wo con DATE OF EXAM: 05/16/2023 COMPARISON: None HISTORY: 73-year-old male Gangrene possible ileus. CT DLP: 2360.4 mGycm. Automated exposure control for dose reduction was used. TECHNIQUE: Contiguous axial scanning of the abdomen and pelvis without IV contrast. Coronal and sagit jolanta reconstructions performed. FINDINGS: Generalized anasarca change. LAD coronary artery calcifications. Large caliber main right and left pu lmonary arteries measuring up to 2.8 cm suggesting underlying pulmonary arterial hypertension. Small right and trace left pleural effusions. Prominent atelectasis at the right base. Noncontrast appearance of the liver, spleen, and atrophic pancreas show no gross abnormality. Underlying renal cysts measuring up to 2.5 cm on the left and 1.7 cm on the right. Lobulated renal co ntours likely normal variation. Small duodenal diverticula measuring up to 2.8 cm. No dilated small bowel. There is scattered mild ascites fluid. Generalized anasarca. 1.2 cm lymph node right common iliac chain. Left iliac chain adenopathy measuring up to 1.6 cm short axis. Normal appendix. Some scattered liquid stool is present. The transverse colon is borderline dilated up to 5.9 cm. Some liquid stool within the left side of th e colon. Redundant sigmoid colon. Mild circumferential bladder wall thickening. Brown catheter is in place. Mild circumferential bladde r wall thickening. Intraluminal bladder air likely relating to the instrumentation. Presacral edema r elates to the anasarca change. Bones: Mild degenerative change at the hips. Moderate degenerative change throughout the visualized spine. IMPRESSION: 1. Marked generalized anasarca change with small right and trace left pleural effusions and scattere d mild abdominal ascites fluid. Correlate for third spacing/fluid overload state. 2. Pulmonary arterial hypertension. 3. Borderline dilatation of the transverse colon up to 5.9 cm with some scattered liquid stool. No a bnormal wall thickening or surrounding inflammation is seen. 4. Enlarged pelvic lymph nodes measuring up to 1.6 cm may be reactive/post inflammatory. Recommend f ollow-up in 2-3 months to reassess. 5. Brown catheter in place. Circumferential bladder wall thickening may be chronic for the patient. Correlate to exclude cystitis.
[2023-05-16 20:43] LABS: Glucose,Whole Blood 155 mg/dL (70-110)
[2023-05-17] MEDS: HYDROmorphone 1 MG/ML 1 ML SYRINGE IVP PRN (01:17)
[2023-05-17] MEDS: metroNIDAZOLE-NS PMX 500 MG in SALINE 1 100ML.BAG IVPB SCH ×3 (04:29→21:30)
[2023-05-17 06:14] LABS: Glucose,Whole Blood 166 mg/dL (70-110)
[2023-05-17] MEDS: INSULIN ASPART (NovoLOG) 100 UNIT/ML VIAL SQ SCH ×4 (06:19→21:31)
[2023-05-17] MEDS: MIDODRINE 5 MG TAB PO SCH ×3 (09:15→18:28)
[2023-05-17] MEDS: IPRATROPIUM-ALBUTEROL 3 ML NEB INHALATION SCH ×3 (09:23→21:30)
[2023-05-17] MEDS: ATORVASTATIN 40 MG TAB PO SCH (09:37)
[2023-05-17] MEDS: FAMOTIDINE 20 MG TAB PO SCH (09:37)
[2023-05-17] MEDS: CEFEPIME 2 GM in SODIUM CHLORIDE 0.9% 100 ML IVPB SCH ×2 (09:37→21:30)
[2023-05-17] MEDS: HEPARIN SODIUM,PORCINE 5,000 UNIT/ML 1 ML VIAL SQ SCH ×2 (09:37→21:31)
--- NOTE | 2023-05-17 10:15 | P.PN ---
Subjective Principal diagnosis: This is a continue present on a 73-year-old white male who was admitted for gangrene of the legs bilaterally but cellulitis recently had amputation of above the knee on the left and now scheduled to have right jxvym-odu-utwi amputation. He seems much better his color is improved. No fever or chills stated. No nausea, vomiting or diarrhea. He still seems somewhat reluctant today to have the next amputation however. Significant constipation. CT scan does show constipation. His appearance is overall better. However opiates are sedating in today. Objective - Vital Signs Vital signs: Vital Signs Temp 97.0 F L 05/17/23 07:52 Pulse 86 05/17/23 09:33 Resp 19 05/17/23 07:52 BP 115/71 05/17/23 07:52 Pulse Ox 99 05/17/23 09:27 FiO2 Intake & Output 05/16/23 05/17/23 05/17/23 18:59 06:59 18:59 Intake Total 180 Output Total 600 Balance -420 Intake: Oral 180 Output: Urine 600 Other: Voiding Method Indwelling Catheter Indwelling Catheter Indwelling Catheter # Voids 2 # Bowel Movements 2 - Constitutional General appearance: Present: no acute distress, obese - Respiratory Respiratory: bilateral: diminished - Cardiovascular Rhythm: regular Heart sounds: normal: S1, S2 Abnormal Heart Sounds: Absent: S3 Gallop - Gastrointestinal General gastrointestinal: Present: normal bowel sounds, soft - Integumentary Integumentary: Present: cellulitis - Musculoskeletal Musculoskeletal Comment(s): Left lower extremity amputation above knee - Psychiatric Psychiatric: Absent: intact judgment & insight - Labs CBC & Chem 7: 05/16/23 06:45 05/16/23 06:45 Labs: Abnormal Lab Results - Last 24 Hours (Table) 05/16/23 05/16/23 05/16/23 Range/Units 06:45 11:33 16:49 Sodium 147 H (137-145) mmol/L Chloride 116 H (98-107) mmol/L Carbon Dioxide 17 L (22-30) mmol/L BUN 66 H (9-20) mg/dL Creatinine 1.70 H (0.66-1.25) mg/dL Glucose 180 H (74-99) mg/dL POC Glucose (mg/dL) 179 H 169 H (70-110) mg/dL Alkaline Phosphatase 164 H (38-126) U/L Albumin 2.5 L (3.5-5.0) g/dL 05/16/23 05/17/23 Range/Units 20:42 06:13 Sodium (137-145) mmol/L Chloride (98-107) mmol/L Carbon Dioxide (22-30) mmol/L BUN (9-20) mg/dL Creatinine (0.66-1.25) mg/dL Glucose (74-99) mg/dL POC Glucose (mg/dL) 155 H 166 H (70-110) mg/dL Alkaline Phosphatase (38-126) U/L Albumin (3.5-5.0) g/dL Assessment and Plan (1) History of amputation of toe Current Visit: Yes Status: Acute Code(s): Z89.429 - ACQUIRED ABSENCE OF OTHER TOE(S), UNSPECIFIED SIDE SNOMED Code(s): 604993084 (2) Acute on chronic renal failure Current Visit: No Status: Acute Code(s): N17.9 - ACUTE KIDNEY FAILURE, UNSPECIFIED; N18.9 - CHRONIC KIDNEY DISEASE, UNSPECIFIED SNOMED Code(s): 277942387 (3) Chronic CHF Current Visit: No Status: Acute Code(s): I50.9 - HEART FAILURE, UNSPECIFIED SNOMED Code(s): 48242635 (4) Diabetes mellitus type 2 with atherosclerosis of arteries of extremities Current Visit: No Status: Acute Code(s): E11.59 - TYPE 2 DIABETES MELLITUS WITH OTH CIRCULATORY COMPLICATIONS SNOMED Code(s): 65797203 (5) Diabetic infection of right foot Current Visit: No Status: Acute Code(s): E11.628 - TYPE 2 DIABETES MELLITUS WITH OTHER SKIN COMPLICATIONS; L08.9 - LOCAL INFECTION OF THE SKIN AND SUBCUTANEOUS TISSUE, UNSP SNOMED Code(s): 79508341 (6) Left above-knee amputee Current Visit: Yes Status: Acute Code(s): Z89.612 - ACQUIRED ABSENCE OF LEFT LEG ABOVE KNEE SNOMED Code(s): 059227861 (7) Gangrene associated with type 2 diabetes mellitus Current Visit: Yes Status: Acute Code(s): E11.52 - TYPE 2 DIABETES W DIABETIC PERIPHERAL ANGIOPATHY W GANGRENE SNOMED Code(s): 530459092 (8) Cellulitis Current Visit: No Status: Acute Code(s): L03.90 - CELLULITIS, UNSPECIFIED SNOMED Code(s): 884068034 Plan: Ileus now noted. Pending right knee of dictation in the near future. Advance diet Again, general surgery has not been consulted. Check a.m. labs. Discussed at length with the family and this morning.
[2023-05-17] MEDS ORDERED: ZINC OXIDE PASTE (Z-GUARD) 1 APPLIC TOPICAL PRN (11:57)
[2023-05-17 12:37] LABS: Glucose,Whole Blood 266 mg/dL (70-110)
--- NOTE | 2023-05-17 14:09 | P.PN ---
Subjective Progress Note Date: 05/17/23 Principal diagnosis: Ileus Patient resting comfortably. Per the family he is not having any abdominal pain today. He is tolerating some food. He is having some loose stools. CAT scan showed no evidence of obstruction. Minimal air-filled dilation of scattered colonic loops. Objective - Vital Signs Vital signs: Vital Signs Temp 97.0 F L 05/17/23 07:52 Pulse 90 05/17/23 13:03 Resp 19 05/17/23 07:52 BP 99/54 05/17/23 12:37 Pulse Ox 99 05/17/23 09:27 FiO2 Intake & Output 05/16/23 05/17/23 05/17/23 18:59 06:59 18:59 Intake Total 180 Output Total 600 1100 Balance -420 -1100 Weight 102.965 kg Intake: Oral 180 Output: Urine 600 1100 Other: Voiding Method Indwelling Catheter Indwelling Catheter Indwelling Catheter # Voids 2 # Bowel Movements 2 1 - Exam Abdomen: Soft, nontender, nondistended - Labs CBC & Chem 7: 05/16/23 06:45 05/16/23 06:45 Labs: Abnormal Lab Results - Last 24 Hours (Table) 05/16/23 05/16/23 05/17/23 Range/Units 16:49 20:42 06:13 POC Glucose (mg/dL) 169 H 155 H 166 H (70-110) mg/dL 05/17/23 Range/Units 12:35 POC Glucose (mg/dL) 266 H (70-110) mg/dL Microbiology - Last 24 Hours (Table) 05/12/23 06:28 Blood Culture - Final Blood Assessment and Plan (1) Ileus Narrative/Plan: 73-year-old male with mild ileus. Patient is moving his bowels however. Continue encouraging oral intake. No signs of obstruction on CAT scan. Patient very poor candidate or any further intervention. We'll sign off. Please reconsult if needed. Current Visit: Yes Status: Acute Code(s): K56.7 - ILEUS, UNSPECIFIED SNOMED Code(s): 958607296
[2023-05-17] MEDS ORDERED: FUROSEMIDE 10 MG/ML 4 ML VIAL IV STA (14:14)
--- NOTE | 2023-05-17 14:15 | P.PN ---
Subjective Patient is seen in follow-up for chronic kidney disease. Renal function stable. Resting in bed. Oral intake poor. Son present at bedside. Vital signs are stable. General: No acute distress. HEENT: Head exam is unremarkable. LUNGS: No audible rhonchi or wheezes. HEART: Rate and Rhythm are regular. ABDOMEN: No distention. EXTREMITITES: Left AKA noted. Chronic changes noted. Objective - Vital Signs Vital signs: Vital Signs Temp 97.0 F L 05/17/23 07:52 Pulse 90 05/17/23 13:03 Resp 19 05/17/23 07:52 BP 99/54 05/17/23 12:37 Pulse Ox 99 05/17/23 09:27 FiO2 Intake & Output 05/16/23 05/17/23 05/17/23 18:59 06:59 18:59 Intake Total 180 Output Total 600 1100 Balance -420 -1100 Weight 102.965 kg Intake: Oral 180 Output: Urine 600 1100 Other: Voiding Method Indwelling Catheter Indwelling Catheter Indwelling Catheter # Voids 2 # Bowel Movements 2 1 - Labs CBC & Chem 7: 05/16/23 06:45 05/16/23 06:45 Labs: Abnormal Lab Results - Last 24 Hours (Table) 05/16/23 05/16/23 05/17/23 Range/Units 16:49 20:42 06:13 POC Glucose (mg/dL) 169 H 155 H 166 H (70-110) mg/dL 05/17/23 Range/Units 12:35 POC Glucose (mg/dL) 266 H (70-110) mg/dL Microbiology - Last 24 Hours (Table) 05/12/23 06:28 Blood Culture - Final Blood Assessment and Plan Plan: Assessment: 1. Chronic kidney disease stage IIIB secondary to diabetic kidney disease with baseline creatinine near 1.7. 2. Hypernatremia from lack of oral water intake. 3. Metabolic acidosis secondary to chronic kidney disease. 4. Diabetes mellitus. 5. Lower extremity gangrene status post left xzgwu-fdu-hljh amputation. Right amputation pending. Vascular surgery following. 6. Hypotension maintained on midodrine. 7. Volume overload. Anasarca changes noted on CAT scan. Plan: Lasix 40 mg IV once today. Follow-up morning labs. Check magnesium level. Stop milk of magnesia. Avoid nephrotoxins. Continue to monitor renal function and urine output.
[2023-05-17 15:04] LABS: African American GFR (CKD) 47 (>60 ml/min/1.73 sqM); Anion Gap 13 mmol/L; Blood Urea Nitrogen 58 mg/dL (9-20); Calcium 8.6 mg/dL (8.4-10.2); Carbon Dioxide 19 mmol/L (22-30); Chloride 115 mmol/L (98-107); Glucose 320 mg/dL (74-99); Magnesium 2.3 mg/dL (1.6-2.3); Non-African American GFR(CKD) 40 (>60 ml/min/1.73 sqM); Potassium 4.7 mmol/L (3.5-5.1); Sodium 147 mmol/L (137-145)
[2023-05-17 16:50] LABS: Glucose,Whole Blood 369 mg/dL (70-110)
--- NOTE | 2023-05-17 17:06 | P.PN ---
Subjective Progress Note Date: 05/17/23 73-year-old male seen in the emergency room, on May 09. The patient was apparently brought in by his family, because of worsening gangrene involving the lower extremities. The patient apparently initially declined amputation, and was placed on hospice. Apparently the patient has had a change of heart, and now agrees to have surgery. We were consulted for medical clearance. The patient has been seen by infectious diseases, the primary service, and vascular surgery. According to the vascular surgeons note, the patient is to have sequential mqkzj-eil-dqbw amputations, left than right. According to the patient's history, he is a diagnosis of heart failure and diabetes. He also has history of gout, possible asbestos exposure, pulmonary fibrosis, diabetes, chronic kidney disease, hypertension, among other things. Currently, the patient's getting saline at 50 mL an hour. He does wear oxygen at 3 L. He also has a CPAP device, for sleep apnea syndrome. He is currently on vancomycin and Unasyn as per infectious diseases. Currently labs include a white count 17.4, hemoglobin 11.8, hematocrit 38.6, and a platelet count of 388,000. Sodium 135, potassium 5.4, chlorides 101, CO2 22, BUN 83, and creatinine 1.91. Albumin is 2.6. Bilateral foot x-rays were done, with the findings as noted. The patient is seen today 05/12/2023 in follow-up on the regular medical floor. He is currently sitting up at the bedside. Awake and alert in no acute distress. He is maintaining good O2 saturations in the 90s on room air. She's afebrile. Hemodynamically stable. He has home CPAP throughout the night. Blood cultures pending. White count 19.8. Hemoglobin 10.5. Platelets 331. Sodium 138. Potassium 5.1 bicarb 24. BUN 76. Creatinine 2.0. Glucose 196. He remains on DuoNeb inhalations. Antibiotics in the form of vancomycin and cefepime. He is also on Flagyl. The plan is for a left gvrsw-qpj-rmrv amputation today. Progress note dated 05/13/2023. The patient is seen today in room 355. The patient is postoperative day #1, status post left zuxtp-cmp-lbzk amputation. The patient continues on oxygen at 2 L. The patient's getting saline at 50 mL an hour. White count 15.5, hemoglobin 10.2, hematocrit 35.9, and platelet count 316,000. Sodium 143, potassium 5.1, chlorides 106, CO2 24, BUN 77, and creatinine 1.82. Albumin is 2.6. Blood cultures were positive Bacteroides fragilis. The patient continues on cefepime, Flagyl, and vancomycin. On today's evaluation of 05/14/2020, the patient has stable and the patient is currently resting comfortably in bed. No significant respiratory distress. The patient is currently on 2 L of oxygen by nasal cannula. Chest x-ray showing atelectatic change in lung bases bilaterally. The patient has some interval improvement in renal function and creatinine is down to 1.6, white cell count of 14.2 and the patient is afebrile for now. Antibiotic coverage remains a combination of cefepime, Flagyl and vancomycin. The patient is also receiving Dilaudid when necessary for pain control. The patient on DuoNeb updrafts wwdwmj-sxv-pmjiz and incentive spirometer. No other significant events over the past 24 hours. The patient is status post above the patient on the left and the patient is currently postop day #2. Blood cultures for Bacteroides fragilis. On 05/15/2023, the patient is postoperative day #3. Remains on oxygen at 3 L/m nasal cannula. No signs of any respiratory distress. Using the senna spiromet er. Is complaining of some nausea and constipation. He'll be given milk of magnesia accordingly. He remains on broad-spectrum antibiotics and the patient remains on a combination of cefepime and vancomycin and Flagyl. Blood work from today shows a WBC count of 12.3, hemoglobin 9.7 and a platelet count of 273. Creatinine is at 1.7 which is stable compared to yesterday. Blood culture was positive for Bacteroides and the patient is being treated accordingly. Pulse ox is 98% on 3 L of oxygen by nasal cannula. No hypotension. No fever. No altered mentation. On 05/16/2023, the patient is postop day #4. Overall respiratory status is stable. Nevertheless, the patient is having some abdominal discomfort. Further investigation with a flat film of the abdomen showed that the patient was having an ileus. He did have a small bowel movement after being given laxatives. The general surgery consultation was also requested. He remains on the same antibiotic coverage which includes a combination of cefepime and vancomycin and Flagyl. The white cell count of 8.2 with a hemoglobin of 10 and a platelet count is at 270. He remains on today's of action by nasal cannula. On today's evaluation of 05/17/2023, the patient is having still episodes of nausea. The patient is postop day #5. Remains on IV cefepime and Flagyl. Repeat cultures are negative and he is hemodynamically stable. CAT scan of the abdomen and pelvis was done and the patient was found to have generalized anasarca with small right and trace left pleural effusions along with mild abdominal ascites. There is evidence of pulmonary hypertension. Borderline dilatation of the transverse colon up to 5.9 cm in size with some scattered liquid stool. No abdominal wall thickening or INFLAMMATION. THERE WAS AN ENLA RGED PELVIC LYMPH NODES MEASURING UP TO 1.6 CM IN SIZE, THOUGHT TO BE POST INFLAMMATORY IN NATURE. The patient remains on 2 L of oxygen by nasal cannula and the patient is oxygenating adequately. Last or surgeries on the case regarding the gangrenous right foot. Objective - Vital Signs Vital signs: Vital Signs Temp 97.0 F L 05/17/23 07:52 Pulse 90 05/17/23 13:03 Resp 19 05/17/23 07:52 BP 99/54 05/17/23 12:37 Pulse Ox 99 05/17/23 09:27 FiO2 Intake & Output 05/16/23 05/17/23 05/17/23 18:59 06:59 18:59 Intake Total 180 Output Total 600 1100 Balance -420 -1100 Weight 102.965 kg Intake: Oral 180 Output: Urine 600 1100 Other: Voiding Method Indwelling Catheter Indwelling Catheter Indwelling Catheter # Voids 2 # Bowel Movements 2 1 - Exam No acute distress, oriented 3. Currently on 2 L of oxygen. HEENT examination is grossly unremarkable. Mucous membranes are moist. No oral lesions. Neck supple. Full range of motion. No adenopathy thyromegaly or neck vein distention. Cardiovascular examination reveals regular rhythm rate. S1-S2 normal. No S3 or S4. No discernible murmur noted. Heart sounds are distant. Lungs reveal clear breath sounds. Breath sounds are equal bilaterally. No adventitious lung sounds including wheezes rhonchi or crackles. Abdomen soft bowel sounds are heard. No masses or tenderness. Extremities are intact. No cyanosis clubbing or edema. Status post left AKA. Skin is without rash or lesion. Neurologic examination is brief but nonfocal. - Labs CBC & Chem 7: 05/16/23 06:45 05/17/23 13:51 Labs: Abnormal Lab Results - Last 24 Hours (Table) 05/16/23 05/16/23 05/17/23 Range/Units 16:49 20:42 06:13 POC Glucose (mg/dL) 169 H 155 H 166 H (70-110) mg/dL 05/17/23 Range/Units 12:35 POC Glucose (mg/dL) 266 H (70-110) mg/dL Microbiology - Last 24 Hours (Table) 05/12/23 06:28 Blood Culture - Final Blood Assessment and Plan Plan: Bilateral lower extremity gangrene, patient is post left lrjam-hff-qfok" patient is postop day # 5 Acute on chronic hypoxic respiratory failure, currently on 3 L of oxygen by nasal cannula. Chest x-ray showed atelectatic change in lung bases, current on 2 L of oxygen by nasal cannula Obstructive sleep apnea Sepsis secondary to Bacteroides this was a possible culture, currently with intermittent stable, currently on IV cefepime and Flagyl Ileus with abdominal discomfort an underlying constipation, CAT scan of the a bdomen and pelvis was noted and there is no significant metabolic obstruction. There may be some ileus Chronic kidney disease with a component of acute kidney injury, creatinine is improving, the patient is known to have chronic stage IV kidney disease Leukocytosis Peripheral vascular disease Preserved LV function based on previous echocardiogram Hyperkalemia, improved Bacteremia with anaerobes/Bacteroides fragilis source being lower extremity gangrene Plan: Surgical consultation is appreciated Small bilateral pleural effusion was noted Bowel rest Keep the patient on 3 L of oxygen by nasal cannula Vascular Surgery follow-up regarding the gangrenous foot Continue antibiotics per ID Incentive spirometer Creatinine is improving and a potassium level is stable Pain control We'll continue to follow
[2023-05-17 20:33] LABS: Glucose,Whole Blood 304 mg/dL (70-110)
--- NOTE | 2023-05-17 21:19 | PN ---
PROGRESS NOTE This is a 73-year-old gentleman with history of chronic renal failure, COPD, patient had a left above-knee amputation done. The patient's stump site is clean and healing, patient on IV antibiotic. The patient has been complaining of some abdominal discomfort. The patient was seen by the general surgery. Right lower extremity has a right heel wound. Dressing has been changed today. Left above-knee stump is clean and dry. No drainage noted. MMODL / IJN: [id number] /
[2023-05-17] MEDS: DEXTROSE 5% IN WATER 1,000 ML IV SCH (21:29)
[2023-05-18 01:56] LABS: Glucose,Whole Blood 154 mg/dL (70-110)
[2023-05-18] MEDS: metroNIDAZOLE-NS PMX 500 MG in SALINE 1 100ML.BAG IVPB SCH ×3 (04:35→21:57)
[2023-05-18 06:08] LABS: Glucose,Whole Blood 168 mg/dL (70-110)
[2023-05-18] MEDS: INSULIN ASPART (NovoLOG) 100 UNIT/ML VIAL SQ SCH ×5 (06:21→21:58)
[2023-05-18] MEDS: MIDODRINE 5 MG TAB PO SCH ×4 (09:13→17:34)
[2023-05-18] MEDS: HEPARIN SODIUM,PORCINE 5,000 UNIT/ML 1 ML VIAL SQ SCH ×2 (09:13→21:58)
[2023-05-18] MEDS: CEFEPIME 2 GM in SODIUM CHLORIDE 0.9% 100 ML IVPB SCH ×2 (09:14→21:58)
[2023-05-18] MEDS: ATORVASTATIN 40 MG TAB PO SCH (09:14)
[2023-05-18] MEDS: FAMOTIDINE 20 MG TAB PO SCH (09:14)
[2023-05-18] MEDS: IPRATROPIUM-ALBUTEROL 3 ML NEB INHALATION SCH ×3 (09:30→21:50)
[2023-05-18 11:19] LABS: Glucose,Whole Blood 208 mg/dL (70-110)
[2023-05-18] MEDS ORDERED: FUROSEMIDE 10 MG/ML 4 ML VIAL IV STA (11:46)
--- NOTE | 2023-05-18 11:46 | P.PN ---
Subjective Patient is seen in follow-up for chronic kidney disease. Renal function stable as of yesterday. Resting in bed. Oral intake poor. Family present at bedside. Vital signs are stable. General: No acute distress. HEENT: Head exam is unremarkable. On BiPAP. LUNGS: No audible rhonchi or wheezes. HEART: Rate and Rhythm are regular. ABDOMEN: No distention. EXTREMITITES: Left AKA noted. Chronic changes noted. Objective - Vital Signs Vital signs: Vital Signs Temp 97.7 F 05/18/23 07:35 Pulse 92 05/18/23 07:35 Resp 18 05/18/23 07:35 BP 113/55 05/18/23 07:35 Pulse Ox 87 L 05/18/23 07:35 FiO2 Intake & Output 05/17/23 05/18/23 05/18/23 18:59 06:59 18:59 Output Total 1600 625 Balance -1600 -625 Weight 102.965 kg Output: Urine 1600 625 Other: Voiding Method Indwelling Catheter Indwelling Catheter Indwelling Catheter # Bowel Movements 1 - Labs CBC & Chem 7: 05/16/23 06:45 05/17/23 13:51 Labs: Abnormal Lab Results - Last 24 Hours (Table) 05/17/23 05/17/23 05/17/23 Range/Units 12:35 13:51 16:48 Sodium 147 H (137-145) mmol/L Chloride 115 H (98-107) mmol/L Carbon Dioxide 19 L (22-30) mmol/L BUN 58 H (9-20) mg/dL Creatinine 1.68 H (0.66-1.25) mg/dL Glucose 320 H (74-99) mg/dL POC Glucose (mg/dL) 266 H 369 H (70-110) mg/dL 05/17/23 05/18/23 05/18/23 Range/Units 20:12 01:53 05:57 Sodium (137-145) mmol/L Chloride (98-107) mmol/L Carbon Dioxide (22-30) mmol/L BUN (9-20) mg/dL Creatinine (0.66-1.25) mg/dL Glucose (74-99) mg/dL POC Glucose (mg/dL) 304 H 154 H 168 H (70-110) mg/dL 05/18/23 Range/Units 11:17 Sodium (137-145) mmol/L Chloride (98-107) mmol/L Carbon Dioxide (22-30) mmol/L BUN (9-20) mg/dL Creatinine (0.66-1.25) mg/dL Glucose (74-99) mg/dL POC Glucose (mg/dL) 208 H (70-110) mg/dL Microbiology - Last 24 Hours (Table) 05/12/23 06:28 Blood Culture - Final Blood Assessment and Plan Plan: Assessment: 1. Chronic kidney disease stage IIIB secondary to diabetic kidney disease with baseline creatinine near 1.7. 2. Hypernatremia from lack of oral water intake. 3. Metabolic acidosis secondary to chronic kidney disease. 4. Diabetes mellitus. 5. Lower extremity gangrene status post left nbhnf-ypy-hhyl amputation. Right amputation pending. Vascular surgery following. 6. Hypotension maintained on midodrine. 7. Volume overload. Anasarca changes noted on CAT scan. Plan: Repeat IV Lasix today. Maintain D5W. Follow-up morning labs. Avoid nephrotoxins. Continue to monitor renal function and urine output.
[2023-05-18 12:06] LABS: HCT 40.4 % (39.6-50.0); HGB 11.1 g/dL (13.0-17.0); MCH 27.1 pg (27.0-32.0); MCHC 27.5 g/dL (32.0-37.0); MCV 98.8 FL (80.0-97.0); Mean Platelet Volume 10.9 FL (9.5-12.2); NRBC Per 100 WBC 0 X 10*3/uL (0.00-0.01); Platelet Count 242 X 10*3/uL (140-440); RBC 4.09 X 10*6/uL (4.40-5.60); RDW 17.2 % (11.5-14.5)
--- NOTE | 2023-05-18 13:12 | P.PN ---
Subjective Progress Note Date: 05/18/23 73-year-old male seen in the emergency room, on May 09. The patient was apparently brought in by his family, because of worsening gangrene involving the lower extremities. The patient apparently initially declined amputation, and was placed on hospice. Apparently the patient has had a change of heart, and now agrees to have surgery. We were consulted for medical clearance. The patient has been seen by infectious diseases, the primary service, and vascular surgery. According to the vascular surgeons note, the patient is to have sequential avkdn-git-fuoy amputations, left than right. According to the patient's history, he is a diagnosis of heart failure and diabetes. He also has history of gout, possible asbestos exposure, pulmonary fibrosis, diabetes, chronic kidney disease, hypertension, among other things. Currently, the patient's getting saline at 50 mL an hour. He does wear oxygen at 3 L. He also has a CPAP device, for sleep apnea syndrome. He is currently on vancomycin and Unasyn as per infectious diseases. Currently labs include a white count 17.4, hemoglobin 11.8, hematocrit 38.6, and a platelet count of 388,000. Sodium 135, potassium 5.4, chlorides 101, CO2 22, BUN 83, and creatinine 1.91. Albumin is 2.6. Bilateral foot x-rays were done, with the findings as noted. The patient is seen today 05/12/2023 in follow-up on the regular medical floor. He is currently sitting up at the bedside. Awake and alert in no acute distress. He is maintaining good O2 saturations in the 90s on room air. She's afebrile. Hemodynamically stable. He has home CPAP throughout the night. Blood cultures pending. White count 19.8. Hemoglobin 10.5. Platelets 331. Sodium 138. Potassium 5.1 bicarb 24. BUN 76. Creatinine 2.0. Glucose 196. He remains on DuoNeb inhalations. Antibiotics in the form of vancomycin and cefepime. He is also on Flagyl. The plan is for a left gvnvo-frs-pina amputation today. Progress note dated 05/13/2023. The patient is seen today in room 355. The patient is postoperative day #1, status post left sslpo-qzi-yywi amputation. The patient continues on oxygen at 2 L. The patient's getting saline at 50 mL an hour. White count 15.5, hemoglobin 10.2, hematocrit 35.9, and platelet count 316,000. Sodium 143, potassium 5.1, chlorides 106, CO2 24, BUN 77, and creatinine 1.82. Albumin is 2.6. Blood cultures were positive Bacteroides fragilis. The patient continues on cefepime, Flagyl, and vancomycin. On today's evaluation of 05/14/2020, the patient has stable and the patient is currently resting comfortably in bed. No significant respiratory distress. The patient is currently on 2 L of oxygen by nasal cannula. Chest x-ray showing atelectatic change in lung bases bilaterally. The patient has some interval improvement in renal function and creatinine is down to 1.6, white cell count of 14.2 and the patient is afebrile for now. Antibiotic coverage remains a combination of cefepime, Flagyl and vancomycin. The patient is also receiving Dilaudid when necessary for pain control. The patient on DuoNeb updrafts erkpea-jmg-hycfq and incentive spirometer. No other significant events over the past 24 hours. The patient is status post above the patient on the left and the patient is currently postop day #2. Blood cultures for Bacteroides fragilis. On 05/15/2023, the patient is postoperative day #3. Remains on oxygen at 3 L/m nasal cannula. No signs of any respiratory distress. Using the senna spiromet er. Is complaining of some nausea and constipation. He'll be given milk of magnesia accordingly. He remains on broad-spectrum antibiotics and the patient remains on a combination of cefepime and vancomycin and Flagyl. Blood work from today shows a WBC count of 12.3, hemoglobin 9.7 and a platelet count of 273. Creatinine is at 1.7 which is stable compared to yesterday. Blood culture was positive for Bacteroides and the patient is being treated accordingly. Pulse ox is 98% on 3 L of oxygen by nasal cannula. No hypotension. No fever. No altered mentation. On 05/16/2023, the patient is postop day #4. Overall respiratory status is stable. Nevertheless, the patient is having some abdominal discomfort. Further investigation with a flat film of the abdomen showed that the patient was having an ileus. He did have a small bowel movement after being given laxatives. The general surgery consultation was also requested. He remains on the same antibiotic coverage which includes a combination of cefepime and vancomycin and Flagyl. The white cell count of 8.2 with a hemoglobin of 10 and a platelet count is at 270. He remains on today's of action by nasal cannula. On today's evaluation of 05/17/2023, the patient is having still episodes of nausea. The patient is postop day #5. Remains on IV cefepime and Flagyl. Repeat cultures are negative and he is hemodynamically stable. CAT scan of the abdomen and pelvis was done and the patient was found to have generalized anasarca with small right and trace left pleural effusions along with mild abdominal ascites. There is evidence of pulmonary hypertension. Borderline dilatation of the transverse colon up to 5.9 cm in size with some scattered liquid stool. No abdominal wall thickening or INFLAMMATION. THERE WAS AN ENLA RGED PELVIC LYMPH NODES MEASURING UP TO 1.6 CM IN SIZE, THOUGHT TO BE POST INFLAMMATORY IN NATURE. The patient remains on 2 L of oxygen by nasal cannula and the patient is oxygenating adequately. Last or surgeries on the case regarding the gangrenous right foot. On 05/18/2023, the patient's postop day #6. Still having episodes of confusion. No major respiratory distress. Utilizing his CPAP overnight. Remains on the same antibiotic coverage. Nausea septal and the patient should be able to gradually advance his oral intake. His blood work shows a the risk of 9.7 hemoglobin 11 and a platelet count of 242. The patient was developing some hyponatremia due to diminished oral intake. Objective - Vital Signs Vital signs: Vital Signs Temp 97.7 F 05/18/23 07:35 Pulse 92 05/18/23 07:35 Resp 18 05/18/23 07:35 BP 113/55 05/18/23 07:35 Pulse Ox 87 L 05/18/23 07:35 FiO2 Intake & Output 05/17/23 05/18/23 05/18/23 18:59 06:59 18:59 Output Total 1600 625 Balance -1600 -625 Weight 102.965 kg Output: Urine 1600 625 Other: Voiding Method Indwelling Catheter Indwelling Catheter Indwelling Catheter # Bowel Movements 1 - Exam No acute distress, oriented 3. Currently on 2 L of oxygen. HEENT examination is grossly unremarkable. Mucous membranes are moist. No oral lesions. Neck supple. Full range of motion. No adenopathy thyromegaly or neck vein distention. Cardiovascular examination reveals regular rhythm rate. S1-S2 normal. No S3 or S4. No discernible murmur noted. Heart sounds are distant. Lungs reveal clear breath sounds. Breath sounds are equal bilaterally. No adventitious lung sounds including wheezes rhonchi or crackles. Abdomen soft bowel sounds are heard. No masses or tenderness. Extremities are intact. No cyanosis clubbing or edema. Status post left AKA. Skin is without rash or lesion. Neurologic examination is brief but nonfocal. - Labs CBC & Chem 7: 05/18/23 07:07 05/17/23 13:51 Labs: Abnormal Lab Results - Last 24 Hours (Table) 05/17/23 05/17/23 05/17/23 Range/Units 12:35 13:51 16:48 Sodium 147 H (137-145) mmol/L Chloride 115 H (98-107) mmol/L Carbon Dioxide 19 L (22-30) mmol/L BUN 58 H (9-20) mg/dL Creatinine 1.68 H (0.66-1.25) mg/dL Glucose 320 H (74-99) mg/dL POC Glucose (mg/dL) 266 H 369 H (70-110) mg/dL 05/17/23 05/18/23 05/18/23 Range/Units 20:12 01:53 05:57 Sodium (137-145) mmol/L Chloride (98-107) mmol/L Carbon Dioxide (22-30) mmol/L BUN (9-20) mg/dL Creatinine (0.66-1.25) mg/dL Glucose (74-99) mg/dL POC Glucose (mg/dL) 304 H 154 H 168 H (70-110) mg/dL 05/18/23 Range/Units 11:17 Sodium (137-145) mmol/L Chloride (98-107) mmol/L Carbon Dioxide (22-30) mmol/L BUN (9-20) mg/dL Creatinine (0.66-1.25) mg/dL Glucose (74-99) mg/dL POC Glucose (mg/dL) 208 H (70-110) mg/dL Microbiology - Last 24 Hours (Table) 05/12/23 06:28 Blood Culture - Final Blood Assessment and Plan Plan: Bilateral lower extremity gangrene, patient is post left qtwso-qtz-pyot" patient is postop day # 6 Acute on chronic hypoxic respiratory failure, currently on 3 L of oxygen by nasal cannula. Chest x-ray showed atelectatic change in lung bases, current on 2 L of oxygen by nasal cannula Obstructive sleep apnea, has a bedside CPAP Sepsis secondary to Bacteroides this was a possible culture, currently with intermittent stable, currently on IV cefepime and Flagyl Ileus with abdominal discomfort an underlying constipation, CAT scan of the abdo men and pelvis was noted and there is no significant metabolic obstruction. There may be some ileus Chronic kidney disease with a component of acute kidney injury, creatinine is improving, the patient is known to have chronic stage IV kidney disease Leukocytosis Peripheral vascular disease Preserved LV function based on previous echocardiogram Hyperkalemia, improved Bacteremia with anaerobes/Bacteroides fragilis source being lower extremity gangrene Hyperchloremic hypernatremia, currently on D5 water Plan: Surgical consultation is appreciated, and the nausea subsided on today's evaluation Small bilateral pleural effusion was noted Gradually advance diet as tolerated Keep the patient on 3 L of oxygen by nasal cannula Vascular Surgery follow-up regarding the gangrenous foot Continue antibiotics per ID Incentive spirometer Creatinine is improving and a potassium level is stable Gentle hydration with D5 water at a rate of 50 mL an hour Monitor electrolytes Pain control We'll continue to follow
[2023-05-18 13:22] LABS: ALT 17 U/L (10-49); AST 30 U/L (14-35); Albumin 2.6 g/dL (3.8-4.9); Albumin/Globulin Ratio 0.67 Ratio (1.60-3.17); Alkaline Phosphatase 142 U/L (41-126); Calcium 8.8 mg/dL (8.7-10.3); Chloride 115 mmol/L (96-109); Globulin 3.9 g/dL (1.6-3.3); Glucose 202 mg/dL (70-110); Magnesium 2.1 mg/dL (1.5-2.4); Potassium 4.3 mmol/L (3.5-5.5); Sodium 148 mmol/L (135-145); Total Bilirubin 0.5 mg/dL (0.3-1.2); Total Protein 6.5 g/dL (6.2-8.2)
--- NOTE | 2023-05-18 14:04 | P.PN ---
Subjective Progress Note Date: 05/18/23 This is a continue present on a 73-year-old white male who was admitted for gangrene of the legs bilaterally but cellulitis recently had amputation of above the knee on the left and now scheduled to have right psply-mcx-leud amputation. He seems much better his color is improved. No fever or chills stated. No nausea, vomiting or diarrhea. He still seems somewhat reluctant today to have the next amputation however. 05/18. Patient seen and examined. at the bedside. Patient is complaining of pain in his right foot REVIEW OF SYSTEMS: CONSTITUTIONAL: No fever, no malaise,. CARDIOVASCULAR: No chest pain, no palpitations, no syncope. PULMONARY: No shortness of breath, no cough, GASTROINTESTINAL: No diarrhea, no nausea, no vomiting, no abdominal pain. NEUROLOGICAL: No headaches, no weakness, PHYSICAL EXAMINATION: GENERAL: The patient is alert, chronically ill-looking HEENT: Pupils are round and equally reacting to light. EOMI. No scleral icterus. No conjunctival pallor. Normocephalic, atraumatic. No pharyngeal erythema. No thyromegaly. CARDIOVASCULAR: S1 and S2 present. No murmurs, rubs, or gallops. PULMONARY: Coarse breath sounds bilaterally, no wheeze audible ABDOMEN: Soft, nontender, nondistended, normoactive bowel sounds. No palpable organomegaly. MUSCULOSKELETAL: Left AKA seen EXTREMITIES: No cyanosis, clubbing, or pedal edema. NEUROLOGICAL: Gross neurological examination did not reveal any focal deficits. SKIN: No rashes. Assessment and plan Bilateral lower extremity gangrene, patient is post left [id number]-[id number]-[id number] Acute on chronic hypoxic respiratory failure Obstructive sleep apnea Sepsis secondary to Bacteroides Ileus with abdominal discomfort an underlying constipation, CAT scan of the abdomen and pelvis was noted and there is no significant metabolic obstruction. There may be some ileus Chronic kidney disease with a component of acute kidney injury, Leukocytosis Peripheral vascular disease Preserved LV function based on previous echocardiogram Hyperkalemia, improved Bacteremia with anaerobes/Bacteroides fragilis source being lower extremity gangrene Monitor vital signs Monitor CBC Monitor CMP Continue telemetry monitoring Follow-up on blood cultures Continue wound care Continue IV cefepime and Flagyl Vascular surgery following ID following Nephrology following Pulmonology following Labs and medication were reviewed.. Continue same treatment. Continue with symptomatic treatment. Resume home medication. Monitor labs and vitals. DVT and GI prophylaxis. Further recommendations as per clinical course of the patient Dictation was produced using [employer] dictation software. please excuse any grammatical, word or spelling errors. Objective - Vital Signs Vital signs: Vital Signs Temp 97.7 F 05/18/23 07:35 Pulse 92 05/18/23 07:35 Resp 18 05/18/23 07:35 BP 113/55 05/18/23 07:35 Pulse Ox 87 L 05/18/23 07:35 FiO2 Intake & Output 05/17/23 05/18/23 05/18/23 18:59 06:59 18:59 Output Total 1600 625 Balance -1600 -625 Weight 102.965 kg Output: Urine 1600 625 Other: Voiding Method Indwelling Catheter Indwelling Catheter Indwelling Catheter # Bowel Movements 1 - Labs CBC & Chem 7: 05/18/23 07:07 05/18/23 07:07 Labs: Abnormal Lab Results - Last 24 Hours (Table) 05/17/23 05/17/23 05/17/23 Range/Units 12:35 13:51 16:48 Sodium 147 H (137-145) mmol/L Chloride 115 H (98-107) mmol/L Carbon Dioxide 19 L (22-30) mmol/L BUN 58 H (9-20) mg/dL Creatinine 1.68 H (0.66-1.25) mg/dL Glucose 320 H (74-99) mg/dL POC Glucose (mg/dL) 266 H 369 H (70-110) mg/dL 05/17/23 05/18/23 05/18/23 Range/Units 20:12 01:53 05:57 Sodium (137-145) mmol/L Chloride (98-107) mmol/L Carbon Dioxide (22-30) mmol/L BUN (9-20) mg/dL Creatinine (0.66-1.25) mg/dL Glucose (74-99) mg/dL POC Glucose (mg/dL) 304 H 154 H 168 H (70-110) mg/dL Microbiology - Last 24 Hours (Table) 05/12/23 06:28 Blood Culture - Final Blood
[2023-05-18 14:06] LABS: Glucose,Whole Blood 232 mg/dL (70-110)
[2023-05-18] MEDS: ONDANSETRON 4 MG/2 ML VIAL IVP PRN (14:39)
--- NOTE | 2023-05-18 15:26 | P.PN ---
Subjective Progress Note Date: 05/15/23 Principal diagnosis: Reason for follow-up is bilateral diabetic foot infection with gangrene and bacteremia Patient is a 73-year-old male with a past medical history Significant for diabetes mellitus and heart failure did have a history of diabetic foot infection patient apparently was in hospice however patient was noticed to having necrotic changes to his toes that has been extending up to his leg and the family was unable to keep up with the wound care at home, patient previously refused amputation but now is ready for amputation for the patient was brought into the hospital.The patient is status post left cqdad-vjq-rscg amputation completed on 05/12/2023. On today's evaluation that is 05/15/2023 the patient continues to be afebrile, the patient is breathing comfortably on 2 L nasal cannula oxygen, but denies having any chest pain shortness of the cough has been complaining of mostly constipation some nausea but no vomiting. Patient white count is down to 12.3, creatinine is 1.73 Objective - Vital Signs Vital signs: Vital Signs Temp 97.4 F L 05/15/23 08:11 Pulse 90 05/15/23 11:25 Resp 19 05/15/23 11:25 BP 116/72 05/15/23 11:25 Pulse Ox 98 05/15/23 11:25 FiO2 Intake & Output 05/14/23 05/15/23 05/15/23 18:59 06:59 18:59 Output Total 500 400 Balance -500 -400 Weight 102.965 kg Output: Urine 500 400 Other: Voiding Method Indwelling Catheter Indwelling Catheter Indwelling Catheter - Exam GENERAL DESCRIPTION: An elderly male lying in bed in no distress RESPIRATORY SYSTEM: Unlabored breathing , decreased breath sounds at bases HEART: S1 S2 regular rate and rhythm , ABDOMEN: Soft , no tenderness EXTREMITIES: Left AKA stump is currently dressed no drainage on dressing - Labs CBC & Chem 7: 05/18/23 07:07 05/18/23 07:07 Labs: Abnormal Lab Results - Last 24 Hours (Table) 05/14/23 05/14/23 05/15/23 Range/Units 16:49 20:12 05:44 WBC (3.8-10.6) k/uL RBC (4.30-5.90) m/uL Hgb (13.0-17.5) gm/dL Hct (39.0-53.0) % MCHC (31.0-37.0) g/dL RDW (11.5-15.5) % Sodium (137-145) mmol/L Chloride (98-107) mmol/L BUN (9-20) mg/dL Creatinine (0.66-1.25) mg/dL Glucose (74-99) mg/dL POC Glucose (mg/dL) 188 H 169 H 158 H (70-110) mg/dL 05/15/23 05/15/23 05/15/23 Range/Units 11:00 11:00 11:28 WBC 12.3 H (3.8-10.6) k/uL RBC 3.47 L (4.30-5.90) m/uL Hgb 9.7 L (13.0-17.5) gm/dL Hct 34.1 L (39.0-53.0) % MCHC 28.3 L (31.0-37.0) g/dL RDW 15.6 H (11.5-15.5) % Sodium 147 H (137-145) mmol/L Chloride 111 H (98-107) mmol/L BUN 68 H (9-20) mg/dL Creatinine 1.73 H (0.66-1.25) mg/dL Glucose 157 H (74-99) mg/dL POC Glucose (mg/dL) 180 H (70-110) mg/dL Microbiology - Last 24 Hours (Table) 05/12/23 06:28 Blood Culture - Preliminary Blood 05/09/23 23:15 Blood Culture - Final Blood Assessment and Plan (1) Diabetic infection of left foot Current Visit: Yes Status: Acute Code(s): E11.628 - TYPE 2 DIABETES MELLITUS WITH OTHER SKIN COMPLICATIONS; L08.9 - LOCAL INFECTION OF THE SKIN AND SUB CUTANEOUS TISSUE, UNSP SNOMED Code(s): 17651070 (2) Gangrene associated with type 2 diabetes mellitus Current Visit: Yes Status: Acute Code(s): E11.52 - TYPE 2 DIABETES W DIABE TIC PERIPHERAL ANGIOPATHY W GANGRENE SNOMED Code(s): 537019490 (3) Bacteremia Current Visit: Yes Status: Acute Code(s): R78.81 - BACTEREMIA SNOMED Code(s): 9806918 (4) Diabetic infection of right foot Current Visit: No Status: Acute Code(s): E11.628 - TYPE 2 DIABETES MELLITUS WITH OTHER SKIN COMPLICATIONS; L08.9 - LOCAL INFECTION OF THE SKIN AND SUBC UTANEOUS TISSUE, UNSP SNOMED Code(s): 61261631 Plan: 1patient present to hospital with extensive wounds to bilateral lower extremity with areas of necrotic changes surrounding redness and foul-smelling drainage did have a extensive diabetic foot infection with underlying osteomyelitis and gangrene and will need to cover for the polymicrobial kieran usually associated with diabetic foot infection 2patient has been evaluated by vascular surgery and the patient is status post left above-knee amputation completed on 05/12/2023 3patient did have Bacteroides bacteremia source likely multiple lower extremity diabetic foot infection with gangrene. 4we will keep the patient on cefepime Flagyl however discontinue vancomycin and monitor his clinical course closely Dictation was produced using [employer] dictation software. please excuse any gr ammatical, word or spelling errors.
--- NOTE | 2023-05-18 15:27 | P.PN ---
Subjective Progress Note Date: 05/16/23 Principal diagnosis: Reason for follow-up is bilateral diabetic foot infection with gangrene and bacteremia Patient is a 73-year-old male with a past medical history Significant for diabetes mellitus and heart failure did have a history of diabetic foot infection patient apparently was in hospice however patient was noticed to having necrotic changes to his toes that has been extending up to his leg and the family was unable to keep up with the wound care at home, patient previously refused amputation but now is ready for amputation for the patient was brought into the hospital.The patient is status post left yxapp-pej-luxz amputation completed on 05/12/2023. On today's evaluation that is 05/16/2023 the patient remains to be afebrile, the patient is breathing comfortably on the 2 L nasal cannula oxygen, the patient denies having any chest pain shortness of the cough pain to the left AKA site is controlled still complaining of nausea and no bowel movement no worsening abdominal pain. The patient white count normalized to 8.2 creatinine 1.70 Objective - Vital Signs Vital signs: Vital Signs Temp 98.9 F 05/16/23 11:51 Pulse 94 05/16/23 11:51 Resp 24 05/16/23 11:51 BP 120/67 05/16/23 11:51 Pulse Ox 99 05/16/23 11:51 FiO2 Intake & Output 05/15/23 05/16/23 05/16/23 18:59 06:59 18:59 Intake Total 0 180 Output Total 600 600 Balance -600 0 -420 Weight 102.965 kg Intake: Oral 0 180 Output: Urine 600 600 Other: Voiding Method Indwelling Catheter Indwelling Catheter Indwelling Catheter # Bowel Movements 1 - Exam GENERAL DESCRIPTION: An elderly male lying in bed in no distress RESPIRATORY SYSTEM: Unlabored breathing , decreased breath sounds at bases HEART: S1 S2 regular rate and rhythm , ABDOMEN: Soft , no tenderness EXTREMITIES: Left AKA stump is currently dressed no drainage on dressing - Labs CBC & Chem 7: 05/18/23 07:07 05/18/23 07:07 Labs: Abnormal Lab Results - Last 24 Hours (Table) 05/15/23 05/15/23 05/15/23 Range/Units 11:00 16:29 20:32 RBC (4.30-5.90) m/uL Hgb (13.0-17.5) gm/dL Hct (39.0-53.0) % MCHC (31.0-37.0) g/dL RDW (11.5-15.5) % POC Glucose (mg/dL) 144 H 198 H (70-110) mg/dL Cortisol 26.3 H (3.1-22.4) UG/DL 05/16/23 05/16/23 05/16/23 Range/Units 06:18 06:45 11:33 RBC 3.49 L (4.30-5.90) m/uL Hgb 10.0 L (13.0-17.5) gm/dL Hct 34.1 L (39.0-53.0) % MCHC 29.4 L (31.0-37.0) g/dL RDW 15.6 H (11.5-15.5) % POC Glucose (mg/dL) 178 H 179 H (70-110) mg/dL Cortisol (3.1-22.4) UG/DL Microbiology - Last 24 Hours (Table) 05/12/23 06:28 Blood Culture - Preliminary Blood 05/09/23 23:15 Blood Culture - Final Blood Assessment and Plan (1) Diabetic infection of left foot Current Visit: Yes Status: Acute Code(s): E11.628 - TYPE 2 DIABETES MELLITUS WITH OTHER SKIN COMPLICATIONS; L08.9 - LOCAL INFECTION OF THE SKIN AND SUBCUTANEOUS TISSUE, UNSP SNOMED Code(s): 20263953 (2) Gangrene associated with type 2 diabetes mellitus Current Visit: Yes Status: Acute Code(s): E11.52 - TYPE 2 DIABETES W DIABETIC PERIPHERAL ANGIOPATHY W GANGRENE SNOMED Code(s): 474498115 (3) Bacteremia Current Visit: Yes Status: Acute Code(s): R78.81 - BACTEREMIA SNOMED Co de(s): 6129037 (4) Diabetic infection of right foot Current Visit: No Status: Acute Code(s): E11.628 - TYPE 2 DIABETES MELLITUS WITH OTHER SKIN COMPLICATIONS; L08.9 - LOCAL INFECTION OF THE SKIN AND SUBCUTANEOUS TISSUE, UNSP SNOMED Code(s): 43908369 Plan: 1patient present to hospital with extensive wounds to bilateral lower extremity with areas of necrotic changes surrounding redness and foul-smelling drainage did have a extensive diabetic foot infection with underlying osteomyelitis and gangrene and will need to cover for the polymicrobial kieran usually associated with diabetic foot infection 2patient has been evaluated by vascular surgery and the patient is status post left above-knee amputation completed on 05/12/2023 3patient did have Bacteroides bacteremia source likely multiple lower extremity diabetic foot infection with gangrene. 4patient to continue the current treatment of cefepime Flagyl, vancomycin was discontinued yesterday and will monitor clinical course closely Dictation was produced using [employer] dictation software. please excuse any grammatical, word or spelling errors. Time with Patient: Less than 30
--- NOTE | 2023-05-18 15:28 | P.PN ---
Subjective Progress Note Date: 05/17/23 Principal diagnosis: Reason for follow-up is bilateral diabetic foot infection with gangrene and bacteremia Patient is a 73-year-old male with a past medical history Significant for diabetes mellitus and heart failure did have a history of diabetic foot infection patient apparently was in hospice however patient was noticed to having necrotic changes to his toes that has been extending up to his leg and the family was unable to keep up with the wound care at home, patient previously refused amputation but now is ready for amputation for the patient was brought into the hospital.The patient is status post left [id number] amputation completed on 05/12/2023. On today's evaluation that is 05/17/2023 patient denies having any fever or any chills patient is breathing comfortably on 2 L cannula oxygen he denies having any chest pain shortness of breath or cough some nausea but no vomiting no abdominal pain did have small bowel movement per the at the bedside. No CBC was done today creatinine is 1.68 Objective - Vital Signs Vital signs: Vital Signs Temp 97.0 F L 05/17/23 07:52 Pulse 90 05/17/23 13:03 Resp 19 05/17/23 07:52 BP 99/54 05/17/23 12:37 Pulse Ox 99 05/17/23 09:27 FiO2 Intake & Output 05/16/23 05/17/23 05/17/23 18:59 06:59 18:59 Intake Total 180 Output Total 600 1100 Balance -420 -1100 Weight 102.965 kg Intake: Oral 180 Output: Urine 600 1100 Other: Voiding Method Indwelling Catheter Indwelling Catheter Indwelling Catheter # Voids 2 # Bowel Movements 2 1 - Exam GENERAL DESCRIPTION: An elderly male lying in bed in no distress RESPIRATORY SYSTEM: Unlabored breathing , decreased breath sounds at bases HEART: S1 S2 regular rate and rhythm , ABDOMEN: Soft , no tenderness EXTREMITIES: Left AKA stump is currently dressed no drainage on dressing - Labs CBC & Chem 7: 05/18/23 07:07 05/18/23 07:07 Labs: Abnormal Lab Results - Last 24 Hours (Table) 05/16/23 05/16/23 05/17/23 Range/Units 16:49 20:42 06:13 POC Glucose (mg/dL) 169 H 155 H 166 H (70-110) mg/dL 05/17/23 Range/Units 12:35 POC Glucose (mg/dL) 266 H (70-110) mg/dL Microbiology - Last 24 Hours (Table) 05/12/23 06:28 Blood Culture - Final Blood Assessment and Plan (1) Diabetic infection of left foot Current Visit: Yes Status: Acute Code(s): E11.628 - TYPE 2 DIABETES MELLITUS WITH OTHER SKIN COMPLICATIONS; L08.9 - LOCAL INFECTION OF THE SKIN AND SUBCUTANEOUS TISSUE, UNSP SNOMED Code(s): 80842621 (2) Gangrene associated with type 2 diabetes mellitus Current Visit: Yes Status: Acute Code(s): E11.52 - TYPE 2 DIABETES W DIABETIC PERIPHERAL ANGIOPATHY W GANGRENE SNOMED Code(s): 587381802 (3) Bacteremia Current Visit: Yes Status: Acute Code(s): R78.81 - BACTEREMIA SNOMED Code(s): 2290346 (4) Diabetic infection of right foot Current Visit: No Status: Acute Code(s): E11.628 - TYPE 2 DIABETES MELLITUS WITH OTHER SKIN COMPLICATIONS; L08.9 - LOCAL INFECTION OF THE SKIN AND SUBCUTANEOUS TISSUE, UNSP SNOMED Code(s): 23672838 Plan: 1patient present to hospital with extensive wounds to bilateral lower extremity with areas of necrotic changes surrounding redness and foul-smelling drainage did have a extensive diabetic foot infection with underlying osteomyelitis and gangrene and will need to cover for the polymicrobial kieran usually associated with diabetic foot infection 2patient has been evaluated by vascular surgery and the patient is status post left above-knee amputation completed on 05/12/2023 3patient did have Bacteroides bacteremia source likely multiple lower extremity diabetic foot infection with gangrene. 4patient remains to be afebrile patient white count is normal we will keep the patient on cefepime and Flagyl and monitor his clinical course closely Dictation was produced using [employer] dictation software. please excuse any grammatical, word or spelling errors. Time with Patient: Less than 30
--- NOTE | 2023-05-18 15:29 | P.PN ---
Subjective Progress Note Date: 05/18/23 Principal diagnosis: Reason for follow-up is bilateral diabetic foot infection with gangrene and bacteremia Patient is a 73-year-old male with a past medical history Significant for diabetes mellitus and heart failure did have a history of diabetic foot infection patient apparently was in hospice however patient was noticed to having necrotic changes to his toes that has been extending up to his leg and the family was unable to keep up with the wound care at home, patient previously refused amputation but now is ready for amputation for the patient was brought into the hospital.The patient is status post left [id number] amputation completed on 05/12/2023. On today's evaluation that is 05/18/2023 patient remains to be afebrile the patient is breathing comfortably on the 2 L nasal cannula oxygen the patient denies having any chest pain shortness of breath no cough or sputum production denies any vomiting or abdominal pain he did have a bowel movement. Patient white count normal at 9.70 creatinine slightly up to 2.0 Objective - Vital Signs Vital signs: Vital Signs Temp 97.7 F 05/18/23 07:35 Pulse 95 05/18/23 11:46 Resp 18 05/18/23 07:35 BP 103/59 05/18/23 11:46 Pulse Ox 87 L 05/18/23 07:35 FiO2 Intake & Output 05/17/23 05/18/23 05/18/23 18:59 06:59 18:59 Output Total 1600 625 Balance -1600 -625 Weight 102.965 kg Output: Urine 1600 625 Other: Voiding Method Indwelling Catheter Indwelling Catheter Indwelling Catheter # Bowel Movements 1 - Exam GENERAL DESCRIPTION: An elderly male lying in bed in no distress RESPIRATORY SYSTEM: Unlabored breathing , decreased breath sounds at bases HEART: S1 S2 regular rate and rhythm , ABDOMEN: Soft , no tenderness EXTREMITIES: Left AKA stump is currently dressed no drainage on dressing - Labs CBC & Chem 7: 05/18/23 07:07 05/18/23 07:07 Labs: Abnormal Lab Results - Last 24 Hours (Table) 05/17/23 05/17/23 05/17/23 Range/Units 12:35 13:51 16:48 Sodium 147 H (137-145) mmol/L Chloride 115 H (98-107) mmol/L Carbon Dioxide 19 L (22-30) mmol/L BUN 58 H (9-20) mg/dL Creatinine 1.68 H (0.66-1.25) mg/dL Glucose 320 H (74-99) mg/dL POC Glucose (mg/dL) 266 H 369 H (70-110) mg/dL 05/17/23 05/18/23 05/18/23 Range/Units 20:12 01:53 05:57 Sodium (137-145) mmol/L Chloride (98-107) mmol/L Carbon Dioxide (22-30) mmol/L BUN (9-20) mg/dL Creatinine (0.66-1.25) mg/dL Glucose (74-99) mg/dL POC Glucose (mg/dL) 304 H 154 H 168 H (70-110) mg/dL 05/18/23 Range/Units 11:17 Sodium (137-145) mmol/L Chloride (98-107) mmol/L Carbon Dioxide (22-30) mmol/L BUN (9-20) mg/dL Creatinine (0.66-1.25) mg/dL Glucose (74-99) mg/dL POC Glucose (mg/dL) 208 H (70-110) mg/dL Microbiology - Last 24 Hours (Table) 05/12/23 06:28 Blood Culture - Final Blood Assessment and Plan (1) Diabetic infection of left foot Current Visit: Yes Status: Acute Code(s): E11.628 - TYPE 2 DIABETES MELLITUS WITH OTHER SKIN COMPLICATIONS; L08.9 - LOCAL INFECTION OF THE SKIN AND SUBCUTANEOUS TISSUE, UNSP SNOMED Code(s): 08570170 (2) Gangrene associated with type 2 diabetes mellitus Current Visit: Yes Status: Acute Code(s): E11.52 - TYPE 2 DIABETES W DIABETIC PERIPHERAL ANGIOPATHY W GANGRENE SNOMED Code(s): 699652174 (3) Bacteremia Current Visit: Yes Status: Acute Code(s): R78.81 - BACTEREMIA SNOMED Code(s): 2948445 (4) Diabetic infection of right foot Current Visit: No Status: Acute Code(s): E11.628 - TYPE 2 DIABETES MELLITUS WITH OTHER SKIN COMPLICATIONS; L08.9 - LOCAL INFECTION OF THE SKIN AND SUBCUTANEOUS TISSUE, UNSP SNOMED Code(s): 21460048 Plan: 1patient present to hospital with extensive wounds to bilateral lower extremity with areas of necrotic changes surrounding redness and foul-smelling drainage did have a extensive diabetic foot infection with underlying osteomyelitis and gangrene and will need to cover for the polymicrobial kieran usually associated with diabetic foot infection 2patient has been evaluated by vascular surgery and the patient is status post left above-knee amputation completed on 05/12/2023 3patient did have Bacteroides bacteremia source likely multiple lower extremity diabetic foot infection with gangrene. 4the patient is afebrile and the patient did have a normal white count slight worsening of the creatinine being monitored by nephrology continue cefepime and Flagyl local wound care per surgery Dictation was produced using [employer] dictation software. please excuse any grammatical, word or spelling errors. Time with Patient: Less than 30
[2023-05-18] MEDS: MORPHINE SULFATE 4 MG/ML SYRINGE IV PRN ×3 (15:49→23:10)
[2023-05-18 16:47] LABS: Glucose,Whole Blood 257 mg/dL (70-110)
[2023-05-18] MEDS: DEXTROSE 5% IN WATER 1,000 ML IV SCH (16:55)
[2023-05-19 02:02] VITALS: BP 130/69; PULSE 61; RESP 14; TEMP 97
[2023-05-19] MEDS: MORPHINE SULFATE 4 MG/ML SYRINGE IV PRN ×3 (02:10→08:10)
[2023-05-19] MEDS: metroNIDAZOLE-NS PMX 500 MG in SALINE 1 100ML.BAG IVPB SCH (04:25)
[2023-05-19] MEDS: DEXTROSE 5% IN WATER 1,000 ML IV SCH (04:25)
[2023-05-19] MEDS: IPRATROPIUM-ALBUTEROL 3 ML NEB INHALATION SCH (07:27)
[2023-05-19] MEDS: INSULIN ASPART (NovoLOG) 100 UNIT/ML VIAL SQ SCH (08:03)
[2023-05-19] MEDS: ATORVASTATIN 40 MG TAB PO SCH (08:03)
[2023-05-19] MEDS: MIDODRINE 5 MG TAB PO SCH (08:03)
[2023-05-19] MEDS: HEPARIN SODIUM,PORCINE 5,000 UNIT/ML 1 ML VIAL SQ SCH (08:04)
[2023-05-19] MEDS: CEFEPIME 2 GM in SODIUM CHLORIDE 0.9% 100 ML IVPB SCH (08:04)
[2023-05-19] MEDS: FAMOTIDINE 20 MG TAB PO SCH (08:04)
--- NOTE | 2023-05-19 10:21 | P.DS ---
Providers Date of admission: 05/09/23 22:35 Expected date of discharge: 05/19/23 Attending physician: Lazaro Liz Consults: 05/09/23 22:01 Consult Physician Urgent Consulting Provider: Raghav Mitchell Consult Reason/Comments: gangrene, limb amputation Do you want consulting provider notified?: Yes, Notify in am 05/10/23 07:48 Consult Physician Routine Consulting Provider: Leonardo Smith Consult Reason/Comments: gangrene with sepsis Do you want consulting provider notified?: Yes 05/10/23 07:57 Consult Physician Routine Consulting Provider: Gaurav Feliz Consult Reason/Comments: renal failure Do you want consulting provider notified?: Yes 05/10/23 20:53 Consult Physician Urgent Consulting Provider: Robles Tinajero Consult Reason/Comments: Surgical clearance Do you want consulting provider notified?: Yes, Notify in am 05/10/23 20:57 Consult Physician Urgent Consulting Provider: Benjie Martinez Consult Reason/Comments: Surgical clearance Do you want consulting provider notified?: Yes, Notify in am Primary care physician: Lazaro Liz Hospital Course: Discharge diagnoses; Bilateral lower extremity gangrene, patient is post left [id number] Acute on chronic hypoxic respiratory failure Obstructive sleep apnea Sepsis secondary to Bacteroides Ileus with abdominal discomfort an underlying constipation, CAT scan of the abd omen and pelvis was noted and there is no significant metabolic obstruction. There may be some ileus Chronic kidney disease with a component of acute kidney injury, Leukocytosis Peripheral vascular disease Preserved LV function based on previous echocardiogram Hyperkalemia, improved Bacteremia with anaerobes/Bacteroides fragilis source being lower extremity gangrene Hospital course; 73-year-old male seen in the emergency room, on May 09. The patient was apparently brought in by his family, because of worsening gangrene involving the lower extremities. The patient apparently initially declined amputation, and was placed on hospice. Apparently the patient has had a change of heart, and now agrees to have surgery He seems much better his color is improved. No fever or chills stated. No nausea, vomiting or diarrhea. He still seems somewhat reluctant today to have the next amputation however. 05/18 till 05/19. Dr. Horton took over care from Dr. Liz Patient seen and examined. at the bedside. Patient is complaining of pain in his right foot. Patient respiratory status worsened, patient was requiring more oxygen, had to be placed on BiPAP. Family wanted patient to be transitioned to comfort care. Hospice was consulted. Patient was discharged to inpatient hospice PHYSICAL EXAMINATION: GENERAL: The patient is lethargic, chronically ill-looking HEENT: Pupils are round and equally reacting to light. EOMI. No scleral icterus. No conjunctival pallor. Normocephalic, atraumatic. No pharyngeal erythema. No thyromegaly. CARDIOVASCULAR: S1 and S2 present. No murmurs, rubs, or gallops. PULMONARY: Tachypneic, Coarse breath sounds bilaterally, no wheeze audible ABDOMEN: Soft, nontender, nondistended, normoactive bowel sounds. No palpable organomegaly. MUSCULOSKELETAL: Left AKA seen EXTREMITIES: No cyanosis, clubbing, or pedal edema. NEUROLOGICAL: Lethargic, moving all extremities SKIN: No rashes. Dictation was produced using [email or web address] dictation software. please excuse any grammatical, word or spelling errors. Patient Condition at Discharge: Serious Plan - Discharge Summary New Discharge Prescriptions: No Action HYDROcodone/APAP 5-325MG [[place] 5-325] 1 tab PO Q4HR PRN PRN Reason: Pain Cephalexin [Keflex] 500 mg PO Q6HR Discharge Medication List Cephalexin [Keflex] 500 mg PO Q6HR 05/10/23 [History] HYDROcodone/APAP 5-325MG [[place] 5-325] 1 tab PO Q4HR PRN 05/10/23 [History] Follow up Appointment(s)/Referral(s): Lazaro Liz MD [Primary Care Provider] - 1-2 days Discharge Disposition: OTHER INSTITUTION NOT DEFINED
--- NOTE | 2023-05-19 11:17 | P.PN ---
Subjective Patient is seen in follow-up for chronic kidney disease. Family is present at bedside. Renal function has been fairly stable this admission. Sodium level CXLVIII yesterday. No labs today. Vital signs are stable. General: Resting in bed. Lethargic. HEENT: On nasal cannula. LUNGS: Scattered rhonchi. HEART: Rate and Rhythm are regular. ABDOMEN: No distention. EXTREMITITES: AKA noted. Objective - Vital Signs Vital signs: Vital Signs Temp 97.0 F L 05/19/23 01:05 Pulse 61 05/19/23 01:05 Resp 14 05/19/23 01:05 BP 130/69 05/19/23 01:05 Pulse Ox 100 05/19/23 01:05 FiO2 Intake & Output 05/18/23 05/19/23 05/19/23 18:59 06:59 18:59 Output Total 500 200 Balance -500 -200 Output: Urine 200 Stool 500 Other: Voiding Method Indwelling Catheter Indwelling Catheter # Voids 1 - Labs CBC & Chem 7: 05/18/23 07:07 05/18/23 07:07 Labs: Abnormal Lab Results - Last 24 Hours (Table) 05/18/23 05/18/23 05/18/23 Range/Units 07:07 07:07 11:17 RBC 4.09 L (4.40-5.60) X 10*6/uL Hgb 11.1 L (13.0-17.0) g/dL MCV 98.8 H (80.0-97.0) FL MCHC 27.5 L (32.0-37.0) g/dL RDW 17.2 H (11.5-14.5) % Sodium 148 H (135-145) mmol/L Chloride 115 H (96-109) mmol/L Carbon Dioxide 20.0 L (21.6-31.8) mmol/L Anion Gap 13.00 H (4.00-12.00) mmol/L BUN 53.0 H (9.0-27.0) mg/dL Creatinine 2.0 H (0.6-1.5) mg/dL Est GFR (CKD-EPI) 35 L (>=60) BUN/Creatinine Ratio 26.50 H (12.00-20.00) Ratio Glucose 202 H (70-110) mg/dL POC Glucose (mg/dL) 208 H (70-110) mg/dL Alkaline Phosphatase 142 H (41-126) U/L Albumin 2.6 L (3.8-4.9) g/dL Globulin 3.9 H (1.6-3.3) g/dL Albumin/Globulin Ratio 0.67 L (1.60-3.17) Ratio 05/18/23 05/18/23 Range/Units 13:59 16:45 RBC (4.40-5.60) X 10*6/uL Hgb (13.0-17.0) g/dL MCV (80.0-97.0) FL MCHC (32.0-37.0) g/dL RDW (11.5-14.5) % Sodium (135-145) mmol/L Chloride (96-109) mmol/L Carbon Dioxide (21.6-31.8) mmol/L Anion Gap (4.00-12.00) mmol/L BUN (9.0-27.0) mg/dL Creatinine (0.6-1.5) mg/dL Est GFR (CKD-EPI) (>=60) BUN/Creatinine Ratio (12.00-20.00) Ratio Glucose (70-110) mg/dL POC Glucose (mg/dL) 232 H 257 H (70-110) mg/dL Alkaline Phosphatase (41-126) U/L Albumin (3.8-4.9) g/dL Globulin (1.6-3.3) g/dL Albumin/Globulin Ratio (1.60-3.17) Ratio Assessment and Plan Plan: Assessment: 1. Chronic kidney disease stage IIIB secondary to diabetic kidney disease with baseline creatinine near 1.7. 2. Hypernatremia from lack of oral water intake. 3. Metabolic acidosis secondary to chronic kidney disease. 4. Diabetes mellitus. 5. Lower extremity gangrene status post left [id number]-[id number] amputation. Right amputation pending. Vascular surgery following. 6. Hypotension maintained on midodrine. 7. Volume overload. Anasarca changes noted on CAT scan. Plan: No new labs today. Family decided to proceed with hospice. I will sign off.
== END 2023-05-19 09:48 | disposition hospice, inpatient (51) | DRG 853 ==
LOC: EC 19:15 → 5NMEDONC 22:35 → 3SCARD 05-12 17:16 → 4SSUR 05-16 15:45
PROVIDERS: ADMIT Family Medicine; ATTEND Family Medicine
PROC: 0Y6D0Z1 Detachment at Left Upper Leg, High, Open Approach (ICD-10-PCS; principal; 2023-05-12 10:00)
DX: A41.4 Sepsis due to anaerobes (principal); G93.41 Metabolic encephalopathy; J96.21 Acute and chronic respiratory failure with hypoxia; E11.52 Type 2 diabetes mellitus with diabetic peripheral angiopathy with gangrene; E87.1 Hypo-osmolality and hyponatremia; I13.0 Hypertensive heart and chronic kidney disease with heart failure and stage 1 through stage 4 chronic kidney disease, or unspecified chronic kidney disease; J98.11 Atelectasis; K56.7 Ileus, unspecified; K59.39 Other megacolon; L03.115 Cellulitis of right lower limb; N17.9 Acute kidney failure, unspecified; N18.4 Chronic kidney disease, stage 4 (severe); E11.22 Type 2 diabetes mellitus with diabetic chronic kidney disease; E11.319 Type 2 diabetes mellitus with unspecified diabetic retinopathy without macular edema; Z51.5 Encounter for palliative care; Z66 Do not resuscitate; J84.10 Pulmonary fibrosis, unspecified; E11.65 Type 2 diabetes mellitus with hyperglycemia; I50.9 Heart failure, unspecified; I70.203 Unspecified atherosclerosis of native arteries of extremities, bilateral legs; I27.20 Pulmonary hypertension, unspecified; E11.628 Type 2 diabetes mellitus with other skin complications; E87.5 Hyperkalemia; G47.33 Obstructive sleep apnea (adult) (pediatric); K59.09 Other constipation; M10.9 Gout, unspecified; Z79.4 Long term (current) use of insulin; Z79.84 Long term (current) use of oral hypoglycemic drugs; M19.90 Unspecified osteoarthritis, unspecified site; Z79.02 Long term (current) use of antithrombotics/antiplatelets; Z79.82 Long term (current) use of aspirin; Z79.899 Other long term (current) drug therapy; Z83.3 Family history of diabetes mellitus; Z28.310 Unvaccinated for COVID-19; Z28.21 Immunization not carried out because of patient refusal; Z89.422 Acquired absence of other left toe(s); Z86.14 Personal history of Methicillin resistant Staphylococcus aureus infection
CPT/HCPCS: 36415; 70450; 71045; 74018; 74176; 76770; 80048; 80053; 80202; 82533; 82550; 82565; 83036; 83605; 83735; 85025; 85027; 87040; 94640; 94760; 96361; 96365; 96366; 96367; 96375; 96376; 99285

== ENCOUNTER 2023-05-19 09:26 | Inpatient (IN) | payer MEDICAID ==
[2023-05-19] MEDS ORDERED: ATROPINE OPHTH SOLN 1% 5ML BTL SUBLINGUAL PRN (09:31)
[2023-05-19] MEDS ORDERED: LORazepam 2 MG/ML INJ IV PRN (09:31)
[2023-05-19] MEDS ORDERED: MORPHINE SULFATE 4 MG/ML SYRINGE IV PRN (09:31)
[2023-05-19 11:19] VITALS: RESP 8
--- NOTE | 2023-05-20 09:06 | P.HPIM ---
History of Present Illness H&P Date: 05/19/23 History of present illness; 73-year-old male was apparently brought in by his family, because of worsening gangrene involving the lower extremities. The patient apparently initially declined amputation, and was placed on hospice. Patient later changes opinion and wanted surgery. Patient was being seen by pulmonary, ID, vascular surgery, patient underwent left AKA while in the hospital. During hospital stay patient respiratory status deteriorated, family wanted patient to be transitioned to comfort care. Patient was admitted to inpatient hospice REVIEW OF SYSTEMS: Review of systems cannot be obtained as patient is lethargic, confused. PHYSICAL EXAMINATION: GENERAL: The patient is lethargic, chronically ill-looking HEENT: Pupils are round and equally reacting to light. EOMI. No scleral icterus. No conjunctival pallor. Normocephalic, atraumatic. No pharyngeal erythema. No thyromegaly. CARDIOVASCULAR: S1 and S2 present. No murmurs, rubs, or gallops. PULMONARY: Tachypneic, Coarse breath sounds bilaterally, no wheeze audible ABDOMEN: Soft, nontender, nondistended, normoactive bowel sounds. No palpable organomegaly. MUSCULOSKELETAL: Left AKA seen EXTREMITIES: No cyanosis, clubbing, or pedal edema. NEUROLOGICAL: Lethargic, moving all extremities SKIN: No rashes. Assessment and plan Bilateral lower extremity gangrene, patient is post left [id number] Acute on chronic hypoxic respiratory failure Obstructive sleep apnea Sepsis secondary to Bacteroides Ileus with abdominal discomfort an underlying constipation, CAT scan of the abdomen and pelvis was noted and there is no significant metabolic obstruction. There may be some ileus Chronic kidney disease with a component of acute kidney injury, Leukocytosis Peripheral vascular disease Preserved LV function based on previous echocardiogram Hyperkalemia, improved Bacteremia with anaerobes/Bacteroides fragilis source being lower extremity gangrene Continue comfort care measures Hospice on board Continue same treatment. Continue with symptomatic treatment. Further recommendations as per clinical course of the patient Dictation was produced using [employer] dictation software. please excuse any grammatical, word or spelling errors. Past Medical History Past Medical History: Heart Failure, Diabetes Mellitus Additional Past Medical History / Comment(s): 10/04/14 Pt presented to [facility] ER with infection L lower leg for approximately one week. He saw his behavioral health aide who swabbed the area and placed him on Keflex 3 days ago without improvement. Hehasfever and chills. He is being admitted with cellulitis. Other HX: IDDM type II, CKD, PVD, diabetic neuropathy, diabetic retinopathy, pulmonary HTN, pulmonary fibrosis, KIERA with BiPap use,severearthiritis-psoriatic and rheumatoid, osteomyelitis L lower extremity 2005 or 2006, gout, gastritis, sinus problems, cholestatic jaundice 2008 (pt had cholecystectomy 2009), abscess perirectalandscrotal 2003, L shoulder bursitis treated with steroid injections. History of Any Multi-Drug Resistant Organisms: MRSA Date of last positivie culture/infection: 08/18/21 MDRO Source:: Right Foot Past Surgical History: Cholecystectomy Additional Past Surgical History / Comment(s): cataract, Lt 2nd toe amputation Past Anesthesia/Blood Transfusion Reactions: No Reported Reaction Additional Past Anesthesia/Blood Transfusion Reaction / Comment(s): Pt has never recieved blood. Past Psychological History: No Psychological Hx Reported Smoking Status: Never smoker Past Alcohol Use History: Occasional Past Drug Use History: None Reported - Past Family History Father Family Medical History: Cancer, Renal Disease Additional Family Medical History / Comment(s): Father had one kidney removed. Mother Family Medical History: Diabetes Mellitus, Vascular Disorder Medications and Allergies Home Medications Medication Instructions Recorded Confirmed Type Cephalexin [Keflex] 500 mg PO Q6HR 05/10/23 05/10/23 History HYDROcodone/APAP 5-325MG [[place] 1 tab PO Q4HR PRN 05/10/23 05/10/23 History 5-325] Allergies Allergy/AdvReac Type Severity Reaction Status Date / Time allopurinol Allergy Rash/Hives Verified 05/10/23 08:22 Physical Exam Vitals: Intake and Output 05/18/23 05/19/23 05/19/23 22:59 06:59 14:59 Other: Weight 102.9 kg
--- NOTE | 2023-05-20 09:09 | P.DS ---
Providers Date of admission: 05/19/23 09:47 Expected date of discharge: 05/19/23 Attending physician: Tavo Mcclellan MD Primary care physician: Tavo Mcclellan MD Hospital Course: Discharge diagnoses; Bilateral lower extremity gangrene, patient is post left [id number] Acute on chronic hypoxic respiratory failure Obstructive sleep apnea Sepsis secondary to Bacteroides Ileus with abdominal discomfort an underlying constipation, CAT scan of the abdomen and pelvis was noted and there is no significant metabolic obstruction. There may be some ileus Chronic kidney disease with a component of acute kidney injury, Leukocytosis Peripheral vascular disease Preserved LV function based on previous echocardiogram Hyperkalemia, improved Bacteremia with anaerobes/Bacteroides fragilis source being lower extremity gangrene Hospital course; 73-year-old male was apparently brought in by his family, because of worsening gangrene involving the lower extremities. The patient apparently initially declined amputation, and was placed on hospice. Patient later changes opinion and wanted surgery. Patient was being seen by pulmonary, ID, vascular surgery, patient underwent left AKA while in the hospital. During hospital stay patient respiratory status deteriorated, family wanted patient to be transitioned to comfort care. Patient was admitted to inpatient hospice. Patient was pronounced on 05/19/23 at 11;13am Dictation was produced using [employer] dictation software. please excuse any grammatical, word or spelling errors. Patient Condition at Discharge: Poor Plan - Discharge Summary New Discharge Prescriptions: No Action HYDROcodone/APAP 5-325MG [[place] 5-325] 1 tab PO Q4HR PRN PRN Reason: Pain Cephalexin [Keflex] 500 mg PO Q6HR Discharge Medication List Cephalexin [Keflex] 500 mg PO Q6HR 05/10/23 [History] HYDROcodone/APAP 5-325MG [[place] 5-325] 1 tab PO Q4HR PRN 05/10/23 [History] Discharge Disposition: - Preliminary Cause of Preliminary Cause of : Bilateral lower extremity gangrene
== END 2023-05-19 11:11 | disposition expired | DRG 951 ==
LOC: 4SSUR 09:47
PROVIDERS: ADMIT Internal Medicine; ATTEND Internal Medicine
DX: Z51.5 Encounter for palliative care (principal); A41.4 Sepsis due to anaerobes; J96.21 Acute and chronic respiratory failure with hypoxia; I70.262 Atherosclerosis of native arteries of extremities with gangrene, left leg; E11.52 Type 2 diabetes mellitus with diabetic peripheral angiopathy with gangrene; K56.7 Ileus, unspecified; E11.22 Type 2 diabetes mellitus with diabetic chronic kidney disease; E11.319 Type 2 diabetes mellitus with unspecified diabetic retinopathy without macular edema; E11.40 Type 2 diabetes mellitus with diabetic neuropathy, unspecified; G47.33 Obstructive sleep apnea (adult) (pediatric); I27.20 Pulmonary hypertension, unspecified; I50.9 Heart failure, unspecified; J84.10 Pulmonary fibrosis, unspecified; N18.9 Chronic kidney disease, unspecified; Z79.4 Long term (current) use of insulin; Z89.612 Acquired absence of left leg above knee; Z90.49 Acquired absence of other specified parts of digestive tract